=== PATIENT | male | born 1955 | race Caucasian/White ===

== ENCOUNTER 2016-10-08 08:19 | Outpatient (RCR) | payer BC ==
[2016-09-25 10:00] VITALS: BP 108/68
[2016-09-25] MEDS: ERTAPENEM 1 GM/NS 50 ML IVPB IV SCH ×2 (10:19)
[2016-09-25] MEDS: CATHETER FLUSH 10 ML SYR IV PRN (10:19)
[2016-09-25] MEDS: FLUCONAZOLE 100 MG/50 ML 50 ML IV SCH (10:55)
[2016-09-25] MEDS: LEVOFLOXACIN 750 MG/D5W 150 ML PRE-MIX IV SCH (10:57)
[2016-09-26 09:00] VITALS: BP 112/73
[2016-09-26] MEDS: CATHETER FLUSH 10 ML SYR IV PRN ×3 (09:16→11:10)
[2016-09-26] MEDS: LEVOFLOXACIN 750 MG/D5W 150 ML PRE-MIX IV SCH (09:17)
[2016-09-26] MEDS: FLUCONAZOLE 100 MG/50 ML 50 ML IV SCH (09:36)
[2016-09-26] MEDS: ERTAPENEM 1 GM/NS 50 ML IVPB IV SCH ×2 (10:38)
[2016-09-27 09:07] VITALS: BP 113/87
[2016-09-27] MEDS: CATHETER FLUSH 10 ML SYR IV PRN ×3 (09:29→11:25)
[2016-09-27] MEDS: FLUCONAZOLE 100 MG/50 ML 50 ML IV SCH (09:30)
[2016-09-27] MEDS: LEVOFLOXACIN 750 MG/D5W 150 ML PRE-MIX IV SCH (09:30)
[2016-09-27] MEDS: ERTAPENEM 1 GM/NS 50 ML IVPB IV SCH ×2 (10:53)
[2016-09-28] MEDS: CATHETER FLUSH 10 ML SYR IV PRN ×2 (08:55→10:55)
[2016-09-28] MEDS: LEVOFLOXACIN 750 MG/D5W 150 ML PRE-MIX IV SCH (08:56)
[2016-09-28] MEDS: FLUCONAZOLE 100 MG/50 ML 50 ML IV SCH (09:00)
[2016-09-28 09:16] VITALS: BP 111/81
--- NOTE | 2016-09-28 10:13 | Physician Query-Final Dx ---
ANDREINA MANZO 09/28/16 1012: Clinic Account Progress/Dx Physician Query: Please give a dignosis for the IV med treatment thank you Date of Service Sep 28, 2016 at 08:34 ROXIE HERNANDEZ MD 09/28/16 1534: Clinic Account Progress/Dx DIAGNOSIS: Diagnosis perforated sigmoid diverticulitis and multiple intraabdominal abscess formation. ANDREINA MANZO Sep 28, 2016 10:12 ROXIE HERNANDEZ MD Sep 28, 2016 15:34
[2016-09-28] MEDS: ERTAPENEM 1 GM/NS 50 ML IVPB IV SCH ×2 (10:24)
[2016-09-29] MEDS: CATHETER FLUSH 10 ML SYR IV PRN ×2 (08:40→10:15)
[2016-09-29] MEDS: LEVOFLOXACIN 750 MG/D5W 150 ML PRE-MIX IV SCH (08:50)
[2016-09-29 09:00] VITALS: BP 95/74
[2016-09-29] MEDS: FLUCONAZOLE 100 MG/50 ML 50 ML IV SCH (09:07)
[2016-09-29] MEDS: ERTAPENEM 1 GM/NS 50 ML IVPB IV SCH ×2 (09:45)
[2016-09-29 10:23] VITALS: BP 95/74
[2016-09-30] MEDS: ERTAPENEM 1 GM/NS 50 ML IVPB IV SCH ×2 (08:58)
[2016-09-30] MEDS: CATHETER FLUSH 10 ML SYR IV PRN ×2 (09:30→11:00)
[2016-09-30] MEDS: LEVOFLOXACIN 750 MG/D5W 150 ML PRE-MIX IV SCH (09:31)
[2016-09-30] MEDS: FLUCONAZOLE 100 MG/50 ML 50 ML IV SCH (09:32)
[2016-09-30 11:10] VITALS: BP 120/79
[2016-10-01] MEDS: FLUCONAZOLE 100 MG/50 ML 50 ML IV SCH (08:55)
[2016-10-01] MEDS: LEVOFLOXACIN 750 MG/D5W 150 ML PRE-MIX IV SCH (08:55)
[2016-10-01] MEDS: CATHETER FLUSH 10 ML SYR IV PRN (08:55)
[2016-10-01] MEDS: ERTAPENEM 1 GM/NS 50 ML IVPB IV SCH ×2 (10:20)
[2016-10-01 10:54] VITALS: BP 93/78
[2016-10-02] MEDS: CATHETER FLUSH 10 ML SYR IV PRN ×3 (08:57→10:55)
[2016-10-02] MEDS: LEVOFLOXACIN 750 MG/D5W 150 ML PRE-MIX IV SCH (08:57)
[2016-10-02] MEDS: FLUCONAZOLE 100 MG/50 ML 50 ML IV SCH (09:18)
[2016-10-02 09:44] VITALS: BP 108/78
[2016-10-02] MEDS: ERTAPENEM 1 GM/NS 50 ML IVPB IV SCH ×2 (10:25)
[2016-10-03] MEDS: CATHETER FLUSH 10 ML SYR IV PRN ×4 (08:55→10:55)
[2016-10-03] MEDS: LEVOFLOXACIN 750 MG/D5W 150 ML PRE-MIX IV SCH (08:55)
[2016-10-03] MEDS: FLUCONAZOLE 100 MG/50 ML 50 ML IV SCH (09:17)
[2016-10-03] MEDS: ERTAPENEM 1 GM/NS 50 ML IVPB IV SCH ×2 (10:24)
[2016-10-03 11:02] VITALS: BP 111/79
[2016-10-04] MEDS: LEVOFLOXACIN 750 MG/D5W 150 ML PRE-MIX IV SCH (08:39)
[2016-10-04] MEDS: CATHETER FLUSH 10 ML SYR IV PRN ×3 (08:40→10:04)
[2016-10-04] MEDS: FLUCONAZOLE 100 MG/50 ML 50 ML IV SCH (09:02)
[2016-10-04] MEDS: ERTAPENEM 1 GM/NS 50 ML IVPB IV SCH ×2 (10:04)
[2016-10-04 10:36] VITALS: BP 112/73
[2016-10-05] MEDS: LEVOFLOXACIN 750 MG/150 ML IV 150 ML IV SCH (08:29)
[2016-10-05] MEDS: FLUCONAZOLE 100 MG/50 ML 50 ML IV SCH (08:30)
[2016-10-05 08:42] VITALS: BP 118/75
[2016-10-05] MEDS: ERTAPENEM IV SCH (09:50)
[2016-10-05] MEDS: NORMAL SALINE IV SCH (09:50)
[2016-10-06] MEDS: LEVOFLOXACIN 750 MG/150 ML IV 150 ML IV SCH (08:27)
[2016-10-06] MEDS: CATHETER FLUSH 10 ML SYR IV PRN ×4 (08:27→10:30)
[2016-10-06] MEDS: FLUCONAZOLE 100 MG/50 ML 50 ML IV SCH (08:43)
[2016-10-06 08:45] VITALS: BP 118/75
[2016-10-06] MEDS: ERTAPENEM IV SCH (09:58)
[2016-10-06] MEDS: NORMAL SALINE IV SCH (09:58)
[2016-10-07] MEDS: CATHETER FLUSH 10 ML SYR IV PRN ×2 (08:32→10:30)
[2016-10-07] MEDS: LEVOFLOXACIN 750 MG/150 ML IV 150 ML IV SCH (08:40)
[2016-10-07] MEDS: FLUCONAZOLE 100 MG/50 ML 50 ML IV SCH (08:50)
[2016-10-07] MEDS: ERTAPENEM IV SCH (10:00)
[2016-10-07] MEDS: NORMAL SALINE IV SCH (10:00)
[2016-10-07 10:32] VITALS: BP 111/75
[~2016-10-08] VITALS: Ht 182.9 cm; Wt 96.7 kg
[~2016-10-08 08:19] MED LIST: ALBU8.5H2 IH; ALPR1TAB7 PO; ASP81CT PO; ASPI-266 PO; AZIT-21 PO; BREO INH; CEFU500T5 PO; CLOP75TA PO; CLOP75TA28 PO; CLPD75T PO; ERTA1VIA3 IV; ERTAPENEM 1000 MG (INVanz) VIAL ONE; FLUC100P12 IV; FLUT1AER IH; GEMF600T3 PO; HYDR473S34 PO; LEVO750P7 IV; LISI2.5T PO; LISI5TAB14 PO; LORA-407 PO; LOSA25TA21 PO; METO-351 PO; METO25TA PO; METR500T PO; MTP25TSR PO; NORMAL SALINE (BAXTER MINI) 50 ML IV ONE; OXYC-202 PO; PANT40TA2 PO; PRD20T PO; RT-ALBUINH IH; RT-COMBINH INH; SILD100T PO; SIMV20TA3 PO; SMV20T PO; TIOT18CA2 IH; TIOT4MIS2 IH; WALK1EAC23 MC; [UNRECOGNIZED DRUG - REMARK]
[2016-10-08] MEDS ORDERED: NORMAL SALINE (BAXTER MINI) 50 ML IV ONE (08:38)
[2016-10-08] MEDS ORDERED: ERTAPENEM 1000 MG (INVanz) VIAL ONE (08:38)
[2016-10-08] MEDS: ERTAPENEM IV SCH (08:50)
[2016-10-08] MEDS: NORMAL SALINE IV SCH (08:50)
[2016-10-08] MEDS: LEVOFLOXACIN 750 MG/150 ML IV 150 ML IV SCH (09:27)
[2016-10-08] MEDS: FLUCONAZOLE 100 MG/50 ML 50 ML IV SCH (09:29)
[2016-10-08] MEDS: CATHETER FLUSH 10 ML SYR IV PRN (11:00)
[2016-10-08 11:15] VITALS: BP 124/74
[2016-12-01] MEDS ORDERED: ALPR2TAB6 PO (13:18)
[2016-12-01] MEDS ORDERED: PANT40TA3 PO (13:21)
[2016-12-01] MEDS ORDERED: FLUT1AER IH (13:21)
[2016-12-01] MEDS ORDERED: OXYC-197 PO (13:25)
[2016-12-03] MEDS ORDERED: TIOT18CA2 INH (09:10)
[2016-12-03] MEDS ORDERED: METR500T21 PO (09:10)
[2016-12-03] MEDS ORDERED: LEVO750T39 PO (09:10)
[2016-12-03] MEDS ORDERED: OXYC-202 PO (09:16)
[2016-12-03] MEDS ORDERED: ALBU90AE INH (09:16)
[2016-12-09] MEDS ORDERED: OXYC-202 PO (14:31)
== END 2016-12-24 | disposition home or self-care (01) ==
LOC: SDC 08:19
PROVIDERS: ATTEND Surgery Pediatric Surgery
DX: K57.20 Diverticulitis of large intestine with perforation and abscess without bleeding (principal)
CPT/HCPCS: 96365; 96366; 96367; 96374; 99211

== ENCOUNTER → 2016-10-21 | Outpatient (CLI) | payer BC ==
[~2016-10-21] MED LIST changes: +ALBU90AE INH; +ALPR2TAB6 PO; -ERTAPENEM 1000 MG (INVanz) VIAL ONE; +LEVO750T39 PO; +LORA1TAB PO; +METR500T21 PO; -NORMAL SALINE (BAXTER MINI) 50 ML IV ONE; +OXYC-197 PO; +OXYC-465 PO; +PANT40TA3 PO; +SERT50TA9 PO; +TIOT18CA2 INH
--- NOTE | 2016-10-21 16:38 | Diagnostic Imaging Report ---
PROCEDURE: CT abdomen and pelvis without contrast. TECHNIQUE: Multiple contiguous axial images were obtained through the abdomen and pelvis without the use of intravenous contrast. INDICATION: Diverticulitis. FINDINGS: When compared to 09/19/2016, there has been resolution of previously seen large peritoneal fluid collections and abscesses. There is still a drain seen extending into the pelvis with no significant fluid collection remaining. The lung bases demonstrate minimal scarring. The liver, the gallbladder, the spleen, the pancreas, and the adrenal glands appear unremarkable. The kidneys demonstrate no hydronephrosis and no urinary tract stones identified. There are multiple phleboliths noted. The urinary bladder demonstrates mild wall thickening which may relate to cystitis. The abdominal aorta demonstrates ectasia in its distal aspect up to 3 cm in caliber/mild aneurysm. 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 There are diverticula noted around the sigmoid colon with minimal remaining fatty stranding which could represent remaining mild inflammation or nonspecific edema after resolving diverticulitis. The osseous structures appear grossly unremarkable. IMPRESSION: 1. Interval complete resolution of intra-abdominal abscesses. No significant free fluid or fluid collection in the abdomen or pelvis is present at this time. 2. Sigmoid diverticulosis with minimal fatty stranding could relate to mild remaining inflammation or post inflammatory nonspecific edema. 3. Mild urinary bladder wall thickening may relate to cystitis. 4. 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 Dictated by: Dictated on workstation # [id number]
== END ==
LOC: RAD 15:45
PROVIDERS: ATTEND Surgery Pediatric Surgery
DX: K57.30 Diverticulosis of large intestine without perforation or abscess without bleeding (principal)
CPT/HCPCS: 74176

== ENCOUNTER 2016-11-30 13:53 | Outpatient (CLI) | payer BC ==
[~2016-11-30] VITALS: Ht 182.9 cm; Wt 96.7 kg
[~2016-11-30 13:53] MED LIST changes: -ALBU90AE INH; -ALPR2TAB6 PO; -LEVO750T39 PO; -LORA1TAB PO; -METR500T21 PO; -OXYC-197 PO; -OXYC-465 PO; -PANT40TA3 PO; -SERT50TA9 PO; -TIOT18CA2 INH
[2016-11-30] MEDS ORDERED: IOHEXOL 350 MG/ML 100 ML (OMNIPAQUE 350) VIAL IV ONE (14:00)
[2016-11-30] MEDS ORDERED: CATHETER FLUSH 10 ML SYR IV PRN (14:00)
[2016-11-30] MEDS ORDERED: NS 100 ML (IVPB) BAG IV ONE (14:00)
[2016-11-30 14:10] LABS: RED BLOOD COUNT 5.25 10^6/uL (4.35-5.85); RED CELL DISTRIBUTION WIDTH 14.7 % (10.0-14.5); WHITE BLOOD COUNT 9.5 10^3/uL (4.3-11.0)
[2016-11-30 14:30] LABS: ALANINE AMINOTRANSFERASE 12 U/L (0-55); ALBUMIN 4.3 G/DL (3.2-4.5); ANION GAP 11 MMOL/L (5-14); ASPARTATE AMINO TRANSFERASE 16 U/L (5-34); BILIRUBIN,TOTAL 0.8 MG/DL (0.1-1.0); BLOOD UREA NITROGEN 17 MG/DL (7-18); BUN/CREATININE RATIO 21; CALCIUM 9.6 MG/DL (8.5-10.1); CARBON DIOXIDE 23 MMOL/L (21-32); CHLORIDE 102 MMOL/L (98-107); CREATININE SERUM 0.82 MG/DL (0.60-1.30); GFR ESTIMATED > 60; GLUCOSE 101 MG/DL (70-105); POTASSIUM 4.6 MMOL/L (3.6-5.0); SODIUM 136 MMOL/L (135-145); TOTAL PROTEIN 7.4 G/DL (6.4-8.2)
[2016-11-30] MEDS ORDERED: LIDOCAINE 1% INJ 20 ML (XYLOCAINE) VIAL ONE (14:53)
[2016-11-30] MEDS ORDERED: fentaNYL INJECTION 100 MCG/2 ML AMP ONE (14:57)
[2016-11-30 15:11] VITALS: BP 116/74
[2016-11-30] MEDS: fentaNYL INJECTION 100 MCG/2 ML AMP IVP PRN ×2 (15:13→15:27)
[2016-11-30 15:15] VITALS: BP 144/80
[2016-11-30] MEDS ORDERED: LIDOCAINE 1% INJ 20 ML (XYLOCAINE) VIAL INJ ONE (15:15)
[2016-11-30 15:21] VITALS: BP 127/79
[2016-11-30 15:25] VITALS: BP 128/69
[2016-11-30 15:37] VITALS: BP 144/54
[2016-11-30] MEDS ORDERED: CATHETER FLUSH 10 ML SYR IV ONE (16:00)
--- NOTE | 2016-11-30 16:02 | Discharge Instructions ---
Discharge Instructions Home Medicaitons Changes Hold any current blood thinner home medications for [24 hours]. No change otherwise in patient medications ALEXEI GARCIA MD Nov 30, 2016 16:01
--- NOTE | 2016-11-30 16:39 | Diagnostic Imaging Report ---
PROCEDURE: CT abdomen and pelvis with contrast. TECHNIQUE: Multiple contiguous axial images were obtained through the abdomen and pelvis after administration of intravenous contrast. INDICATION: Abdominal pain. CONTRAST: 100 mL of Omnipaque 350 is administered intravenously. FINDINGS: The lung bases demonstrate no significant abnormality. The liver, the spleen, the pancreas, the adrenal glands, and the gallbladder appear unremarkable. The kidneys have symmetric enhancement and contrast excretion. There is no hydronephrosis. Tiny fat-containing umbilical hernia is seen. There are two fluid collections seen in the abdomen with the one in the lower left side measuring 7 x 4 x 10.5 CM. This has two compartments and connected with a thin channel with the upper compartment towards the left side measuring 3.3 x 3.1 cm in the axial dimension. There is another fluid collection along the tract of a prior drain measuring 1.8 x 2 x 7.2 cm with air-fluid levels seen in both of them and enhancing wall compatible with abscesses. The sigmoid colon demonstrates some thickening with minimal surrounding fatty stranding probably related to prior inflammation. No definite active colitis at this time. No bowel obstruction. The abdominal aorta is slightly dilated measuring 2.7 cm in its infrarenal aspect with an aneurysm of the right common iliac artery measuring 1.9 cm in caliber. Mild ectasia of the left common iliac artery is seen. The osseous structures demonstrate mild degenerative changes of the SI joints. IMPRESSION: 1. There are two abscesses in the mid and lower left side of the abdomen. 2. 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 The findings were discussed with . Dictated by: Dictated on workstation # [id number]
[2016-11-30 17:30] VITALS: BP 144/54
--- NOTE | 2016-12-01 11:39 | Diagnostic Imaging Report ---
EXAMINATION: CT-guided drain placement. 2 drains placement in 2 separate abscesses. INDICATION: two abscesses in the mid and lower left side of the abdomen. The patient's vital signs, cardiac rhythm, and pulse oximetry with observed throughout the procedure by qualified nursing personnel. Sedation/medications: fentanyl IV. CONSENT: Informed consent was obtained from the patient. The risks, benefits, potential complications and alternatives were reviewed and all questions answered to the patient's satisfaction. FINDINGS: two abscesses in the mid and lower left side of the abdomen PROCEDURE-1: After maximal sterile barrier preparation and draping, 1% lidocaine was utilized for local anesthesia. With the patient in supine position, anterior approach was selected. A 19-gauge Yueh sheathed needle was introduced utilizing CT guidance into the lower left abdominal collection. CT images confirm appropriate positioning. After standard over a guidewire exchange technique and after serial dilatation, a 10 Guamanian drain is placed and distal loop formed in the collection. A 50 ml of purulent fluid is aspirated and sent to microbiology. PROCEDURE-2:Then attention was turned into the other collection in the mid left abdomen. After maximal sterile barrier preparation and draping, 1% lidocaine was utilized for local anesthesia. With the patient in supine position, anterior approach was selected. A 19-gauge Yueh sheathed needle was introduced utilizing CT guidance into the mid left the abdominal collection. CT images confirm appropriate positioning. After standard over a guidewire exchange technique and after serial dilatation, a 10 Guamanian drain is placed and distal loop formed in the collection. A 10 ml of purulent fluid is aspirated and sent to microbiology. The drainage catheter is connected to suction type draining bag. The patient tolerated the procedure well with no immediate complications. IMPRESSION: 1. Successful CT-guided, 10 Guamanian, drain placement in left lower abdomen abscess. 2. Successful CT-guided, 10 Guamanian, drain placement in left mid abdomen abscess. Dictated by: Dictated on workstation # [id number]
[2016-12-01] MEDS ORDERED: ALPR2TAB6 PO (13:18)
[2016-12-01] MEDS ORDERED: FLUT1AER IH (13:21)
[2016-12-01] MEDS ORDERED: PANT40TA3 PO (13:21)
[2016-12-01] MEDS ORDERED: OXYC-197 PO (13:25)
[2016-12-29] MEDS ORDERED: SERT50TA9 PO (12:13)
== END 2016-11-30 17:30 | disposition home or self-care (01) ==
LOC: RAD 13:53
PROVIDERS: ATTEND Nurse Practitioner Family
DX: K57.20 Diverticulitis of large intestine with perforation and abscess without bleeding (principal)
CPT/HCPCS: 36415; 74177; 80053; 85027; 87070; 87075; 87101; 87186; 87205

== ENCOUNTER 2016-12-01 11:21 | Outpatient (CLI) | payer BC ==
[~2016-12-01] VITALS: Ht 182.9 cm; Wt 96.3 kg
[2016-12-01 11:28] VITALS: BP 123/73
[2016-12-01] MEDS ORDERED: ALPR2TAB6 PO (13:18)
[2016-12-01] MEDS ORDERED: PANT40TA3 PO (13:21)
[2016-12-01] MEDS ORDERED: FLUT1AER IH (13:21)
[2016-12-01] MEDS ORDERED: OXYC-197 PO (13:25)
== END 2016-12-01 11:50 | disposition home or self-care (01) ==
LOC: PREOP 11:21
PROVIDERS: ATTEND Surgery Pediatric Surgery
DX: Z01.818 Encounter for other preprocedural examination (principal); Z11.2 Encounter for screening for other bacterial diseases; K57.20 Diverticulitis of large intestine with perforation and abscess without bleeding
CPT/HCPCS: 87081

== ENCOUNTER 2016-12-02 11:17 | Inpatient (IN) | payer BC ==
[2016-12-02] VITALS (7 sets, daily range): BP systolic 99–149; BP diastolic 67–89
[~2016-12-02] VITALS: Ht 182.9 cm; Wt 94.0 kg
--- NOTE | 2016-12-02 10:06 | HISTORY AND PHYSICAL ---
ATTENDING PHYSICIAN: Dr. Meehan Mr. Sam Trujillo is a 61-year-old male who was admitted on 09/06/2016 for worsening shortness of breath and exacerbation of COPD. He was having copious coughing, as well as a sputum production. He continued to require oxygen and stay in the hospital for continued IV antibiotics. He later developed lower abdominal discomfort. He stated initially he did not have any significant abdominal pain. CT scan was performed which did show a small amount of free air and a slightly elevated white count of 11.9. He was treated conservatively with IV antibiotics; however, continued a leukocytosis, as well as worsening abdominal pain. Repeat CT scan was performed which showed a significant-size abscess. The diverticular abscess and perforation were explained to the patient and need for diversion; however, the patient was adamantly against placement of a colostomy at that time. It was explained to the patient that we would proceed with a trial of drain placement, IV antibiotics, as well as n.p.o. status and TPN. He was in for understanding of the risks and benefits of this process and wished to proceed at that time. On 09/12/2016, the patient underwent diagnostic laparoscopy with irrigation drain placement as well as left subclavian central venous catheter placement. Findings at that time were a phlegmon that involved the sigmoid colon as well as a contained perforation that was walled off by the colon, mesentery as well as the omentum and was Hinchey Class III. He then had another drain placed by interventional radiology for continued abscess, where at that time he was found to have a large left flank fluid collection and there was a drain placed in this area. He was later discharged to home. Since being discharged home, this patient has followed up with us in the office for several weeks as well as finishing several rounds of p.o. antibiotics, as well as a round of outpatient IV antibiotics. The drains were left in place during this time period and he did continue to have purulent stool appearing drainage that also has a foul smell. He did have a repeat CT scan performed at approximately 4 weeks that did show an interval of complete resolution of the intra-abdominal abscess with no significant free air or fluid collection in the abdomen or pelvis present at that time. There was sigmoid diverticulosis with minimal fat stranding, which could be related to minimal remaining inflammation post inflammatory nonspecific edema. He also had the drain removed by interventional radiology at that time; however, the surgical drain was left in place. He then continued to follow-up us with us for several weeks and approximately 2 weeks ago and the surgical drain suture did become loose and the drain did fall out of place. It was unable to hold a suction at that time and it was decided at that time to proceed with removal of the drain and continue with another round of antibiotics and have him follow up in the office. He did follow-up approximately 1 week ago and at that time, reported that he was asymptomatic and was not having any issues with any fever or chills as well as no abdominal pain. Since that time, the patient was seen yesterday on 11/30/2016 where he reported a 3 day history of increasing left lower quadrant abdominal pain as well as fevers and bloated feeling. He denied any diarrhea or constipation, as well as no blood in his stool. He also denies any nausea or vomiting. He reports that he still continued to have a good appetite. PAST MEDICAL HISTORY: 1. COPD. 2. Coronary artery disease. 3. Diverticulitis. 4. Hypertension. 5. High cholesterol. 6. Hyperlipidemia. PAST SURGICAL HISTORY: 1. Left knee arthroscopy. 2. Cardiac catheterization and stent placement. 3. Some form of lung surgery many years ago. 4. Diagnostic laparoscopy with placement of drain, August 2016. ALLERGIES: No known drug allergies. MEDICATIONS: 1. Spiriva 2 puffs daily. 2. Viagra 100 mg daily. 3. Metoprolol 25 mg daily. 4. Losartan 25 mg daily. 5. Gemfibrozil 600 mg daily. 6. Breo Ellipta 100/25 mcg 1 puff daily. 7. Aspirin 81 mg daily. 8. Albuterol 2 puffs q.4 hours p.r.n. SOCIAL HISTORY: Previous smoker 70 pack-years quit 2011, rare for alcohol. FAMILY HISTORY: Noncontributory. VITAL SIGNS: Blood pressure is 120/70. Current weight is 212.6 pounds at 6' 0". REVIEW OF SYSTEMS: Well-nourished male in no acute distress. He is not experiencing any shortness of breath or difficulty breathing. No chest pain, palpitations, or diaphoresis. No nausea or vomiting. He does report left lower quadrant abdominal pain. No diarrhea or constipation. No red blood per rectum. No dark tarry stools. He does report a 3 day history of intermittent fevers. No recent inadvertent weight loss. PHYSICAL EXAM: CHEST: Few scattered rales and rhonchi bilaterally. HEART: Regular. EXTREMITIES: No lower extremity edema. Negative Homans sign. HEENT: No scleral icterus. No cervical adenopathy. ABDOMEN: Is soft. There is some mild distention of the abdomen as well as tenderness with moderate palpation in the left lower abdominal quadrant. ASSESSMENT AND PLAN: A 61-year-old male with continued perforated diverticulitis with recurrent abscess. At this time it was discussed with the patient about proceeding with a CT scan with percutaneous drain placement. He was also instructed that he would need to continue him on his p.o. antibiotics at this time. We will also obtain a CBC as well as CMP to check for any abnormalities in his lab work. It was discussed with the patient that due to his symptoms, we would need to proceed with a laparoscopic low anterior sigmoid colon resection with end colostomy and Diallo's pouch as well as central line placement. It was discussed with the patient that we would need to resect the portion of the sigmoid colon that continues to not resolve, but then will allow the rest of the sigmoid colon time to heal with end colostomy and would most likely proceed with reversal of end colostomy in 6 to 8 weeks. The risk and benefits of the procedure as well as the procedure and home care instructions were explained to the patient. The patient verbalized understanding of instructions and was in agreement with the plan at this time. At this time, we will proceed with a CT scan of the abdomen and pelvis, as well as a percutaneous drain placed by interventional radiology, as well as a CBC and CMP. We will then also proceed with scheduling the patient for a central line placement, as well as a laparoscopic low anterior sigmoid colon resection with end colostomy and Diallo's pouch. Job ID: [id number] Dictated Date: 12/01/2016 10:26:42 Professor Of Management Date: 12/02/2016 09:34:29/prachi
[~2016-12-02 11:17] MED LIST changes: +ALPR2TAB6 PO; +OXYC-197 PO; +PANT40TA3 PO
--- OUTSIDE RECORDS SUMMARY | 2016-12-02 11:21 | XMS REPORT | Continuity of Care Document ---
Author Author [facility] Organization [facility] Address Unknown Phone Unavailable Care Team Providers Care Scaffold Builder Name Role Phone BRADFORD RICO DO PCP Insurance Providers Payer Name Policy Number Subscriber Name Relationship [facility] [id number] Ariadna Aden 20 Self / Same As Patient Advance Directives Directive Response Recorded Date/Time Advance Directives No 12/01/16 11:32am Health Care Power of Telephone Lineman No 12/01/16 11:32am Organ Donor No 12/01/16 11:32am Resuscitation Status Full Code 12/01/16 11:32am Problems Active Problems Medical Problem Onset Date Status Acute bronchitis Unknown Acute Bronchitis Unknown Acute Bronchitis Unknown Acute CAD (coronary artery disease) 09/10/2014 Acute COPD exacerbation Unknown Acute COPD exacerbation Unknown Acute COPD with hypoxia Unknown Acute Gait abnormality Unknown Acute Hyperlipidemia 09/10/2014 Acute LIMITATION OF ACTIVITIES DUE TO DISABILITY Unknown Acute Pneumonia Unknown Acute Respiratory failure Unknown Acute Severe sepsis Unknown Acute Weak Unknown Acute Medications Current Home Medications Medication Dose Units Route Directions Days/Qty Instructions Start Date Aspirin 81 Mg 81 Mg Oral Bedtime 09/10/14 Clopidogrel Bisulfate 75 Mg 75 Mg Oral Daily 09/06/16 Metoprolol Succinate 25 Mg 25 Mg Oral Daily 09/06/16 Gemfibrozil 600 Mg 600 Mg Oral Daily 09/06/16 Losartan Potassium 25 Mg 25 Mg Oral Daily 09/06/16 Albuterol Sulfate 8.5 Gm 2 Puff Inhalation Every 4HRS as needed for Shortness Of Breath 09/06/16 Tiotropium [place] 4 Gm 1 Puff Inhalation Daily 09/06/16 Sildenafil Citrate 100 Mg 100 Mg Oral As Directed as needed for Sexual Activity 09/06/16 Alprazolam 2 Mg 2 Mg Oral Twice A Day as needed for Anxiety 12/01/16 Fluticasone/Vilanterol 1 Each 1 Each Inhalation Daily 12/01/16 Pantoprazole Sodium 40 Mg 40 Mg Oral Daily 12/01/16 Oxycodone Hcl/Acetaminophen 1 Each 1 Each Oral Every 6 Hours as needed for Pain 12/01/16 Past Home Medications Medication Directions Ordered Status [No Reported Home ] , 12/12/13 Discontinued Albuterol/Ipratropium 1 Puff Puff, 2 Puff Inhalation Respiratory Every Six Hours 12/14/13 Discontinued Aspirin 81 Mg Chew, 81 Mg Oral Daily@0900 12/14/13 Discontinued Clopidogrel Bisulfate 75 Mg Tab, 75 Mg Oral Daily 12/14/13 Discontinued [[id number]] (Lisinopril 5MG) , 2.5 Mg Oral Daily@0900 12/14/13 Discontinued Metoprolol Succinate (Metoprolol Er 25MG) 25 Mg Tab, 25 Mg Oral Daily Discontinued Simvastatin 20 Mg Tab, 20 Mg Oral Bedtime 12/14/13 Discontinued Clopidogrel Bisulfate 75 Mg Tablet, 75 Mg Oral Daily 09/10/14 Discontinued Lisinopril 2.5 Mg Tablet, 2.5 Mg Oral Daily 09/10/14 Discontinued Metoprolol Succinate (Toprol Xl) 25 Mg Tab.sr.24h, 25 Ng Oral Daily 09/10/14 Discontinued [Breo] , 1 Puff Inhalation Daily 09/10/14 Discontinued Tiotropium [place] 1 Inh Aerp, 1 Cap Inhalation Daily 09/10/14 Discontinued Simvastatin 20 Mg Tablet, 20 Mg Oral Daily 09/10/14 Discontinued Albuterol Sulfate 8.5 Gm Aer.w.adap, 8.5 Gm Inhalation Every 4HRS 01/20/15 Discontinued Metoprolol Succinate 25 Mg Tab, 25 Mg Oral Daily 01/20/15 Discontinued Azithromycin (Zpak) 250 Mg Tab, 1 Tab Oral Daily 01/20/15 Discontinued Cefuroxime Axetil (Ceftin) 500 Mg Tablet, 1 Each Oral Twice A Day 01/20/15 Discontinued Prednisone 20 Mg Tab, Oral As Directed 09/06/16 Discontinued Hydrocodone/Chlorphen P-Stirex 473 Ml Rowan.er.12h, 5 Ml Oral Every 12 Hours as needed for Cough 09/06/16 Discontinued Fluticasone/Vilanterol 1 Each Blst.w.dev, 1 Puff Inhalation Daily 09/06/16 Discontinued Alprazolam 1 Mg Tablet, 1 Mg Oral Daily as needed for Anxiety 09/06/16 Discontinued Oxycodone Hcl/Acetaminophen 1 Each Tablet, 1 Each Oral Every 6 Hours Discontinued Lorazepam 2 Mg Tablet, 2 Mg Oral Every 6 Hours 09/23/16 Discontinued Metronidazole 500 Mg Tablet, 500 Mg Oral Three Times A Day 09/23/16 Discontinued Pantoprazole Sodium 40 Mg Tablet.dr, 40 Mg Oral Daily 09/23/16 Discontinued Ertapenem Sodium 1 Gm Vial.port, 1 Gm Intraven Daily 09/24/16 Discontinued Levofloxacin/D5w 750 Mg/150 Ml Piggyback, 750 Mg Intraven Daily 09/24/16 Discontinued Fluconazole In Nacl,Iso-Osm 100 Mg/50 Ml Piggyback, 100 Mg Intraven Daily 07/02 Discontinued Social History Social History Problem Response Recorded Date/Time Alcohol Use Denies Use 01/20/2015 10:14am Recreational Drug Use No 01/20/2015 10:14am Recent Foreign Travel No 12/12/2013 6:15am Recent Infectious Disease Exposure No 12/12/2013 6:15am Hospitalization with Isolation Denies 12/14/2013 11:13am Sexually Transmitted Disease No 12/01/2016 11:30am HIV/AIDS No 12/01/2016 11:30am Smoking Status Former Smoker 12/01/2016 11:30am Type Used Cigarettes 12/01/2016 11:30am Recent Hopitalizations Yes 12/01/2016 11:30am Sexually Transmitted Disease No 12/01/2016 11:30am Hospitalization with Isolation Denies 12/14/2013 11:13am Query Response Start Date Stop Date Smoking Status Former Smoker Hospital Discharge Instructions No hospital discharge instructions. Plan of Care Discharge Date 12/01/16 11:50am Prescriptions See Medication Section Functional Status No functional status results. Allergies, Adverse Reactions, Alerts No known allergies. Immunizations No immunization records. Vital Signs Acute Vital Signs Vital Response Date/Time Pulse Rate (adult) 107 bpm (60 - 90) 12/01/2016 11:28am Respiratory Rate 18 bpm (12 - 24) 11/30/2016 5:30pm O2 Sat by Pulse Oximetry 95 % (88 - 100) 12/01/2016 11:28am Blood Pressure 123/73 mm Hg 12/01/2016 11:28am Blood Pressure Mean 90 mm Hg 12/01/2016 11:28am Pain Numeric Pain Scale 6 12/01/2016 11:28am Height (Feet) 6 feet 12/01/2016 11:26am Height (Inches) 0.00 inches 12/01/2016 11:26am Height (Calculated Centimeters) 182.016684 cm 12/01/2016 11:26am Weight (Pounds) 212 pounds 12/01/2016 11:26am Weight (Ounces) 6.0 oz 12/01/2016 11:26am Weight (Calculated Grams) 73386.68 gm 12/01/2016 11:26am Weight (Calculated Kilograms) 96.527925 kilograms 12/01/2016 11:26am Calculated BMI 28.8 12/01/2016 11:26am Results Laboratory Results Test Name Result Units Flags Reference Collection Date/Time Result Date/ Time Comments White Blood Count 9.5 10^3/uL 4.3-11.0 11/30/2016 2:06pm 11/30/2016 2: 10pm Red Blood Count 5.25 10^6/uL 4.35-5.85 11/30/2016 2:06pm 11/30/2016 2: 10pm Hemoglobin 15.0 G/DL 13.3-17.7 11/30/2016 2:06pm 11/30/2016 2:10pm Hematocrit 44 % 40-54 11/30/2016 2:06pm 11/30/2016 2:10pm Mean Corpuscular Volume 84 FL 80-99 11/30/2016 2:06pm 11/30/2016 2: 10pm Mean Corpuscular Hemoglobin 29 PG 25-34 11/30/2016 2:06pm 11/30/2016 2: 10pm Mean Corpuscular Hemoglobin Concent 34 G/DL 32-36 11/30/2016 2:06pm 2:10pm Red Cell Distribution Width 14.7 % H 10.0-14.5 11/30/2016 2:06pm 2016 2:10pm Platelet Count 307 10^3/uL 130-400 11/30/2016 2:06pm 11/30/2016 2:10pm Mean Platelet Volume 10.0 FL 7.4-10.4 11/30/2016 2:06pm 11/30/2016 2: 10pm Sodium Level 136 MMOL/L 135-145 11/30/2016 2:06pm 11/30/2016 2:35pm Potassium Level 4.6 MMOL/L 3.6-5.0 11/30/2016 2:06pm 11/30/2016 2:35pm Chloride Level 102 MMOL/L 98-107 11/30/2016 2:06pm 11/30/2016 2:35pm Carbon Dioxide Level 23 MMOL/L 21-32 11/30/2016 2:06pm 11/30/2016 2: 35pm Anion Gap 11 MMOL/L 5-14 11/30/2016 2:06pm 11/30/2016 2:35pm Blood Urea Nitrogen 17 MG/DL 7-18 11/30/2016 2:06pm 11/30/2016 2:35pm Creatinine 0.82 MG/DL 0.60-1.30 11/30/2016 2:06pm 11/30/2016 2:35pm BUN/Creatinine Ratio 21 11/30/2016 2:06pm 11/30/2016 2:35pm Estimat Glomerular Filtration Rate > 60 11/30/2016 2:06pm 2016 2:35pm GFR INTERPRETIVE DATA UNITS FOR ESTIMATED GFR (eGFR): mL/min/1.73 M2 REFERENCE RANGE FOR ESTIMATED GFR (eGFR) eGFR NORMAL eGFR >60 MODERATELY DECREASED eGFR 30-59 SEVERLY DECREASED eGFR 15-29 KIDNEY FAILURE <15 (OR DIALYSIS) Glucose Level 101 MG/DL 70-105 11/30/2016 2:06pm 11/30/2016 2:35pm Calcium Level 9.6 MG/DL 8.5-10.1 11/30/2016 2:06pm 11/30/2016 2:35pm Total Bilirubin 0.8 MG/DL 0.1-1.0 11/30/2016 2:06pm 11/30/2016 2:35pm Alkaline Phosphatase 68 U/L 40-136 11/30/2016 2:06pm 11/30/2016 2:35pm Aspartate Amino Transf (AST/SGOT) 16 U/L 5-34 11/30/2016 2:06pm 2016 2:35pm Alanine Aminotransferase (ALT/SGPT) 12 U/L 0-55 11/30/2016 2:06pm 11/30 2:35pm Total Protein 7.4 G/DL 6.4-8.2 11/30/2016 2:06pm 11/30/2016 2:35pm Albumin 4.3 G/DL 3.2-4.5 11/30/2016 2:06pm 11/30/2016 2:35pm Procedures No known history of procedures. Encounters Encounter Location Arrival/Admit Date Discharge/Depart Date Attending Provider Departed Clinic [facility] 12/01/16 11:21am 12/01/16 11: 50am ROXIE HERNANDEZ MD Departed Clinic [facility] 11/30/16 1:53pm 11/30/16 5: 30pm RAFIQ JOLLY APRN
[2016-12-02] MEDS ORDERED: LACTATED RINGERS 1,000 ML IV ONE ×3 (11:41→16:13)
[2016-12-02] MEDS ORDERED: LIDOCAINE PF 2% 10 ML (XYLOCAINE) AMP ONE (11:41)
[2016-12-02] MEDS ORDERED: ROCURONIUM 50 MG/5 ML (ZEMURON) VIAL IV ONE ×3 (11:41→15:18)
[2016-12-02] MEDS ORDERED: MIDAZOLAM 2 MG/2 ML (VERSED) VIAL ONE (11:41)
[2016-12-02] MEDS ORDERED: fentaNYL INJECTION 250 MCG/5 ML AMP ONE ×2 (11:41→14:51)
[2016-12-02] MEDS ORDERED: SEVOFLURANE (ULTANE) 15 ML INHAL SOLN ONE ×5 (11:41→16:22)
[2016-12-02] MEDS ORDERED: ONDANSETRON 4 MG/2 ML (SDV) Z0FRAN ONE ×2 (11:41→16:15)
[2016-12-02] MEDS ORDERED: proPOfol 200 MG/20 ML (DIPRIVAN) VIAL IV ONE (11:41)
--- NOTE | 2016-12-02 11:42 | Progress Note-Pre Operative ---
Pre-Operative Progress Note H&P Reviewed The H&P was reviewed, patient examined and no changes noted. Date H&P Reviewed: Dec 02, 2016 Time H&P Reviewed: 11:40 Pre-Operative Diagnosis: perforated sigmoid diverticulitis with persistent abscess. ROXIE HERNANDEZ MD Dec 02, 2016 11:42 am
[2016-12-02] MEDS ORDERED: ceFAZolin 1 GM/NS 50 ML IVPB IV ONE ×2 (11:45)
[2016-12-02] MEDS ORDERED: BUP/EPI 0.5% 1:200,000 (SENSORCAINE) 30 ML VIAL ONE (11:58)
[2016-12-02] MEDS ORDERED: NS (IVPB) 50 ML ONE (12:13)
[2016-12-02] MEDS ORDERED: ceFAZolin 1,000 MG (ANCEF) VIAL ONE ×2 (12:13→16:27)
[2016-12-02] MEDS ORDERED: HEParin (CENTRAL IV FLUSH) 500 UNIT/5 ML SYR ONE (12:40)
[2016-12-02] MEDS ORDERED: PHENYLEPHRINE 100 MCG/ML 10 ML (ANESTHESIA) SYR ONE (12:42)
[2016-12-02] MEDS ORDERED: DEXAMETHASONE PF 10 MG/ML (DECADRON) VIAL ONE (13:37)
[2016-12-02] MEDS ORDERED: ESMOLOL 100 MG/10 ML (BREVIBLOC) VIAL ONE (13:45)
[2016-12-02] MEDS ORDERED: LACTATED RINGERS 1,000 ML IV SCH (13:45)
[2016-12-02] MEDS ORDERED: meTOprolol 5 MG/5 ML (LOPRESSOR) VIAL ONE ×2 (14:17→14:41)
[2016-12-02] MEDS ORDERED: NEOSTIGMINE (BLOXIVERZ ) 1 MG/1ML 10 ML VIAL ONE (16:01)
[2016-12-02] MEDS ORDERED: GLYCOPYRROLATE 0.2 MG/ML (ROBINUL) 2 ML VIAL ONE (16:01)
[2016-12-02] MEDS ORDERED: LACTATED RINGERS 0 ML IV ONE (16:12)
[2016-12-02] MEDS ORDERED: NS IV 1000 ML 1,000 ML ONE (16:12)
[2016-12-02] MEDS ORDERED: MEPERIDINE (DEMEROL) INJ 50 MG/ML ONE (16:13)
--- NOTE | 2016-12-02 16:13 | Progress Note-Post Operative ---
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 Post-Operative Diagnosis same Post-Op Procedure Note Date of Procedure: Dec 02, 2016 Name of Procedure: laparoscopic low anterior sigmoid colon resection, end colostomy, crow's pouch, left subclavian central venous catheter placement Anesthesia Type GET Estimated blood loss (mL): 850ml Specimen(s) collected sigmoid colon ROXIE HERNANDEZ MD Dec 02, 2016 4:13 pm
[2016-12-02] MEDS ORDERED: HYDROmorphone (DILAUDID) 2 MG/ML VIAL ONE (16:14)
[2016-12-02] MEDS ORDERED: morphine INJ 10 MG/ML 1ML (SYR OR VIAL) ONE (16:14)
[2016-12-02] MEDS ORDERED: metroNIDAZOLE 500MG/100ML IVPB 100 ML ONE (16:27)
[2016-12-02] MEDS ORDERED: HYDROmorphone (DILAUDID) 2 MG/ML VIAL IVP PRN ×2 (16:30→17:15)
[2016-12-02] MEDS ORDERED: metroNIDAZOLE 500MG/100ML IVPB 100 ML IV SCH (16:30)
[2016-12-02] MEDS ORDERED: ceFAZolin 2 GM/50 ML NS 50 ML IV ONE (16:30)
[2016-12-02] MEDS ORDERED: metroNIDAZOLE 500MG/100ML IVPB 100 ML IV ONE (16:30)
[2016-12-02] MEDS ORDERED: diphenhydrAMINE 50 MG/ML INJ (BENADRYL) IVP PRN (16:30)
[2016-12-02] MEDS ORDERED: LORazepam INJ 2 MG/ML (ATIVAN) VIAL IVP PRN (16:30)
[2016-12-02] MEDS: morphine INJ 10 MG/ML 1ML (SYR OR VIAL) IVP PRN ×2 (17:08→17:14)
[2016-12-02] MEDS ORDERED: MEPERIDINE (DEMEROL) INJ 50 MG/ML IVP PRN (17:15)
[2016-12-02] MEDS ORDERED: ONDANSETRON 4 MG/2 ML (SDV) Z0FRAN IVP PRN (17:15)
--- NOTE | 2016-12-02 17:24 | Diagnostic Imaging Report ---
INDICATION: Postop central line placement. COMPARISON: 09/24/16. EXAMINATION: Single view of the chest was obtained. FINDINGS: COPD. Otherwise, lungs are clear. Left subclavian central venous catheter is seen in the SVC. There is no pneumothorax. NG tube is in the stomach. IMPRESSION: Well-positioned left central venous catheter without pneumothorax. Dictated by: Dictated on workstation # [id number]
[2016-12-02] MEDS: LACTATED RINGERS 1,000 ML IV SCH ×2 (18:14→23:02)
[2016-12-02] MEDS: HYDROmorphone (DILAUDID) 2 MG/ML VIAL IVP PRN ×2 (18:54→20:48)
[2016-12-02] MEDS: meTOprolol 5 MG/5 ML (LOPRESSOR) VIAL IVP SCH ×2 (20:00→22:40)
[2016-12-02] MEDS ORDERED: ceFAZolin 2 GM/50 ML NS 50 ML IV SCH (20:00)
[2016-12-02] MEDS ORDERED: ENOXAPARIN 30 MG/0.3 ML (LOVENOX) SYR SC SCH (21:00)
[2016-12-02] MEDS ORDERED: PANTOPRAZOLE 40 MG/10 ML (PROTONIX) VIAL IV SCH (21:00)
[2016-12-03] VITALS (11 sets, daily range): BP systolic 83–133; BP diastolic 38–83
[2016-12-03] MEDS ORDERED: meTOprolol 5 MG/5 ML (LOPRESSOR) VIAL IV ONE (00:15)
[2016-12-03] MEDS: metroNIDAZOLE 500MG/100ML IVPB 100 ML IV SCH ×3 (00:52→17:43)
[2016-12-03] MEDS: LACTATED RINGERS 1,000 ML IV SCH ×3 (00:59→17:50)
[2016-12-03] MEDS ORDERED: NALOXONE 0.4 MG/ML 1 ML (NARCAN) VIAL ONE (01:01)
[2016-12-03] MEDS: ceFAZolin 2 GM/50 ML NS 50 ML IV SCH ×3 (01:24→17:43)
[2016-12-03] MEDS ORDERED: NALOXONE 0.4 MG/ML 1 ML (NARCAN) VIAL IV ONE (01:30)
[2016-12-03] MEDS ORDERED: NS IV 1000 ML 1,000 ML ONE (01:59)
[2016-12-03 02:19] LABS: BASOPHILS % (AUTO) 0 % (0-10); EOSINOPHILS % (AUTO) 0 % (0-10); LYMPHOCYTES # (AUTO) 0.4 X 10^3 (1.0-4.0); LYMPHOCYTES % (AUTO) 2 % (12-44); MEAN CORPUSCULAR HEMOGLOBIN 29 PG (25-34); MEAN CORPUSCULAR HGB CONC 33 G/DL (32-36); MEAN CORPUSCULAR VOLUME 87 FL (80-99); MEAN PLATELET VOLUME 9.8 FL (7.4-10.4); MONOCYTES # (AUTO) 1.7 X 10^3 (0.0-1.0); MONOCYTES % (AUTO) 9 % (0-12); NEUTROPHILS # (AUTO) 18.4 X 10^3 (1.8-7.8); NEUTROPHILS % (AUTO) 90 % (42-75); PLATELET COUNT 349 10^3/uL (130-400); RED BLOOD COUNT 3.91 10^6/uL (4.35-5.85); WHITE BLOOD COUNT 20.6 10^3/uL (4.3-11.0)
[2016-12-03] MEDS ORDERED: NS IV 1000 ML 1,000 ML IV ONE ×2 (02:30→05:30)
[2016-12-03 02:35] LABS: ALBUMIN 3.3 G/DL (3.2-4.5); ANION GAP 12 MMOL/L (5-14); BLOOD UREA NITROGEN 18 MG/DL (7-18); BUN/CREATININE RATIO 18; CARBON DIOXIDE 23 MMOL/L (21-32); CHLORIDE 100 MMOL/L (98-107); GFR ESTIMATED > 60; GLUCOSE 206 MG/DL (70-105); MAGNESIUM 2.1 MG/DL (1.8-2.4); PHOSPHORUS 5.2 MG/DL (2.3-4.7); SODIUM 135 MMOL/L (135-145)
[2016-12-03 02:42] LABS: ANISOCYTOSIS SLIGHT; BAND NEUTROPHILS 9 %; BASOPHILS % (MANUAL) 0 %; EOSINOPHILS % (MANUAL) 0 %; LYMPHOCYTES % (MANUAL) 1 %; NEUTROPHILS % (MANUAL) 82 %
[2016-12-03 02:43] LABS: TROPONIN I < 0.30 NG/ML (<0.30)
[2016-12-03 02:46] LABS: POTASSIUM 6.8 MMOL/L (3.6-5.0)
[2016-12-03] MEDS: meTOprolol 5 MG/5 ML (LOPRESSOR) VIAL IVP SCH ×5 (04:00→20:37)
[2016-12-03] MEDS ORDERED: KETOROLAC 30 MG/ML VIAL ONE (05:13)
[2016-12-03] MEDS ORDERED: KETOROLAC 30 MG/ML VIAL IV ONE (05:30)
[2016-12-03] MEDS ORDERED: POTASSIUM CL 10MEQ/50ML IVPB 50 ML IV SCH (06:00)
[2016-12-03] MEDS ORDERED: MAGNESIUM 1 GM/100 ML IVPB 100 ML IV SCH (06:00)
[2016-12-03] MEDS ORDERED: KCL 20 MEQ TAB (K-DUR) PO SCH (06:00)
[2016-12-03] MEDS: RT-ALBUTEROL SULF 2.5 MG/3 ML PRE-MIX VIAL INH SCH ×6 (07:02→22:07)
[2016-12-03] MEDS: fentaNYL INJECTION 100 MCG/2 ML AMP IV PRN ×8 (08:41→20:28)
[2016-12-03] MEDS ORDERED: TIOT18CA2 INH (09:10)
[2016-12-03] MEDS ORDERED: LEVO750T39 PO (09:10)
[2016-12-03] MEDS ORDERED: METR500T21 PO (09:10)
[2016-12-03] MEDS ORDERED: OXYC-202 PO (09:16)
[2016-12-03] MEDS ORDERED: ALBU90AE INH (09:16)
[2016-12-03] MEDS: ENOXAPARIN 30 MG/0.3 ML (LOVENOX) SYR SC SCH ×2 (09:17→20:27)
[2016-12-03] MEDS: PANTOPRAZOLE 40 MG/10 ML (PROTONIX) VIAL IV SCH ×2 (09:17→20:27)
--- NOTE | 2016-12-03 09:48 | Anesthesia-General Post-Op ---
General Patient Condition Mental Status/LOC: Same as Preop Cardiovascular: Satisfactory Nausea/Vomiting: Absent Respiratory: Satisfactory Pain: Controlled Complications: Absent Post Op Complications Complications None Follow Up Care/Instructions Patient Instructions None needed. Anesthesia/Patient Condition Patient Condition Patient is doing well, no complaints, stable vital signs, no apparent adverse anesthesia problems. No complications reported per nursing. D/C home per [facility] Criteria: No [place] MAY CRNA Dec 03, 2016 09:48
--- NOTE | 2016-12-03 10:58 | Progress Note (SOAP) ---
Subjective Subjective/Events-last exam doing well. pain controlled. no nausea. liquid colostomy output. no SOB Objective Exam Vital Signs Date Time Temp Pulse Resp B/P Pulse Ox O2 Delivery O2 Flow Rate FiO2 12/03/16 10:22 3.00 12/03/16 07:05 3.00 96 12/03/16 06:00 96 14 92/61 100 Nasal Cannula 4.00 12/03/16 05:00 105 14 96/67 98 Nasal Cannula 4.00 12/03/16 04:00 104 14 93/62 99 Nasal Cannula 4.00 12/03/16 04:00 98.6 12/03/16 04:00 97 Simple Mask 6.00 12/03/16 03:00 109 13 98/65 99 Nasal Cannula 4.00 12/03/16 02:00 107 16 87/55 100 Nasal Cannula 4.00 12/03/16 01:00 128 12/03/16 01:00 129 19 83/59 97 Nasal Cannula 4.00 12/03/16 00:00 97 Simple Mask 6.00 12/03/16 00:00 97.1 12/03/16 00:00 141 12 133/83 96 Nasal Cannula 4.00 12/02/16 23:00 128 13 133/88 97 Nasal Cannula 4.00 12/02/16 22:00 130 19 149/89 97 Nasal Cannula 4.00 12/02/16 21:00 106 26 124/74 95 Nasal Cannula 4.00 12/02/16 20:00 107 14 110/74 94 Nasal Cannula 4.00 12/02/16 20:00 97 Nasal Cannula 4.00 12/02/16 20:00 97.4 12/02/16 19:00 104 12/02/16 19:00 105 14 104/67 90 Nasal Cannula 4.00 12/02/16 18:30 105 12 99/77 95 Nasal Cannula 4.00 12/02/16 17:30 98.5 102 11 108/75 100 Nasal Cannula 3.00 12/02/16 17:30 Nasal Cannula 3.00 I & O 12/03/16 07:00 Intake Total 4200 ml Output Total 1220 ml Balance 2980 ml Capillary Refill : General Appearance: No Apparent Distress HEENT: PERRL/EOMI Neck: Full Range of Motion Respiratory: Decreased Breath Sounds Rhonci Cardiovascular: Regular Rate, Rhythm Gastrointestinal: soft other (inc clean/dry, ostomy pink/viable) Extremity: Normal Capillary Refill Neurologic/Psychiatric: Alert Oriented x3 Skin: Normal Color Lymphatic: No Adenopathy Results Lab Laboratory Tests 12/03/16 00:54: Glucometer 197H 12/03/16 02:09: Albumin 3.3, Anion Gap 12, Anisocytosis SLIGHT, BUN/Creatinine Ratio 18, Band Neutrophils 9, Basophils # (Auto) 0.0, Basophils % (Manual) 0, Basophils (%) ( Auto) 0, Blood Urea Nitrogen 18, Calcium Level 8.0L, Carbon Dioxide Level 23, Chloride Level 100, Creatinine 1.00, Eosinophils # (Auto) 0.0, Eosinophils % ( Manual) 0, Eosinophils (%) (Auto) 0, Estimat Glomerular Filtration Rate > 60, Glucose Level 206H, Hematocrit 34L, Hemoglobin 11.2#L, Lactic Acid Level 1.8, Lymphocytes # (Auto) 0.4L, Lymphocytes % (Manual) 1, Lymphocytes (%) (Auto) 2L, Magnesium Level 2.1, Mean Corpuscular Hemoglobin 29, Mean Corpuscular Hemoglobin Concent 33, Mean Corpuscular Volume 87, Mean Platelet Volume 9.8, Monocytes # (Auto) 1.7H, Monocytes % (Manual) 8, Monocytes (%) (Auto) 9, Neutrophils # (Auto) 18.4H, Neutrophils % (Manual) 82, Neutrophils (%) (Auto) 90H, Phosphorus Level 5.2H, Platelet Count 349, Potassium Level 6.8*H, Red Blood Count 3.91L, Red Cell Distribution Width 14.0, Sodium Level 135, Troponin I < 0.30, White Blood Count 20.6H 12/03/16 03:21: Potassium Level 5.3H Assessment/Plan Assessment/Plan Assess & Plan/Chief Complaint s/p laparoscopic LAR with end colostomy and crow's pouch. ambulate. d/c middleton and NGT and await more ostomy fxn. transfer to floor. Diagnosis/Problems: Clinical Quality Measures DVT/VTE Risk/Contraindication: Risk Factor Score Per Nursin RFS Level Per Nursing on Admit: 2=Moderate ROXIE HERNANDEZ MD Dec 03, 2016 10:58
[2016-12-03] MEDS ORDERED: ALBUTEROL SULFATE INH PRN (13:45)
[2016-12-03] MEDS ORDERED: LORazepam INJ 2 MG/ML (ATIVAN) VIAL IVP PRN (13:45)
[2016-12-03] MEDS ORDERED: NON-FORMULARY MEDICATION 1 EA EA (Alprazolam 2 MG) PO PRN (13:45)
[2016-12-03] MEDS: ALPRAZolam 1 MG (XANAX) TAB PO SCH ×2 (13:50→20:27)
[2016-12-03] MEDS ORDERED: RT-ALBUTEROL SULF 2.5 MG/3 ML PRE-MIX VIAL INH PRN (14:00)
[2016-12-03] MEDS ORDERED: ALPRAZolam 1 MG (XANAX) TAB PO PRN (14:00)
--- NOTE | 2016-12-03 14:48 | Consultation-Cardiology ---
HPI-Cardiology Cardiology Consultation: Date of Consultation 12/03/16 Date of Admission Attending Physician Chelsea North MD Admitting Physician Anna Marie Gavin DO Consulting Physician NOE KIM MD, FACP, FACC, FSCAI, CCDS HPI: Chief Complaint: Reason for consultation: Cardiac comanagement 61 yo man with multiple comorbidities and chronic abd pain, awaiting abd abscess surgery. Denies cp or palp or syncope. Has chronic exertional shortness of breath. No recent ankle swelling. Notes gen malaise Review of Systems-Cardiology Review of Systems Constitutional: malaiseNo weight loss, No weight gain Eyes: No vision change Ears/Nose/Throat: No ear discharge, No nasal drainage, No recent hearing loss Respiratory: As described under HPI Cardiovascular: As described under HPI Gastrointestinal: As described under HPI Genitourinary: No dysuria, No hematuria Musculoskeletal: back pain (chornic) Skin: No rash, No ulcerations Psychiatric/Neurological: No focal weakness, No seizure, No syncope Hematologic: No bleeding abnormalities ASC-Jgajko-Hvomqj Hx Patient Social History Alcohol Use: Denies Use Recreational Drug Use: No Smoking Status: Former Smoker Type Used: Cigarettes Recent Foreign Travel: No Recent Infectious Disease Expo: No Physical Abuse Screen: No Sexual Abuse: No Immunizations Up To Date Tetanus Booster (TDap): Less than 5yrs Date of Pneumonia Vaccine: Jun 20, 2012 Date of Influenza Vaccine: Aug 17, 2016 Past Medical History PMH As described under Assessment. Family Medical History Family History: Cancer 09 SISTER, Onset:Unknown Family history: Alzheimer's disease 09 BROTHER, Onset:Unknown Prostate cancer 03 FATHER, Onset:60 years & older Stroke 03 FATHER, Onset:60 years & older No Family History of: Abdominal aortic aneurysm [place]'s disease Alcoholism Aphasia Cancer of colon Cataract Chest pain Congenital heart disease Congestive heart failure Cystic fibrosis Dementia Dysphagia Family history: Allergy Family history: Arthritis Family history: Asthma Family history: Breast disease Family history: Cardiovascular disease Family history: Coronary thrombosis Family history: Diabetes mellitus Family history: Gastrointestinal disease Family history: Glaucoma Family history: Hypertension Family history: Osteoporosis Family history: Thyroid disorder Headache Hearing loss Heart disease Hereditary disease History of - anemia History of - disorder History of - respiratory disease History of drug abuse Human immunodeficiency virus (HIV) seropositivity Hypercholesterolemia Infertile Kidney disease Malignant neoplasm of lung Myocardial infarction Parkinson's disease Psychotic disorder Seizure disorder Tuberculosis Visual impairment Allergies and Home Medications Allergies Coded Allergies: No Known Drug Allergies (Unverified , 12/12/13) Home Medications Albuterol Sulfate 90 Mcg Aer.pow.ba 2 PUFF INH Q4H PRN PRN SHORTNESS OF BREATH ( Reported) Alprazolam 2 Mg Tablet 2 MG PO BID PRN PRN ANXIETY (Reported) Aspirin 81 Mg Tablet.dr 81 MG PO HS (Reported) Clopidogrel Bisulfate 75 Mg Tablet 75 MG PO DAILY (Reported) Fluticasone/Vilanterol 1 Each Blst.w.dev 1 PUFF IH DAILY (Reported) Gemfibrozil 600 Mg Tablet 600 MG PO DAILY (Reported) Levofloxacin 750 Mg Tablet 750 MG PO DAILY (Reported) Losartan Potassium 25 Mg Tablet 25 MG PO DAILY (Reported) Metoprolol Succinate 25 Mg Tab.er.24h 25 MG PO DAILY (Reported) Metronidazole 500 Mg Tablet 500 MG PO BID (Reported) Oxycodone HCl/Acetaminophen 1 Each Tablet 1 TAB PO Q4H PRN PRN PAIN (Reported) Pantoprazole Sodium 40 Mg Tablet.dr 40 MG PO DAILY (Reported) Sildenafil Citrate 100 Mg Tablet 100 MG PO UD PRN PRN SEXUAL ACTIVITY (Reported ) Tiotropium Mason 1 Inh Aerp 1 CAP INH DAILY (Reported) Physical Exam-Cardiology Physical Exam Vital Signs/I&O Vital Sign - Last 12Hours 12/03/16 12/03/16 12/03/16 12/03/16 03:00 04:00 04:00 04:00 Temp 98.6 Pulse 109 104 Resp 13 14 B/P 98/65 93/62 Pulse Ox 99 97 99 O2 Delivery Nasal Cannula Simple Mask Nasal Cannula O2 Flow Rate 4.00 6.00 4.00 12/03/16 12/03/16 12/03/16 12/03/16 05:00 06:00 07:05 08:00 Temp 98.0 Pulse 105 96 Resp 14 14 B/P 96/67 92/61 Pulse Ox 98 100 O2 Delivery Nasal Cannula Nasal Cannula Nasal Cannula O2 Flow Rate 4.00 4.00 3.00 3.00 FiO2 96 12/03/16 12/03/16 10:22 13:00 Pulse 108 O2 Flow Rate 3.00 Intake and Output 12/03/16 00:00 Intake Total 1050 ml Output Total 580 ml Balance 470 ml Capillary Refill : Constitutional: AAO x 3 well-developed well-nourished HEENT: PERRL EOMI Neck: carotid pulses are 2 + bilaterally Respiratory: No accessory muscle use, other (fair to good air entry; prolonged exp phase) Cardiovascular: regular rate-rhythm S1 and S2 systolic murmur (faint MANUEL at card base) Gastrointestinal: tender (LLQ) distendedNo guarding, audible bowel sounds Extremities: No clubbing, No cyanosis, No significant edema Neurologic/Psychiatric: grossly intact power is 5/5 both on sides Skin: No rash on exposed areas, No ulcerations on exposed areas Data Review Labs Laboratory Tests 12/03/16 00:54: Glucometer 197H 12/03/16 02:09: Albumin 3.3, Anion Gap 12, Anisocytosis SLIGHT, BUN/Creatinine Ratio 18, Band Neutrophils 9, Basophils # (Auto) 0.0, Basophils % (Manual) 0, Basophils (%) ( Auto) 0, Blood Urea Nitrogen 18, Calcium Level 8.0L, Carbon Dioxide Level 23, Chloride Level 100, Creatinine 1.00, Eosinophils # (Auto) 0.0, Eosinophils % ( Manual) 0, Eosinophils (%) (Auto) 0, Estimat Glomerular Filtration Rate > 60, Glucose Level 206H, Hematocrit 34L, Hemoglobin 11.2#L, Lactic Acid Level 1.8, Lymphocytes # (Auto) 0.4L, Lymphocytes % (Manual) 1, Lymphocytes (%) (Auto) 2L, Magnesium Level 2.1, Mean Corpuscular Hemoglobin 29, Mean Corpuscular Hemoglobin Concent 33, Mean Corpuscular Volume 87, Mean Platelet Volume 9.8, Monocytes # (Auto) 1.7H, Monocytes % (Manual) 8, Monocytes (%) (Auto) 9, Neutrophils # (Auto) 18.4H, Neutrophils % (Manual) 82, Neutrophils (%) (Auto) 90H, Phosphorus Level 5.2H, Platelet Count 349, Potassium Level 6.8*H, Red Blood Count 3.91L, Red Cell Distribution Width 14.0, Sodium Level 135, Troponin I < 0.30, White Blood Count 20.6H 12/03/16 03:21: Potassium Level 5.3H 12/03/16 12:49: Lab Scanned Report Transfusion Reaction Form Laboratory Tests 12/03/16 02:09 12/03/16 03:21 A/P-Cardiology Assessment/Admission Diagnosis Diverticular perforation and abdominal abscess, managed by the Surgical Service COPD for which he follows with Dr. Slaughter Cardiac cath of August 2014 showed widely patent stent in the mid LAD, known to be Promus 2.5 x 18mm stent placed in . The left Cx has 60% mid vesel stenosis with FFR of 0.96, indicating this is hemodynamically insignificant. The RCA is dominant and has 40% proximal to med vessel stenosis. LVEF 45%. Apical hypokinesis to akinesis. No significant MR. Normal LVEDP Mild to mod ischemic cardiomyopathy: Echocardiogram from June 2015 showed distal septal hypokinesis to akinesis. Mild to mod impairment of global LV systolic funciton with an ejection fraction approx 45%. Trivial to mild MR and TR. No evidence of significant valvular stenosis on this study. PASP WNL H/O tobaccoism - smoked for 40 years has quit COPD- follows with Dr. Slaughter HLP - statin therapy Mild bilat carotid disease per u/s of November 2013 Intolerance to ARCHANA (-) d/t cough Discussion and Recomendations * Complex management due to multiple comorbidities * Cardiac risk for non-cardiac surgery is estimated to be intermediate. I spoke with him and explained his cardiac risk to him. He understands and wishes to proceed * Continue current cardiac regimen perioperatively, as far as possible * Monitor labs Clinical Quality Measures DVT/VTE Risk/Contraindication: Risk Factor Score Per Nursin RFS Level Per Nursing on Admit: 2=Moderate NOE KIM MD FACP FAC CCDS Dec 03, 2016 14:48
--- NOTE | 2016-12-03 16:07 | Consultation (CHS) ---
HPI History of Present Illness: 61 yo male admitted for sigmoidectomy for ruptured diverticula with persistent infection. I am consulted for medical management. He had surgery this morning and currently states he feels terrible, but does not have any specific complaints other than pain in his surgical area. Date seen by provider: Dec 03, 2016 Time seen by provider: 10:45 Attending Physician Chelsea North MD PCP Anna Marie Gavin DO Consult Date of Admission Dec 02, 2016 at 11:17 am Home Medications Home Medications Reviewed patient Home Medication Reconciliation Form Allergies Coded Allergies: No Known Drug Allergies (Unverified , 12/12/13) NLA-Ibppoc-Sdogze Hx Patient Social History Alcohol Use: Denies Use Recreational Drug Use: No Smoking Status: Former Smoker Type Used: Cigarettes Recent Foreign Travel: No Contact w/other who traveled: No Recent Hopitalizations: Yes Recent Infectious Disease Expo: No Physical Abuse Screen: No Sexual Abuse: No Immunizations Up To Date Tetanus Booster (TDap): Less than 5yrs Date of Pneumonia Vaccine: Jun 20, 2012 Date of Influenza Vaccine: Aug 17, 2016 Past Medical History PMHx: COPD CAD HTN HLD Anxiety GERD PSurgHx: Coronary stent x 1 Sigmoidectomy with ostomy Family Medical History Significant Family History: No Pertinent Family Hx, Stroke Family History: Cancer 09 SISTER, Onset:Unknown Family history: Alzheimer's disease 09 BROTHER, Onset:Unknown Prostate cancer 03 FATHER, Onset:60 years & older Stroke 03 FATHER, Onset:60 years & older No Family History of: Abdominal aortic aneurysm [place]'s disease Alcoholism Aphasia Cancer of colon Cataract Chest pain Congenital heart disease Congestive heart failure Cystic fibrosis Dementia Dysphagia Family history: Allergy Family history: Arthritis Family history: Asthma Family history: Breast disease Family history: Cardiovascular disease Family history: Coronary thrombosis Family history: Diabetes mellitus Family history: Gastrointestinal disease Family history: Glaucoma Family history: Hypertension Family history: Osteoporosis Family history: Thyroid disorder Headache Hearing loss Heart disease Hereditary disease History of - anemia History of - disorder History of - respiratory disease History of drug abuse Human immunodeficiency virus (HIV) seropositivity Hypercholesterolemia Infertile Kidney disease Malignant neoplasm of lung Myocardial infarction Parkinson's disease Psychotic disorder Seizure disorder Tuberculosis Visual impairment Review of Systems (CHC) Constitutional: no symptoms reported EENTM: see HPI Respiratory: no symptoms reported Cardiovascular: no symptoms reported Gastrointestinal: see HPI Genitourinary: no symptoms reported Musculoskeletal: no symptoms reported Skin: no symptoms reported Psychiatric/Neurological: No Symptoms Reported Reviewed Test Results Reviewed Test Results Lab Laboratory Tests Test 12/03/16 00:54 12/03/16 02:09 12/03/16 03:21 12/03/16 12:49 Range/Units Glucometer 197 H 70-110 MG/DL Albumin 3.3 3.2-4.5 G/DL Anion Gap 12 5-14 MMOL/L Anisocytosis SLIGHT BUN/Creatinine Ratio 18 Band Neutrophils 9 % Basophils # (Auto) 0.0 0.0-0.1 10^3/uL Basophils % (Manual) 0 % Basophils (%) (Auto) 0 0-10 % Blood Urea Nitrogen 18 7-18 MG/DL Calcium Level 8.0 L 8.5-10.1 MG/DL Carbon Dioxide Level 23 21-32 MMOL/L Chloride Level 100 98-107 MMOL/L Creatinine 1.00 0.60-1.30 MG/DL Eosinophils # (Auto) 0.0 0.0-0.3 10^3/uL Eosinophils % (Manual) 0 % Eosinophils (%) (Auto) 0 0-10 % Estimat Glomerular Filtration Rate > 60 Glucose Level 206 H 70-105 MG/DL Hematocrit 34 L 40-54 % Hemoglobin 11.2 #L 13.3-17.7 G/DL Lactic Acid Level 1.8 0.5-2.0 MMOL/L Lymphocytes # (Auto) 0.4 L 1.0-4.0 X 10^3 Lymphocytes % (Manual) 1 % Lymphocytes (%) (Auto) 2 L 12-44 % Magnesium Level 2.1 1.8-2.4 MG/DL Mean Corpuscular Hemoglobin 29 25-34 PG Mean Corpuscular Hemoglobin Concent 33 32-36 G/DL Mean Corpuscular Volume 87 80-99 FL Mean Platelet Volume 9.8 7.4-10.4 FL Monocytes # (Auto) 1.7 H 0.0-1.0 X 10^3 Monocytes % (Manual) 8 % Monocytes (%) (Auto) 9 0-12 % Neutrophils # (Auto) 18.4 H 1.8-7.8 X 10^3 Neutrophils % (Manual) 82 % Neutrophils (%) (Auto) 90 H 42-75 % Phosphorus Level 5.2 H 2.3-4.7 MG/DL Platelet Count 349 130-400 10^3/uL Potassium Level 6.8 *H 5.3 H 3.6-5.0 MMOL/L Red Blood Count 3.91 L 4.35-5.85 10^6/uL Red Cell Distribution Width 14.0 10.0-14.5 % Sodium Level 135 135-145 MMOL/L Troponin I < 0.30 <0.30 NG/ML White Blood Count 20.6 H 4.3-11.0 10^3/uL Lab Scanned Report Transfusion Reaction Form [id number] Physical Exam-(CHC) Physical Exam Vital Signs VS - Last 72 Hours, by Label 12/02/16 12/02/16 12/02/16 12/02/16 17:30 17:30 18:30 19:00 Temp 98.5 Pulse 102 105 105 Resp 11 12 14 B/P 108/75 99/77 104/67 Pulse Ox 100 95 90 O2 Delivery Nasal Cannula Nasal Cannula Nasal Cannula Nasal Cannula O2 Flow Rate 3.00 3.00 4.00 4.00 12/02/16 12/02/16 12/02/16 12/02/16 19:00 20:00 20:00 20:00 Temp 97.4 Pulse 104 107 Resp 14 B/P 110/74 Pulse Ox 97 94 O2 Delivery Nasal Cannula Nasal Cannula O2 Flow Rate 4.00 4.00 12/02/16 12/02/16 12/02/16 12/03/16 21:00 22:00 23:00 00:00 Pulse 106 130 128 141 Resp 26 19 13 12 B/P 124/74 149/89 133/88 133/83 Pulse Ox 95 97 97 96 O2 Delivery Nasal Cannula Nasal Cannula Nasal Cannula Nasal Cannula O2 Flow Rate 4.00 4.00 4.00 4.00 12/03/16 12/03/16 12/03/16 12/03/16 00:00 00:00 01:00 01:00 Temp 97.1 Pulse 129 128 Resp 19 B/P 83/59 Pulse Ox 97 97 O2 Delivery Simple Mask Nasal Cannula O2 Flow Rate 6.00 4.00 12/03/16 12/03/16 12/03/16 12/03/16 02:00 03:00 04:00 04:00 Temp 98.6 Pulse 107 109 Resp 16 13 B/P 87/55 98/65 Pulse Ox 100 99 97 O2 Delivery Nasal Cannula Nasal Cannula Simple Mask O2 Flow Rate 4.00 4.00 6.00 12/03/16 12/03/16 12/03/16 12/03/16 04:00 05:00 06:00 07:05 Pulse 104 105 96 Resp 14 14 14 B/P 93/62 96/67 92/61 Pulse Ox 99 98 100 O2 Delivery Nasal Cannula Nasal Cannula Nasal Cannula O2 Flow Rate 4.00 4.00 4.00 3.00 FiO2 96 12/03/16 12/03/16 12/03/16 12/03/16 08:00 08:00 10:22 12:00 Temp 98.0 98.9 Pulse Ox 97 O2 Delivery Nasal Cannula Nasal Cannula Nasal Cannula O2 Flow Rate 3.00 3.00 3.00 3.00 12/03/16 12/03/16 12/03/16 12/03/16 12:00 13:00 15:17 16:00 Pulse 108 Pulse Ox 97 97 O2 Delivery Nasal Cannula Nasal Cannula O2 Flow Rate 3.00 3.00 3.00 FiO2 98 Capillary Refill : General Appearance: WD/WN no apparent distress Respiratory: lungs clear normal breath sounds Cardiovascular: regular rate, rhythm no edema no murmur Gastrointestinal: other (ostomy in place with sanguinous drainage, bandage over surgical incision, NG in place) Neurologic/Psychiatric: alert normal mood/affect Skin: normal color warm/dry Assessment/Plan Assessment/Plan Admission Dx 1. Persistent sigmoid diverticular rupture with infection 2. COPD 3. CAD 4. HTN 5. HLD 6. Anxiety Plan 1. Persistent sigmoid diverticular rupture with infection- s/p sigmoidectomy and ostomy -Management per Dr. North 2. COPD- resume home inhalers, supplemental oxygen prn, RT MAT protocol 3. CAD- Cardiology consulted 4. HTN- resume home meds 5. HLD- resume home meds 6. Anxiety- resume home xanax DVT ppx- per Dr. North Diagnosis/Problems: Clinical Quality Measures DVT/VTE Risk/Contraindication: Risk Factor Score Per Nursin RFS Level Per Nursing on Admit: 2=Moderate Copy Copies To 1: ARIK Larry BETHANY N MD Dec 03, 2016 4:07 pm
[2016-12-03] MEDS ORDERED: ONDANSETRON 4 MG/2 ML (SDV) Z0FRAN IVP PRN (16:30)
[2016-12-03] MEDS ORDERED: METOCLOPRAMIDE INJ 10 MG/2 ML (REGLAN) IVP PRN (16:30)
[2016-12-03] MEDS: HYDROmorphone (DILAUDID) 2 MG/ML VIAL IVP PRN ×2 (17:15→22:21)
[2016-12-03] MEDS: ASPIRIN E.C. 81 MG (ECOTRIN) TAB PO SCH (20:27)
[2016-12-04] VITALS (7 sets, daily range): BP systolic 101–125; BP diastolic 55–71
--- NOTE | 2016-12-04 00:54 | OPERATIVE REPORT ---
PROCEDURE PHYSICIAN: ROXIE NORTH DATE OF PROCEDURE: 12/02/2016 ATTENDING PRIMARY CARE PHYSICIAN: Dr. Meehan. PREOPERATIVE DIAGNOSIS: Ruptured acute sigmoid diverticulitis with recurrent abscesses. POSTOPERATIVE DIAGNOSIS: Ruptured acute sigmoid diverticulitis with recurrent abscesses. PROCEDURE: 1. Laparoscopic Hand-assisted sigmoid-rectal resection. 2. End colostomy. 3. Timbo's pouch. 4. Placement left subclavian central venous catheter. SURGEON: Dr. North. DRY CLEANING COUNTER CLERK: Adalid Moreno APRN. ANESTHESIA: General endotracheal. ESTIMATED BLOOD LOSS: 850 mL FINDINGS: Dense inflammatory phlegmon of the sigmoid colon and omentum as well as mesentery. We underwent laparoscopic dissection of the sigmoid colon and hand-assisted stapling of the sigmoid rectal junction and end colostomy. DISPOSITION: The patient tolerated the procedure well. Mr. Sam Trujillo is a 61-year-old male who was admitted on 09/06/2016 for worsening shortness of breath and exacerbation of COPD. He was having copious cough, as well as sputum production requiring increase oxygen, as well as IV antibiotics. He later developed abdominal discomfort. A CT scan was performed, which did show a small amount of free air with elevated white count of 11.9. He was treated conservatively with IV antibiotics; however, continued to have a leukocytosis with worsening abdominal pain. A repeat CT scan did show a significant size abscess. The diverticular abscess and perforation was explained to the patient and need for diversion; however, the patient was adamantly against placement of colostomy at the time. The patient did agreed to a diagnostic laparoscopy, irrigation, as well as a laparoscopic drain placement and IV antibiotics, as well as conservative management even though he understood the risks and benefits of this procedure. On 09/12/2016, he underwent a diagnostic laparoscopy with irrigation. Since being discharged home, he has had multiple office visits in the past few months. He has undergone multiple rounds of IV antibiotics, as well as oral antibiotics. He had a total of 3 drains placed and did have continued foul-smelling drainage. This did improve over time and 2 drains were eventually removed. The last drain did clear up to a certain degree; however, was somewhat cloudy; however, had inadvertently pulled out. At that time, he was asymptomatic and tolerating a regular diet, having normal bowel movements with no abdominal pain. He continued to do well for approximately one week; however, then developed recurrent abdominal pain. He underwent another CT scan, which did show recurrent abscess. At this time, he understood the importance of diversion and he did agree to sigmoid rectal resection, as well as end colostomy and Timbo's pouch and later reversal at some time. PROCEDURE: The patient was brought to the operating room, laid supine on the table. After adequate IV pain and sedative medications and general endotracheal intubation, the neck and chest were prepped and draped in standard surgical fashion. The left subclavian vein was then cannulated withdrawing of venous blood and the guidewire was then inserted without any resistance. The needle removed and a small skin incision made using an 11 blade. A tract was then created using a venous dilator. A triple lumen central venous catheter was then placed over the guidewire using the Seldinger technique. The guidewire was then removed. The 3 ports ai venous blood and flushed push and pushed without any resistance. The catheter was then sutured to the skin using 3-0 silk interrupted sutures. The catheter was then cleaned and covered with gauze, followed by OpSite. The abdomen was then prepped and draped in standard surgical fashion. 0.5% Marcaine with epinephrine was used to anesthetize the overlying skin in the left upper abdominal quadrant. A small transverse skin incision was made using a 15 blade. A 0 silk suture was applied to the medial aspect of the incision for retraction. A Veress needle inserted with low opening pressures 0 mmHg. The Veress needle was removed and a 5 mm Xcel trocar placed followed by a 5 mm, 45 degrees angle laparoscope. A four-quadrant abdominal exploration was performed. There was an inflammatory phlegmon in the left lower abdominal quadrant including the colon, small bowel as well as greater omentum. Under direct visualization, we then proceeded to place a supraumbilical 10 mm port after the skin and peritoneum were anesthetized using 0.5% Marcaine. In a similar fashion a suprapubic 5 mm port was placed. We then proceeded with careful dissection of the entire inflammatory phlegmon which incorporated the omentum and sigmoid colon. We used blunt dissection as well as Sonicision. Whe then we took down the white lines of Toldt laterally, freeing enough of the sigmoid and descending colon, as well as enough length for the end colostomy. We then proceeded with distal dissection until the peritoneal reflection was reached. There was a significant amount of inflammatory tissue as well as phlegmon identified. It was decided to proceed with a hand-assisted in this situation for a stapler. A small incision midline infraumbilically was made using a 15 blade. We then proceeded with blunt dissection of the inflammatory phlegmon until the rectosigmoid junction was identified. We then proceeded with placement of a TA stapler with a thick load and transected this with a 10 blade. We then proceeded with proximal resection of the sigmoid colon where there were no obvious inflammatory changes or diverticulosis using a BARBARA 55 mm stapler with a 2.5 mm thickness load. The colostomy site was in the left lateral and upper abdomen. The skin was opened using cautery on the cut setting. The subcutaneous tissue was then opened using electrocautery. The fascia was then opened transversely and vertically using electrocautery and the peritoneum was then opened under direct visualization. The end of the descending colon was placed through this opening. A 19-Gu[place]ian Robert-Perkins drain was placed into the pelvis and brought through one of the 5 mm port sites and sutured to the skin using a 3-0 nylon suture. The infraumbilical incision was then closed using 0 PDS loop suture, starting proximally, distally and tied in the middle. The skin was closed using skin antonio. This was then covered with sterile dressing. We then proceeded with maturation of the colostomy. The staple line was opened using Lamar scissors. All layers of the colon were then sutured to the subcuticular skin using 3-0 Vicryl interrupted sutures in a concentric fashion. Good hemostasis was observed. This was covered with a colostomy bag. The patient tolerated the procedure well. We will admit him to the ICU. We will continue with IV fluids and await bowel function and once he has bowel function, we will remove the NG tube and start a clear liquid diet and advance as tolerated. We will also start with DVT prophylaxis with calf SCDs, early ambulation, as well as Lovenox injections. Job ID: [id number] Dictated Date: 12/02/2016 17:01:08 Director Of Partner Marketing Date: 12/04/2016 00:18:17 / prachi HURTADO
[2016-12-04] MEDS: LACTATED RINGERS 1,000 ML IV SCH ×4 (01:18→21:31)
[2016-12-04] MEDS: fentaNYL INJECTION 100 MCG/2 ML AMP IV PRN ×5 (01:19→21:31)
[2016-12-04] MEDS: RT-ALBUTEROL SULF 2.5 MG/3 ML PRE-MIX VIAL INH SCH ×6 (02:00→22:00)
[2016-12-04] MEDS: HYDROmorphone (DILAUDID) 2 MG/ML VIAL IVP PRN ×6 (02:34→23:28)
[2016-12-04] MEDS: meTOprolol 5 MG/5 ML (LOPRESSOR) VIAL IVP SCH ×6 (04:46→19:55)
[2016-12-04] MEDS: UMECLIDINIUM BROMIDE (INCRUSE ELLIPTA) 7'S IH SCH (06:20)
[2016-12-04] MEDS ORDERED: PANTOPRAZOLE 40 MG (PROTONIX) TAB PO SCH (07:00)
[2016-12-04] MEDS: GEMFIBROZIL 600 MG (LOPID) TAB PO SCH (08:23)
[2016-12-04] MEDS: ALPRAZolam 1 MG (XANAX) TAB PO SCH ×2 (08:23→20:00)
[2016-12-04] MEDS: PANTOPRAZOLE 40 MG/10 ML (PROTONIX) VIAL IV SCH ×2 (08:23→20:00)
[2016-12-04] MEDS: ENOXAPARIN 30 MG/0.3 ML (LOVENOX) SYR SC SCH ×2 (08:23→20:01)
[2016-12-04] MEDS: LOSARTAN 25 MG (COZAAR) TAB PO SCH (08:23)
[2016-12-04 08:56] LABS: CALCIUM IONIZED 1.03 mmol/L (1.16-1.32); CORRECTED IONIZED CALCIUM 0.93 mmol/L (1.16-1.32)
[2016-12-04] MEDS ORDERED: TIOTROPIUM BROMIDE (SPIRIVA) 5'S INHALER IH SCH (09:00)
--- NOTE | 2016-12-04 10:47 | Progress Note-Cardiology ---
Cardiology SOAP Progress Note Subjective: He reports gen malaise and weakness and tiredness. Does not feel well Denies cp or palp or shortness of breath or syncope Objective: I&O/Vital Signs Vital Sign - Last 12Hours 12/04/16 12/04/16 12/04/16 12/04/16 00:00 01:00 02:15 04:00 Temp 98.3 99.8 Pulse 113 116 129 Resp 18 11 B/P 101/55 114/69 Pulse Ox 89 96 96 O2 Delivery Nasal Cannula Nasal Cannula O2 Flow Rate 3.00 10.00 3.00 12/04/16 12/04/16 12/04/16 12/04/16 06:20 08:00 08:13 09:46 Temp 97.1 Pulse 113 Resp 18 B/P 112/67 Pulse Ox 100 95 100 100 O2 Delivery Nasal Cannula Nasal Cannula O2 Flow Rate 3.00 3.00 3.00 3.00 Intake and Output 12/04/16 00:00 Intake Total 150 ml Output Total 305 ml Balance -155 ml Weight (Pounds): 228 Weight (Ounces): 3.0 Weight (Calculated Kilograms): 103.256689 Constitutional: AAO x 3 well-developed well-nourished Respiratory: No accessory muscle use, other (fair to good air entry; prolonged exp phase) Cardiovascular: regular rate-rhythm S1 and S2 systolic murmur (faint MANUEL at card base) Gastrointestional: tender (LLQ) distendedNo guarding, audible bowel sounds Extremities: No clubbing, No cyanosis, No significant edema Neurologic/Psychiatric: grossly intact power is 5/5 both on sides Skin: No rash on exposed areas, No ulcerations on exposed areas Results/Procedures: Labs Laboratory Tests 12/03/16 12:49: Lab Scanned Report Transfusion Reaction Form 12/04/16 04:50: Magnesium Level 1.9 Laboratory Tests 12/03/16 02:09 12/03/16 03:21 A/P: Assessment: Diverticular perforation and abdominal abscess, managed by the Surgical Service COPD for which he follows with Dr. Slaughter Cardiac cath of August 2014 showed widely patent stent in the mid LAD, known to be Promus 2.5 x 18mm stent placed in . The left Cx has 60% mid vesel stenosis with FFR of 0.96, indicating this is hemodynamically insignificant. The RCA is dominant and has 40% proximal to med vessel stenosis. LVEF 45%. Apical hypokinesis to akinesis. No significant MR. Normal LVEDP Mild to mod ischemic cardiomyopathy: Echocardiogram from June 2015 showed distal septal hypokinesis to akinesis. Mild to mod impairment of global LV systolic funciton with an ejection fraction approx 45%. Trivial to mild MR and TR. No evidence of significant valvular stenosis on this study. PASP WNL H/O tobaccoism - smoked for 40 years has quit COPD- follows with Dr. Slaughter HLP - statin therapy Mild bilat carotid disease per u/s of November 2013 Intolerance to ARCHANA (-) d/t cough Plan: * Complex management due to multiple comorbidities * Cardiac risk for non-cardiac surgery is estimated to be intermediate. I spoke with him and explained his cardiac risk to him. He understands and wishes to proceed, if needed * Continue current cardiac regimen perioperatively, as far as possible * Monitor labs NOE KIM MD FACP FAC CCDS Dec 04, 2016 10:47
--- NOTE | 2016-12-04 13:18 | Progress Note ---
Subjective Subjective/Events-last exam Pt seen and examined. No complaints of pain, but did already get Dilaudid and Fentanyl. No N/V, no ostomy function. Review of Systems General: No Chills, No Night Sweats Pulmonary: No Cough Cardiovascular: No: Chest Pain Gastrointestinal: : Abdominal Pain Objective Exam Vital Signs Date Time Temp Pulse Resp B/P Pulse Ox O2 Delivery O2 Flow Rate FiO2 12/04/16 11:26 98.1 114 16 110/69 97 Nasal Cannula 3.00 12/04/16 09:46 100 3.00 12/04/16 08:13 97.1 113 18 112/67 100 Nasal Cannula 3.00 12/04/16 08:00 95 Nasal Cannula 3.00 12/04/16 08:00 128 12/04/16 06:20 100 3.00 12/04/16 04:00 99.8 129 11 114/69 96 Nasal Cannula 3.00 12/04/16 02:15 96 10.00 12/04/16 01:00 116 12/04/16 00:00 98.3 113 18 101/55 89 Nasal Cannula 3.00 12/03/16 22:07 96 3.00 12/03/16 20:00 97 Nasal Cannula 3.00 12/03/16 20:00 98.9 121 20 123/60 94 Nasal Cannula 3.00 12/03/16 19:00 120 12/03/16 18:38 96 3.00 12/03/16 16:00 97.9 Nasal Cannula 3.00 12/03/16 16:00 97 Nasal Cannula 3.00 12/03/16 16:00 120 14 93/38 96 Nasal Cannula 3.00 12/03/16 15:17 3.00 98 I & O 12/04/16 07:00 Intake Total 1150 ml Output Total 1290 ml Balance -140 ml Capillary Refill : General Appearance: No Apparent Distress HEENT: PERRL/EOMI Respiratory: No Accessory Muscle Use No Respiratory Distress Decreased Breath Sounds Cardiovascular: No Murmur Tachycardia Gastrointestinal: soft other (ostomy in place with sanguinous drainage appears viable, incision c/d/i, drain with serosanguinous output) Extremity: Normal Capillary Refill No Calf Tenderness Neurologic/Psychiatric: Alert Oriented x3 Results Lab Laboratory Tests 12/04/16 04:50: Magnesium Level 1.9 Assessment/Plan Assessment/Plan Assessment/Plan s/p laparoscopic LAR with end colostomy and crow's pouch. Pt encouraged to ambulate. Will ck labs today. Await more ostomy fxn. Ok to transfer to floor when bed available. Clinical Quality Measures DVT/VTE Risk/Contraindication: Risk Factor Score Per Nursin RFS Level Per Nursing on Admit: 2=Moderate TIM SORENSON DO Dec 04, 2016 13:18
[2016-12-04 13:37] LABS: CALCIUM PH 7.22
[2016-12-04 15:14] LABS: BASOPHILS % (AUTO) 0 % (0-10); EOSINOPHILS % (AUTO) 0 % (0-10); LYMPHOCYTES # (AUTO) 0.7 X 10^3 (1.0-4.0); LYMPHOCYTES % (AUTO) 7 % (12-44); MEAN CORPUSCULAR HEMOGLOBIN 28 PG (25-34); MEAN CORPUSCULAR HGB CONC 31 G/DL (32-36); MEAN CORPUSCULAR VOLUME 90 FL (80-99); MEAN PLATELET VOLUME 9.4 FL (7.4-10.4); MONOCYTES % (AUTO) 10 % (0-12); NEUTROPHILS # (AUTO) 8.8 X 10^3 (1.8-7.8); NEUTROPHILS % (AUTO) 83 % (42-75); PLATELET COUNT 334 10^3/uL (130-400); RED BLOOD COUNT 3.07 10^6/uL (4.35-5.85); RED CELL DISTRIBUTION WIDTH 14.4 % (10.0-14.5); WHITE BLOOD COUNT 10.6 10^3/uL (4.3-11.0)
[2016-12-04 15:36] LABS: ALANINE AMINOTRANSFERASE 8 U/L (0-55); ALBUMIN 3.2 G/DL (3.2-4.5); ANION GAP 10 MMOL/L (5-14); ASPARTATE AMINO TRANSFERASE 24 U/L (5-34); BILIRUBIN,TOTAL 0.3 MG/DL (0.1-1.0); BLOOD UREA NITROGEN 11 MG/DL (7-18); BUN/CREATININE RATIO 16; CALCIUM 8.2 MG/DL (8.5-10.1); CARBON DIOXIDE 27 MMOL/L (21-32); CHLORIDE 104 MMOL/L (98-107); CREATININE SERUM 0.69 MG/DL (0.60-1.30); GFR ESTIMATED > 60; GLUCOSE 96 MG/DL (70-105); POTASSIUM 4.5 MMOL/L (3.6-5.0); SODIUM 141 MMOL/L (135-145)
[2016-12-04] MEDS: ASPIRIN E.C. 81 MG (ECOTRIN) TAB PO SCH (20:00)
[2016-12-05 00:35] VITALS: BP 100/63
[2016-12-05] MEDS: meTOprolol 5 MG/5 ML (LOPRESSOR) VIAL IVP SCH ×6 (00:35→20:40)
[2016-12-05] MEDS: RT-ALBUTEROL SULF 2.5 MG/3 ML PRE-MIX VIAL INH SCH ×6 (02:00→22:00)
[2016-12-05] MEDS: fentaNYL INJECTION 100 MCG/2 ML AMP IV PRN (02:20)
[2016-12-05] MEDS: LACTATED RINGERS 1,000 ML IV SCH ×3 (03:33→17:33)
[2016-12-05] MEDS: HYDROmorphone (DILAUDID) 2 MG/ML VIAL IVP PRN ×4 (03:34→20:40)
[2016-12-05 04:00] VITALS: BP 136/61
[2016-12-05 05:28] LABS: BASOPHILS % (AUTO) 0 % (0-10); EOSINOPHILS % (AUTO) 1 % (0-10); LYMPHOCYTES # (AUTO) 0.5 X 10^3 (1.0-4.0); LYMPHOCYTES % (AUTO) 7 % (12-44); MEAN CORPUSCULAR HEMOGLOBIN 29 PG (25-34); MEAN CORPUSCULAR HGB CONC 32 G/DL (32-36); MEAN CORPUSCULAR VOLUME 90 FL (80-99); MEAN PLATELET VOLUME 9.2 FL (7.4-10.4); MONOCYTES # (AUTO) 0.6 X 10^3 (0.0-1.0); MONOCYTES % (AUTO) 8 % (0-12); NEUTROPHILS # (AUTO) 6.3 X 10^3 (1.8-7.8); NEUTROPHILS % (AUTO) 85 % (42-75); PLATELET COUNT 258 10^3/uL (130-400); WHITE BLOOD COUNT 7.4 10^3/uL (4.3-11.0)
[2016-12-05 05:43] LABS: ANION GAP 8 MMOL/L (5-14); BLOOD UREA NITROGEN 8 MG/DL (7-18); BUN/CREATININE RATIO 14; CARBON DIOXIDE 29 MMOL/L (21-32); CHLORIDE 102 MMOL/L (98-107); CREATININE SERUM 0.59 MG/DL (0.60-1.30); GFR ESTIMATED > 60; GLUCOSE 103 MG/DL (70-105); MAGNESIUM 1.8 MG/DL (1.8-2.4); POTASSIUM 3.9 MMOL/L (3.6-5.0); SODIUM 139 MMOL/L (135-145)
[2016-12-05] MEDS: UMECLIDINIUM BROMIDE (INCRUSE ELLIPTA) 7'S IH SCH (07:17)
[2016-12-05 08:00] VITALS: BP 119/61
[2016-12-05] MEDS: GEMFIBROZIL 600 MG (LOPID) TAB PO SCH (08:01)
[2016-12-05] MEDS: LOSARTAN 25 MG (COZAAR) TAB PO SCH (08:01)
[2016-12-05] MEDS: ALPRAZolam 1 MG (XANAX) TAB PO SCH ×2 (08:02→20:41)
[2016-12-05] MEDS: ENOXAPARIN 30 MG/0.3 ML (LOVENOX) SYR SC SCH ×2 (08:02→20:41)
[2016-12-05] MEDS: PANTOPRAZOLE 40 MG/10 ML (PROTONIX) VIAL IV SCH ×2 (08:12→20:40)
[2016-12-05] MEDS: oxyCODONE 20 MG/1 ML ORAL CONC (RoxiCODONE) CHARGE PER 1 ML PO PRN ×2 (10:01→13:42)
[2016-12-05 12:00] VITALS: BP 106/65
--- NOTE | 2016-12-05 13:41 | Progress Note-Cardiology ---
Cardiology SOAP Progress Note Subjective: Notes gen malaise and weakness and tiredness Denies cp or palp or syncope Objective: I&O/Vital Signs Vital Sign - Last 12Hours 12/05/16 12/05/16 12/05/16 12/05/16 04:00 04:11 07:17 07:20 Temp 101.0 99.6 Pulse 121 Resp 16 B/P 136/61 Pulse Ox 95 94 94 O2 Delivery Nasal Cannula O2 Flow Rate 3.00 3.00 3.00 12/05/16 12/05/16 12/05/16 12/05/16 07:20 08:00 08:00 10:20 Temp 99.0 Pulse 99 105 Resp 18 B/P 119/61 Pulse Ox 96 96 96 O2 Delivery Nasal Cannula Nasal Cannula O2 Flow Rate 3.00 3.00 3.00 12/05/16 12:00 Temp 97.3 Pulse 89 Resp 20 B/P 106/65 Pulse Ox 98 O2 Delivery Nasal Cannula O2 Flow Rate 3.00 Intake and Output 12/05/16 00:00 Intake Total 2200 ml Output Total 830 ml Balance 1370 ml Weight (Pounds): 226 Weight (Ounces): 4.0 Weight (Calculated Kilograms): 102.753270 Constitutional: AAO x 3 well-developed well-nourished Respiratory: No accessory muscle use, other (fair to good air entry; prolonged exp phase) Cardiovascular: regular rate-rhythm S1 and S2 systolic murmur (faint MANUEL at card base) Gastrointestional: tender (LLQ) distendedNo guarding, audible bowel sounds Extremities: No clubbing, No cyanosis, No significant edema Neurologic/Psychiatric: grossly intact power is 5/5 both on sides Skin: No rash on exposed areas, No ulcerations on exposed areas Results/Procedures: Labs Laboratory Tests 12/04/16 15:05: Alanine Aminotransferase (ALT/SGPT) 8, Albumin 3.2, Alkaline Phosphatase 42, Anion Gap 10, Aspartate Amino Transf (AST/SGOT) 24, BUN/Creatinine Ratio 16, Basophils # (Auto) 0.0, Basophils (%) (Auto) 0, Blood Urea Nitrogen 11, Calcium Level 8.2L, Carbon Dioxide Level 27, Chloride Level 104, Creatinine 0.69, Eosinophils # (Auto) 0.0, Eosinophils (%) (Auto) 0, Estimat Glomerular Filtration Rate > 60, Glucose Level 96, Hematocrit 28L, Hemoglobin 8.7#L, Lymphocytes # (Auto) 0.7L, Lymphocytes (%) (Auto) 7L, Mean Corpuscular Hemoglobin 28, Mean Corpuscular Hemoglobin Concent 31L, Mean Corpuscular Volume 90, Mean Platelet Volume 9.4, Monocytes # (Auto) 1.0, Monocytes (%) (Auto) 10, Neutrophils # (Auto) 8.8H, Neutrophils (%) (Auto) 83H, Platelet Count 334, Potassium Level 4.5, Red Blood Count 3.07L, Red Cell Distribution Width 14.4, Sodium Level 141, Total Bilirubin 0.3, Total Protein 5.0L, White Blood Count 10.6 12/05/16 05:13: Anion Gap 8, BUN/Creatinine Ratio 14, Basophils # (Auto) 0.0, Basophils (%) ( Auto) 0, Blood Urea Nitrogen 8, Calcium Level 8.0L, Carbon Dioxide Level 29, Chloride Level 102, Creatinine 0.59L, Eosinophils # (Auto) 0.0, Eosinophils (%) (Auto) 1, Estimat Glomerular Filtration Rate > 60, Glucose Level 103, Hematocrit 24L, Hemoglobin 7.8L, Lymphocytes # (Auto) 0.5L, Lymphocytes (%) ( Auto) 7L, Mean Corpuscular Hemoglobin 29, Mean Corpuscular Hemoglobin Concent 32 , Mean Corpuscular Volume 90, Mean Platelet Volume 9.2, Monocytes # (Auto) 0.6, Monocytes (%) (Auto) 8, Neutrophils # (Auto) 6.3, Neutrophils (%) (Auto) 85H, Platelet Count 258, Potassium Level 3.9, Red Blood Count 2.70L, Red Cell Distribution Width 14.0, Sodium Level 139, White Blood Count 7.4, Magnesium Level 1.8 Laboratory Tests 12/04/16 15:05 12/05/16 05:13 A/P: Assessment: Diverticular perforation and abdominal abscess, managed by the Surgical Service Worsening anemia, managed by the Surgical Service COPD for which he follows with Dr. Slaughter Cardiac cath of August 2014 showed widely patent stent in the mid LAD, known to be Promus 2.5 x 18mm stent placed in . The left Cx has 60% mid vesel stenosis with FFR of 0.96, indicating this is hemodynamically insignificant. The RCA is dominant and has 40% proximal to med vessel stenosis. LVEF 45%. Apical hypokinesis to akinesis. No significant MR. Normal LVEDP Mild to mod ischemic cardiomyopathy: Echocardiogram from June 2015 showed distal septal hypokinesis to akinesis. Mild to mod impairment of global LV systolic funciton with an ejection fraction approx 45%. Trivial to mild MR and TR. No evidence of significant valvular stenosis on this study. PASP WNL H/O tobaccoism - smoked for 40 years has quit COPD- follows with Dr. Slaughter HLP - statin therapy Mild bilat carotid disease per u/s of November 2013 Intolerance to ARCHANA (-) d/t cough Plan: * Complex management due to multiple comorbidities * I spoke with him and his family and answered questions * Monitor labs * Consider blood transfusion if there is further fall in H/H NOE KIM MD FACP FAC CCDS Dec 05, 2016 13:41
[2016-12-05 16:00] VITALS: BP 114/65
--- NOTE | 2016-12-05 17:02 | Progress Note ---
Subjective Subjective/Events-last exam Pt seen and examined, pain mostly controlled. Pt denies any air in ostomy bag, just "fluid". Review of Systems General: Appetite (pt states he wants to eat) Cardiovascular: No: Chest Pain, Palpitations Gastrointestinal: No: Nausea, Vomiting Objective Exam Vital Signs Date Time Temp Pulse Resp B/P Pulse Ox O2 Delivery O2 Flow Rate FiO2 12/05/16 16:00 97.4 102 20 114/65 96 Nasal Cannula 3.00 12/05/16 14:30 92 4.00 12/05/16 13:04 91 12/05/16 12:00 97.3 89 20 106/65 98 Nasal Cannula 3.00 12/05/16 10:20 96 3.00 12/05/16 08:00 96 Nasal Cannula 3.00 12/05/16 08:00 99.0 105 18 119/61 96 Nasal Cannula 3.00 12/05/16 07:20 99 12/05/16 07:20 94 3.00 12/05/16 07:17 94 3.00 12/05/16 04:11 99.6 12/05/16 04:00 101.0 121 16 136/61 95 Nasal Cannula 3.00 12/05/16 01:00 114 12/05/16 00:35 98.7 101 16 100/63 94 Nasal Cannula 3.00 12/04/16 22:20 90 10.00 12/04/16 20:00 97.8 106 20 107/59 95 Nasal Cannula 3.00 12/04/16 20:00 Nasal Cannula 3.00 12/04/16 19:00 105 12/04/16 18:40 93 3.00 12/04/16 17:34 98.3 119 20 125/71 93 Nasal Cannula 3.00 I & O 12/05/16 07:00 Intake Total 3400 ml Output Total 1210 ml Balance 2190 ml Capillary Refill : General Appearance: No Apparent Distress HEENT: PERRL/EOMI Respiratory: No Accessory Muscle Use No Respiratory Distress Decreased Breath Sounds Cardiovascular: No Murmur Tachycardia Gastrointestinal: soft other (ostomy in place with sanguinous drainage appears viable, incision c/d/i, drain with serosanguinous output) Extremity: Normal Capillary Refill No Calf Tenderness Neurologic/Psychiatric: Alert Oriented x3 Results Lab Laboratory Tests 12/05/16 05:13: Anion Gap 8, BUN/Creatinine Ratio 14, Basophils # (Auto) 0.0, Basophils (%) ( Auto) 0, Blood Urea Nitrogen 8, Calcium Level 8.0L, Carbon Dioxide Level 29, Chloride Level 102, Creatinine 0.59L, Eosinophils # (Auto) 0.0, Eosinophils (%) (Auto) 1, Estimat Glomerular Filtration Rate > 60, Glucose Level 103, Hematocrit 24L, Hemoglobin 7.8L, Lymphocytes # (Auto) 0.5L, Lymphocytes (%) ( Auto) 7L, Magnesium Level 1.8, Mean Corpuscular Hemoglobin 29, Mean Corpuscular Hemoglobin Concent 32, Mean Corpuscular Volume 90, Mean Platelet Volume 9.2, Monocytes # (Auto) 0.6, Monocytes (%) (Auto) 8, Neutrophils # (Auto) 6.3, Neutrophils (%) (Auto) 85H, Platelet Count 258, Potassium Level 3.9, Red Blood Count 2.70L, Red Cell Distribution Width 14.0, Sodium Level 139, White Blood Count 7.4 Assessment/Plan Assessment/Plan Assessment/Plan s/p laparoscopic LAR with end colostomy and crow's pouch. Pt encouraged to ambulate. Increase IS use. Await more ostomy fxn. Clinical Quality Measures DVT/VTE Risk/Contraindication: Risk Factor Score Per Nursin RFS Level Per Nursing on Admit: 2=Moderate TIM SORENSON DO Dec 05, 2016 17:02
[2016-12-05 20:00] VITALS: BP 126/62
[2016-12-05] MEDS: ASPIRIN E.C. 81 MG (ECOTRIN) TAB PO SCH (20:41)
[2016-12-06] VITALS (7 sets, daily range): BP systolic 121–145; BP diastolic 67–80
[2016-12-06] MEDS: LACTATED RINGERS 1,000 ML IV SCH ×4 (00:20→19:38)
[2016-12-06] MEDS: meTOprolol 5 MG/5 ML (LOPRESSOR) VIAL IVP SCH ×6 (00:30→20:32)
[2016-12-06] MEDS: RT-ALBUTEROL SULF 2.5 MG/3 ML PRE-MIX VIAL INH SCH ×6 (02:00→23:18)
[2016-12-06 06:11] LABS: BASOPHILS % (AUTO) 0 % (0-10); EOSINOPHILS # (AUTO) 0.1 10^3/uL (0.0-0.3); EOSINOPHILS % (AUTO) 3 % (0-10); LYMPHOCYTES # (AUTO) 0.6 X 10^3 (1.0-4.0); LYMPHOCYTES % (AUTO) 12 % (12-44); MEAN CORPUSCULAR HEMOGLOBIN 29 PG (25-34); MEAN CORPUSCULAR HGB CONC 32 G/DL (32-36); MEAN CORPUSCULAR VOLUME 89 FL (80-99); MEAN PLATELET VOLUME 9.1 FL (7.4-10.4); MONOCYTES # (AUTO) 0.4 X 10^3 (0.0-1.0); MONOCYTES % (AUTO) 9 % (0-12); NEUTROPHILS # (AUTO) 3.7 X 10^3 (1.8-7.8); NEUTROPHILS % (AUTO) 76 % (42-75); PLATELET COUNT 268 10^3/uL (130-400); RED BLOOD COUNT 2.61 10^6/uL (4.35-5.85); RED CELL DISTRIBUTION WIDTH 13.5 % (10.0-14.5); WHITE BLOOD COUNT 4.9 10^3/uL (4.3-11.0)
[2016-12-06] MEDS: HYDROmorphone (DILAUDID) 2 MG/ML VIAL IVP PRN ×2 (06:22→12:58)
[2016-12-06] MEDS ORDERED: LIDOCAINE UROJET 2% GEL 10 ML PKG ONE (06:37)
[2016-12-06 06:50] LABS: ANION GAP 11 MMOL/L (5-14); BLOOD UREA NITROGEN 7 MG/DL (7-18); BUN/CREATININE RATIO 13; CALCIUM 7.8 MG/DL (8.5-10.1); CARBON DIOXIDE 27 MMOL/L (21-32); CHLORIDE 101 MMOL/L (98-107); CREATININE SERUM 0.53 MG/DL (0.60-1.30); GFR ESTIMATED > 60; GLUCOSE 89 MG/DL (70-105); MAGNESIUM 1.7 MG/DL (1.8-2.4); POTASSIUM 3.7 MMOL/L (3.6-5.0); SODIUM 139 MMOL/L (135-145)
[2016-12-06] MEDS: UMECLIDINIUM BROMIDE (INCRUSE ELLIPTA) 7'S IH SCH (06:56)
--- NOTE | 2016-12-06 09:35 | Progress Note-Cardiology ---
Cardiology SOAP Progress Note Subjective: No cp or palp or syncope Has gen malaise Objective: I&O/Vital Signs Vital Sign - Last 12Hours 12/06/16 12/06/16 12/06/16 12/06/16 00:00 01:00 04:00 06:53 Temp 98.4 98.1 Pulse 99 93 92 Resp 20 20 B/P 134/76 130/80 Pulse Ox 99 99 98 O2 Delivery Nasal Cannula Nasal Cannula O2 Flow Rate 3.00 3.00 4.00 12/06/16 12/06/16 12/06/16 12/06/16 06:56 06:59 07:00 08:00 Temp 96.5 Pulse 100 92 88 Resp 16 B/P 145/79 132/67 Pulse Ox 98 99 99 O2 Delivery Nasal Cannula Nasal Cannula O2 Flow Rate 4.00 3.00 4.00 Intake and Output 12/06/16 00:00 Intake Total 710 ml Output Total 520 ml Balance 190 ml Weight (Pounds): 226 Weight (Ounces): 4.0 Weight (Calculated Kilograms): 102.369963 Constitutional: AAO x 3 well-developed well-nourished Respiratory: No accessory muscle use, other (fair to good air entry; prolonged exp phase) Cardiovascular: regular rate-rhythm S1 and S2 systolic murmur (faint MANUEL at card base) Gastrointestional: tender (LLQ) distendedNo guarding, audible bowel sounds Extremities: No clubbing, No cyanosis, No significant edema Neurologic/Psychiatric: grossly intact power is 5/5 both on sides Skin: No rash on exposed areas, No ulcerations on exposed areas Results/Procedures: Labs Laboratory Tests 12/06/16 05:45: Anion Gap 11, BUN/Creatinine Ratio 13, Basophils # (Auto) 0.0, Basophils (%) ( Auto) 0, Blood Urea Nitrogen 7, Calcium Level 7.8L, Carbon Dioxide Level 27, Chloride Level 101, Creatinine 0.53L, Eosinophils # (Auto) 0.1, Eosinophils (%) (Auto) 3, Estimat Glomerular Filtration Rate > 60, Glucose Level 89, Hematocrit 23L, Hemoglobin 7.5L, Lymphocytes # (Auto) 0.6L, Lymphocytes (%) (Auto) 12, Magnesium Level 1.7L, Mean Corpuscular Hemoglobin 29, Mean Corpuscular Hemoglobin Concent 32, Mean Corpuscular Volume 89, Mean Platelet Volume 9.1, Monocytes # (Auto) 0.4, Monocytes (%) (Auto) 9, Neutrophils # (Auto) 3.7, Neutrophils (%) (Auto) 76H, Platelet Count 268, Potassium Level 3.7, Red Blood Count 2.61L, Red Cell Distribution Width 13.5, Sodium Level 139, White Blood Count 4.9 Laboratory Tests 12/04/16 15:05 12/05/16 05:13 12/06/16 05:45 A/P: Assessment: Diverticular perforation and abdominal abscess, managed by the Surgical Service Worsening anemia, managed by the Surgical Service COPD for which he follows with Dr. Slaughter Cardiac cath of August 2014 showed widely patent stent in the mid LAD, known to be Promus 2.5 x 18mm stent placed in . The left Cx has 60% mid vesel stenosis with FFR of 0.96, indicating this is hemodynamically insignificant. The RCA is dominant and has 40% proximal to med vessel stenosis. LVEF 45%. Apical hypokinesis to akinesis. No significant MR. Normal LVEDP Mild to mod ischemic cardiomyopathy: Echocardiogram from June 2015 showed distal septal hypokinesis to akinesis. Mild to mod impairment of global LV systolic funciton with an ejection fraction approx 45%. Trivial to mild MR and TR. No evidence of significant valvular stenosis on this study. PASP WNL H/O tobaccoism - smoked for 40 years has quit COPD- follows with Dr. Slaughter HLP - statin therapy Mild bilat carotid disease per u/s of November 2013 Intolerance to ARCHANA (-) d/t cough Plan: * Complex management due to multiple comorbidities * Consider blood transfusion * Monitor labs NOE KIM MD FACP FAC CCDS Dec 06, 2016 09:35
[2016-12-06] MEDS: ENOXAPARIN 30 MG/0.3 ML (LOVENOX) SYR SC SCH ×2 (09:42→20:32)
[2016-12-06] MEDS: PANTOPRAZOLE 40 MG/10 ML (PROTONIX) VIAL IV SCH ×2 (09:42→20:32)
[2016-12-06] MEDS: GEMFIBROZIL 600 MG (LOPID) TAB PO SCH (09:43)
[2016-12-06] MEDS: LOSARTAN 25 MG (COZAAR) TAB PO SCH (09:43)
[2016-12-06] MEDS: ALPRAZolam 1 MG (XANAX) TAB PO SCH ×2 (09:43→20:32)
[2016-12-06] MEDS ORDERED: HYDROmorphone (DILAUDID) 2 MG/ML VIAL IVP PRN (14:00)
[2016-12-06] MEDS: LORazepam INJ 2 MG/ML (ATIVAN) VIAL IVP PRN (16:57)
[2016-12-06] MEDS: ASPIRIN E.C. 81 MG (ECOTRIN) TAB PO SCH (20:32)
[2016-12-07] VITALS (11 sets, daily range): BP systolic 118–150; BP diastolic 66–83
[2016-12-07] MEDS: fentaNYL INJECTION 100 MCG/2 ML AMP IV PRN (00:18)
[2016-12-07] MEDS: meTOprolol 5 MG/5 ML (LOPRESSOR) VIAL IVP SCH ×2 (00:20→04:42)
[2016-12-07] MEDS: RT-ALBUTEROL SULF 2.5 MG/3 ML PRE-MIX VIAL INH SCH ×5 (02:00→22:00)
[2016-12-07] MEDS: LACTATED RINGERS 1,000 ML IV SCH ×3 (02:26→18:23)
[2016-12-07] MEDS: LORazepam INJ 2 MG/ML (ATIVAN) VIAL IVP PRN (02:57)
[2016-12-07 06:32] LABS: BASOPHILS % (AUTO) 0 % (0-10); EOSINOPHILS # (AUTO) 0.1 10^3/uL (0.0-0.3); EOSINOPHILS % (AUTO) 2 % (0-10); LYMPHOCYTES # (AUTO) 0.4 X 10^3 (1.0-4.0); LYMPHOCYTES % (AUTO) 6 % (12-44); MEAN CORPUSCULAR HEMOGLOBIN 29 PG (25-34); MEAN CORPUSCULAR HGB CONC 32 G/DL (32-36); MEAN CORPUSCULAR VOLUME 88 FL (80-99); MEAN PLATELET VOLUME 9.6 FL (7.4-10.4); MONOCYTES # (AUTO) 0.5 X 10^3 (0.0-1.0); MONOCYTES % (AUTO) 8 % (0-12); NEUTROPHILS # (AUTO) 5.3 X 10^3 (1.8-7.8); NEUTROPHILS % (AUTO) 85 % (42-75); PLATELET COUNT 295 10^3/uL (130-400); RED BLOOD COUNT 2.67 10^6/uL (4.35-5.85); RED CELL DISTRIBUTION WIDTH 13.5 % (10.0-14.5); WHITE BLOOD COUNT 6.3 10^3/uL (4.3-11.0)
[2016-12-07 06:55] LABS: ANION GAP 10 MMOL/L (5-14); BLOOD UREA NITROGEN 6 MG/DL (7-18); BUN/CREATININE RATIO 10; CALCIUM 7.8 MG/DL (8.5-10.1); CARBON DIOXIDE 27 MMOL/L (21-32); CHLORIDE 102 MMOL/L (98-107); CREATININE SERUM 0.58 MG/DL (0.60-1.30); GFR ESTIMATED > 60; GLUCOSE 100 MG/DL (70-105); MAGNESIUM 1.5 MG/DL (1.8-2.4); POTASSIUM 3.5 MMOL/L (3.6-5.0); SODIUM 139 MMOL/L (135-145)
[2016-12-07] MEDS: UMECLIDINIUM BROMIDE (INCRUSE ELLIPTA) 7'S IH SCH (07:01)
[2016-12-07] MEDS: ALPRAZolam 1 MG (XANAX) TAB PO SCH (09:00)
[2016-12-07] MEDS: ENOXAPARIN 30 MG/0.3 ML (LOVENOX) SYR SC SCH ×2 (09:47→20:04)
[2016-12-07] MEDS: PANTOPRAZOLE 40 MG/10 ML (PROTONIX) VIAL IV SCH (09:47)
[2016-12-07] MEDS: GEMFIBROZIL 600 MG (LOPID) TAB PO SCH (09:48)
[2016-12-07] MEDS: LOSARTAN 25 MG (COZAAR) TAB PO SCH (09:48)
--- NOTE | 2016-12-07 10:12 | Progress Note-Cardiology ---
Cardiology SOAP Progress Note Subjective: Sitting up in a chair at the bedside. C/O fatigue. No c/o CP, palpitations. C /O dyspnea from time to time with exertion. Objective: I&O/Vital Signs Vital Sign - Last 12Hours 12/07/16 12/07/16 12/07/16 12/07/16 04:00 06:17 07:00 08:00 Temp 100.5 98.5 Pulse 105 100 88 Resp 18 22 B/P 133/83 126/70 Pulse Ox 96 92 O2 Delivery Nasal Cannula Nasal Cannula O2 Flow Rate 2.00 2.00 2.00 12/07/16 12/07/16 12/07/16 12/07/16 08:00 11:58 12:00 12:11 Temp 97.6 96.8 97.8 Pulse 84 92 86 Resp 20 24 18 B/P 131/74 136/83 121/69 Pulse Ox 96 97 98 98 O2 Delivery Nasal Cannula Nasal Cannula O2 Flow Rate 2.00 2.00 2.00 2.00 Intake and Output 12/07/16 00:00 Intake Total 2650 ml Output Total 2420 ml Balance 230 ml Weight (Pounds): 227 Weight (Ounces): 2.0 Weight (Calculated Kilograms): 103.186016 Constitutional: AAO x 3 well-developed well-nourished Respiratory: No accessory muscle use, other (fair to good air entry; prolonged exp phase) Cardiovascular: regular rate-rhythm S1 and S2 systolic murmur (faint MANUEL at card base) Gastrointestional: tender (LLQ) distendedNo guarding, audible bowel sounds other (colostomy LLQ) Genital/Rectal: other (urinary catheter to DD) Extremities: No clubbing, No cyanosis, significant edema (mild pedal edema) Neurologic/Psychiatric: grossly intact power is 5/5 both on sides Skin: No rash on exposed areas, No ulcerations on exposed areas Results/Procedures: Labs Laboratory Tests 12/07/16 04:50: Anion Gap 10, BUN/Creatinine Ratio 10, Basophils # (Auto) 0.0, Basophils (%) ( Auto) 0, Blood Urea Nitrogen 6L, Calcium Level 7.8L, Carbon Dioxide Level 27, Chloride Level 102, Creatinine 0.58L, Eosinophils # (Auto) 0.1, Eosinophils (%) (Auto) 2, Estimat Glomerular Filtration Rate > 60, Glucose Level 100, Hematocrit 24L, Hemoglobin 7.6L, Lymphocytes # (Auto) 0.4L, Lymphocytes (%) ( Auto) 6L, Magnesium Level 1.5L, Mean Corpuscular Hemoglobin 29, Mean Corpuscular Hemoglobin Concent 32, Mean Corpuscular Volume 88, Mean Platelet Volume 9.6, Monocytes # (Auto) 0.5, Monocytes (%) (Auto) 8, Neutrophils # (Auto ) 5.3, Neutrophils (%) (Auto) 85H, Platelet Count 295, Potassium Level 3.5L, Red Blood Count 2.67L, Red Cell Distribution Width 13.5, Sodium Level 139, White Blood Count 6.3 A/P: Assessment: Diverticular perforation and abdominal abscess, managed by the Surgical Service Worsening anemia, managed by the Surgical Service COPD for which he follows with Dr. Slaughter Cardiac cath of August 2014 showed widely patent stent in the mid LAD, known to be Promus 2.5 x 18mm stent placed in . The left Cx has 60% mid vesel stenosis with FFR of 0.96, indicating this is hemodynamically insignificant. The RCA is dominant and has 40% proximal to med vessel stenosis. LVEF 45%. Apical hypokinesis to akinesis. No significant MR. Normal LVEDP Mild to mod ischemic cardiomyopathy: Echocardiogram from June 2015 showed distal septal hypokinesis to akinesis. Mild to mod impairment of global LV systolic funciton with an ejection fraction approx 45%. Trivial to mild MR and TR. No evidence of significant valvular stenosis on this study. PASP WNL H/O tobaccoism - smoked for 40 years has quit COPD- follows with Dr. Slaughter P - statin therapy Mild bilat carotid disease per u/s of November 2013 Intolerance to ARCHANA (-) d/t cough Plan: * Complex management due to multiple comorbidities * Advise blood transfusion if OK with surgical services * Monitor labs * Replace electrolytes Physician Assessment Physician Assessment Lungs: good air entry' Cor: reg A&R * As documented in our note above * I spoke with him and his fam and answered questions NURIA GRAFF NEONATAL SOCIAL WORKER Dec 07, 2016 10:12 NOE KIM MD FACP FAC CCDS Dec 07, 2016 14:02
[2016-12-07] MEDS ORDERED: FUROSEMIDE 40 MG/4 ML INJ (LASIX) IVP NR (10:30)
[2016-12-07] MEDS ORDERED: KCL 20 MEQ TAB (K-DUR) PO NR (10:30)
[2016-12-07] MEDS ORDERED: NS IV 500 ML 500 ML ONE (10:38)
[2016-12-07] MEDS: MAGNESIUM 1 GM/100 ML IVPB 100 ML IV SCH ×2 (10:41→12:03)
--- NOTE | 2016-12-07 11:26 | Progress Note (SOAP) ---
Subjective Subjective/Events-last exam this note is dated 12/07/16. patient doing well. air with small amount brown stool in colostomy. confused last night most likely due to pain meds. tolerating clears. Objective Exam Vital Signs Date Time Temp Pulse Resp B/P Pulse Ox O2 Delivery O2 Flow Rate FiO2 12/07/16 08:00 96 Nasal Cannula 2.00 12/07/16 08:00 98.5 88 22 126/70 92 Nasal Cannula 2.00 12/07/16 07:00 100 12/07/16 06:17 2.00 12/07/16 04:00 100.5 105 18 133/83 96 Nasal Cannula 2.00 12/07/16 01:00 95 12/07/16 00:15 99.5 90 20 150/76 96 2.00 12/06/16 20:00 92 Nasal Cannula 4.00 12/06/16 19:59 97.5 95 20 123/69 92 Nasal Cannula 4.00 12/06/16 19:16 92 2.00 12/06/16 19:00 110 12/06/16 16:00 96.0 91 18 121/67 97 Nasal Cannula 4.00 12/06/16 14:11 96 2.00 12/06/16 13:00 78 12/06/16 12:00 97.9 83 24 126/71 95 Nasal Cannula 4.00 I & O 12/07/16 07:00 Intake Total 2700 ml Output Total 3850 ml Balance -1150 ml Capillary Refill : General Appearance: No Apparent Distress HEENT: PERRL/EOMI Neck: Full Range of Motion Respiratory: Decreased Breath Sounds Rhonci Cardiovascular: Regular Rate, Rhythm Gastrointestinal: normal bowel sounds other (wounds clean/dry) Extremity: Normal Capillary Refill Neurologic/Psychiatric: Alert Oriented x3 Skin: Normal Color Lymphatic: No Adenopathy Results Lab Laboratory Tests 12/07/16 04:50: Anion Gap 10, BUN/Creatinine Ratio 10, Basophils # (Auto) 0.0, Basophils (%) ( Auto) 0, Blood Urea Nitrogen 6L, Calcium Level 7.8L, Carbon Dioxide Level 27, Chloride Level 102, Creatinine 0.58L, Eosinophils # (Auto) 0.1, Eosinophils (%) (Auto) 2, Estimat Glomerular Filtration Rate > 60, Glucose Level 100, Hematocrit 24L, Hemoglobin 7.6L, Lymphocytes # (Auto) 0.4L, Lymphocytes (%) ( Auto) 6L, Magnesium Level 1.5L, Mean Corpuscular Hemoglobin 29, Mean Corpuscular Hemoglobin Concent 32, Mean Corpuscular Volume 88, Mean Platelet Volume 9.6, Monocytes # (Auto) 0.5, Monocytes (%) (Auto) 8, Neutrophils # (Auto ) 5.3, Neutrophils (%) (Auto) 85H, Platelet Count 295, Potassium Level 3.5L, Red Blood Count 2.67L, Red Cell Distribution Width 13.5, Sodium Level 139, White Blood Count 6.3 Assessment/Plan Assessment/Plan Assess & Plan/Chief Complaint s/p laparoscopic LAR with end colostomy and crow's pouch. increase ambulation advance to dys3 diet decrease narcotics. Diagnosis/Problems: Clinical Quality Measures DVT/VTE Risk/Contraindication: Risk Factor Score Per Nursin RFS Level Per Nursing on Admit: 2=Moderate ROXIE HERNANDEZ MD Dec 07, 2016 11:26
--- NOTE | 2016-12-07 11:34 | Progress Note (SOAP) ---
Subjective Subjective/Events-last exam doing better, still had some confusion overnight. ostomy functional with stool. tolerating diet. Objective Exam Vital Signs Date Time Temp Pulse Resp B/P Pulse Ox O2 Delivery O2 Flow Rate FiO2 12/07/16 08:00 96 Nasal Cannula 2.00 12/07/16 08:00 98.5 88 22 126/70 92 Nasal Cannula 2.00 12/07/16 07:00 100 12/07/16 06:17 2.00 12/07/16 04:00 100.5 105 18 133/83 96 Nasal Cannula 2.00 12/07/16 01:00 95 12/07/16 00:15 99.5 90 20 150/76 96 2.00 12/06/16 20:00 92 Nasal Cannula 4.00 12/06/16 19:59 97.5 95 20 123/69 92 Nasal Cannula 4.00 12/06/16 19:16 92 2.00 12/06/16 19:00 110 12/06/16 16:00 96.0 91 18 121/67 97 Nasal Cannula 4.00 12/06/16 14:11 96 2.00 12/06/16 13:00 78 12/06/16 12:00 97.9 83 24 126/71 95 Nasal Cannula 4.00 I & O 12/07/16 07:00 Intake Total 2700 ml Output Total 3850 ml Balance -1150 ml Capillary Refill : General Appearance: No Apparent Distress HEENT: PERRL/EOMI Neck: Full Range of Motion Respiratory: Decreased Breath Sounds Rhonci Cardiovascular: Regular Rate, Rhythm Gastrointestinal: normal bowel sounds soft other (wounds clean/dry) Extremity: Normal Capillary Refill Neurologic/Psychiatric: Alert Oriented x3 Skin: Normal Color Lymphatic: No Adenopathy Results Lab Laboratory Tests 12/07/16 04:50: Anion Gap 10, BUN/Creatinine Ratio 10, Basophils # (Auto) 0.0, Basophils (%) ( Auto) 0, Blood Urea Nitrogen 6L, Calcium Level 7.8L, Carbon Dioxide Level 27, Chloride Level 102, Creatinine 0.58L, Eosinophils # (Auto) 0.1, Eosinophils (%) (Auto) 2, Estimat Glomerular Filtration Rate > 60, Glucose Level 100, Hematocrit 24L, Hemoglobin 7.6L, Lymphocytes # (Auto) 0.4L, Lymphocytes (%) ( Auto) 6L, Magnesium Level 1.5L, Mean Corpuscular Hemoglobin 29, Mean Corpuscular Hemoglobin Concent 32, Mean Corpuscular Volume 88, Mean Platelet Volume 9.6, Monocytes # (Auto) 0.5, Monocytes (%) (Auto) 8, Neutrophils # (Auto ) 5.3, Neutrophils (%) (Auto) 85H, Platelet Count 295, Potassium Level 3.5L, Red Blood Count 2.67L, Red Cell Distribution Width 13.5, Sodium Level 139, White Blood Count 6.3 Assessment/Plan Assessment/Plan Assess & Plan/Chief Complaint s/p laparoscopic LAR with end colostomy and crow's pouch. increase ambulation decrease narcotics. will encourage PO. anemic, will give 2 units PRBC. Diagnosis/Problems: Clinical Quality Measures DVT/VTE Risk/Contraindication: Risk Factor Score Per Nursin RFS Level Per Nursing on Admit: 2=Moderate ROXIE HERNANDEZ MD Dec 07, 2016 11:34
[2016-12-07 14:26] LABS: BILIRUBIN,URINE NEGATIVE (NEGATIVE); KETONES,URINE 3+ (NEGATIVE); LEUKOCYTE ESTERASE ,URINE NEGATIVE (NEGATIVE); NITRITE,URINE NEGATIVE (NEGATIVE); PH,URINE 8 (5-9); PROTEIN,URINE NEGATIVE (NEGATIVE); UROBILINOGEN,URINE NORMAL (NORMAL)
[2016-12-07 14:34] LABS: SQUAMOUS EPITHELIAL CELL,UR RARE /HPF
[2016-12-07] MEDS: oxyCODONE/APAP 10/325MG (PERCOCET 10) TABLET PO PRN (18:25)
[2016-12-07] MEDS: PANTOPRAZOLE 40 MG (PROTONIX) TAB PO SCH (20:05)
[2016-12-07] MEDS: ASPIRIN E.C. 81 MG (ECOTRIN) TAB PO SCH (20:05)
[2016-12-08] VITALS: BP 129/75
[2016-12-08] MEDS: LACTATED RINGERS 1,000 ML IV SCH ×2 (01:34→05:42)
[2016-12-08] MEDS: RT-ALBUTEROL SULF 2.5 MG/3 ML PRE-MIX VIAL INH SCH ×6 (02:00→22:00)
[2016-12-08] MEDS: oxyCODONE/APAP 10/325MG (PERCOCET 10) TABLET PO PRN ×4 (05:25→22:34)
[2016-12-08 05:30] LABS: RED BLOOD COUNT 3.17 10^6/uL (4.35-5.85); RED CELL DISTRIBUTION WIDTH 13.7 % (10.0-14.5); WHITE BLOOD COUNT 4.3 10^3/uL (4.3-11.0)
[2016-12-08 05:46] LABS: ANION GAP 9 MMOL/L (5-14); BLOOD UREA NITROGEN 6 MG/DL (7-18); BUN/CREATININE RATIO 11; CALCIUM 8.1 MG/DL (8.5-10.1); CARBON DIOXIDE 29 MMOL/L (21-32); CHLORIDE 102 MMOL/L (98-107); CREATININE SERUM 0.53 MG/DL (0.60-1.30); GFR ESTIMATED > 60; GLUCOSE 97 MG/DL (70-105); MAGNESIUM 1.8 MG/DL (1.8-2.4); POTASSIUM 3.8 MMOL/L (3.6-5.0); SODIUM 140 MMOL/L (135-145)
[2016-12-08] MEDS: UMECLIDINIUM BROMIDE (INCRUSE ELLIPTA) 7'S IH SCH (07:03)
[2016-12-08 08:00] VITALS: BP 126/71
[2016-12-08] MEDS: PANTOPRAZOLE 40 MG (PROTONIX) TAB PO SCH ×2 (08:56→20:54)
[2016-12-08] MEDS: ENOXAPARIN 30 MG/0.3 ML (LOVENOX) SYR SC SCH ×2 (08:56→20:55)
[2016-12-08] MEDS: GEMFIBROZIL 600 MG (LOPID) TAB PO SCH (08:56)
[2016-12-08] MEDS: LOSARTAN 25 MG (COZAAR) TAB PO SCH (08:56)
--- NOTE | 2016-12-08 10:11 | Progress Note-Cardiology ---
Cardiology SOAP Progress Note Subjective: In bed with visitor at the bedside. States he feels better today. More alert today. No c/o dyspnea, CP, palpitations, syncope or near syncope. No c/o abdominal pain. Objective: I&O/Vital Signs Vital Sign - Last 12Hours 12/08/16 12/08/16 12/08/16 12/08/16 07:03 08:00 08:00 11:18 Temp 98.0 Pulse 78 Resp 18 B/P 126/71 Pulse Ox 92 93 94 94 O2 Delivery Nasal Cannula Nasal Cannula O2 Flow Rate 2.00 2.00 2.00 2.00 12/08/16 16:00 Temp 97.3 Pulse 32 Resp 20 B/P 124/73 Pulse Ox 94 O2 Delivery Nasal Cannula O2 Flow Rate 2.00 Intake and Output 12/08/16 00:00 Intake Total 1430 ml Output Total 4595 ml Balance -3165 ml Weight (Pounds): 219 Weight (Ounces): 3.0 Weight (Calculated Kilograms): 99.263460 Constitutional: AAO x 3 well-developed well-nourished Respiratory: No accessory muscle use, other (good air entry; prolonged exp phase) Cardiovascular: regular rate-rhythm S1 and S2 systolic murmur (faint MANUEL at card base) Gastrointestional: soft roundNo guarding, audible bowel sounds other ( colostomy LLQ) Genital/Rectal: other (urinary catheter to DD) Extremities: No clubbing, No cyanosis, significant edema (mild pedal edema) Neurologic/Psychiatric: grossly intact power is 5/5 both on sides Skin: No rash on exposed areas, No ulcerations on exposed areas Results/Procedures: Labs Laboratory Tests 12/08/16 05:20: Anion Gap 9, BUN/Creatinine Ratio 11, Blood Urea Nitrogen 6L, Calcium Level 8.1L , Carbon Dioxide Level 29, Chloride Level 102, Creatinine 0.53L, Estimat Glomerular Filtration Rate > 60, Glucose Level 97, Hematocrit 27L, Hemoglobin 9.0L, Magnesium Level 1.8, Mean Corpuscular Hemoglobin 28, Mean Corpuscular Hemoglobin Concent 33, Mean Corpuscular Volume 86, Mean Platelet Volume 9.0, Platelet Count 290, Potassium Level 3.8, Red Blood Count 3.17L, Red Cell Distribution Width 13.7, Sodium Level 140, White Blood Count 4.3 12/08/16 12:48: Lab Scanned Report Transfusion Reaction Form A/P: Assessment: Diverticular perforation and abdominal abscess, managed by the Surgical Service Anemia, managed by the Surgical Service - H/H improved following transfusion COPD for which he follows with Dr. Slaughter Cardiac cath of August 2014 showed widely patent stent in the mid LAD, known to be Promus 2.5 x 18mm stent placed in . The left Cx has 60% mid vesel stenosis with FFR of 0.96, indicating this is hemodynamically insignificant. The RCA is dominant and has 40% proximal to med vessel stenosis. LVEF 45%. Apical hypokinesis to akinesis. No significant MR. Normal LVEDP Mild to mod ischemic cardiomyopathy: Echocardiogram from June 2015 showed distal septal hypokinesis to akinesis. Mild to mod impairment of global LV systolic funciton with an ejection fraction approx 45%. Trivial to mild MR and TR. No evidence of significant valvular stenosis on this study. PASP WNL H/O tobaccoism - smoked for 40 years has quit COPD- follows with Dr. Slaughter P - statin therapy Mild bilat carotid disease per u/s of November 2013 Intolerance to ARCHANA (-) d/t cough Plan: * Complex management due to multiple comorbidities * H/H improved following transfusion of 2 units PRBC * Monitor labs * Continue current regimen Physician Assessment Physician Assessment Lungs: good air entry Cor: reg Mild bilat leg swelling A&R * As documented in our note above * I spoke with him and answered questions NURIA GRAFF BUSINESS INTELLIGENCE ARCHITECT Dec 08, 2016 10:11 NOE KIM MD FACP FAC CCDS Dec 08, 2016 17:29
--- NOTE | 2016-12-08 15:43 | Progress Note (SOAP) ---
Subjective Subjective/Events-last exam doing well. tolerating regular diet. ambulating well. urinating on own well. no confusion last night. Objective Exam Vital Signs Date Time Temp Pulse Resp B/P Pulse Ox O2 Delivery O2 Flow Rate FiO2 12/08/16 11:18 94 2.00 12/08/16 08:00 94 Nasal Cannula 2.00 12/08/16 08:00 98.0 78 18 126/71 93 Nasal Cannula 2.00 12/08/16 07:03 92 2.00 12/08/16 02:06 2.00 12/08/16 00:00 97.4 71 18 129/75 98 Nasal Cannula 2.00 12/07/16 22:29 2.00 12/07/16 20:05 96 Nasal Cannula 2.00 12/07/16 19:07 93 2.00 12/07/16 16:50 96.5 87 18 138/75 97 2.00 12/07/16 16:00 96.8 95 20 134/75 97 Nasal Cannula 2.00 I & O 12/08/16 07:00 Intake Total 2630 ml Output Total 5675 ml Balance -3045 ml Capillary Refill : General Appearance: No Apparent Distress HEENT: PERRL/EOMI Neck: Full Range of Motion Respiratory: Chest Non Tender Decreased Breath Sounds Rhonci Cardiovascular: Regular Rate, Rhythm Gastrointestinal: normal bowel sounds soft other (incisions clean/dry) Extremity: Normal Capillary Refill Neurologic/Psychiatric: Alert Oriented x3 Skin: Normal Color Lymphatic: No Adenopathy Results Lab Laboratory Tests 12/08/16 05:20: Anion Gap 9, BUN/Creatinine Ratio 11, Blood Urea Nitrogen 6L, Calcium Level 8.1L , Carbon Dioxide Level 29, Chloride Level 102, Creatinine 0.53L, Estimat Glomerular Filtration Rate > 60, Glucose Level 97, Hematocrit 27L, Hemoglobin 9.0L, Magnesium Level 1.8, Mean Corpuscular Hemoglobin 28, Mean Corpuscular Hemoglobin Concent 33, Mean Corpuscular Volume 86, Mean Platelet Volume 9.0, Platelet Count 290, Potassium Level 3.8, Red Blood Count 3.17L, Red Cell Distribution Width 13.7, Sodium Level 140, White Blood Count 4.3 12/08/16 12:48: Lab Scanned Report Transfusion Reaction Form Assessment/Plan Assessment/Plan Assess & Plan/Chief Complaint s/p laparoscopic LAR with end colostomy and crow's pouch. increase ambulation decrease narcotics. will encourage PO. hb stable. ostomy training. home tomorrow. Diagnosis/Problems: Clinical Quality Measures DVT/VTE Risk/Contraindication: Risk Factor Score Per Nursin RFS Level Per Nursing on Admit: 2=Moderate ROXIE HERNANDEZ MD Dec 08, 2016 15:43
[2016-12-08 16:00] VITALS: BP 124/73
[2016-12-08] MEDS: ASPIRIN E.C. 81 MG (ECOTRIN) TAB PO SCH (20:54)
[2016-12-09] VITALS: BP 133/75
[2016-12-09] MEDS: RT-ALBUTEROL SULF 2.5 MG/3 ML PRE-MIX VIAL INH SCH ×4 (02:00→14:00)
[2016-12-09] MEDS: LORazepam INJ 2 MG/ML (ATIVAN) VIAL IVP PRN (03:02)
[2016-12-09] MEDS: UMECLIDINIUM BROMIDE (INCRUSE ELLIPTA) 7'S IH SCH (07:28)
[2016-12-09] MEDS: oxyCODONE/APAP 10/325MG (PERCOCET 10) TABLET PO PRN (07:42)
[2016-12-09] MEDS ORDERED: oxyCODONE/APAP 10/325MG (PERCOCET 10) TABLET PO PRN (07:42)
[2016-12-09 08:00] VITALS: BP 138/79
[2016-12-09] MEDS: ENOXAPARIN 30 MG/0.3 ML (LOVENOX) SYR SC SCH (09:00)
[2016-12-09] MEDS: PANTOPRAZOLE 40 MG (PROTONIX) TAB PO SCH (09:53)
[2016-12-09] MEDS: LOSARTAN 25 MG (COZAAR) TAB PO SCH (09:53)
[2016-12-09] MEDS: GEMFIBROZIL 600 MG (LOPID) TAB PO SCH (09:53)
--- NOTE | 2016-12-09 11:04 | Progress Note-Cardiology ---
Cardiology SOAP Progress Note Subjective: In bed. No c/o CP, palpitations, syncope or near syncope. No c/o dyspnea. Objective: I&O/Vital Signs Vital Sign - Last 12Hours 12/09/16 12/09/16 12/09/16 12/09/16 00:00 06:22 08:00 08:05 Temp 97.0 98.9 Pulse 81 79 Resp 20 20 B/P 133/75 138/79 Pulse Ox 95 92 93 94 O2 Delivery Nasal Cannula Nasal Cannula Nasal Cannula O2 Flow Rate 2.00 2.00 3.00 2.00 Intake and Output 12/09/16 00:00 Intake Total 1090 ml Output Total 712 ml Balance 378 ml Weight (Pounds): 207 Weight (Ounces): 3.2 Weight (Calculated Kilograms): 93.151563 Constitutional: AAO x 3 well-developed well-nourished Respiratory: No accessory muscle use, other (good air entry; prolonged exp phase) Cardiovascular: regular rate-rhythm S1 and S2 systolic murmur (faint MANUEL at card base) Gastrointestional: soft roundNo guarding, audible bowel sounds other ( colostomy LLQ. SAKSHI drain mid-line) Extremities: No clubbing, No cyanosis Neurologic/Psychiatric: grossly intact power is 5/5 both on sides Skin: No rash on exposed areas, No ulcerations on exposed areas Results/Procedures: Labs Laboratory Tests 12/08/16 12:48: Lab Scanned Report Transfusion Reaction Form 12/09/16 05:29: Magnesium Level 1.8 A/P: Assessment: Diverticular perforation and abdominal abscess, managed by the Surgical Service Anemia, managed by the Surgical Service - H/H improved following transfusion COPD for which he follows with Dr. Slaughter Cardiac cath of August 2014 showed widely patent stent in the mid LAD, known to be Promus 2.5 x 18mm stent placed in . The left Cx has 60% mid vesel stenosis with FFR of 0.96, indicating this is hemodynamically insignificant. The RCA is dominant and has 40% proximal to med vessel stenosis. LVEF 45%. Apical hypokinesis to akinesis. No significant MR. Normal LVEDP Mild to mod ischemic cardiomyopathy: Echocardiogram from June 2015 showed distal septal hypokinesis to akinesis. Mild to mod impairment of global LV systolic funciton with an ejection fraction approx 45%. Trivial to mild MR and TR. No evidence of significant valvular stenosis on this study. PASP WNL H/O tobaccoism - smoked for 40 years has quit COPD- follows with Dr. Slaughter HLP - statin therapy Mild bilat carotid disease per u/s of November 2013 Intolerance to ARCHANA (-) d/t cough Plan: * Complex management due to multiple comorbidities * Cardiac status clinically stable * Continue current regimen * OK to discharge home from cardiac stand point * Out pt f/u Physician Assessment Physician Assessment Lungs: good bilat air entry Cor: reg A&R * As documented in our note above NURIA GRAFF ATHLETE MARKETING AGENT Dec 09, 2016 11:04 NOE KIM MD FACP FACC CCDS Dec 09, 2016 11:48
--- NOTE | 2016-12-09 14:24 | Progress Note (SOAP) ---
Subjective Subjective/Events-last exam Patient reports that he is doing well. Still having minimal abdominal discomfort. No N/V. Colostomy functioning. Ambulating and tolerating diet. Review of Systems General: No Chills, No Night Sweats Gastrointestinal: No: Nausea, Vomiting Objective Exam Vital Signs Date Time Temp Pulse Resp B/P Pulse Ox O2 Delivery O2 Flow Rate FiO2 12/09/16 08:05 94 Nasal Cannula 2.00 12/09/16 08:00 98.9 79 20 138/79 93 Nasal Cannula 3.00 12/09/16 06:22 92 2.00 12/09/16 00:00 97.0 81 20 133/75 95 Nasal Cannula 2.00 12/08/16 20:30 Nasal Cannula 2.00 12/08/16 16:00 97.3 32 20 124/73 94 Nasal Cannula 2.00 I & O 12/09/16 07:00 Intake Total 1590 ml Output Total 717 ml Balance 873 ml Capillary Refill : General Appearance: No Apparent Distress WD/WN HEENT: PERRL/EOMI Neck: Full Range of Motion Normal Inspection Supple Respiratory: Lungs Clear Normal Breath Sounds No Accessory Muscle Use No Respiratory Distress Cardiovascular: Regular Rate, Rhythm No Edema No JVD Gastrointestinal: normal bowel sounds soft tenderness other (Right lower quadrant SAKSHI drain in place, compressed with serosanguineous drainage noted.) Extremity: Normal Capillary Refill Normal Inspection Normal Range of Motion Neurologic/Psychiatric: Alert Oriented x3 Skin: Normal Color Warm/Dry Other (3 abdominal incisions C/D/I with skin staple in place. No drainge from incisions.) Results Lab Laboratory Tests 12/09/16 05:29: Magnesium Level 1.8 Assessment/Plan Assessment/Plan Assess & Plan/Chief Complaint s/p laparoscopic LAR with end colostomy and crow's pouch continue ambulation at home. Regular diet. hb stable. Home Health. Follow up in office in 1 week. May Discharge home today. Diagnosis/Problems: Clinical Quality Measures DVT/VTE Risk/Contraindication: Risk Factor Score Per Nursin RFS Level Per Nursing on Admit: 2=Moderate RAFIQ JOLLY APRN Dec 09, 2016 14:24 RAFIQ JOLLY APRN Dec 09, 2016 2:24 pm
[2016-12-09] MEDS ORDERED: OXYC-202 PO (14:31)
--- NOTE | 2016-12-09 14:39 | Discharge Inst-Surgical ---
D/C Lap Instructions-KIDO New, Converted, or Re-Newed RX: RX on Chart Follow Up Appt in 1 weeks No heavy lifting/exertion for 6 weeks from date of surgery. No driving while on pain medications Incentive Spirometry use every 2 hours while awake Regular Diet Symptoms to Report: Fever over 101 degree F, Nausea/Vomiting Infection Signs and Symptoms to report: Increased redness, Foul odor of wound, Increased drainage Bathing instructions: May shower Operative Area Clean/Dry; Keep incision clean/dry If any problems/questions: Contact your physician or go to Emergency Room RAFIQ JOLLY APRN Dec 09, 2016 2:39 pm
[2016-12-09 15:28] VITALS: BP 138/79
--- NOTE | 2016-12-13 08:52 | Physician Query ---
PQ-Further Specificity Admission/Discharge Admission Date: Dec 02, 2016 at 11:17 Discharge Date: Dec 09, 2016 at 14:55 The medical record reflects the following clinical scenario: History/Risk Factors: [surgery with a blood loss of 850ml] Clinical Findings: [12/06 hgb 7.5] Treatment: [12/08 - 2 units of blood given] Question: Can you further specify [diagnosis/condition] per the clinical indicators above? Please document below. 1. [anemia due to acute blood loss] 2. [anemia unspecified] 3. Other, with explanation of the clinical findings. 4. Clinically undetermined, no explanation for the clinical findings. Can you specify per above: Other, explanation/clinical finding Explanation of clincal finding anemia of chronic disease. renal failure. COPD. CAD. IV hydration and dilutional. Please remember a lack of response to the above will prompt a phone page by [facility]/ coding staff. In responding to this query, please exercise your independent professional judgment. The purpose of this communication is to more accurately reflect the complexity of your patients condition. The fact that a question is asked does not imply that any particular answer is desired or expected. Thank you for your timely response to this clarification. Requestors name: [ ] Phone # [ ] THIS PHYSICIAN QUERY FORM IS A PERMANENT PART OF THE MEDICAL RECORD ANDREINA MANZO Dec 13, 2016 08:52 ROXIE HERNANDEZ MD Dec 13, 2016 15:22
--- NOTE | 2016-12-22 11:46 | DISCHARGE SUMMARY ---
DATE OF ADMISSION: 12/02/2016 DATE OF DISCHARGE: 12/09/2016 ATTENDING PRIMARY CARE PHYSICIAN: Dr. Helen Meehan. ADMISSION DIAGNOSIS: Ruptured acute sigmoid diverticulitis with recurrent abscesses. DISCHARGE DIAGNOSIS: Ruptured acute sigmoid diverticulitis with recurrent abscesses. ADDITIONAL DIAGNOSES: 1. COPD. 2. Coronary artery disease. 3. Hypertension. 4. Hypercholesterolemia. PRINCIPAL PROCEDURE: Laparoscopic low anterior sigmoid rectal resection with the Timbo pouch and end colostomy. No additional procedures. COMPLICATIONS: None. DISPOSITION: Home in stable condition. Mr. Sam Trujillo is a 61-year-old male who was initially admitted on 09/06/2016 for worsening shortness of breath and exacerbation of COPD. He had a copious cough, as well as sputum production. He continued to require oxygen and continued IV antibiotics. He later developed abdominal pain, and a CT scan performed, which did show a small amount of free air and an elevated white count 11.9. He was treated conservatively with IV antibiotics however, continued to have a leukocytosis as well as worsening abdominal pain. A repeat CT scan showed a significant size abscess. The diverticular abscess and perforation were explained to the patient and the need for diversion, however, the patient adamantly was against placement of a colostomy at that time. The option of placement of drains laparoscopically as well as IV antibiotics and bowel rest and TPN was given. He was in full understanding of the risks and benefits at the time and wished to proceed with this conservative management. On 09/12/2016 he underwent diagnostic laparoscopy, irrigation, as well as drain placement. The diverticulitis appeared to be perforated however, contained and consistent with a Handshy, class III. He had recurrence of symptoms and another CT scan was performed when he was found to have development of other abscesses. These were drained percutaneously. He was eventually discharged home and placed on outpatient IV antibiotics, as well as oral antibiotics. He continued to have symptoms of purulent drainage, as well as abdominal pain. He then was understanding of the disease process and did opt for a sigmoid rectal resection as well as end colostomy and Diallo. PAST MEDICAL HISTORY: 1. COPD. 2. Coronary artery disease. 3. Complicated diverticulitis. 4. Hypertension. 5. Hypercholesterolemia. PAST SURGERIES: 1. Left knee arthroscopy. 2. Cardiac catheterization and stent placement. 3. Some form of lung surgery many years ago. 4. Diagnostic laparoscopy and drain placement. ALLERGIES: No known drug allergies. MEDICATIONS: 1. Spiriva 2 puffs daily. 2. Viagra 100 mg daily. 3. Metoprolol 25 mg daily. 4. Losartan 25 mg daily. 5. Gemfibrozil 600 mg daily. 6. Breo Ellipta 1 puff daily, 7. Aspirin 81 mg daily. 8. Albuterol 2 puffs q.4 hours p.r.n. SOCIAL HISTORY: Previous smoke, 70 pack-years, quit 2011. Rare alcohol. FAMILY HISTORY: Noncontributory. On he underwent the laparoscopic hand-assisted sigmoid colon resection and colostomy, as well as Timbo pouch creation. He did well after the procedure was sent to the Intensive Care Unit. In the ICU he did well and had stable vital signs and his respiratory status was stable. Cardiology as well as medical were consulted as well. He did well and was transferred to the general surgical floor. There he did well however was not to ambulating well most likely due to pain medication as well as antianxiety medication. He also developed confusion usually at night. The pain as well as antianxiety medications were decreased and he did have improvement of symptoms. He also did have colostomy output and was started on clear liquids and advanced to a regular diet without any difficulty. Vital signs remained stable as his labs. He was discharged home on 12/09/2016. HOME-GOING INSTRUCTIONS: DIET: As tolerated. ACTIVITY: As tolerated. However, no heavy lifting or exertion for the next 6 weeks. MEDICATIONS: Resume all previous home medications Percocet p.r.n. He is instructed to follow-up in the office in 2 weeks. Job ID: [id number] Dictated Date: 12/21/2016 11:04:58 Sql Data Architect Date: 12/22/2016 11:23:08/felicia
== END 2016-12-09 14:55 | disposition home health service (06) | DRG 330 ==
LOC: 4TH 11:17 → SURG 11:18 → ICU 16:34 → 4TH 12-04 17:44
PROVIDERS: ADMIT Surgery Pediatric Surgery; ATTEND Family Medicine
PROC: 0DTN4ZZ Resection of Sigmoid Colon, Percutaneous Endoscopic Approach (ICD-10-PCS; principal; 2016-12-02 12:22)
PROC: 0D1M4Z4 Bypass Descending Colon to Cutaneous, Percutaneous Endoscopic Approach (ICD-10-PCS; 2016-12-02 12:22)
DX: K57.20 Diverticulitis of large intestine with perforation and abscess without bleeding (principal); D63.8 Anemia in other chronic diseases classified elsewhere; J44.9 Chronic obstructive pulmonary disease, unspecified; I10 Essential (primary) hypertension; E78.5 Hyperlipidemia, unspecified; I25.10 Atherosclerotic heart disease of native coronary artery without angina pectoris; I25.5 Ischemic cardiomyopathy; K21.9 Gastro-esophageal reflux disease without esophagitis; F41.9 Anxiety disorder, unspecified; R53.81 Other malaise; N19 Unspecified kidney failure; Z87.891 Personal history of nicotine dependence; Z95.5 Presence of coronary angioplasty implant and graft
CPT/HCPCS: 36415; 71010; 80048; 80053; 81000; 82040; 82330; 82962; 83605; 83735; 84100; 84132; 84484; 85007; 85025; 85027; 86850; 86900; 86901; 86920; 88307; 93005; 94640; 94664; 94760

== ENCOUNTER 2016-12-25 10:46 | Inpatient (IN) | payer BC ==
[~2016-12-25] VITALS: Ht 182.9 cm; Wt 88.0 kg
[~2016-12-25 10:46] MED LIST changes: +ALBU90AE INH; +LEVO750T39 PO; +METR500T21 PO; +TIOT18CA2 INH
--- OUTSIDE RECORDS SUMMARY | 2016-12-25 10:52 | XMS REPORT | Continuity of Care Document ---
Author Author [facility] Organization [facility] Address Unknown Phone Unavailable Care Team Providers Care Surgical Technician Name Role Phone BRADFORD RICO DO PCP Insurance Providers Payer Name Policy Number Subscriber Name Relationship [facility] [id number] Ariadna Aden 20 Self / Same As Patient Advance Directives Directive Response Recorded Date/Time Advance Directives No 12/01/16 11:32am Health Care Power of Hematologist No 12/01/16 11:32am Organ Donor No 12/01/16 [...] needed for Shortness Of Breath 09/06/16 Tiotropium [place] 4 Gm 1 Puff Inhalation Daily 09/06/16 [...] Tab, 75 Mg Oral Daily 12/14/13 Discontinued [[id number]] (Lisinopril 5MG) , 2.5 Mg Oral Daily@0900 [...] 1 Puff Inhalation Daily 09/10/14 Discontinued Tiotropium [place] 1 Inh Aerp, 1 Cap Inhalation Daily [...] 0.00 inches 12/01/2016 11:26am Height (Calculated Centimeters) 182.400539 cm 12/01/2016 11:26am Weight (Pounds) 212 pounds 12/01/2016 11:26am Weight (Ounces) 6.0 oz 12/01/2016 11:26am Weight (Calculated Grams) 07630.68 gm 12/01/2016 11:26am Weight (Calculated Kilograms) 96.566536 kilograms 12/01/2016 11:26am Calculated BMI 28.8 12/01/2016 [...] Discharge/Depart Date Attending Provider Departed Clinic [facility] 12/01/16 11:21am 12/01/16 11: 50am ROXIE HERNANDEZ MD Departed Clinic [facility] 11/30/16 1:53pm 11/30/16 5: 30pm RAFIQ JOLLY APRN
[2016-12-25] MEDS ORDERED: NS IV 1000 ML 1,000 ML IV ONE (11:00)
[2016-12-25] MEDS ORDERED: ONDANSETRON 4 MG/2 ML (SDV) Z0FRAN IVP ONE (11:00)
[2016-12-25] MEDS ORDERED: fentaNYL INJECTION 100 MCG/2 ML AMP IVP STA (11:00)
--- NOTE | 2016-12-25 11:03 | ED GI ---
General Chief Complaint: Abdominal/GI Problems Stated Complaint: VOMITING Source of Information: Patient Exam Limitations: No Limitations (PRICE URIBE APRN) History of Present Illness Time Seen By Provider: 11:01 Initial Comments Brought to ER by his with 2 days of persistent nausea and vomiting. He reports some minor periumbilical abdominal pain. Patient did have a perforated diverticuli with abscess in the middle of November this year. He ultimately had CT-guided drainage and subsequent hemicolectomy and current colostomy bag. He reports no appetite and significant weight loss since surgery but the lack of appetite has been worse over the past 2 days. He continues to have normal output through his colostomy bag. No fevers. Primary care is [place] [facility]/Duration: 2-3 Days Severity/Quality: Moderate Location: Periumbilical Radiation: No Radiation Activities at Onset: None Associated Symptoms: Nausea/Vomiting (PRICE URIBE APRN) Allergies and Home Medications Allergies Coded Allergies: No Known Drug Allergies (Unverified , 12/12/13) Home Medications Albuterol Sulfate 90 Mcg Aer.pow.ba 2 PUFF INH Q4H PRN PRN SHORTNESS OF BREATH ( Reported) Alprazolam 2 Mg Tablet 2 MG PO BID PRN PRN ANXIETY (Reported) Aspirin 81 Mg Tablet.dr 81 MG PO HS (Reported) Clopidogrel Bisulfate 75 Mg Tablet 75 MG PO DAILY (Reported) Fluticasone/Vilanterol 1 Each Blst.w.dev 1 PUFF IH DAILY (Reported) Gemfibrozil 600 Mg Tablet 600 MG PO DAILY (Reported) Losartan Potassium 25 Mg Tablet 25 MG PO DAILY (Reported) Metoprolol Succinate 25 Mg Tab.er.24h 25 MG PO DAILY (Reported) Oxycodone HCl/Acetaminophen 1 Each Tablet 1 TAB PO Q4H PRN PRN PAIN (Reported) Oxycodone HCl/Acetaminophen 1 Each Tablet #60 1 EACH PO Q4H PRN PRN PAIN Prescribed by: RAFIQ JOLLY on 12/09/16 1431 Pantoprazole Sodium 40 Mg Tablet.dr 40 MG PO DAILY (Reported) Sildenafil Citrate 100 Mg Tablet 100 MG PO UD PRN PRN SEXUAL ACTIVITY (Reported ) Tiotropium [place] 1 Inh Aerp 1 CAP INH DAILY (Reported) Review of Systems Constitutional: see HPINo chills, No fever EENTM: No Symptoms Reported Respiratory: No Symptoms Reported Cardiovascular: No Symptoms Reported Gastrointestinal: See HPI Abdominal PainDenies Constipated, Denies Diarrhea, Nausea Vomiting Genitourinary: No Symptoms Reported Musculoskeletal: no symptoms reported Skin: no symptoms reported Psychiatric/Neurological: No Symptoms Reported Endocrine: No Symptoms Reported Hematologic/Lymphatic: No Symptoms Reported (PRICE URIBE APRN) Past Xnthrvz-Rvrnkd-Lboftx Hx Patient Social History Alcohol Use: Denies Use Recreational Drug Use: No Smoking Status: Former Smoker Type Used: Cigarettes Recent Foreign Travel: No Contact w/Someone Who Travel: No Recent Hopitalizations: Yes (PRICE URIBE APRN) Immunizations Up To Date Tetanus Booster (TDap): Less than 5yrs PED Vaccines UTD: No Date of Pneumonia Vaccine: Jun 20, 2012 Date of Influenza Vaccine: Aug 17, 2016 (PRICE URIBE APRN) Seasonal Allergies Seasonal Allergies: No (PRICE URIBE APRN) Surgeries HX Surgeries: Yes (Arthroscopy Left knee, Colonoscopy, "some kind of lung surgery 20 yrs ago ") (PRICE URIBE APRN) Respiratory Hx Respiratory Disorders: Yes (COPD HOME O2 prn) Respiratory Disorders: Pneumonia, Sleep Apnea, COPD (PRICE URIBE APRN) Cardiovascular Hx Cardiac Disorders: Yes (STENTS) Cardiac Disorders: Coronary Artery Disease, Heart Attack, Hypertension (PRICE URIBE APRN) Neurological Hx Neurological Disorders: No (PRICE URIBE APRN) Reproductive System Hx Reproductive Disorders: No Sexually Transmitted Disease: No HIV/AIDS: No (PRICE URIBE APRN) Genitourinary Hx Genitourinary Disorders: No (PRICE URIBE APRN) Gastrointestinal Hx Gastrointestinal Disorders: Yes Gastrointestinal Disorders: Diverticulosis (PRICE URIBE APRN) Musculoskeletal Hx Musculoskeletal Disorders: No (PRICE URIBE APRN) Endocrine Hx Endocrine Disorders: No (PRICE URIBE APRN) HEENT HX ENT Disorders: No Loss of Vision: Denies Hearing Impairment: Denies (PRICE URIBE APRN) Cancer Hx Cancer: No (PRICE URIBE APRN) Psychosocial Hx Psychiatric Problems: No (PRICE URIBE APRN) Integumentary HX Skin/Integumentary Disorder: No (PRICE URIBE APRN) Blood Transfusions Hx Blood Disorders: No Adverse Reaction to a Blood Tr: No (PRICE URIBE APRN) Family Medical History Significant Family History: No Pertinent Family Hx, Stroke Family Medial History: Cancer 09 SISTER, Onset:Unknown Family history: Alzheimer's disease 09 BROTHER, Onset:Unknown Prostate cancer 03 FATHER, Onset:60 years & older Stroke 03 FATHER, Onset:60 years & older No Family History of: Abdominal aortic aneurysm Waverly's disease Alcoholism Aphasia Cancer of colon Cataract Chest pain Congenital heart disease Congestive heart failure Cystic fibrosis Dementia Dysphagia Family history: Allergy Family history: Arthritis Family history: Asthma Family history: Breast disease Family history: Cardiovascular disease Family history: Coronary thrombosis Family history: Diabetes mellitus Family history: Gastrointestinal disease Family history: Glaucoma Family history: Hypertension Family history: Osteoporosis Family history: Thyroid disorder Headache Hearing loss Heart disease Hereditary disease History of - anemia History of - disorder History of - respiratory disease History of drug abuse Human immunodeficiency virus (HIV) seropositivity Hypercholesterolemia Infertile Kidney disease Malignant neoplasm of lung Myocardial infarction Parkinson's disease Psychotic disorder Seizure disorder Tuberculosis Visual impairment (PRICE URIBE APRN) Family Medial History: Cancer 09 SISTER, Onset:Unknown Family history: Alzheimer's disease 09 BROTHER, Onset:Unknown Prostate cancer 03 FATHER, Onset:60 years & older Stroke 03 FATHER, Onset:60 years & older No Family History of: Abdominal aortic aneurysm Leonides's disease Alcoholism Aphasia Cancer of colon Cataract Chest pain Congenital heart disease Congestive heart failure Cystic fibrosis Dementia Dysphagia Family history: Allergy Family history: Arthritis Family history: Asthma Family history: Breast disease Family history: Cardiovascular disease Family history: Coronary thrombosis Family history: Diabetes mellitus Family history: Gastrointestinal disease Family history: Glaucoma Family history: Hypertension Family history: Osteoporosis Family history: Thyroid disorder Headache Hearing loss Heart disease Hereditary disease History of - anemia History of - disorder History of - respiratory disease History of drug abuse Human immunodeficiency virus (HIV) seropositivity Hypercholesterolemia Infertile Kidney disease Malignant neoplasm of lung Myocardial infarction Parkinson's disease Psychotic disorder Seizure disorder Tuberculosis Visual impairment (SCARLETT FITZPATRICK MD) Physical Exam Vital Signs VS - Last 72 Hours, by Label 12/25/16 11:11 Temp 98.2 Pulse 108 Resp 18 B/P 133/95 O2 Delivery Room Air (SCARLETT FITZPATRICK MD) Vital Signs Capillary Refill : (PRICE URIBE APRN) General Appearance: WD/WN no apparent distress other HEENT: PERRL/EOMI Neck: non-tender full range of motion Respiratory: lungs clear normal breath sounds no respiratory distress no accessory muscle use Cardiovascular: no murmur tachycardia Gastrointestinal: normal bowel sounds non tender soft Extremities: normal range of motion non-tender normal capillary refillNo pedal edema Neurologic/Psychiatric: alert normal mood/affect oriented x 3 Skin: normal color warm/dry (PRICE URIBE APRN) HEENT: pharynx normal Gastrointestinal: tenderness (mild tenderness to the lower abdomen.) other ( stoma with colostomy bag with brown stool.) Back: normal inspection no CVA tenderness (SCARLETT FITZPATRICK MD) Progress/Results/Core Measures Results/Orders Lab Results Laboratory Tests Test 12/25/16 10:55 12/25/16 13:00 Range/Units Alanine Aminotransferase (ALT/SGPT) 14 0-55 U/L Albumin 4.1 3.2-4.5 G/DL Alkaline Phosphatase 143 H 40-136 U/L Anion Gap 17 H 5-14 MMOL/L Aspartate Amino Transf (AST/SGOT) 19 5-34 U/L BUN/Creatinine Ratio 28 Band Neutrophils 0 % Basophils # (Auto) 0.0 0.0-0.1 10^3/uL Basophils % (Manual) 0 % Basophils (%) (Auto) 0 0-10 % Blood Morphology Comment NORMAL Blood Urea Nitrogen 24 H 7-18 MG/DL Calcium Level 9.9 8.5-10.1 MG/DL Carbon Dioxide Level 23 21-32 MMOL/L Chloride Level 99 98-107 MMOL/L Creatinine 0.86 0.60-1.30 MG/DL Eosinophils # (Auto) 0.0 0.0-0.3 10^3/uL Eosinophils % (Manual) 0 % Eosinophils (%) (Auto) 0 0-10 % Estimat Glomerular Filtration Rate > 60 Glucose Level 136 H 70-105 MG/DL Hematocrit 38 L 40-54 % Hemoglobin 12.8 L 13.3-17.7 G/DL Lipase < 4 L 8-78 U/L Lymphocytes # (Auto) 0.7 L 1.0-4.0 X 10^3 Lymphocytes % (Manual) 7 % Lymphocytes (%) (Auto) 6 L 12-44 % Magnesium Level 1.8 1.8-2.4 MG/DL Mean Corpuscular Hemoglobin 28 25-34 PG Mean Corpuscular Hemoglobin Concent 33 32-36 G/DL Mean Corpuscular Volume 82 80-99 FL Mean Platelet Volume 9.7 7.4-10.4 FL Monocytes # (Auto) 0.7 0.0-1.0 X 10^3 Monocytes % (Manual) 5 % Monocytes (%) (Auto) 6 0-12 % Neutrophils # (Auto) 10.4 H 1.8-7.8 X 10^3 Neutrophils % (Manual) 88 % Neutrophils (%) (Auto) 88 H 42-75 % Platelet Count 463 H 130-400 10^3/uL Potassium Level 4.6 3.6-5.0 MMOL/L Red Blood Count 4.66 4.35-5.85 10^6/uL Red Cell Distribution Width 13.5 10.0-14.5 % Sodium Level 139 135-145 MMOL/L Total Bilirubin 0.7 0.1-1.0 MG/DL Total Protein 7.3 6.4-8.2 G/DL White Blood Count 11.8 H 4.3-11.0 10^3/uL Urine Bacteria NEGATIVE /HPF Urine Bilirubin NEGATIVE NEGATIVE Urine Casts NONE /LPF Urine Clarity CLEAR Urine Color YELLOW Urine Crystals NONE /LPF Urine Culture Indicated NO Urine Glucose (UA) NEGATIVE NEGATIVE Urine Ketones 3+ H NEGATIVE Urine Leukocyte Esterase NEGATIVE NEGATIVE Urine Mucus NEGATIVE /LPF Urine Nitrite NEGATIVE NEGATIVE Urine Protein 2+ H NEGATIVE Urine RBC 0-2 /HPF Urine RBC (Auto) 2+ H NEGATIVE Urine Specific [place] 1.015 L 1.016-1.022 Urine Squamous Epithelial Cells 0-2 /HPF Urine Urobilinogen 1 NORMAL MG/DL Urine WBC NONE /HPF Urine pH 5 5-9 (SCARLETT FITZPATRICK MD) My Orders Orders-SCARLETT FITZPATRICK MD Cbc With Automated Diff (12/25/16 11:00) Comprehensive Metabolic Panel (12/25/16 11:00) Lipase (12/25/16 11:00) Magnesium (12/25/16 11:00) Ua Culture If Indicated (12/25/16 11:00) Saline Lock/Iv-Start (12/25/16 11:00) Ns Iv 1000 Ml (Sodium Chloride 0.9%) (12/25/16 11:00) Ondansetron Injection (Zofran Injectio (12/25/16 11:00) Fentanyl Injection (Sublimaze Injection (12/25/16 11:00) Manual Differential (12/25/16 10:55) Ct Abdomen/Pelvis W (12/25/16 11:51) Iohexol Injection (Omnipaque 350 Mg/Ml 1 (12/25/16 12:00) Ns (Ivpb) (Sodium Chloride 0.9% Ivpb Bag (12/25/16 12:00) Dilaudid Iv 1mg Once (12/25/16 13:47) (SCARLETT FITZPATRICK MD) Medications Given in ED Current Medications Medications Dose Ordered Sig/Mike Route Start Time Stop Time Status Last Admin Dose Admin Iohexol 100 ml ONCE ONCE IV 12/25/16 12:00 12/25/16 12:01 DC 12/25/16 12:07 100 ML Ondansetron HCl 4 mg ONCE ONCE IVP 12/25/16 11:00 12/25/16 11:02 DC 12/25/16 11:07 4 MG Sodium Chloride 100 ml ONCE ONCE IV 12/25/16 12:00 12/25/16 12:01 DC 12/25/16 12:07 80 ML Sodium Chloride 1,000 ml @ 0 mls/hr Q0M ONCE IV 12/25/16 11:00 12/25/16 11:02 DC 12/25/16 11:08 1,000 MLS/HR (SCARLETT FITZPATRICK MD) Vital Signs/I&O Vital Sign - Last 12Hours 12/25/16 11:11 Temp 98.2 Pulse 108 Resp 18 B/P 133/95 O2 Delivery Room Air (SCARLETT FITZPATRICK MD) Progress Note : Progress Note I have seen and evaluated the patient with Price Uribe APRN. I agree with above except as indicated. I have directed the plan of care. Patient is reporting multiple episodes of vomiting with persistent nausea and continued weight loss after abdominal surgery for ruptured diverticula with abscess. Complains of lower abdominal pain. Denies blood in output of stoma and denies blood in vomit. States she is not amenable to drink due to nausea and vomiting. IV, labs, normal saline 1 L bolus and UA ordered. Fentanyl 75 g IV and Zofran 4 mg IV ordered. Monitor patient. CT abdomen and pelvis ordered. UA eventually obtained after IV fluids administered. This does show 3+ ketones but no signs of infection. CT results noted. I did discuss all of the findings with Dr. North. He accepts patient for admission. We will continue IV fluids and pain medicine. All the findings and concerns were discussed with the patient and family who agreed with plan. Admit, inpatient status. Dr. Perez consulted. (SCARLETT FITZPATRICK MD) Diagnostic Imaging Diagonstic Imaging: CT Plain Films/CT/US/NM/MRI: abdomen, pelvis Comments [facility]. [place], [place] NAME: ARIADNA ADEN [facility] REC#: [id number] PT STATUS: REG ER : 1955 PHYSICIAN: SCARLETT FITZPATRICK MD ADMIT DATE: 12/25/16/ER Draft Date of Exam:12/25/16 CT ABDOMEN/PELVIS W PROCEDURE: CT abdomen and pelvis with contrast. TECHNIQUE: Multiple contiguous axial images were obtained through the abdomen and pelvis after administration of intravenous contrast. INDICATION: Weakness and vomiting. COMPARISON: 11/30/2016 FINDINGS: There is minimal scarring in the right lung base is stable. There is mild diffuse hepatic steatosis. No new focal hepatic mass is seen. The portal vein appears patent. Gallbladder, pancreas, spleen, adrenal glands and kidneys appear unremarkable. There are new postoperative changes of interval left diversion colostomy. Residual sigmoid colon in the pelvis appears moderately inflamed with some wall thickening and moderate pericolonic inflammatory change. In the region of the sutures, there is a 2.4 cm low-density lesion along the superior aspect of the colon which may represent a small abscess. This is endplate associated with the left aspect of the bladder, and there is some thickening of the bladder wall. There is some intraluminal air within the bladder. A fistulous communication with the bladder here is not entirely excluded. Correlate clinically as well with any history of recent catheterization. There are numerous loops of proximal small bowel seen within the left upper and mid abdomen which are distended and fluid-filled measuring up to 4.4 cm in diameter. Distal small bowel appears decompressed as does the proximal small bowel. This may be related to a severe ileus although obstruction is also of concern. Distal transition point appears to be within the left lower quadrant but not well delineated. There is atherosclerosis and ectasia of the abdominal aorta measuring up to 2.8 cm in diameter. There are degenerative changes in the spine. IMPRESSION: 1. Since the prior study there has been a left diverting colostomy. In the region of previous diverticulitis there is a persistent wall thickening, inflammatory change of the residual sigmoid colon with possible small 2 cm abscess along the superior aspect in the region of the suture. Also suspect some inflammatory change in involvement of the left aspect of the bladder. Air within the bladder may be due to a fistulous communication here or could be due to recent catheterization. Correlate clinically. 2. There is significant fluid-filled distended small bowel in the mid and left upper abdomen which may be related to ileus although small bowel obstruction could have this appearance as well. There is a transition point within the left lower quadrant which is somewhat ill-defined. 3. No additional significant abnormality is seen. Report was called to [facility] ER by tino at 12:50 p.m. Dictated on workstation # [id number] Dict: 12/25/16 1232 Trans: 12/25/16 1248 TINO [id number] Interpreted by: VARGHESE AGARWAL DO Electronically signed by: Reviewed: Reviewed by Me (SCARLETT FITZPATRICK MD) Departure Communication Time/Spoke to Admitting Phy: 13:39 Time/Spoke to Consulting Physi: 14:46 (SCARLETT FITZPATRICK MD) Impression Impression: Primary Impression: Small bowel obstruction Disposition: ADMITTED INPATIENT Condition: Stable Decision to Admit Reason: Admit from ER (General) Decision to Admit/Date: Dec 25, 2016 Time/Decision to Admit Time: 13:39 (SCARLETT FITZPATRICK MD) Departure-Patient Inst. Referrals: [facility] (PCP/Family) Primary Care Physician PRICE URIBE APRN Dec 25, 2016 11:03 SCARLETT FITZPATRICK MD Dec 25, 2016 11:24
[2016-12-25 11:12] LABS: BASOPHILS % (AUTO) 0 % (0-10); EOSINOPHILS % (AUTO) 0 % (0-10); LYMPHOCYTES # (AUTO) 0.7 X 10^3 (1.0-4.0); LYMPHOCYTES % (AUTO) 6 % (12-44); MEAN CORPUSCULAR HEMOGLOBIN 28 PG (25-34); MEAN CORPUSCULAR HGB CONC 33 G/DL (32-36); MEAN CORPUSCULAR VOLUME 82 FL (80-99); MEAN PLATELET VOLUME 9.7 FL (7.4-10.4); MONOCYTES # (AUTO) 0.7 X 10^3 (0.0-1.0); MONOCYTES % (AUTO) 6 % (0-12); NEUTROPHILS # (AUTO) 10.4 X 10^3 (1.8-7.8); NEUTROPHILS % (AUTO) 88 % (42-75); PLATELET COUNT 463 10^3/uL (130-400); RED BLOOD COUNT 4.66 10^6/uL (4.35-5.85); RED CELL DISTRIBUTION WIDTH 13.5 % (10.0-14.5); WHITE BLOOD COUNT 11.8 10^3/uL (4.3-11.0)
[2016-12-25 11:28] LABS: BAND NEUTROPHILS 0 %; BASOPHILS % (MANUAL) 0 %; EOSINOPHILS % (MANUAL) 0 %; LYMPHOCYTES % (MANUAL) 7 %; NEUTROPHILS % (MANUAL) 88 %
[2016-12-25 11:41] LABS: ALANINE AMINOTRANSFERASE 14 U/L (0-55); ALBUMIN 4.1 G/DL (3.2-4.5); ANION GAP 17 MMOL/L (5-14); ASPARTATE AMINO TRANSFERASE 19 U/L (5-34); BILIRUBIN,TOTAL 0.7 MG/DL (0.1-1.0); BLOOD UREA NITROGEN 24 MG/DL (7-18); BUN/CREATININE RATIO 28; CALCIUM 9.9 MG/DL (8.5-10.1); CARBON DIOXIDE 23 MMOL/L (21-32); CHLORIDE 99 MMOL/L (98-107); CREATININE SERUM 0.86 MG/DL (0.60-1.30); GFR ESTIMATED > 60; GLUCOSE 136 MG/DL (70-105); LIPASE < 4 U/L (8-78); MAGNESIUM 1.8 MG/DL (1.8-2.4); POTASSIUM 4.6 MMOL/L (3.6-5.0); SODIUM 139 MMOL/L (135-145); TOTAL PROTEIN 7.3 G/DL (6.4-8.2)
[2016-12-25] MEDS ORDERED: NS 100 ML (IVPB) BAG IV ONE (12:00)
[2016-12-25] MEDS ORDERED: IOHEXOL 350 MG/ML 100 ML (OMNIPAQUE 350) VIAL IV ONE (12:00)
--- NOTE | 2016-12-25 12:49 | Diagnostic Imaging Report ---
PROCEDURE: CT abdomen and pelvis with contrast. TECHNIQUE: Multiple contiguous axial images were obtained through the abdomen and pelvis after administration of intravenous contrast. INDICATION: Weakness and vomiting. COMPARISON: 11/30/2016 FINDINGS: There is minimal scarring in the right lung base is stable. There is mild diffuse hepatic steatosis. No new focal hepatic mass is seen. The portal vein appears patent. Gallbladder, pancreas, spleen, adrenal glands and kidneys appear unremarkable. There are new postoperative changes of interval left diversion colostomy. Residual sigmoid colon in the pelvis appears moderately inflamed with some wall thickening and moderate pericolonic inflammatory change. In the region of the sutures, there is a 2.4 cm low-density lesion along the superior aspect of the colon which may represent a small abscess. This is endplate associated with the left aspect of the bladder, and there is some thickening of the bladder wall. There is some intraluminal air within the bladder. A fistulous communication with the bladder here is not entirely excluded. Correlate clinically as well with any history of recent catheterization. There are numerous loops of proximal small bowel seen within the left upper and mid abdomen which are distended and fluid-filled measuring up to 4.4 cm in diameter. Distal small bowel appears decompressed as does the proximal small bowel. This may be related to a severe ileus although obstruction is also of concern. Distal transition point appears to be within the left lower quadrant but not well delineated. There is atherosclerosis and ectasia of the abdominal aorta measuring up to 2.8 cm in diameter. There are degenerative changes in the spine. IMPRESSION: 1. Since the prior study there has been a left diverting colostomy. In the region of previous diverticulitis there is a persistent wall thickening, inflammatory change of the residual sigmoid colon with possible small 2 cm abscess along the superior aspect in the region of the suture. Also suspect some inflammatory change in involvement of the left aspect of the bladder. Air within the bladder may be due to a fistulous communication here or could be due to recent catheterization. Correlate clinically. 2. There is significant fluid-filled distended small bowel in the mid and left upper abdomen which may be related to ileus although small bowel obstruction could have this appearance as well. There is a transition point within the left lower quadrant which is somewhat ill-defined. 3. No additional significant abnormality is seen. Report was called to [facility] by ofe at 12:50 p.m. Dictated by: Dictated on workstation # [id number]
[2016-12-25 13:09] LABS: BILIRUBIN,URINE NEGATIVE (NEGATIVE); KETONES,URINE 3+ (NEGATIVE); LEUKOCYTE ESTERASE ,URINE NEGATIVE (NEGATIVE); NITRITE,URINE NEGATIVE (NEGATIVE); PH,URINE 5 (5-9); PROTEIN,URINE 2+ (NEGATIVE); UROBILINOGEN,URINE 1 MG/DL (NORMAL)
[2016-12-25 13:20] LABS: SQUAMOUS EPITHELIAL CELL,UR 0-2 /HPF
[2016-12-25] MEDS ORDERED: HYDROmorphone (DILAUDID) 2 MG/ML VIAL IVP STA (13:47)
[2016-12-25 14:33] VITALS: BP 112/79
[2016-12-25] MEDS ORDERED: CATHETER FLUSH 10 ML SYR IV PRN (14:45)
[2016-12-25] MEDS: NS IV 1000 ML 1,000 ML IV SCH ×2 (15:12→22:27)
[2016-12-25] MEDS: LORazepam INJ 2 MG/ML (ATIVAN) VIAL IV PRN ×2 (15:39→22:37)
[2016-12-25 16:00] VITALS: BP 137/88
[2016-12-25] MEDS ORDERED: PROMETHAZINE INJ 25 MG/ML (PHENERGAN) AMP IVP PRN (16:15)
[2016-12-25] MEDS ORDERED: ONDANSETRON 4 MG/2 ML (SDV) Z0FRAN IVP PRN (16:15)
[2016-12-25] MEDS: HYDROmorphone (DILAUDID) 2 MG/ML VIAL IV PRN ×2 (17:24→20:35)
--- NOTE | 2016-12-25 19:38 | Consultation (CHS) ---
HPI History of Present Illness: 61-year-old male admitted to [facility] through the emergency department after 2 days of persistent nausea and vomiting. Patient did have perforated diverticuli with abscess in November 2016. He did have a hemicolectomy and currently has a colostomy bag. Patient reports to me he's had 50 pound weight loss since then. Today in the emergency department he was found to have an ileus versus small bowel obstruction. He also takes medications for hypertension and hyperlipidemia. Source: patient Exam Limitations: no limitations Date seen by provider: Dec 25, 2016 Time seen by provider: 19:00 Attending Physician Chelsea North MD PCP Stef[facility] Date of Admission Dec 25, 2016 at 13:45 Home Medications Home Medications Reviewed patient Home Medication Reconciliation Form Allergies Coded Allergies: No Known Drug Allergies (Unverified , 12/12/13) [id number] Hx Patient Social History Marrital Status: Alcohol Use: Denies Use Recreational Drug Use: No Smoking Status: Former Smoker Type Used: Cigarettes Recent Foreign Travel: No Contact w/other who traveled: No Recent Hopitalizations: Yes Recent Infectious Disease Expo: No Physical Abuse Screen: No Sexual Abuse: No Immunizations Up To Date Tetanus Booster (TDap): Less than 5yrs Date of Pneumonia Vaccine: Jun 20, 2012 Date of Influenza Vaccine: Aug 17, 2016 Past Medical History PMHx: COPD CAD HTN HLD Anxiety GERD PSurgHx: Coronary stent x 1 Sigmoidectomy with ostomy Family Medical History Significant Family History: No Pertinent Family Hx, Stroke Family History: Cancer 09 SISTER, Onset:Unknown Family history: Alzheimer's disease 09 BROTHER, Onset:Unknown Prostate cancer 03 FATHER, Onset:60 years & older Stroke 03 FATHER, Onset:60 years & older No Family History of: Abdominal aortic aneurysm Raymore's disease Alcoholism Aphasia Cancer of colon Cataract Chest pain Congenital heart disease Congestive heart failure Cystic fibrosis Dementia Dysphagia Family history: Allergy Family history: Arthritis Family history: Asthma Family history: Breast disease Family history: Cardiovascular disease Family history: Coronary thrombosis Family history: Diabetes mellitus Family history: Gastrointestinal disease Family history: Glaucoma Family history: Hypertension Family history: Osteoporosis Family history: Thyroid disorder Headache Hearing loss Heart disease Hereditary disease History of - anemia History of - disorder History of - respiratory disease History of drug abuse Human immunodeficiency virus (HIV) seropositivity Hypercholesterolemia Infertile Kidney disease Malignant neoplasm of lung Myocardial infarction Parkinson's disease Psychotic disorder Seizure disorder Tuberculosis Visual impairment Review of Systems (CHC) Constitutional: see HPI Reviewed Test Results Reviewed Test Results Lab Laboratory Tests Test 12/25/16 10:55 12/25/16 13:00 Range/Units Alanine Aminotransferase (ALT/SGPT) 14 0-55 U/L Albumin 4.1 3.2-4.5 G/DL Alkaline Phosphatase 143 H 40-136 U/L Anion Gap 17 H 5-14 MMOL/L Aspartate Amino Transf (AST/SGOT) 19 5-34 U/L BUN/Creatinine Ratio 28 Band Neutrophils 0 % Basophils # (Auto) 0.0 0.0-0.1 10^3/uL Basophils % (Manual) 0 % Basophils (%) (Auto) 0 0-10 % Blood Morphology Comment NORMAL Blood Urea Nitrogen 24 H 7-18 MG/DL Calcium Level 9.9 8.5-10.1 MG/DL Carbon Dioxide Level 23 21-32 MMOL/L Chloride Level 99 98-107 MMOL/L Creatinine 0.86 0.60-1.30 MG/DL Eosinophils # (Auto) 0.0 0.0-0.3 10^3/uL Eosinophils % (Manual) 0 % Eosinophils (%) (Auto) 0 0-10 % Estimat Glomerular Filtration Rate > 60 Glucose Level 136 H 70-105 MG/DL Hematocrit 38 L 40-54 % Hemoglobin 12.8 L 13.3-17.7 G/DL Lipase < 4 L 8-78 U/L Lymphocytes # (Auto) 0.7 L 1.0-4.0 X 10^3 Lymphocytes % (Manual) 7 % Lymphocytes (%) (Auto) 6 L 12-44 % Magnesium Level 1.8 1.8-2.4 MG/DL Mean Corpuscular Hemoglobin 28 25-34 PG Mean Corpuscular Hemoglobin Concent 33 32-36 G/DL Mean Corpuscular Volume 82 80-99 FL Mean Platelet Volume 9.7 7.4-10.4 FL Monocytes # (Auto) 0.7 0.0-1.0 X 10^3 Monocytes % (Manual) 5 % Monocytes (%) (Auto) 6 0-12 % Neutrophils # (Auto) 10.4 H 1.8-7.8 X 10^3 Neutrophils % (Manual) 88 % Neutrophils (%) (Auto) 88 H 42-75 % Platelet Count 463 H 130-400 10^3/uL Potassium Level 4.6 3.6-5.0 MMOL/L Red Blood Count 4.66 4.35-5.85 10^6/uL Red Cell Distribution Width 13.5 10.0-14.5 % Sodium Level 139 135-145 MMOL/L Total Bilirubin 0.7 0.1-1.0 MG/DL Total Protein 7.3 6.4-8.2 G/DL White Blood Count 11.8 H 4.3-11.0 10^3/uL Urine Bacteria NEGATIVE /HPF Urine Bilirubin NEGATIVE NEGATIVE Urine Casts NONE /LPF Urine Clarity CLEAR Urine Color YELLOW Urine Crystals NONE /LPF Urine Culture Indicated NO Urine Glucose (UA) NEGATIVE NEGATIVE Urine Ketones 3+ H NEGATIVE Urine Leukocyte Esterase NEGATIVE NEGATIVE Urine Mucus NEGATIVE /LPF Urine Nitrite NEGATIVE NEGATIVE Urine Protein 2+ H NEGATIVE Urine RBC 0-2 /HPF Urine RBC (Auto) 2+ H NEGATIVE Urine Specific [place] 1.015 L 1.016-1.022 Urine Squamous Epithelial Cells 0-2 /HPF Urine Urobilinogen 1 NORMAL MG/DL Urine WBC NONE /HPF Urine pH 5 5-9 Physical Exam-([facility]) Physical Exam Vital Signs VS - Last 72 Hours, by Label 12/25/16 12/25/16 12/25/16 12/25/16 11:11 14:03 14:33 14:33 Temp 98.2 96.9 Pulse 108 86 83 Resp 18 18 20 B/P 133/95 112/79 Pulse Ox 98 96 O2 Delivery Room Air Room Air Room Air 12/25/16 16:00 Temp 96.1 Pulse 81 Resp 18 B/P 137/88 Pulse Ox 97 O2 Delivery Room Air Capillary Refill : Less Than 3 Seconds General Appearance: no apparent distress HEENT: pharynx normal Neck: non-tender full range of motion Respiratory: lungs clear Cardiovascular: regular rate, rhythm Gastrointestinal: soft other (No rebound tenderness or guarding.) Rectal: deferred Assessment/Plan Assessment/Plan Admission Dx 1. Persistent nausea and vomiting with ileus versus small bowel obstruction 2. Hyperlipidemia 3. Hypertension Plan 1. Persistent nausea and vomiting with ileus versus small bowel obstruction -Patient admitted under surgery Dr. North -Patient currently with clear liquid diet. -We will follow along with you. 2. Hyperlipidemia -Most likely will restart his medications in the a.m. but will reevaluate. 3. Hypertension -Monitor blood pressure and add on hypertensive medications as needed. Diagnosis/Problems: Clinical Quality Measures DVT/VTE Risk/Contraindication: Risk Factor Score Per Nursin RFS Level Per Nursing on Admit: 4+=Very High MARC HUNTLEY MD Dec 25, 2016 19:38
[2016-12-25 20:00] VITALS: BP 147/66
[2016-12-25] MEDS ORDERED: PIPERACILLIN SODIUM/TAZOBACTAM 4.5 GM in NS (IVPB) 100 ML IV SCH (21:30)
[2016-12-25] MEDS ORDERED: PIPERACILLIN/TAZOBACTAM 4.5 GM/NS100 ML IVPB IV ONE ×2 (22:30)
[2016-12-26] VITALS: BP 111/55
[2016-12-26 04:00] VITALS: BP 107/66
[2016-12-26] MEDS: PIPERACILLIN/TAZOBACTAM 4.5 GM/NS100 ML IVPB IV SCH ×6 (04:27→20:48)
[2016-12-26 05:36] LABS: BASOPHILS % (AUTO) 0 % (0-10); EOSINOPHILS % (AUTO) 0 % (0-10); LYMPHOCYTES # (AUTO) 0.8 X 10^3 (1.0-4.0); LYMPHOCYTES % (AUTO) 7 % (12-44); MEAN CORPUSCULAR HEMOGLOBIN 27 PG (25-34); MEAN CORPUSCULAR HGB CONC 32 G/DL (32-36); MEAN CORPUSCULAR VOLUME 84 FL (80-99); MEAN PLATELET VOLUME 9.9 FL (7.4-10.4); MONOCYTES # (AUTO) 0.8 X 10^3 (0.0-1.0); MONOCYTES % (AUTO) 8 % (0-12); NEUTROPHILS # (AUTO) 9.2 X 10^3 (1.8-7.8); NEUTROPHILS % (AUTO) 85 % (42-75); PLATELET COUNT 367 10^3/uL (130-400); RED BLOOD COUNT 3.91 10^6/uL (4.35-5.85); RED CELL DISTRIBUTION WIDTH 13.4 % (10.0-14.5); WHITE BLOOD COUNT 10.8 10^3/uL (4.3-11.0)
[2016-12-26 05:59] LABS: ALANINE AMINOTRANSFERASE 11 U/L (0-55); ALBUMIN 3.2 G/DL (3.2-4.5); ANION GAP 12 MMOL/L (5-14); ASPARTATE AMINO TRANSFERASE 16 U/L (5-34); BILIRUBIN,TOTAL 0.4 MG/DL (0.1-1.0); BLOOD UREA NITROGEN 22 MG/DL (7-18); BUN/CREATININE RATIO 30; CARBON DIOXIDE 23 MMOL/L (21-32); CHLORIDE 104 MMOL/L (98-107); CREATININE SERUM 0.74 MG/DL (0.60-1.30); GFR ESTIMATED > 60; GLUCOSE 103 MG/DL (70-105); SODIUM 139 MMOL/L (135-145)
[2016-12-26] MEDS: NS IV 1000 ML 1,000 ML IV SCH ×3 (06:50→15:51)
[2016-12-26 08:00] VITALS: BP 134/75
[2016-12-26] MEDS: PANTOPRAZOLE 40 MG/10 ML (PROTONIX) VIAL IV SCH (09:31)
[2016-12-26] MEDS: HYDROmorphone (DILAUDID) 2 MG/ML VIAL IV PRN ×5 (09:31→23:08)
--- NOTE | 2016-12-26 10:00 | Progress Note (SOAP) ---
Subjective Subjective/Events-last exam patient resting comfortably in bed. He currently reports no appetite. Still has some discomfort to the abdomen. Date seen by provider: Dec 26, 2016 Objective Exam Last Set of Vital Signs Vital Signs Date Time Temp Pulse Resp B/P Pulse Ox O2 Delivery O2 Flow Rate FiO2 12/26/16 08:00 96.8 71 18 134/75 94 Room Air Capillary Refill : Less Than 3 Seconds I&O Bad tableGeneral: No Acute Distress Lungs: Clear to Auscultation Heart: Regular Rate Abdomen: Other (slight tenderness) Results/Procedures Lab Laboratory Tests 12/25/16 10:55: Alanine Aminotransferase (ALT/SGPT) 14, Albumin 4.1, Alkaline Phosphatase 143H, Anion Gap 17H, Aspartate Amino Transf (AST/SGOT) 19, BUN/Creatinine Ratio 28, Band Neutrophils 0, Basophils # (Auto) 0.0, Basophils % (Manual) 0, Basophils (% ) (Auto) 0, Blood Morphology Comment NORMAL, Blood Urea Nitrogen 24H, Calcium Level 9.9, Carbon Dioxide Level 23, Chloride Level 99, Creatinine 0.86, Eosinophils # (Auto) 0.0, Eosinophils % (Manual) 0, Eosinophils (%) (Auto) 0, Estimat Glomerular Filtration Rate > 60, Glucose Level 136H, Hematocrit 38L, Hemoglobin 12.8L, Lipase < 4L, Lymphocytes # (Auto) 0.7L, Lymphocytes % (Manual ) 7, Lymphocytes (%) (Auto) 6L, Magnesium Level 1.8, Mean Corpuscular Hemoglobin 28, Mean Corpuscular Hemoglobin Concent 33, Mean Corpuscular Volume 82, Mean Platelet Volume 9.7, Monocytes # (Auto) 0.7, Monocytes % (Manual) 5, Monocytes (%) (Auto) 6, Neutrophils # (Auto) 10.4H, Neutrophils % (Manual) 88, Neutrophils (%) (Auto) 88H, Platelet Count 463H, Potassium Level 4.6, Red Blood Count 4.66, Red Cell Distribution Width 13.5, Sodium Level 139, Total Bilirubin 0.7, Total Protein 7.3, White Blood Count 11.8H 12/25/16 13:00: Urine Bacteria NEGATIVE, Urine Bilirubin NEGATIVE, Urine Casts NONE, Urine Clarity CLEAR, Urine Color YELLOW, Urine Crystals NONE, Urine Culture Indicated NO, Urine Glucose (UA) NEGATIVE, Urine Ketones 3+H, Urine Leukocyte Esterase NEGATIVE, Urine Mucus NEGATIVE, Urine Nitrite NEGATIVE, Urine Protein 2+H, Urine RBC 0-2, Urine RBC (Auto) 2+H, Urine Specific [place] 1.015L, Urine Squamous Epithelial Cells 0-2, Urine Urobilinogen 1, Urine WBC NONE, Urine pH 5 12/26/16 04:46: Alanine Aminotransferase (ALT/SGPT) 11, Albumin 3.2, Alkaline Phosphatase 97, Anion Gap 12, Aspartate Amino Transf (AST/SGOT) 16, BUN/Creatinine Ratio 30, Basophils # (Auto) 0.0, Basophils (%) (Auto) 0, Blood Urea Nitrogen 22H, Calcium Level 9.0, Carbon Dioxide Level 23, Chloride Level 104, Creatinine 0.74 , Eosinophils # (Auto) 0.0, Eosinophils (%) (Auto) 0, Estimat Glomerular Filtration Rate > 60, Glucose Level 103, Hematocrit 33L, Hemoglobin 10.6L, Lymphocytes # (Auto) 0.8L, Lymphocytes (%) (Auto) 7L, Mean Corpuscular Hemoglobin 27, Mean Corpuscular Hemoglobin Concent 32, Mean Corpuscular Volume 84, Mean Platelet Volume 9.9, Monocytes # (Auto) 0.8, Monocytes (%) (Auto) 8, Neutrophils # (Auto) 9.2H, Neutrophils (%) (Auto) 85H, Platelet Count 367, Potassium Level 4.0, Red Blood Count 3.91L, Red Cell Distribution Width 13.4, Sodium Level 139, Total Bilirubin 0.4, Total Protein 6.0L, White Blood Count 10.8 Assessment/Plan Assessment/Plan Admission Dx 1. Persistent nausea and vomiting with ileus versus small bowel obstruction 2. Hyperlipidemia 3. Hypertension Plan 1. Persistent nausea and vomiting with ileus versus small bowel obstruction -Patient admitted under surgery Dr. North -Patient currently with clear liquid diet. -We will follow along with you. 2. Hyperlipidemia -Most likely will restart his medications in the a.m. but will reevaluate. 12/26 holding medication for hyperlipidemia at this point. 3. Hypertension -Monitor blood pressure and add on hypertensive medications as needed. 12/26 his blood pressure is normotensive at this time so we will hold on blood pressure medications. Diagnosis/Problems: Clinical Quality Measures DVT/VTE Risk/Contraindication: Risk Factor Score Per Nursin RFS Level Per Nursing on Admit: 4+=Very High MARC HUNTLEY MD Dec 26, 2016 10:00
[2016-12-26] MEDS: LORazepam INJ 2 MG/ML (ATIVAN) VIAL IV PRN ×2 (10:45→20:58)
--- NOTE | 2016-12-26 10:48 | Progress Note (SOAP) ---
Subjective Subjective/Events-last exam Patient seen with Dr. North. Patient reports doing better today. N/V resolved and colostomy functioning again with soft brown stool in bag. minimal abdominal pain. Tolerating clear liquid diet. No fevers/chills. Review of Systems General: No Chills, No Night Sweats Gastrointestinal: No: Abdominal Pain, Nausea, Vomiting Objective Exam Vital Signs Date Time Temp Pulse Resp B/P Pulse Ox O2 Delivery O2 Flow Rate FiO2 12/26/16 08:00 96.8 71 18 134/75 94 Room Air 12/26/16 04:00 98.8 84 16 107/66 94 Room Air 12/26/16 00:00 98.7 74 19 111/55 94 Room Air 12/25/16 20:00 98.6 79 20 147/66 96 Room Air 12/25/16 16:00 96.1 81 18 137/88 97 Room Air 12/25/16 14:33 Room Air 12/25/16 14:33 96.9 83 20 112/79 96 Room Air 12/25/16 14:03 86 18 98 12/25/16 11:11 98.2 108 18 133/95 Room Air I & O 12/26/16 07:00 Intake Total 2700 ml Output Total 500 ml Balance 2200 ml Capillary Refill : Less Than 3 Seconds General Appearance: No Apparent Distress WD/WN HEENT: PERRL/EOMI Neck: Full Range of Motion Normal Inspection Non Tender Supple Respiratory: Chest Non Tender Lungs Clear Normal Breath Sounds No Accessory Muscle Use No Respiratory Distress Cardiovascular: Regular Rate, Rhythm No Edema No JVD Gastrointestinal: normal bowel sounds soft tenderness (LLQ) Extremity: Normal Capillary Refill Normal Inspection Normal Range of Motion Non Tender No Calf Tenderness No Pedal Edema Neurologic/Psychiatric: Alert Oriented x3 Depressed Affect Skin: Normal Color Warm/Dry Results Lab Laboratory Tests 12/25/16 10:55: Alanine Aminotransferase (ALT/SGPT) 14, Albumin 4.1, Alkaline Phosphatase 143H, Anion Gap 17H, Aspartate Amino Transf (AST/SGOT) 19, BUN/Creatinine Ratio 28, Band Neutrophils 0, Basophils # (Auto) 0.0, Basophils % (Manual) 0, Basophils (% ) (Auto) 0, Blood Morphology Comment NORMAL, Blood Urea Nitrogen 24H, Calcium Level 9.9, Carbon Dioxide Level 23, Chloride Level 99, Creatinine 0.86, Eosinophils # (Auto) 0.0, Eosinophils % (Manual) 0, Eosinophils (%) (Auto) 0, Estimat Glomerular Filtration Rate > 60, Glucose Level 136H, Hematocrit 38L, Hemoglobin 12.8L, Lipase < 4L, Lymphocytes # (Auto) 0.7L, Lymphocytes % (Manual ) 7, Lymphocytes (%) (Auto) 6L, Magnesium Level 1.8, Mean Corpuscular Hemoglobin 28, Mean Corpuscular Hemoglobin Concent 33, Mean Corpuscular Volume 82, Mean Platelet Volume 9.7, Monocytes # (Auto) 0.7, Monocytes % (Manual) 5, Monocytes (%) (Auto) 6, Neutrophils # (Auto) 10.4H, Neutrophils % (Manual) 88, Neutrophils (%) (Auto) 88H, Platelet Count 463H, Potassium Level 4.6, Red Blood Count 4.66, Red Cell Distribution Width 13.5, Sodium Level 139, Total Bilirubin 0.7, Total Protein 7.3, White Blood Count 11.8H 12/25/16 13:00: Urine Bacteria NEGATIVE, Urine Bilirubin NEGATIVE, Urine Casts NONE, Urine Clarity CLEAR, Urine Color YELLOW, Urine Crystals NONE, Urine Culture Indicated NO, Urine Glucose (UA) NEGATIVE, Urine Ketones 3+H, Urine Leukocyte Esterase NEGATIVE, Urine Mucus NEGATIVE, Urine Nitrite NEGATIVE, Urine Protein 2+H, Urine RBC 0-2, Urine RBC (Auto) 2+H, Urine Specific [place] 1.015L, Urine Squamous Epithelial Cells 0-2, Urine Urobilinogen 1, Urine WBC NONE, Urine pH 5 12/26/16 04:46: Alanine Aminotransferase (ALT/SGPT) 11, Albumin 3.2, Alkaline Phosphatase 97, Anion Gap 12, Aspartate Amino Transf (AST/SGOT) 16, BUN/Creatinine Ratio 30, Basophils # (Auto) 0.0, Basophils (%) (Auto) 0, Blood Urea Nitrogen 22H, Calcium Level 9.0, Carbon Dioxide Level 23, Chloride Level 104, Creatinine 0.74 , Eosinophils # (Auto) 0.0, Eosinophils (%) (Auto) 0, Estimat Glomerular Filtration Rate > 60, Glucose Level 103, Hematocrit 33L, Hemoglobin 10.6L, Lymphocytes # (Auto) 0.8L, Lymphocytes (%) (Auto) 7L, Mean Corpuscular Hemoglobin 27, Mean Corpuscular Hemoglobin Concent 32, Mean Corpuscular Volume 84, Mean Platelet Volume 9.9, Monocytes # (Auto) 0.8, Monocytes (%) (Auto) 8, Neutrophils # (Auto) 9.2H, Neutrophils (%) (Auto) 85H, Platelet Count 367, Potassium Level 4.0, Red Blood Count 3.91L, Red Cell Distribution Width 13.4, Sodium Level 139, Total Bilirubin 0.4, Total Protein 6.0L, White Blood Count 10.8 Assessment/Plan Assessment/Plan Assess & Plan/Chief Complaint 61 year old male who is S/P laparoscopic low anterior sigmoid colon resection with reynoso's pouch approx 3 weeks ago, who developed small bowel obstruction. VSS. WBC improved from 11.8 to 10.8, otherwise labs stable. Colostomy functioning will advance diet to DYS3. Continue nausea and pain medication (will change Dilaudid from Q3H to Q2H PRN). Will start Zoloft 50mg daily. Clinical Quality Measures DVT/VTE Risk/Contraindication: Risk Factor Score Per Nursin RFS Level Per Nursing on Admit: 4+=Very High RAFIQ JOLLY [employer]ER Dec 26, 2016 10:48
[2016-12-26] MEDS ORDERED: SERTRALINE 50 MG (ZOLOFT) TABLET PO NR (11:15)
[2016-12-26 12:00] VITALS: BP 115/71
--- NOTE | 2016-12-26 12:22 | HISTORY AND PHYSICAL ---
DATE OF ADMISSION: 12/25/2016 ATTENDING PRIMARY CARE PHYSICIAN: Dr. Helen Meehan. Mr. Sam Trujillo is a 61-year-old male well known to us. He was initially admitted on 09/06/2016 for worsening shortness of breath and exacerbation of COPD. He had a copious cough as well as sputum production. He continues to require oxygen, as well as CPAP and continued IV antibiotics here. He later developed abdominal pain, and a CT scan was performed, which did show a small amount of free air, as well as an elevated white count of 11.9. He was treated conservatively with IV antibiotics however, continued to have worsening leukocytosis and abdominal pain. A CT scan showed significant size abscess. The diverticular abscess and perforation were explained to the patient and the need for diversion. However, the patient was adamantly against placement of a colostomy at the time. The option was given for placement of drain laparoscopically as well as antibiotics and bowel rest and TPN. He is in full understanding of the risks and benefits at the time and to proceed with this conservative management. 09/12/2016 he underwent a diagnostic laparoscopy, irrigation as well as drain placement. The diverticulitis appeared to be perforated however, contained consistent with Hinchey class III. He had recurrence of symptoms. Another CT scan was perform and was found to have the development of 2 other abscesses, which were drained percutaneously. He was eventually discharged home and placed on outpatient IV antibiotics, as well as oral antibiotics; however, continue to have symptoms of purulent drainage and abdominal pain. After some time he was understanding of the disease process and did opt for a sigmoid colon resection as well as end colostomy and Timbo pouch. On 12/02/2016 he underwent laparoscopic hand assisted sigmoid colon resection and end colostomy as well as Timbo pouch creation. He did well after surgery and did develop bowel function and was able to tolerate a diet. He did have issues with confusion, usually at night, however, this did improve after discontinuation of pain medication. He was then discharged home. He presented to [facility] emergency department today with generalized malaise and feeling tired and fatigued, as well as anorexia and nausea; however, no vomiting. Colostomy appears to be functional with air and stool. A CT scan was performed, which did show some mild inflammatory changes along the area surrounding the descending colon at the colostomy site. There was a very small amount of fluid within the pelvis, which is most likely postsurgical changes. There are noted discernible abscesses identified. There was also some decompressed small bowel distally. This is consistent with an ileus versus a partial small bowel obstruction. PAST MEDICAL HISTORY: 1. COPD. 2. Coronary artery disease. 3. Hypertension. 4. Hypercholesterolemia. 5. Complicated diverticulitis. PAST SURGERIES: 1. Left knee arthroscopy. 2. Cardiac catheterization and stent placement. 3. Some form of lung surgery many years ago. 4. Diagnostic laparoscopy and drain placement. 5. Laparoscopic low anterior colorectal resection with Diallo pouch and end colostomy. ALLERGIES: No known drug allergies. MEDICATIONS: 1. Spiriva 2 puffs daily. 2. Viagra 100 mg daily. 3. Metoprolol 25 mg daily. 4. Losartan 25 mg daily. 5. Gemfibrozil 600 mg daily. 6. Breo-ellipta 1 puff daily. 7. Percocet p.r.n. 8. Aspirin 81 mg daily. 9. Albuterol 2 puffs q.4 hours p.r.n. SOCIAL HISTORY: Previous smoke 70 pack-years. Previous alcohol abuse; however, he states that he the only drinks alcohol rarely. FAMILY HISTORY: Noncontributory. VITAL SIGNS: Temperature 98.6, blood pressure 147/66, pulse 79, respirations 20, pulse oximetry 96% on room air. REVIEW OF SYSTEMS: This is a well-nourished male, currently in no acute distress. He is not experiencing any shortness of breath or difficulty breathing. No chest pain, palpitations, diaphoresis. Intermittent episodes of nausea. No vomiting. Minimal abdominal distention. Mild diffuse abdominal pain with no peritoneal signs. No fever, chills, no recent inadvertent weight loss. PHYSICAL EXAMINATION: CHEST: Distant breath sounds bilaterally. HEART: Regular. EXTREMITIES: No lower extremity edema. Negative Homans sign. HEENT: No scleral icterus. No cervical lymphadenopathy. ABDOMEN: Soft, mildly distended mild diffuse tenderness with no peritoneal signs. LABS: WBC 11.8, hemoglobin 12.8, hematocrit 38, platelets 463, BUN 24, creatinine 0.86. ASSESSMENT AND PLAN: This is a 61-year-old male with a history of complicated diverticulitis status post laparoscopic sigmoid rectal resection, Timbo pouch and end colostomy. He presents with generalized malaise anorexia, as well as nausea. The CT scan showed some mild inflammatory changes along the descending colon adjacent to the end colostomy site. There is also some dilated loops of small bowel. This most likely indicates an ileus. We will proceed with IV antibiotics, as well as IV hydration and bowel rest. Hopefully over time his nausea well correct on its own and will be able to eat normally and have good colostomy output. If he shows signs of persistent ileus or partial small bowel obstruction then we will proceed with gastric small bowel follow-through. Job ID: [id number] Dictated Date: 12/25/2016 21:32:20 [employer] Functional [employer]st Date: 12/26/2016 12:01:14/felicia HURTADO
[2016-12-26 16:00] VITALS: BP 115/73
[2016-12-26 20:00] VITALS: BP 118/72
[2016-12-27] VITALS: BP 121/70
[2016-12-27] MEDS: HYDROmorphone (DILAUDID) 2 MG/ML VIAL IV PRN ×4 (00:56→20:58)
[2016-12-27] MEDS: NS IV 1000 ML 1,000 ML IV SCH ×5 (00:58→21:03)
[2016-12-27 04:00] VITALS: BP 118/76
[2016-12-27] MEDS: PIPERACILLIN/TAZOBACTAM 4.5 GM/NS100 ML IVPB IV SCH ×4 (05:17→11:51)
[2016-12-27 08:00] VITALS: BP 131/67
[2016-12-27] MEDS ORDERED: LORA1TAB PO (08:54)
[2016-12-27] MEDS ORDERED: OXYC-465 PO (08:54)
[2016-12-27] MEDS ORDERED: CLOPIDOGREL 75 MG (PLAVIX) TABLET PO SCH (09:00)
[2016-12-27] MEDS: PANTOPRAZOLE 40 MG/10 ML (PROTONIX) VIAL IV SCH (09:11)
[2016-12-27] MEDS: LORazepam INJ 2 MG/ML (ATIVAN) VIAL IV PRN (09:11)
[2016-12-27] MEDS ORDERED: RT-ALBUTEROL SULF 2.5 MG/3 ML PRE-MIX VIAL INH PRN (09:15)
[2016-12-27] MEDS: GEMFIBROZIL 600 MG (LOPID) TAB PO SCH (09:50)
[2016-12-27] MEDS: oxyCODONE/APAP 10/325MG (PERCOCET 10) TABLET PO PRN ×2 (11:50→18:50)
--- NOTE | 2016-12-27 15:08 | Progress Note (SOAP) ---
Subjective Subjective/Events-last exam Patient seen with Dr. North. Patient reports that he is doing better since he arrived. Still complains of abdominal pain and weakness. Reports that he is anxious. Tolerating diet but does not have much of an appetite. No N/V at this time. Colostomy functioning with brown liquid stool. Patient reports that he did have a BM per rectum today. No fever/chills. Review of Systems General: No Chills, No Night Sweats Gastrointestinal: : Abdominal PainNo: Nausea, Vomiting Objective Exam Vital Signs Date Time Temp Pulse Resp B/P Pulse Ox O2 Delivery O2 Flow Rate FiO2 12/27/16 08:00 97.7 76 20 131/67 96 Room Air 12/27/16 08:00 96 Room Air 12/27/16 04:00 98.0 78 16 118/76 96 Room Air 12/27/16 00:00 98.5 81 12 121/70 96 Room Air 12/26/16 20:00 97.7 74 18 118/72 94 Room Air 12/26/16 16:00 98.5 82 18 115/73 95 Room Air I & O 12/27/16 07:00 Intake Total 2540 ml Output Total 2000 ml Balance 540 ml Capillary Refill : Less Than 3 Seconds General Appearance: WD/WN Anxious HEENT: PERRL/EOMI Neck: Full Range of Motion Normal Inspection Non Tender Supple Respiratory: Chest Non Tender Lungs Clear Normal Breath Sounds No Accessory Muscle Use No Respiratory Distress Cardiovascular: Regular Rate, Rhythm No Edema No JVD Gastrointestinal: normal bowel sounds soft tenderness (Mid to left abdomen to palpation.) Extremity: Normal Capillary Refill Normal Inspection Normal Range of Motion Non Tender No Calf Tenderness No Pedal Edema Neurologic/Psychiatric: Alert Skin: Normal Color Warm/Dry Lymphatic: No Adenopathy Assessment/Plan Assessment/Plan Assess & Plan/Chief Complaint 61 year old male who is S/P laparoscopic low anterior sigmoid colon resection with reynoso's pouch approx 3 weeks ago, who developed small bowel obstruction. VSS. Colostomy functioning and tolerating diet but has decreased appetite and not eating much food. Continue nausea, pain, anxiety medication. Encourage ambulation. Clinical Quality Measures DVT/VTE Risk/Contraindication: Risk Factor Score Per Nursin RFS Level Per Nursing on Admit: 4+=Very High RAFIQ JOLLY RACE CAR DRIVER Dec 27, 2016 15:08
[2016-12-27 16:00] VITALS: BP 128/73
[2016-12-27 20:00] VITALS: BP 125/72
[2016-12-27] MEDS: RT-ADVAIR HFA 115/21 MCG PER PUFF IH SCH (20:06)
[2016-12-27] MEDS: SERTRALINE 50 MG (ZOLOFT) TABLET PO SCH (20:54)
[2016-12-27] MEDS: ASPIRIN E.C. 81 MG (ECOTRIN) TAB PO SCH (20:54)
[2016-12-27] MEDS: LORazepam 1 MG (ATIVAN) TAB PO PRN (22:23)
[2016-12-28] VITALS: BP 132/66
[2016-12-28] MEDS: HYDROmorphone (DILAUDID) 2 MG/ML VIAL IV PRN ×2 (02:17→21:55)
[2016-12-28] MEDS: NS IV 1000 ML 1,000 ML IV SCH ×3 (03:11→22:45)
[2016-12-28 08:00] VITALS: BP 123/70
[2016-12-28] MEDS: RT-ADVAIR HFA 115/21 MCG PER PUFF IH SCH ×2 (08:21→22:26)
[2016-12-28] MEDS: UMECLIDINIUM BROMIDE (INCRUSE ELLIPTA) 7'S IH SCH (08:21)
[2016-12-28] MEDS: PANTOPRAZOLE 40 MG/10 ML (PROTONIX) VIAL IV SCH (08:44)
[2016-12-28] MEDS: oxyCODONE/APAP 10/325MG (PERCOCET 10) TABLET PO PRN ×3 (08:45→20:01)
[2016-12-28] MEDS: LORazepam 1 MG (ATIVAN) TAB PO PRN ×3 (08:45→21:54)
[2016-12-28] MEDS: GEMFIBROZIL 600 MG (LOPID) TAB PO SCH (08:45)
--- NOTE | 2016-12-28 12:09 | Progress Note (SOAP) ---
Subjective Subjective/Events-last exam doing ok however clinically depressed. tolerating diet and functional colostomy. low grade temp last night. not ambulating much. Objective Exam Vital Signs Date Time Temp Pulse Resp B/P Pulse Ox O2 Delivery O2 Flow Rate FiO2 12/28/16 08:23 95 12/28/16 08:00 98.8 78 20 123/70 94 Room Air 12/28/16 02:17 99.7 12/28/16 00:00 100.7 78 14 132/66 93 Room Air 12/27/16 20:06 92 12/27/16 20:00 98.2 86 18 125/72 92 Room Air 12/27/16 16:00 98.9 78 18 128/73 93 Room Air I & O 12/28/16 06:59 Intake Total 2920 ml Output Total 2900 ml Balance 20 ml Capillary Refill : Less Than 3 Seconds General Appearance: No Apparent Distress HEENT: PERRL/EOMI Neck: Full Range of Motion Respiratory: Chest Non Tender Decreased Breath Sounds Cardiovascular: Regular Rate, Rhythm Gastrointestinal: normal bowel sounds soft Extremity: Normal Capillary Refill Neurologic/Psychiatric: Alert Oriented x3 Skin: Normal Color Lymphatic: No Adenopathy Assessment/Plan Assessment/Plan Assess & Plan/Chief Complaint dehydration, depression. increase ambulation. increase PO alimentation. started on zoloft 75mg daily. Clinical Quality Measures DVT/VTE Risk/Contraindication: Risk Factor Score Per Nursin RFS Level Per Nursing on Admit: 4+=Very High ROXIE HERNANDEZ MD Dec 28, 2016 12:09
--- NOTE | 2016-12-28 12:35 | Diagnostic Imaging Report ---
EXAMINATION: Upright portable radiograph of the chest. INDICATION: Fever. FINDINGS: There are upper lobe emphysematous changes seen. There is a minimal left basilar opacity, probably atelectasis. The heart size is normal. No effusion or pneumothorax. The mediastinum and caryl appear unremarkable. IMPRESSION: Emphysema. The mild left basilar opacity may relate to atelectasis or infiltrates. Dictated by: Dictated on workstation # [id number]
[2016-12-28 16:20] VITALS: BP 152/88
[2016-12-28 19:55] VITALS: BP 154/88
[2016-12-28] MEDS: SERTRALINE 50 MG (ZOLOFT) TABLET PO SCH (20:01)
[2016-12-28] MEDS: ASPIRIN E.C. 81 MG (ECOTRIN) TAB PO SCH (20:01)
[2016-12-29] VITALS: BP 143/79
[2016-12-29] MEDS: oxyCODONE/APAP 10/325MG (PERCOCET 10) TABLET PO PRN (05:38)
[2016-12-29] MEDS: NS IV 1000 ML 1,000 ML IV SCH ×2 (05:39→13:30)
[2016-12-29] MEDS ORDERED: PANTOPRAZOLE 40 MG (PROTONIX) TAB PO SCH (07:00)
[2016-12-29 08:00] VITALS: BP_SYST 147; BP_SYST 159; BP_DIAS 74; BP_DIAS 84
[2016-12-29] MEDS: GEMFIBROZIL 600 MG (LOPID) TAB PO SCH (08:11)
[2016-12-29] MEDS: LORazepam 1 MG (ATIVAN) TAB PO PRN (08:11)
[2016-12-29] MEDS ORDERED: LOSARTAN 25 MG (COZAAR) TAB PO SCH (09:15)
[2016-12-29] MEDS: RT-ADVAIR HFA 115/21 MCG PER PUFF IH SCH (09:22)
[2016-12-29] MEDS: UMECLIDINIUM BROMIDE (INCRUSE ELLIPTA) 7'S IH SCH (09:25)
[2016-12-29] MEDS ORDERED: SERT50TA9 PO (12:13)
--- NOTE | 2016-12-29 12:15 | Discharge Inst-Surgical ---
D/C Lap Instructions-KIDO New, Converted, or Re-Newed RX: RX on Chart Follow Up Appt in 2 weeks Activity as tolerated No driving for 24 hours No driving while on pain medications Incentive Spirometry use every 2 hours while awake low residue diet Avoid Alcohol, Caffeine, Spicy [place] and Acid foods. Drink 64 fluid oz or more of fluids per day. Symptoms to Report: Fever over 101 degree F, Nausea/Vomiting If any problems/questions: Contact your physician or go to Emergency Room ROXIE HERNANDEZ MD Dec 29, 2016 12:15
[2016-12-29 16:10] VITALS: BP 147/74
[2016-12-30] MEDS ORDERED: LOSARTAN 25 MG (COZAAR) TAB PO SCH (09:00)
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
== END 2016-12-29 16:25 | disposition home or self-care (01) | DRG 390 ==
LOC: EDUNIT# 10:46 → ER 10:48 → 4TH 13:45
PROVIDERS: ADMIT Surgery Pediatric Surgery; ATTEND Surgery Pediatric Surgery
DX: K56.60 Unspecified intestinal obstruction (principal); J44.9 Chronic obstructive pulmonary disease, unspecified; I25.10 Atherosclerotic heart disease of native coronary artery without angina pectoris; I10 Essential (primary) hypertension; E78.00 Pure hypercholesterolemia, unspecified; Z87.891 Personal history of nicotine dependence; Z93.3 Colostomy status; E78.5 Hyperlipidemia, unspecified; I25.2 Old myocardial infarction; E86.0 Dehydration; F32.9 Major depressive disorder, single episode, unspecified
CPT/HCPCS: 36415; 71010; 74177; 80053; 81000; 83690; 83735; 85007; 85025; 85027; 94640; 94760; 96361; 96374; 96375

== ENCOUNTER → 2017-01-28 | Outpatient (CLI) | payer BC ==
[~2017-01-28] MED LIST changes: +CATHETER FLUSH 10 ML SYR IV PRN; +IOHEXOL 350 MG/ML 100 ML (OMNIPAQUE 350) VIAL IV ONE; +LORA1TAB PO; +NS 100 ML (IVPB) BAG IV ONE; +OXYC-465 PO; +SERT50TA9 PO
--- NOTE | 2017-01-28 13:43 | Diagnostic Imaging Report ---
PROCEDURE: CT abdomen and pelvis with contrast. TECHNIQUE: Multiple contiguous axial images were obtained through the abdomen and pelvis after administration of intravenous contrast. INDICATION: History of diverticulitis. COMPARISON: 12/25/2016 FINDINGS: Included views of the lung bases show some bronchiectasis, but are otherwise clear. CT ABDOMEN: Postsurgical changes of previous partial colectomy are identified. Colostomy site is noted within the left lower abdominal quadrant. There is no parastomal hernia. There is persistent thickening of the wall of the colon adjacent to the surgical suture material in the lower pelvis. There is some nonspecific stranding of the intra-abdominal fat anteriorly within the lower abdomen and upper pelvis. There is no loculated fluid collection, free fluid or free air. Small bowel loops are nondistended. Normal appendix cannot be adequately identified, but there is no pericecal inflammation. The kidneys, adrenal glands, spleen, pancreas, and liver have a normal appearance. No abnormal mesenteric or retroperitoneal adenopathy is seen. There is diffuse calcified aortic and arterial atherosclerosis. There are also areas of ectasia of the infrarenal abdominal aorta. At its widest, the aorta measures approximately 2.7 cm in diameter. Bony structures show no acute abnormalities. CT PELVIS: Urinary bladder is minimally distended. Urinary bladder wall appears somewhat thickened. There is no loculated fluid collection, free fluid or free air within the pelvis. No abnormal lymph nodes are seen. Bony structures show no acute abnormalities. There is aneurysmal dilatation of the right common iliac artery, as it measures 2.2 cm in diameter. IMPRESSION: 1. Post surgical changes of previous left hemicolectomy with colostomy site in the left lower abdominal quadrant. 2. Abnormal thickened appearance to the colonic wall adjacent to the suture material in the lower pelvis. This could be related to sequela of previous diverticulitis. Underlying colonic malignancy however cannot be excluded. 3. Nonspecific stranding of the intra-abdominal fat within the anterior lower abdomen and pelvis. This may be related to previous surgery. Underlying omental infarct cannot be excluded. 4. Diffuse calcified aortic and arterial atherosclerosis with areas of ectasia of the infrarenal abdominal aorta and aneurysmal dilatation of the right common iliac artery. 5. Thickened appearance of the urinary bladder wall. This may be artifactual and related to incomplete distention of the urinary bladder. Underlying cystitis or urinary bladder neoplasm however cannot be excluded. Dictated by: Dictated on workstation # [id number]
== END ==
LOC: RAD 11:24
PROVIDERS: ATTEND Surgery Pediatric Surgery
DX: K57.32 Diverticulitis of large intestine without perforation or abscess without bleeding (principal)
CPT/HCPCS: 74177

== ENCOUNTER → 2017-02-08 | Outpatient (CLI) | payer BC ==
[~2017-02-08] MED LIST changes: -CATHETER FLUSH 10 ML SYR IV PRN; -IOHEXOL 350 MG/ML 100 ML (OMNIPAQUE 350) VIAL IV ONE; -NS 100 ML (IVPB) BAG IV ONE
[2017-02-08 11:58] LABS: ALANINE AMINOTRANSFERASE 21 U/L (0-55); ALBUMIN 4.6 G/DL (3.2-4.5); ANION GAP 9 MMOL/L (5-14); ASPARTATE AMINO TRANSFERASE 25 U/L (5-34); BILIRUBIN,TOTAL 0.5 MG/DL (0.1-1.0); BLOOD UREA NITROGEN 23 MG/DL (7-18); BUN/CREATININE RATIO 28; CALCIUM 9.9 MG/DL (8.5-10.1); CARBON DIOXIDE 24 MMOL/L (21-32); CHLORIDE 108 MMOL/L (98-107); CHOLESTEROL 164 MG/DL (< 200); CREATININE SERUM 0.81 MG/DL (0.60-1.30); DIRECT LDL 99 MG/DL (1-129); GFR ESTIMATED > 60; GLUCOSE 106 MG/DL (70-105); MAGNESIUM 2.2 MG/DL (1.8-2.4); POTASSIUM 4.5 MMOL/L (3.6-5.0); SODIUM 141 MMOL/L (135-145); TOTAL PROTEIN 7.5 G/DL (6.4-8.2); TRIGLYCERIDES 100 MG/DL (<150); VLDL CHOLESTEROL 20 MG/DL (5-40)
[2017-02-08 12:18] LABS: THYROID STIMULATING HORMONE 0.94 UIU/ML (0.35-4.94)
== END ==
LOC: LAB 11:18
PROVIDERS: ATTEND Nurse Practitioner Family
DX: I25.10 Atherosclerotic heart disease of native coronary artery without angina pectoris (principal); I65.23 Occlusion and stenosis of bilateral carotid arteries; E78.4 Other hyperlipidemia; I95.2 Hypotension due to drugs; I25.5 Ischemic cardiomyopathy
CPT/HCPCS: 36415; 80053; 80061; 83735; 84443

== ENCOUNTER → 2017-02-10 | Outpatient (CLI) | payer BC | LOC: CARD 08:37 | PROVIDERS: ATTEND Nurse Practitioner Family | DX: I25.10 Atherosclerotic heart disease of native coronary artery without angina pectoris (principal); I65.23 Occlusion and stenosis of bilateral carotid arteries; E78.4 Other hyperlipidemia; I95.2 Hypotension due to drugs; I25.5 Ischemic cardiomyopathy ==

== ENCOUNTER → 2017-02-15 | Outpatient (CLI) | payer BC ==
[~2017-02-15] VITALS: Ht 182.9 cm; Wt 88.0 kg
[~2017-02-15] MED LIST changes: +CATHETER FLUSH 10 ML SYR IV PRN; +REGADENOSON 0.4 MG/5 ML SYR (LEXISCAN) IV ONE
[2017-02-15 08:48] VITALS: BP 131/81
--- NOTE | 2017-02-16 07:43 | STRESS TEST ---
DATE OF SERVICE: 02/15/2017 RESTING AND POST REGADENOSON TECHNETIUM 99M TETROFOSMIN SPECT CT IMAGING CLINICAL DIAGNOSIS: Coronary artery disease. Baseline images were carried out after injection of 10.030 mCi of technetium-99m tetrofosmin. This was followed by 0.4 mg regadenoson and 28.5 mCi of technetium-99m tetrofosmin for stress imaging. The electrocardiogram showed sinus rhythm at baseline and did not change significantly with the regadenoson infusion. The patient tolerated the procedure well. Review of images at rest and following stress indicates diaphragmatic attenuation both at rest and following regadenoson infusion. Gated images show normal global left ventricular systolic function with normal regional wall motion, including the diaphragmatic/inferior wall of the left ventricle. Left ventricular ejection fraction is calculated to be 55%. Left ventricular end-diastolic volume is 85 mL. TID is absent (1). CONCLUSIONS: 1. No evidence of significant myocardial ischemia or infarction on this study. 2. Normal regional wall motion. 3. Normal global left ventricular systolic function with a calculated ejection fraction of 55%. Job ID: [id number] DocumentID: [id number] Dictated Date: 02/15/2017 17:32:05 Rolling Machine Operator Automatic Date: 02/15/2017 20:07:11 Dictated By: NOE KIM MD, MA, FACP, FACC,
--- NOTE | 2017-02-17 08:26 | ECHOCARDIOGRAPHY REPORT ---
DATE OF SERVICE: 02/15/2017 DATE OF SERVICE: 02/15/2017 CLINICAL DIAGNOSIS: Ischemic cardiomyopathy. ORDERING PHYSICIAN: Ana Paula Bobby APRN PRIMARY PHYSICIAN: Dr. Gavin. OTHER PHYSICIAN: Dr. Kim. MEASUREMENTS: Aortic root 4.1. Left atrium 3. LV diameter diastolic 5.3. IVS thickness, diastolic 1.1. LVPW thickness, diastolic 0.9. DESCRIPTION: Two-dimensional echocardiography shows well-preserved global left ventricular systolic function. The study is technically difficult and not ideal for wall motion analysis. Aortic, mitral and tricuspid valve leaflets, to the extent visualized, have good leaflet excursion. On the views available, there appears to be distal septal and anteroapical hypokinesis. Left ventricular ejection fraction is approximately 50%. Doppler imaging shows trivial tricuspid regurgitation. There is no Doppler evidence of any significant valvular stenosis. No evidence of significant intracardiac shunt on this transthoracic echocardiographic study. Inferior vena cava is of normal size and exhibits normal inspiratory collapse. Pulmonary artery systolic pressure is estimated at approximately 25 mmHg. CONCLUSIONS: 1. Well preserved left ventricular systolic function with ejection fraction approximately 50%. 2. Distal septal and anteroapical hypokinesis. 3. Mild tricuspid regurgitation. 4. Pulmonary artery systolic pressure is estimated at approximately 25 mmHg. 5. No evidence of any significant valvular stenosis. Job ID: [id number] DocumentID: [id number] Dictated Date: 02/16/2017 16:11:49 Reinforcer Date: 02/17/2017 08:02:20 Dictated By: NOE KIM MD, MA, FACP, FACC,
== END ==
LOC: CARD 06:51
PROVIDERS: ATTEND Nurse Practitioner Family
DX: I25.10 Atherosclerotic heart disease of native coronary artery without angina pectoris (principal); I65.23 Occlusion and stenosis of bilateral carotid arteries; E78.4 Other hyperlipidemia; I95.2 Hypotension due to drugs; I25.5 Ischemic cardiomyopathy
CPT/HCPCS: 78452; 93017; 93306

== ENCOUNTER → 2017-03-02 | Outpatient (CLI) | payer BC ==
[~2017-03-02] MED LIST changes: +IOHEXOL 350 MG/ML 100 ML (OMNIPAQUE 350) VIAL IV ONE; +NS 100 ML (IVPB) BAG IV ONE; -REGADENOSON 0.4 MG/5 ML SYR (LEXISCAN) IV ONE
--- NOTE | 2017-03-02 13:16 | Diagnostic Imaging Report ---
PROCEDURE: CT abdomen and pelvis with contrast. TECHNIQUE: Multiple contiguous axial images were obtained through the abdomen and pelvis after administration of intravenous contrast. INDICATION: Diverticulitis followup. Lung bases are clear. Liver appears normal. Gallbladder is present. Pancreas appears normal. Spleen is not enlarged. Adrenals are normal. Kidneys appear normal. There is calcific atherosclerosis of aorta with mild ectasia. IVC is patent. There is no lymphadenopathy. There is a colostomy in the left lower quadrant of the abdomen. Patient has had partial sigmoid resection. Small bowel is not dilated. Colon is unremarkable. IMPRESSION: Postop changes from sigmoid resection with diverting colostomy. No acute abnormality seen and no change since 01/28/2017. Dictated by: Dictated on workstation # [id number]
== END ==
LOC: RAD 10:07
PROVIDERS: ATTEND Surgery Pediatric Surgery
DX: Z09 Encounter for follow-up examination after completed treatment for conditions other than malignant neoplasm (principal); K57.92 Diverticulitis of intestine, part unspecified, without perforation or abscess without bleeding; Z93.3 Colostomy status
CPT/HCPCS: 74177

== ENCOUNTER 2017-03-03 11:45 | Outpatient (CLI) | payer BC ==
[~2017-03-03] VITALS: Ht 182.9 cm; Wt 90.3 kg
[~2017-03-03 11:45] MED LIST changes: -CATHETER FLUSH 10 ML SYR IV PRN; -IOHEXOL 350 MG/ML 100 ML (OMNIPAQUE 350) VIAL IV ONE; -NS 100 ML (IVPB) BAG IV ONE
[2017-03-03 11:57] VITALS: BP 118/78
[2017-03-03 12:41] LABS: BASOPHILS % (AUTO) 1 % (0-10); EOSINOPHILS # (AUTO) 0.2 10^3/uL (0.0-0.3); EOSINOPHILS % (AUTO) 4 % (0-10); LYMPHOCYTES # (AUTO) 1.4 X 10^3 (1.0-4.0); LYMPHOCYTES % (AUTO) 29 % (12-44); MEAN CORPUSCULAR HEMOGLOBIN 27 PG (25-34); MEAN CORPUSCULAR HGB CONC 34 G/DL (32-36); MEAN CORPUSCULAR VOLUME 82 FL (80-99); MEAN PLATELET VOLUME 10.2 FL (7.4-10.4); MONOCYTES # (AUTO) 0.4 X 10^3 (0.0-1.0); MONOCYTES % (AUTO) 9 % (0-12); NEUTROPHILS # (AUTO) 2.8 X 10^3 (1.8-7.8); NEUTROPHILS % (AUTO) 58 % (42-75); PLATELET COUNT 252 10^3/uL (130-400); RED BLOOD COUNT 4.53 10^6/uL (4.35-5.85); RED CELL DISTRIBUTION WIDTH 15.4 % (10.0-14.5); WHITE BLOOD COUNT 4.9 10^3/uL (4.3-11.0)
[2017-03-03 13:05] LABS: ALANINE AMINOTRANSFERASE 22 U/L (0-55); ALBUMIN 4.3 G/DL (3.2-4.5); ANION GAP 7 MMOL/L (5-14); ASPARTATE AMINO TRANSFERASE 20 U/L (5-34); BILIRUBIN,TOTAL 0.4 MG/DL (0.1-1.0); BLOOD UREA NITROGEN 25 MG/DL (7-18); BUN/CREATININE RATIO 30; CALCIUM 9.3 MG/DL (8.5-10.1); CARBON DIOXIDE 27 MMOL/L (21-32); CHLORIDE 105 MMOL/L (98-107); CREATININE SERUM 0.82 MG/DL (0.60-1.30); GFR ESTIMATED > 60; GLUCOSE 97 MG/DL (70-105); POTASSIUM 4.2 MMOL/L (3.6-5.0); SODIUM 139 MMOL/L (135-145); TOTAL PROTEIN 6.5 G/DL (6.4-8.2)
== END 2017-03-03 13:25 | disposition home or self-care (01) ==
LOC: PREOP 11:45
PROVIDERS: ATTEND Surgery Pediatric Surgery
DX: Z01.818 Encounter for other preprocedural examination (principal); Z11.2 Encounter for screening for other bacterial diseases; K57.92 Diverticulitis of intestine, part unspecified, without perforation or abscess without bleeding
CPT/HCPCS: 36415; 80053; 85025; 86850; 86900; 86901; 87081

== ENCOUNTER 2017-03-08 05:49 | Inpatient (IN) | payer BC ==
--- NOTE | 2017-03-04 18:08 | HISTORY AND PHYSICAL ---
DATE OF SERVICE: 03/08/2017 ATTENDING PHYSICIAN: Dr. Meehan The patient is a 61-year-old male who was admitted on 09/06/2016 for worsening shortness of breath and exacerbation of COPD. He was having copious amounts of coughing, as well as sputum production requiring increased oxygen, as well as IV antibiotics. He later developed lower abdominal discomfort. A CT scan was performed which did show a small amount of free air, as well as an elevated white count of 11.9. He was treated conservatively with IV antibiotics, however, continue to have leukocytosis, as well as worsening abdominal pain. A repeat CT scan was then performed which did show a significant sized abscess. The diverticular abscess and perforation were explained to the patient and the need for diversion; however, the patient was adamantly against the placement of a colostomy at that time. He did agree to a diagnostic laparoscopy, irrigation, as well as a laparoscopic drain placement, IV antibiotics and conservative management. He understood the risks and benefits of the procedure. On 09/12/2016, the patient underwent a diagnostic laparoscopy with irrigation and drain placement. Since he was discharged home, he had multiple office visits over the following few months. He had undergone multiple rounds of IV antibiotics, as well as oral antibiotics and he did have a total of 3 drains placed and continued to have foul smelling drainage. This did improve over time and 2 drains were removed. The last drain did clear up to a certain degree; however, did remain somewhat cloudy and then inadvertently had been pulled out. At that time, he was asymptomatic, tolerating a regular diet and having normal bowel movements with no abdominal pain. He continued to do well for approximately 1 week and then developed a recurrent abdominal pain. He underwent another CT scan which showed a recurrent abscess. At this time, he understood the importance of diversion and did agree to a sigmoid-rectal resection as well as end colostomy Diallo's pouch and then reversal at a later date. On 12/02/2016, the patient underwent a laparoscopic hand-assisted sigmoid rectal resection with end colostomy and Idallo's pouch, as well as placement of subclavian central venous catheter. Findings were dense, inflammatory phlegmon of the sigmoid colon and omentum, as well as mesentery. He underwent a laparoscopic dissection of the sigmoid colon and hand assisted stapling of the sigmoid-rectal junction end colostomy. The patient tolerated the procedure well and was discharged home at a later date. He then followed up with us and was able to have is surgical drain removed and continued to do well. He was then shortly after seen by his primary care physician for increasing abdominal pain. He was found to have abdominal abscess at the previous midline incision. He was seen by us the following day for incision and drainage, as well as a packing of the wound was performed. This was cultured by his primary care physician and did come back as a MRSA. He was started on the appropriate antibiotics for treatment. He has since followed up with us again and the wound has continued to heal and he has had good granulation tissue. He did have another CT scan performed on 01/28/2017 due to patient wanting reversal of colostomy and at that time, there was still an abnormal thickened appearance of the colonic wall adjacent to the suture material in the lower pelvis. There was also non-specific stranding of the intraabdominal fat within the anterior lower abdomen and pelvis. There was also a thickened appearance of the urinary bladder wall. At that time, it was discussed with patient and decided to continue to wait another 4 weeks and repeat a CT scan before proceeding with the surgery. On 03/02/2017, the patient underwent a repeat CT scan in which the postoperative changes from the sigmoid resection and colostomy showed no acute abnormality and the colon appeared unremarkable. It was decided at that time, I discussed with the patient to go ahead and proceed with reversal of colostomy, as well as the central line placement. He reported at that time that he continued to do well, was not having any fever or chills, as well as no nausea or vomiting. He reports that he was tolerating regular diet and activities. There did continue to be a shallow wound from the previous midline incision abscess with no thick pus drainage noted. There was some clear serous drainage noted with good granulation tissue. This could be related to a suture granuloma. PAST MEDICAL HISTORY: COPD, coronary artery disease, hypertension, hypercholesterolemia, complicated diverticulitis. PAST SURGICAL HISTORY: Left knee arthroscopy, cardiac catheterization, stent placement, some form of lung surgery many years ago, diagnostic laparoscopy and drain placement 08/2016, laparoscopic low anterior sigmoid colon resection with Diallo's pouch and end colostomy 11/2016. ALLERGIES: No known drug allergies. MEDICATIONS: 1. Spiriva 2 puffs daily. 2. Viagra 100 mg daily. 3. Metoprolol 25 mg daily. 4. Losartan 25 mg daily. 5. Gemfibrozil 600 mg daily. 6. Breo Ellipta 1 puff daily. 7. Percocet p.r.n. 8. Aspirin 81 mg daily. 9. Plavix 75 mg daily. 10. Albuterol 2 puffs q. 4 hours p.r.n. 11. Percocet 10 mg q. 6 hours p.r.n. 12. Ambien 10 mg p.r.n. 13. Xanax p.r.n. SOCIAL HISTORY: Previous for smoke for 7 pack years. Previous alcohol abuse, however, he only drinks alcohol rarely at this point. FAMILY HISTORY: Noncontributory. VITAL SIGNS: Stable. REVIEW OF SYSTEMS: Well nourished male in no acute distress. He has not experienced any shortness of breath or difficulty breathing. No chest pain, palpitations or diaphoresis. No nausea, vomiting or abdominal pain. No diarrhea or constipation. He does report approximately a 50 pound weight loss since his surgery. He has had no fever or chills. No hematuria. No dysuria. PHYSICAL EXAMINATION: CHEST: Clear. HEART: Regular. EXTREMITIES: No lower extremity edema. Negative Marina sign. HEENT: Oropharynx clear. No cervical lymphadenopathy. ABDOMEN: Soft, nontender and nondistended. There is a left colostomy that is pink and moist and functioning with brown stool in the bag. ASSESSMENT AND PLAN: A 61-year-old male with a history of complicated diverticulitis who is status post laparoscopic hand assisted sigmoid-rectal resection with end colostomy and Diallo's pouch. At this time, he would like to proceed with reversal of the colostomy. Due to the asymptomatic nature of the patient, as well as the results of the CT scan, we will proceed with scheduling the patient for a laparoscopic reversal of colostomy, as well as a subclavian central line placement. The risks and benefits of the procedure, as well as the procedure and home care instructions were explained to the patient. The patient verbalized understanding of instructions and agrees to proceed as planned. At this time, we will have the patient proceed with holding his aspirin and Plavix 5 days prior to his procedure, as well as a bowel prep the day before his procedure. We will then schedule him for the laparoscopic reversal of colostomy and central line placement. The patient verbalized understanding of instructions and agrees to proceed as planned. Job ID: [id number] DocumentID: [id number] Dictated Date: 03/04/2017 14:56:38 Financial Foundations Associate Date: 03/04/2017 15:34:06 Dictated By: RAFIQ JOLLY APRN
[2017-03-08] VITALS (17 sets, daily range): BP systolic 66–143; BP diastolic 45–99
[~2017-03-08] VITALS: Ht 182.9 cm; Wt 89.6 kg
[2017-03-08] MEDS ORDERED: metroNIDAZOLE 500MG/100ML IVPB 100 ML ONE (06:14)
[2017-03-08] MEDS ORDERED: ceFAZolin 1,000 MG (ANCEF) VIAL ONE (06:14)
[2017-03-08] MEDS ORDERED: NS (IVPB) 50 ML ONE ×2 (06:14→17:12)
[2017-03-08] MEDS: LACTATED RINGERS 1,000 ML IV SCH ×3 (06:20→11:33)
[2017-03-08] MEDS ORDERED: ceFAZolin 1 GM/NS 50 ML IVPB IV ONE ×2 (07:00)
[2017-03-08] MEDS ORDERED: metroNIDAZOLE 500 MG/100 ML IVPB (PRE-MIX) IV ONE (07:00)
[2017-03-08] MEDS ORDERED: DEXAMETHASONE PF 10 MG/ML (DECADRON) VIAL ONE (07:29)
[2017-03-08] MEDS ORDERED: proPOfol 200 MG/20 ML (DIPRIVAN) VIAL IV ONE (07:29)
[2017-03-08] MEDS ORDERED: ROCURONIUM 50 MG/5 ML (ZEMURON) VIAL IV ONE ×3 (07:29→10:11)
[2017-03-08] MEDS ORDERED: LIDOCAINE PF 2% 10 ML (XYLOCAINE) AMP ONE (07:29)
[2017-03-08] MEDS ORDERED: LACTATED RINGERS 1,000 ML IV ONE ×2 (07:29→10:11)
[2017-03-08] MEDS ORDERED: ONDANSETRON 4 MG/2 ML (SDV) Z0FRAN ONE (07:29)
[2017-03-08] MEDS ORDERED: SEVOFLURANE (ULTANE) 15 ML INHAL SOLN ONE ×3 (07:29→12:19)
[2017-03-08] MEDS ORDERED: BUP/EPI 0.5% 1:200,000 (SENSORCAINE) 30 ML VIAL ONE (07:31)
[2017-03-08] MEDS ORDERED: fentaNYL INJECTION 250 MCG/5 ML AMP ONE (07:32)
[2017-03-08] MEDS ORDERED: MIDAZOLAM 2 MG/2 ML (VERSED) VIAL ONE (07:32)
--- NOTE | 2017-03-08 07:48 | Progress Note-Pre Operative ---
Pre-Operative Progress Note H&P Reviewed The H&P was reviewed, patient examined and no changes noted. Date H&P Reviewed: March 08, 2017 Time H&P Reviewed: 07:45 Pre-Operative Diagnosis: Severe Diverticulitis RAFIQ JOLLY APRN March 08, 2017 7:47 am
[2017-03-08] MEDS ORDERED: HEParin (CENTRAL IV FLUSH) 500 UNIT/5 ML SYR ONE (07:57)
[2017-03-08] MEDS ORDERED: LIDOCAINE/EPI 1%-1:100,000 (XYLOCAINE) 20ML ONE (07:57)
[2017-03-08] MEDS ORDERED: PHENYLEPHRINE 100 MCG/ML 10 ML (ANESTHESIA) SYR ONE (08:38)
[2017-03-08] MEDS ORDERED: fentaNYL INJECTION 100 MCG/2 ML AMP ONE (11:23)
[2017-03-08] MEDS ORDERED: ESMOLOL 100 MG/10 ML (BREVIBLOC) VIAL ONE (11:59)
[2017-03-08] MEDS ORDERED: LABETALOL HCL 20 MG/4 ML VIAL ONE (11:59)
[2017-03-08] MEDS ORDERED: GLYCOPYRROLATE 0.2 MG/ML (ROBINUL) 2 ML VIAL ONE (12:12)
[2017-03-08] MEDS ORDERED: NEOSTIGMINE (BLOXIVERZ ) 1 MG/1ML 10 ML VIAL ONE (12:12)
[2017-03-08] MEDS ORDERED: morphine INJ 10 MG/ML 1ML (SYR OR VIAL) ONE (12:28)
--- NOTE | 2017-03-08 12:39 | Progress Note-Post Operative ---
Post-Operative Progess Note Surgeon (s)/Export Coordinator (s) Surgeon ROXIE HERNANDEZ MD Export Coordinator: tracy garcia BOTTLE HOUSE QUALITY CONTROL TECHNICIAN Pre-Operative Diagnosis Severe Diverticulitis Post-Operative Diagnosis same, dense adhesions. Procedure & Operative Findings Date of Procedure 03/08/17 Procedure Performed/Findings laparoscopic reversal end colostomy and Diallo's, takedown splenic flexure, small bowel resection and anastomosis, left subclavian central venous catheter placement. Anesthesia Type GET Estimated Blood Loss Estimated blood loss (mL): 100ml Specimens/Packing Specimens Removed small bowel segment, colonic anastomotic rings. ROXIE HERNANDEZ MD March 08, 2017 12:39 pm
[2017-03-08] MEDS ORDERED: RT-ALBUTEROL SULF 2.5 MG/3 ML PRE-MIX VIAL INH SCH (12:45)
[2017-03-08] MEDS ORDERED: LORazepam INJ 2 MG/ML (ATIVAN) VIAL IVP PRN (12:45)
[2017-03-08] MEDS ORDERED: HYDROmorphone (DILAUDID) 2 MG/ML VIAL IVP PRN (12:45)
[2017-03-08] MEDS ORDERED: diphenhydrAMINE 50 MG/ML INJ (BENADRYL) IVP PRN (12:45)
[2017-03-08] MEDS: morphine INJ 10 MG/ML 1ML (SYR OR VIAL) IVP PRN ×2 (12:55→13:07)
[2017-03-08] MEDS ORDERED: ONDANSETRON 4 MG/2 ML (SDV) Z0FRAN IVP PRN (13:15)
[2017-03-08] MEDS: fentaNYL INJECTION 100 MCG/2 ML AMP IVP PRN ×8 (13:15→20:30)
--- NOTE | 2017-03-08 13:25 | Diagnostic Imaging Report ---
INDICATION: Catheter placement. FINDINGS: The left subclavian catheter is placed with the distal tip oriented inferiorly projecting at the level of the SVC. There is no pneumothorax. There is some scarring in the right upper lobe. Air trapping and features of COPD are chronic findings. IMPRESSION: A central line has been placed in good position. The NG or OG is in the stomach. There is severe COPD and areas of apical scarring, chronic. No pneumothorax. Dictated by: Dictated on workstation # [id number]
[2017-03-08] MEDS: 1/2 NS W/KCL 20 MEQ/L 1,000 ML IV SCH ×2 (14:19→22:37)
[2017-03-08] MEDS ORDERED: RT-ALBUTEROL SULF 2.5 MG/3 ML PRE-MIX VIAL ONE (14:53)
[2017-03-08] MEDS ORDERED: NS IV 1000 ML 1,000 ML ONE (15:02)
[2017-03-08] MEDS ORDERED: NS IV 1000 ML 1,000 ML IV SCH ×3 (15:15→16:45)
[2017-03-08 15:24] LABS: MEAN PLATELET VOLUME 9.9 FL (7.4-10.4); RED BLOOD COUNT 4.05 10^6/uL (4.35-5.85); RED CELL DISTRIBUTION WIDTH 15.5 % (10.0-14.5); WHITE BLOOD COUNT 22.1 10^3/uL (4.3-11.0)
[2017-03-08 15:45] LABS: ALANINE AMINOTRANSFERASE 27 U/L (0-55); ALBUMIN 3.3 G/DL (3.2-4.5); ANION GAP 9 MMOL/L (5-14); ASPARTATE AMINO TRANSFERASE 29 U/L (5-34); BILIRUBIN,TOTAL 0.5 MG/DL (0.1-1.0); BLOOD UREA NITROGEN 24 MG/DL (7-18); BUN/CREATININE RATIO 25; CALCIUM 8.4 MG/DL (8.5-10.1); CARBON DIOXIDE 23 MMOL/L (21-32); CHLORIDE 106 MMOL/L (98-107); CREATININE SERUM 0.97 MG/DL (0.60-1.30); GFR ESTIMATED > 60; GLUCOSE 188 MG/DL (70-105); MAGNESIUM 1.7 MG/DL (1.8-2.4); POTASSIUM 4.9 MMOL/L (3.6-5.0); SODIUM 138 MMOL/L (135-145); TOTAL PROTEIN 5.6 G/DL (6.4-8.2)
[2017-03-08] MEDS ORDERED: metroNIDAZOLE 500MG/100ML IVPB 100 ML IV SCH (16:00)
[2017-03-08] MEDS ORDERED: ceFAZolin 2 GM/50 ML NS 50 ML IV SCH (16:00)
[2017-03-08] MEDS ORDERED: NOREPINEPHRINE 4 MG/4 ML (LEVOPHED) AMP IV ONE (16:09)
[2017-03-08] MEDS ORDERED: D5W 250 ML (IVPB) 250 ML IV ONE ×2 (16:09→17:10)
[2017-03-08] MEDS ORDERED: ALPR1TAB7 PO (16:29)
[2017-03-08] MEDS ORDERED: SERT50TA9 PO (16:29)
[2017-03-08] MEDS ORDERED: TIOT4MIS2 IH (16:29)
[2017-03-08] MEDS ORDERED: NS IV 500 ML 1,000 ML ONE (16:36)
[2017-03-08] MEDS ORDERED: PHENYLEPHRINE INJ 10 MG/ML (NEO-SYNEPHRINE 1%) ONE (17:10)
[2017-03-08] MEDS ORDERED: VASOPRESSIN INJECTION 20 UNIT/ML VIAL ONE (17:12)
[2017-03-08] MEDS ORDERED: NS IV 1000 ML 1,000 ML IV ONE ×2 (17:15→20:00)
[2017-03-08] MEDS ORDERED: NS IV 500 ML 500 ML ONE (17:24)
[2017-03-08] MEDS ORDERED: VANCOMYCIN 1500 MG/NS 500 ML IVPB IV NR ×2 (17:30)
[2017-03-08] MEDS ORDERED: PIPERACILLIN/TAZOBACTAM 4.5 GM/NS 100 ML IV NR ×2 (17:30)
[2017-03-08] MEDS ORDERED: NS IV 500 ML 500 ML IV SCH (18:00)
[2017-03-08] MEDS: VASOPRESSIN INJECTION 20 UNIT in NS (IVPB) 50 ML IV SCH ×36 (18:10→23:33)
[2017-03-08] MEDS: RT-ALBUTEROL SULF 2.5 MG/3 ML PRE-MIX VIAL INH SCH ×2 (18:32→22:16)
[2017-03-08 19:06] LABS: BASOPHILS % (AUTO) 0 % (0-10); EOSINOPHILS # (AUTO) 0.1 10^3/uL (0.0-0.3); EOSINOPHILS % (AUTO) 0 % (0-10); LYMPHOCYTES # (AUTO) 0.8 X 10^3 (1.0-4.0); LYMPHOCYTES % (AUTO) 4 % (12-44); MEAN CORPUSCULAR HEMOGLOBIN 29 PG (25-34); MEAN CORPUSCULAR HGB CONC 33 G/DL (32-36); MEAN CORPUSCULAR VOLUME 88 FL (80-99); MEAN PLATELET VOLUME 10.1 FL (7.4-10.4); MONOCYTES # (AUTO) 1.2 X 10^3 (0.0-1.0); MONOCYTES % (AUTO) 6 % (0-12); NEUTROPHILS % (AUTO) 89 % (42-75); PLATELET COUNT 275 10^3/uL (130-400); RED BLOOD COUNT 3.26 10^6/uL (4.35-5.85); RED CELL DISTRIBUTION WIDTH 15.1 % (10.0-14.5)
[2017-03-08 19:23] LABS: INR 1.5 (0.8-1.4); PROTHROMBIN TIME PATIENT 17.5 SEC (12.2-14.7)
[2017-03-08 19:35] LABS: ANION GAP 8 MMOL/L (5-14); BLOOD UREA NITROGEN 24 MG/DL (7-18); BUN/CREATININE RATIO 26; CALCIUM 6.5 MG/DL (8.5-10.1); CARBON DIOXIDE 15 MMOL/L (21-32); CHLORIDE 115 MMOL/L (98-107); CREATININE SERUM 0.93 MG/DL (0.60-1.30); GFR ESTIMATED > 60; GLUCOSE 314 MG/DL (70-105); SODIUM 138 MMOL/L (135-145)
[2017-03-08 19:43] LABS: TROPONIN I < 0.30 NG/ML (<0.30)
[2017-03-08] MEDS ORDERED: NS IV NR (20:00)
[2017-03-08] MEDS ORDERED: inSUlin (REGULAR) HUMAN 1 UNIT/0.01 ML (CHARGE PER UNIT) IV NR (20:00)
[2017-03-08] MEDS ORDERED: SODIUM BICARB 8.4% 50 MEQ/50 ML (ABBOTT) SYR IV NR (20:00)
[2017-03-08] MEDS: meTOprolol 5 MG/5 ML (LOPRESSOR) VIAL IVP SCH ×2 (20:00→21:16)
[2017-03-08] MEDS ORDERED: CALCIUM GLUCONATE IV NR (20:00)
[2017-03-08] MEDS ORDERED: HYDROmorphone (DILAUDID) 2 MG/ML VIAL ONE (20:46)
[2017-03-08] MEDS: HYDROmorphone (DILAUDID) 2 MG/ML VIAL IVP PRN ×4 (20:47→23:13)
[2017-03-08] MEDS: ENOXAPARIN 30 MG/0.3 ML (LOVENOX) SYR SC SCH (21:00)
[2017-03-08] MEDS: PHENYLEPHRINE INJECTION 10 MG in D5W 250 ML (IVPB) 249 ML IV SCH ×2 (21:20→21:21)
[2017-03-08] MEDS: NOREPINEPHRINE 4 MG in D5W 250 ML (IVPB) 250 ML IV SCH (21:20)
[2017-03-08] MEDS: ONDANSETRON 4 MG/2 ML (SDV) Z0FRAN IVP SCH (21:22)
--- NOTE | 2017-03-08 21:57 | OPERATIVE REPORT ---
DATE OF SERVICE: 03/08/2017 ATTENDING PRIMARY CARE PHYSICIAN: Helen Meehan MD PREOPERATIVE DIAGNOSIS: Severe diverticulitis with perforation. POSTOPERATIVE DIAGNOSES: 1. Severe diverticulitis with perforation. 2. Extensive small bowel adhesions. PROCEDURE: Laparoscopic reversal end colostomy and Timbo's pouch, laparoscopic takedown of splenic flexure, laparoscopic small bowel resection and anastomosis, placement left subclavian central venous catheter. SURGEON: Roxie North MD MANAGER MARKET DEVELOPMENT: Adalid Moreno APRN. ANESTHESIA: General endotracheal. ESTIMATED BLOOD LOSS: 100 mL. FINDINGS: Extensive small bowel adhesions in the pelvis as well as to the abdominal wall causing multiple serosal tears as well as small enterotomy. This segment was resected and reanastomosed. There was not enough length initially and the splenic flexure was taken down to provide adequate length and anastomosis without tension. DISPOSITION: The patient tolerated the procedure well. INDICATIONS FOR PROCEDURE: The patient is a 61-year-old male who was admitted on 09/06/2016 for worsening shortness of breath and exacerbation of COPD. He had a considerable sputum production as well as requirement of oxygen and IV antibiotics. A CT scan was performed which did show a small amount of free air as well as an elevated white count. He was treated conservatively with IV antibiotics; however, he did have worsening abdominal pain and leukocytosis. A repeat CT scan was performed which showed a significant size abscess as well as diverticulitis. The need for diversion was explained to the patient; however, the patient was adamantly against the colostomy at this time. He did agree to have a diagnostic laparoscopy irrigation and drain placement as well as IV antibiotics. He understood the risks and benefits of this process. On 09/12/2016, he underwent a diagnostic laparoscopy with irrigation and drain placement. He was then discharged home; however, had had multiple office visits where he had worsening pain as well as continued purulent drainage out of three drains. Eventually, the drainage had decreased and drains were removed; however, he did have a recurrent abscess formation. Eventually, he did understand the importance of diversion and did agree to the sigmoid rectal resection and end colostomy and Timbo's pouch, which was performed on 12/02/2016. Since that time, he has done well over with functional colostomy. He is also afebrile, tolerating a regular diet and has minimal abdominal pain. A repeat CT scan was also performed, which did not show any abscesses or active infection. PROCEDURE IN DETAIL: The patient was brought to the operating room, laid supine on the table. After adequate IV pain and sedative medications and general endotracheal intubation, the chest and neck were prepped and draped in a standard surgical fashion. The left subclavian vein was then cannulated withdrawing a venous blood. The guidewire was then inserted without any resistance. The cannulating needle removed and a small skin incision made using a #11 blade. A tract was then created using a venous dilator. Through this opening, a triple lumen central venous catheter was placed over the guidewire using a Seldinger technique. The guidewire was removed and all three ports ai venous blood and saline pushing without any resistance. The catheter was then sutured to the skin using 3-0 silk interrupted sutures. The catheter was then cleaned and covered with sterile gauze followed by Op-Site. The abdomen was then cleaned with soap and sponge and the colostomy at this level. The skin was then closed using a 0 silk running suture. The abdomen and perineum were then prepped and draped in standard fashion and the patient was placed in modified lithotomy position. Along the previous trocar site in the left upper abdomen, this area was anesthetized using 0.5% Marcaine with epinephrine and a transverse skin incision made using a 15 blade. The Veress needle was then inserted with a low opening pressure of 0 mmHg. The abdomen was then insufflated to 15 mmHg pressure. The Veress needle removed and a 5 mm Xcel trocar was placed followed by a 5 mm 45-degree angle laparoscope. A four quadrant abdominal exploration was performed. There were extensive small bowel adhesions to the pelvis as well as the abdominal wall. Under direct visualization, we then proceeded to place a supraumbilical 10 mm port after the skin and peritoneum were anesthetized using 0.5% Marcaine with epinephrine and a transverse skin incision made using a 15 blade. In a similar manner, a suprapubic 5 mm port was placed. The patient was then placed in Trendelenburg position as well as planned left side up, right side down. We first proceeded with adhesiolysis, which took approximately 90 minutes taking down adhesions of small bowel and omental adhesions to the pelvis as well as to the abdominal wall. An area that was extremely stuck down to the abdominal wall was taken down using endoshears. After examination of this area, there were multiple serosal tears in the segment encompassing approximately 8 cm as well as a very small enterotomy. We then proceeded with a takedown of the colostomy. We then proceeded with dissection of the mesenteric lining as well as the fascia to the end colostomy using the Sonicision with visualization of good hemostasis. The skin was then opened using a 10 blade and the descending colon was eviscerated out of the abdomen. A pursestring suture applied and the end of the colostomy was resected using a 10 blade. Stanley clamps were applied and the luminal diameter measured, which was approximately 25 mL. We decided to use a 25 mm EEA stapler and the anvil placed into the end of the colon and tied using pursestring. The colon was then reduced back into the abdomen and towel clamps applied to the previous colostomy site. There was some tension identified and then we proceeded to take down the splenic flexure using the Sonicision with visualization of good hemostasis and until enough length was identified to create our anastomosis without any tension. Before the re-pneumo insufflation, the small bowel segment that was identified earlier was brought through the previous colostomy opening site. Again, approximately an 8 cm segment of multiple serosal tears as well as a small enterotomy was identified. It was decided to proceed with a small bowel resection of the segment. A window was created through the proximal and distal ends of the mesentery using electrocautery. The ends were then stapled and transected using a BARBARA 55 mm stapler with a 2.5 mm thickness load. We then proceeded with ntso-zh-psia anastomosis. The antimesenteric side was sutured using 3-0 silk interrupted sutures. The end of the staple line was then opened using a Lamar scissor and we then proceeded with anastomosis using the same BARBARA 55 mm stapler. The open end was then approximated using 3-0 silk interrupted sutures. This open end was then stapled and transected using the same 55 mm stapler with visualization of good hemostasis. The mesenteric defect was then closed using the 0 silk running suture. This was also reduced back into the peritoneal cavity. I then went to the perineum and proceeded with dilatation using a 25 mm dilator visualizing the rectal stump with nothing obstructing this area. The stem was then opened under direct visualization and the Anvil was placed on the stem and closed to approximate medium staple thickness fired and removed under direct visualization. The anastomotic rings were identified and both intact. The area was then copiously irrigated and suctioned out and Tisseel fibrin glue placed on the anastomosis and on mesentery placed over the anastomosis and fibrin glue. A 19-Gabonese SAKSHI drain was then placed in the pelvis as well as near the anastomosis and brought out through the left upper abdominal quadrant 5 mm port site. The 10 mm port site fascia and peritoneum were then closed under direct visualization using a Paul-Harper device and a 0 Vicryl suture. The abdomen was desufflated and the patient was flattened. The fascia and peritoneal lining to the previous colostomy site was then closed using #1 looped PDS suture. The skin was then very loosely approximated using three interrupted 3-0 nylon sutures. The remaining sterile port site skin incisions were closed using 4-0 Monocryl subcuticular sutures. The drain was sutured to the skin using 3-0 nylon suture. The patient tolerated the procedure well. We will admit him to the ICU for close monitoring. Due to his history of coronary artery disease as well as COPD. Once stable, we will transfer him to the general surgical floor. We will also proceed with 24 hours antibiotics as well as DVT prophylaxis with calf SCDs, early ambulation as well as Lovenox injections. We will also await bowel function and once this was established, I will start to remove the NG tube and start a clear liquid diet and advance as tolerated. Job ID: [id number] DocumentID: [id number] Dictated Date: 03/08/2017 13:13:44 Plant Attendant Or Assistant Operator Date: 03/08/2017 19:07:33 Dictated By: ROXIE NORTH MD [facility] SYSTEM[facility]
[2017-03-08] MEDS: fentaNYL PCA 300 MCG/30 ML VIAL IV PRN (23:16)
[2017-03-09] VITALS (36 sets, daily range): BP systolic 77–125; BP diastolic 51–87
[2017-03-09] MEDS: meTOprolol 5 MG/5 ML (LOPRESSOR) VIAL IVP SCH ×6 (00:04→20:00)
[2017-03-09] MEDS: VASOPRESSIN INJECTION 20 UNIT in NS (IVPB) 50 ML IV SCH ×9 (00:18→19:59)
[2017-03-09] MEDS: HYDROmorphone (DILAUDID) 2 MG/ML VIAL IVP PRN ×4 (00:27→02:54)
[2017-03-09] MEDS: PHENYLEPHRINE INJECTION 10 MG in D5W 250 ML (IVPB) 249 ML IV SCH ×5 (00:27→17:11)
[2017-03-09] MEDS: ONDANSETRON 4 MG/2 ML (SDV) Z0FRAN IVP SCH ×2 (00:28→06:21)
[2017-03-09] MEDS: PIPERACILLIN/TAZOBACTAM 4.5 GM/NS 100 ML IVPB IV SCH ×6 (01:15→16:40)
[2017-03-09] MEDS: RT-ALBUTEROL SULF 2.5 MG/3 ML PRE-MIX VIAL INH SCH ×6 (02:17→21:40)
[2017-03-09 04:50] LABS: MEAN PLATELET VOLUME 10.1 FL (7.4-10.4); RED BLOOD COUNT 3.87 10^6/uL (4.35-5.85); RED CELL DISTRIBUTION WIDTH 14.8 % (10.0-14.5)
[2017-03-09] MEDS: KCL 20 MEQ TAB (K-DUR) PO SCH (05:12)
[2017-03-09 05:13] LABS: ANION GAP 6 MMOL/L (5-14); BLOOD UREA NITROGEN 22 MG/DL (7-18); BUN/CREATININE RATIO 20; CARBON DIOXIDE 22 MMOL/L (21-32); CHLORIDE 113 MMOL/L (98-107); CREATININE SERUM 1.08 MG/DL (0.60-1.30); POTASSIUM 6.1 MMOL/L (3.6-5.0); SODIUM 141 MMOL/L (135-145)
[2017-03-09 05:14] LABS: CALCIUM 7.5 MG/DL (8.5-10.1); GFR ESTIMATED > 60; GLUCOSE 170 MG/DL (70-105); MAGNESIUM 1.6 MG/DL (1.8-2.4); PHOSPHORUS 4.8 MG/DL (2.3-4.7)
[2017-03-09 05:14] LABS: ABG BASE EXCESS -4.8 MMOL/L (-2.5-2.5); ABG HCO3 27 MMOL/L (23-27); ABG OXYGEN SATURATION 93 % (94-100); ABG PO2 82 MMHG (79-93); ABG TCO2 30.7 MMOL/L (21.0-31.0)
[2017-03-09 05:19] LABS: ABG PCO2 129 MMHG (35-45); ABG PH 6.95 (7.37-7.43); ALLENS TEST YES-POS; PATIENT TEMP 98.4
[2017-03-09] MEDS ORDERED: NALOXONE 0.4 MG/ML 1 ML (NARCAN) VIAL ONE (05:33)
[2017-03-09] MEDS ORDERED: DEXTROSE 50% 50 ML (IMS) SYR ONE (05:57)
[2017-03-09] MEDS ORDERED: inSUlin (REGULAR) HUMAN 1 UNIT/0.01 ML (CHARGE PER UNIT) ONE (05:58)
[2017-03-09] MEDS: CALCIUM GLUCONATE 10% INJ 4.65 MEQ in NS (IVPB) 50 ML IV SCH ×3 (06:13→07:02)
[2017-03-09] MEDS ORDERED: inSUlin (REGULAR) HUMAN 1 UNIT/0.01 ML (CHARGE PER UNIT) SC ONE (06:15)
[2017-03-09] MEDS ORDERED: fentaNYL INJECTION 100 MCG/2 ML AMP IV PRN (06:15)
[2017-03-09] MEDS ORDERED: NALOXONE 0.4 MG/ML 1 ML (NARCAN) VIAL IV ONE (06:15)
[2017-03-09] MEDS ORDERED: DEXTROSE 50% 50 ML (IMS) SYR IV ONE (06:15)
--- NOTE | 2017-03-09 06:20 | Pulmonary Consultation ---
History of Present Illness History of Present Illness Date of Consultation 03/09/17 06:14 Date of Admission History of Present Illness 61yo with hx of severe COPD and diverticulitis and hx of sigmoid-rectal resection and end colostomy presented for elective reversal of colostomy. No complications noted during surgery. Post surgery pt was hypotensive and tx with pressors in ICU. Through the night pt received aggressive IVF and is now off Levophed. Pt was receiving dilauded for pain control however early this morning RN check on patient and he was unresponsive. ABG showed acute respiratory acidosis with C02 of 129. PT was given Narcan and placed on BiPAP. He is now awake and yelling out in pain.currently unable to obtain ROS secondary to BiPAP and pt is yelling out in pain. I am consulted for pulmonary/ICU management. Allergies and Home Medications Allergies Coded Allergies: No Known Drug Allergies (Unverified , 12/12/13) Home Medications Albuterol Sulfate 90 Mcg Aer.pow.ba, 2 PUFF INH Q4H PRN for SHORTNESS OF BREATH, (Reported) Alprazolam 1 Mg Tablet, 1 MG PO DAILY PRN for ANXIETY, (Reported) Aspirin 81 Mg Tablet.dr, 81 MG PO HS, (Reported) Clopidogrel Bisulfate 75 Mg Tablet, 75 MG PO DAILY, (Reported) LAST FILLED 01/10/17 #30 Fluticasone/Vilanterol 1 Each Blst.w.dev, 1 PUFF IH DAILY, (Reported) Gemfibrozil 600 Mg Tablet, 600 MG PO DAILY, (Reported) Oxycodone HCl/Acetaminophen 1 Each Tablet, 1-2 TAB PO EVERY 4-6 HOURS PRN for PAIN-MODERATE, (Reported) Pantoprazole Sodium 40 Mg Tablet.dr, 40 MG PO DAILY, (Reported) Sertraline HCl 50 Mg Tablet, 75 MG PO DAILY, (Reported) TAKES 1 & 1/2 OF A (50 MG) TABLET Sildenafil Citrate 100 Mg Tablet, 100 MG PO UD PRN for SEXUAL ACTIVITY, ( Reported) Tiotropium [place] 4 Gm Mist.inhal, 2 PUFF IH DAILY, (Reported) Past Oixxxpm-Hhwmyu-Rykimh Hx Patient Social History Alcohol Use: Denies Use Recreational Drug Use: No Smoking Status: Former Smoker Type Used: Cigarettes Recent Foreign Travel: No Contact w/Someone Who Travel: No Recent Infectious Disease Expo: No Recent Hopitalizations: Yes (COLON RESECTION/PNEUMONIA) Physical Abuse Screen: No Sexual Abuse: No Immunizations Up To Date Tetanus Booster (TDap): Less than 5yrs PED Vaccines UTD: No Date of Pneumonia Vaccine: Jun 20, 2012 Date of Influenza Vaccine: Aug 17, 2016 Seasonal Allergies Seasonal Allergies: No Surgeries HX Surgeries: Yes (Arthroscopy Left knee, Colonoscopy, "some kind of lung surgery 20 yrs ago ") Respiratory Hx Respiratory Disorders: Yes (COPD HOME O2 prn) Respiratory Disorders: Pneumonia, Sleep Apnea, COPD Cardiovascular Hx Cardiac Disorders: Yes (STENTS) Cardiac Disorders: Coronary Artery Disease, Heart Attack, Hypertension Neurological Hx Neurological Disorders: No Reproductive System Hx Reproductive Disorders: No Sexually Transmitted Disease: No HIV/AIDS: No Genitourinary Hx Genitourinary Disorders: No Gastrointestinal Hx Gastrointestinal Disorders: Yes Gastrointestinal Disorders: Diverticulosis Musculoskeletal Hx Musculoskeletal Disorders: No Endocrine Hx Endocrine Disorders: No HEENT HX ENT Disorders: No Loss of Vision: Denies Hearing Impairment: Denies Cancer Hx Cancer: No Psychosocial Hx Psychiatric Problems: No Integumentary HX Skin/Integumentary Disorder: No Blood Transfusions Hx Blood Disorders: No Adverse Reaction to a Blood Tr: No Family Medical History Significant Family History: No Pertinent Family Hx, Stroke Family Medial History: Cancer 09 SISTER, Onset:Unknown Family history: Alzheimer's disease 09 BROTHER, Onset:Unknown Prostate cancer 03 FATHER, Onset:60 years & older Stroke 03 FATHER, Onset:60 years & older No Family History of: Abdominal aortic aneurysm Scurry's disease Alcoholism Aphasia Cancer of colon Cataract Chest pain Congenital heart disease Congestive heart failure Cystic fibrosis Dementia Dysphagia Family history: Allergy Family history: Arthritis Family history: Asthma Family history: Breast disease Family history: Cardiovascular disease Family history: Coronary thrombosis Family history: Diabetes mellitus Family history: Gastrointestinal disease Family history: Glaucoma Family history: Hypertension Family history: Osteoporosis Family history: Thyroid disorder Headache Hearing loss Heart disease Hereditary disease History of - anemia History of - disorder History of - respiratory disease History of drug abuse Human immunodeficiency virus (HIV) seropositivity Hypercholesterolemia Infertile Kidney disease Malignant neoplasm of lung Myocardial infarction Parkinson's disease Psychotic disorder Seizure disorder Tuberculosis Visual impairment Exam Exam Vital Signs Date Time Temp Pulse Resp B/P (MAP) Pulse Ox O2 Delivery O2 Flow Rate FiO2 03/09/17 05:45 113 18 98 40.00 03/09/17 04:51 98.4 03/09/17 04:30 5.00 03/09/17 03:00 128 10 105/62 91 Nasal Cannula 5.00 03/09/17 02:33 131 13 110/60 91 Nasal Cannula 5.00 03/09/17 02:26 99.1 03/09/17 02:17 85 2.00 03/09/17 02:00 129 11 99/61 91 Nasal Cannula 2.00 81/55 03/09/17 01:00 132 03/09/17 01:00 132 10 107/63 90 Nasal Cannula 2.00 77/54 03/09/17 00:00 2.00 03/09/17 00:00 134 11 100/61 91 Nasal Cannula 2.00 03/08/17 23:18 100.8 03/08/17 23:00 133 12 107/66 92 Nasal Cannula 2.00 03/08/17 22:16 94 2.00 03/08/17 22:00 122 12 125/74 96 Nasal Cannula 2.00 03/08/17 21:30 100.3 03/08/17 21:00 124 24 139/86 97 Nasal Cannula 2.00 143/72 03/08/17 20:00 147 18 99/65 98 Nasal Cannula 2.00 73/45 03/08/17 20:00 4.00 03/08/17 19:45 99.7 03/08/17 19:05 98.6 03/08/17 19:00 134 03/08/17 19:00 134 21 97/82 100 Nasal Cannula 2.00 98/52 03/08/17 18:45 98.5 03/08/17 18:34 98.6 126 19 102/66 100 03/08/17 18:33 94 4.00 03/08/17 18:20 98.4 03/08/17 18:12 97.4 121 18 102/66 100 03/08/17 18:00 135 17 105/70 98 03/08/17 18:00 97.6 03/08/17 17:59 97.6 135 17 87/48 98 4.00 03/08/17 17:55 135 16 92/60 100 03/08/17 17:00 97.1 135 16 66/48 100 4.00 03/08/17 16:55 115 8 66/46 100 03/08/17 16:42 97.1 121 12 84/55 98 3.00 03/08/17 16:00 4.00 03/08/17 15:58 128 23 66/48 95 03/08/17 15:01 97 3.00 03/08/17 14:45 100 17 80/62 95 03/08/17 13:53 99/72 03/08/17 13:45 100 4.00 03/08/17 06:37 97.3 87 16 138/99 95 I & O 03/09/17 07:00 Intake Total 8146 ml Output Total 3480 ml Balance 4666 ml General Appearance: Moderate Distress Neck: Full Range of Motion, Normal Inspection, Non Tender Respiratory: Accessory Muscle Use, Decreased Breath Sounds Cardiovascular: No Edema, No Murmur, Normal Peripheral Pulses, Tachycardia Peripheral Pulses: 2+ Carotid (R), 2+ Carotid (L), 2+ Radial Pulses (R), 2+ Radial Pulses (L) Gastrointestinal: soft, tenderness Extremity: Normal Capillary Refill, Normal Inspection, Normal Range of Motion Neurologic/Psychiatric: Alert Skin: Normal Color, Warm/Dry Lymphatic: No Adenopathy Results Lab Laboratory Tests 03/08/17 15:10 03/08/17 17:11 03/08/17 18:52 03/08/17 20:50 03/09/17 01:10 03/09/17 04:30 Assessment/Plan Assessment/Plan S/P colostomy reversal -pain control -change fentanyl to morphine -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 -BiPAP -repeat ABG in 1hr Hyperkalemia -repeat labs 2hrs after insulin gtt -change IVF to NS 150 currently getting 1/2 NS with KCL - S/P insulin and HC03 Hypomagnesium -replace Hypotension - resolved Hx of COPD- currently stable -SVNS 255 60min was spent with patient Clinical Quality Measures DVT/VTE Risk/Contraindication: Risk Factor Score Per Nursin RFS Level Per Nursing on Admit: 3=High DEVIN MAK DO March 09, 2017 06:20
[2017-03-09] MEDS: MAGNESIUM 1 GM/100 ML IVPB 100 ML IV SCH (06:21)
[2017-03-09] MEDS: POTASSIUM CL 10MEQ/50ML IVPB 50 ML IV SCH (06:21)
[2017-03-09] MEDS: 1/2 NS W/KCL 20 MEQ/L 1,000 ML IV SCH (06:22)
[2017-03-09] MEDS ORDERED: NS IV 500 ML 500 ML IV ONE (06:45)
[2017-03-09] MEDS: NS IV 1000 ML 1,000 ML IV SCH ×3 (06:49→22:23)
[2017-03-09] MEDS: MAGNESIUM 1 GM/100 ML IVPB IV SCH ×4 (06:49→10:00)
[2017-03-09] MEDS: VANCOMYCIN 1250 MG/NS 250 ML IVPB IV SCH ×4 (07:05→18:20)
[2017-03-09 07:13] LABS: ABG BASE EXCESS -5.9 MMOL/L (-2.5-2.5); ABG HCO3 20 MMOL/L (23-27); ABG OXYGEN SATURATION 91 % (94-100); ABG PCO2 49 MMHG (35-45); ABG PO2 57 MMHG (79-93); ABG TCO2 21.7 MMOL/L (21.0-31.0)
[2017-03-09] MEDS ORDERED: NS IV 500 ML 500 ML IV SCH (07:15)
[2017-03-09 07:16] LABS: ABG PH 7.24 (7.37-7.43); ALLENS TEST YES-POS
[2017-03-09 07:17] LABS: PATIENT TEMP 99.2
--- NOTE | 2017-03-09 07:23 | Diagnostic Imaging Report ---
EXAM: CHEST 1 VIEW, AP/PA ONLY INDICATION: Respiratory failure. COMPARISON: Chest radiograph 03/08/2017. FINDINGS: Normal heart size and pulmonary vascularity. NG tube side-port is at the GE junction. Left subclavian CVC tip upper SVC. This could be advanced. No dense consolidation, pleural effusion or pneumothorax. IMPRESSION: 1. No acute cardiopulmonary findings. 2. Stable support lines. The NG tube side port remains at the GE junction and could be advanced. Dictated by: Dictated on workstation # [id number]
[2017-03-09] MEDS ORDERED: SODIUM BICARB 8.4% 50 MEQ/50 ML (ABBOTT) SYR IV ONE (07:45)
[2017-03-09] MEDS: morphine INJ 4 MG/ML 1 ML (VIAL/SYRINGE) IVP PRN ×2 (07:45→09:44)
[2017-03-09] MEDS ORDERED: SODIUM BICARB 8.4% 50 MEQ/50 ML (ABBOTT) SYR IV NR (07:47)
[2017-03-09] MEDS: ENOXAPARIN 30 MG/0.3 ML (LOVENOX) SYR SC SCH (09:25)
[2017-03-09 09:27] LABS: ABG BASE EXCESS -0.5 MMOL/L (-2.5-2.5); ABG HCO3 25 MMOL/L (23-27); ABG OXYGEN SATURATION 97 % (94-100); ABG PCO2 50 MMHG (35-45); ABG PO2 76 MMHG (79-93); ABG TCO2 26.2 MMOL/L (21.0-31.0)
[2017-03-09 09:29] LABS: ABG PH 7.32 (7.37-7.43)
[2017-03-09 09:30] LABS: ALLENS TEST ART LINE; PATIENT TEMP 99.7
[2017-03-09] MEDS: PANTOPRAZOLE 40 MG/10 ML (PROTONIX) VIAL IV SCH (09:36)
[2017-03-09 09:50] LABS: ALANINE AMINOTRANSFERASE 35 U/L (0-55); ANION GAP 5 MMOL/L (5-14); ASPARTATE AMINO TRANSFERASE 50 U/L (5-34); BILIRUBIN,TOTAL 0.5 MG/DL (0.1-1.0); BLOOD UREA NITROGEN 21 MG/DL (7-18); BUN/CREATININE RATIO 22; CALCIUM 7.9 MG/DL (8.5-10.1); CARBON DIOXIDE 26 MMOL/L (21-32); CHLORIDE 113 MMOL/L (98-107); CREATININE SERUM 0.97 MG/DL (0.60-1.30); GFR ESTIMATED > 60; GLUCOSE 158 MG/DL (70-105); POTASSIUM 4.6 MMOL/L (3.6-5.0); SODIUM 144 MMOL/L (135-145); TOTAL PROTEIN 4.6 G/DL (6.4-8.2)
[2017-03-09] MEDS ORDERED: diphenhydrAMINE 50 MG/ML INJ (BENADRYL) IV PRN (10:45)
[2017-03-09] MEDS ORDERED: METOCLOPRAMIDE INJ 10 MG/2 ML (REGLAN) IV PRN (10:45)
[2017-03-09] MEDS ORDERED: NALOXONE 0.4 MG/ML 1 ML (NARCAN) VIAL IV PRN (10:45)
[2017-03-09] MEDS ORDERED: ONDANSETRON 4 MG/2 ML (SDV) Z0FRAN IV PRN (10:45)
[2017-03-09] MEDS: fentaNYL PCA 300 MCG/30 ML VIAL IV PRN ×3 (10:58→18:51)
[2017-03-09] MEDS ORDERED: ONDANSETRON 4 MG/2 ML (SDV) Z0FRAN IVP PRN (12:45)
[2017-03-09] MEDS ORDERED: METOCLOPRAMIDE INJ 10 MG/2 ML (REGLAN) IVP PRN (12:45)
--- NOTE | 2017-03-09 12:56 | Progress Note (SOAP) ---
Subjective Subjective/Events-last exam doing better today. still states pain but causes significant hypotension and hypoxemia. Hb stabe at 9.8. SAKSHI output now serous. Objective Exam Vital Signs Date Time Temp Pulse Resp B/P (MAP) Pulse Ox O2 Delivery O2 Flow Rate FiO2 03/09/17 11:47 97 4.00 03/09/17 09:57 107 12 98 30.00 03/09/17 09:10 99.7 03/09/17 09:00 NIV Bilevel 30.00 03/09/17 08:44 112 11 95 21.00 03/09/17 08:00 21 03/09/17 07:57 100.5 120 23 114/71 97 NIV Bilevel 21.00 03/09/17 07:00 130 03/09/17 06:30 121 30 100 30.00 03/09/17 06:00 109 18 103/81 100 NIV Bilevel 118/79 03/09/17 05:45 113 18 98 40.00 03/09/17 05:00 112 8 115/87 94 Nasal Cannula 5.00 97/56 03/09/17 04:51 98.4 03/09/17 04:30 5.00 03/09/17 04:00 137 8 125/68 90 Nasal Cannula 5.00 03/09/17 03:00 128 10 105/62 91 Nasal Cannula 5.00 03/09/17 02:33 131 13 110/60 91 Nasal Cannula 5.00 03/09/17 02:26 99.1 03/09/17 02:17 85 2.00 03/09/17 02:00 129 11 99/61 91 Nasal Cannula 2.00 81/55 03/09/17 01:00 132 03/09/17 01:00 132 10 107/63 90 Nasal Cannula 2.00 77/54 03/09/17 00:00 2.00 03/09/17 00:00 134 11 100/61 91 Nasal Cannula 2.00 03/08/17 23:18 100.8 03/08/17 23:00 133 12 107/66 92 Nasal Cannula 2.00 03/08/17 22:16 94 2.00 03/08/17 22:00 122 12 125/74 96 Nasal Cannula 2.00 03/08/17 21:30 100.3 03/08/17 21:00 124 24 139/86 97 Nasal Cannula 2.00 143/72 03/08/17 20:00 147 18 99/65 98 Nasal Cannula 2.00 73/45 03/08/17 20:00 4.00 03/08/17 19:45 99.7 03/08/17 19:05 98.6 03/08/17 19:00 134 03/08/17 19:00 134 21 97/82 100 Nasal Cannula 2.00 98/52 03/08/17 18:45 98.5 03/08/17 18:34 98.6 126 19 102/66 100 03/08/17 18:33 94 4.00 03/08/17 18:20 98.4 03/08/17 18:12 97.4 121 18 102/66 100 03/08/17 18:00 135 17 105/70 98 03/08/17 18:00 97.6 03/08/17 17:59 97.6 135 17 87/48 98 4.00 03/08/17 17:55 135 16 92/60 100 03/08/17 17:00 97.1 135 16 66/48 100 4.00 03/08/17 16:55 115 8 66/46 100 03/08/17 16:42 97.1 121 12 84/55 98 3.00 03/08/17 16:00 4.00 03/08/17 15:58 128 23 66/48 95 03/08/17 15:01 97 3.00 03/08/17 14:45 100 17 80/62 95 03/08/17 13:53 99/72 03/08/17 13:45 100 4.00 I & O 03/09/17 07:00 Intake Total 9406 ml Output Total 4515 ml Balance 4891 ml Capillary Refill : General Appearance: No Apparent Distress HEENT: PERRL/EOMI Neck: Full Range of Motion Respiratory: Decreased Breath Sounds Cardiovascular: Regular Rate, Rhythm Gastrointestinal: soft, tenderness, other (SAKSHI output serous) Extremity: Normal Capillary Refill Neurologic/Psychiatric: Alert, Oriented x3 Skin: Normal Color Lymphatic: No Adenopathy Results Lab Laboratory Tests 03/08/17 15:10: White Blood Count 22.1H, Red Blood Count 4.05L, Hemoglobin 11.2L, Hematocrit 34L , Mean Corpuscular Volume 83, Mean Corpuscular Hemoglobin 28, Mean Corpuscular Hemoglobin Concent 33, Red Cell Distribution Width 15.5H, Platelet Count 380, Mean Platelet Volume 9.9, Sodium Level 138, Potassium Level 4.9, Chloride Level 106, Carbon Dioxide Level 23, Anion Gap 9, Blood Urea Nitrogen 24H, Creatinine 0.97, Estimat Glomerular Filtration Rate > 60, BUN/Creatinine Ratio 25, Glucose Level 188H, Calcium Level 8.4L, Magnesium Level 1.7L, Total Bilirubin 0.5, Aspartate Amino Transf (AST/SGOT) 29, Alanine Aminotransferase (ALT/SGPT) 27, Alkaline Phosphatase 66, Total Protein 5.6L, Albumin 3.3 03/08/17 17:11: Hemoglobin 7.0L, Hematocrit 22L 03/08/17 18:52: White Blood Count 19.0H, Red Blood Count 3.26L, Hemoglobin 9.5#L, Hematocrit 29L , Mean Corpuscular Volume 88, Mean Corpuscular Hemoglobin 29, Mean Corpuscular Hemoglobin Concent 33, Red Cell Distribution Width 15.1H, Platelet Count 275, Mean Platelet Volume 10.1, Sodium Level 138, Potassium Level 6.0H, Chloride Level 115H, Carbon Dioxide Level 15L, Anion Gap 8, Blood Urea Nitrogen 24H, Creatinine 0.93, Estimat Glomerular Filtration Rate > 60, BUN/Creatinine Ratio 26, Glucose Level 314H, Calcium Level 6.5L, Neutrophils (%) (Auto) 89H, Lymphocytes (%) (Auto) 4L, Monocytes (%) (Auto) 6, Eosinophils (%) (Auto) 0, Basophils (%) (Auto) 0, Neutrophils # (Auto) 17.0H, Lymphocytes # (Auto) 0.8L, Monocytes # (Auto) 1.2H, Eosinophils # (Auto) 0.1, Basophils # (Auto) 0.0, Prothrombin Time 17.5H, INR Comment 1.5H, Activated Partial Thromboplast Time 33 , Lactic Acid Level 3.35*H, Troponin I < 0.30 03/08/17 20:50: Hemoglobin 10.1L, Hematocrit 30L, Lactic Acid Level 3.55*H 03/09/17 01:10: Hemoglobin 10.8L, Hematocrit 32L 03/09/17 04:30: Hemoglobin 11.3L, Hematocrit 34L, White Blood Count 18.0H, Red Blood Count 3.87L , Mean Corpuscular Volume 87, Mean Corpuscular Hemoglobin 29, Mean Corpuscular Hemoglobin Concent 34, Red Cell Distribution Width 14.8H, Platelet Count 260, Mean Platelet Volume 10.1, Sodium Level 141, Potassium Level 6.1H, Chloride Level 113H, Carbon Dioxide Level 22, Anion Gap 6, Blood Urea Nitrogen 22H, Creatinine 1.08, Estimat Glomerular Filtration Rate > 60, BUN/Creatinine Ratio 20, Glucose Level 170H, Calcium Level 7.5L, Phosphorus Level 4.8H, Magnesium Level 1.6L 03/09/17 04:57: Glucometer 166H 03/09/17 05:05: Blood Gas Puncture Site RIGHT RADIAL, Blood Gas Patient Temperature 98.4, Arterial Blood pH 6.95*L, Arterial Blood Partial Pressure CO2 129*H, Arterial Blood Partial Pressure O2 82, Arterial Blood HCO3 27, Arterial Blood Total CO2 30.7, Arterial Blood Oxygen Saturation 93L, Arterial Blood Base Excess -4.8L, Dean Test YES-POS, Blood Gas Ventilator Setting NO, Blood Gas Inspired Oxygen 5L 03/09/17 06:56: Blood Gas Puncture Site RT RAD, Blood Gas Patient Temperature 99.2, Arterial Blood pH 7.24*L, Arterial Blood Partial Pressure CO2 49H, Arterial Blood Partial Pressure O2 57L, Arterial Blood HCO3 20L, Arterial Blood Total CO2 21.7 , Arterial Blood Oxygen Saturation 91L, Arterial Blood Base Excess -5.9L, Dean Test YES-POS, Blood Gas Ventilator Setting NO, Blood Gas Inspired Oxygen 21% 03/09/17 09:05: Blood Gas Puncture Site RT RADIAL, Blood Gas Patient Temperature 99.7, Arterial Blood pH 7.32*L, Arterial Blood Partial Pressure CO2 50H, Arterial Blood Partial Pressure O2 76L, Arterial Blood HCO3 25, Arterial Blood Total CO2 26.2, Arterial Blood Oxygen Saturation 97, Arterial Blood Base Excess -0.5, Dean Test ART LINE, Blood Gas Ventilator Setting NO, Blood Gas Inspired Oxygen 30%, Hemoglobin 9.8L, Hematocrit 29L, Sodium Level 144, Potassium Level 4.6, Chloride Level 113H, Carbon Dioxide Level 26, Anion Gap 5, Blood Urea Nitrogen 21H, Creatinine 0.97, Estimat Glomerular Filtration Rate > 60, BUN/Creatinine Ratio 22, Glucose Level 158H, Calcium Level 7.9L, Total Bilirubin 0.5, Aspartate Amino Transf (AST/SGOT) 50H, Alanine Aminotransferase (ALT/SGPT) 35, Alkaline Phosphatase 41, Total Protein 4.6L, Albumin 3.0L 03/09/17 12:14: Lab Scanned Report Transfusion Reaction Form Assessment/Plan Assessment/Plan Assess & Plan/Chief Complaint s/p lap colostomy reversal and small bowel resection. 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 Clinical Quality Measures DVT/VTE Risk/Contraindication: Risk Factor Score Per Nursin RFS Level Per Nursing on Admit: 3=High ROXIE HERNANDEZ MD March 09, 2017 12:56 pm
--- NOTE | 2017-03-09 14:08 | Anesthesia-General Post-Op ---
General Patient Condition Mental Status/LOC: Same as Preop Cardiovascular: Satisfactory Nausea/Vomiting: Absent Respiratory: Satisfactory Pain: Controlled Complications: Absent Post Op Complications Complications None Follow Up Care/Instructions Patient Instructions None needed. Anesthesia/Patient Condition Patient Condition Patient is doing well, no complaints, stable vital signs, no apparent adverse anesthesia problems. No complications reported per nursing. BLANCA BRAN CRNA March 09, 2017 14:08
[2017-03-09] MEDS: NOREPINEPHRINE 4 MG in D5W 250 ML (IVPB) 250 ML IV SCH (17:11)
[2017-03-09 18:48] LABS: ABG HCO3 26 MMOL/L (23-27); ABG OXYGEN SATURATION 97 % (94-100); ABG PCO2 47 MMHG (35-45); ABG PH 7.36 (7.37-7.43); ABG PO2 81 MMHG (79-93); ABG TCO2 27.1 MMOL/L (21.0-31.0)
[2017-03-09 18:50] LABS: PATIENT TEMP 99.5
[2017-03-09 18:51] LABS: ALLENS TEST POSITIVE
[2017-03-10] VITALS (29 sets, daily range): BP systolic 110–145; BP diastolic 55–103
[2017-03-10] MEDS: PIPERACILLIN/TAZOBACTAM 4.5 GM/NS 100 ML IVPB IV SCH ×6 (00:13→17:33)
[2017-03-10] MEDS: VASOPRESSIN INJECTION 20 UNIT in NS (IVPB) 50 ML IV SCH ×14 (00:45→02:24)
[2017-03-10] MEDS: RT-ALBUTEROL SULF 2.5 MG/3 ML PRE-MIX VIAL INH SCH ×5 (02:39→18:30)
[2017-03-10] MEDS: fentaNYL PCA 300 MCG/30 ML VIAL IV PRN ×2 (03:16→08:17)
[2017-03-10] MEDS: meTOprolol 5 MG/5 ML (LOPRESSOR) VIAL IVP SCH ×3 (04:00→08:22)
[2017-03-10 04:06] LABS: ABG HCO3 27 MMOL/L (23-27); ABG OXYGEN SATURATION 97 % (94-100); ABG PCO2 48 MMHG (35-45); ABG PH 7.37 (7.37-7.43); ABG PO2 74 MMHG (79-93); ABG TCO2 28.4 MMOL/L (21.0-31.0)
[2017-03-10 04:09] LABS: ALLENS TEST YES-POS
[2017-03-10 04:10] LABS: PATIENT TEMP 97.6
[2017-03-10 04:29] LABS: ANION GAP 6 MMOL/L (5-14); BLOOD UREA NITROGEN 14 MG/DL (7-18); BUN/CREATININE RATIO 19; CALCIUM 7.6 MG/DL (8.5-10.1); CARBON DIOXIDE 25 MMOL/L (21-32); CHLORIDE 112 MMOL/L (98-107); CREATININE SERUM 0.73 MG/DL (0.60-1.30); GFR ESTIMATED > 60; GLUCOSE 111 MG/DL (70-105); MAGNESIUM 1.8 MG/DL (1.8-2.4); PHOSPHORUS 1.8 MG/DL (2.3-4.7); POTASSIUM 4.1 MMOL/L (3.6-5.0); SODIUM 143 MMOL/L (135-145)
[2017-03-10] MEDS: NS IV 1000 ML 1,000 ML IV SCH (05:10)
[2017-03-10] MEDS: VANCOMYCIN 1250 MG/NS 250 ML IVPB IV SCH ×4 (05:58→18:46)
[2017-03-10] MEDS: POTASSIUM CL 10MEQ/50ML IVPB 50 ML IV SCH (06:00)
[2017-03-10] MEDS: MAGNESIUM 1 GM/100 ML IVPB 100 ML IV SCH (06:00)
[2017-03-10] MEDS: KCL 20 MEQ TAB (K-DUR) PO SCH (06:00)
--- NOTE | 2017-03-10 06:29 | Pulmonary Progress Note ---
Subjective Subjective/Events-last exam Pt is doing much better today. Pain is better controlled. Respiratory zapien pt is doing much better. Exam Exam Vital Signs Date Time Temp Pulse Resp B/P (MAP) Pulse Ox O2 Delivery O2 Flow Rate FiO2 03/10/17 06:00 89 11 111/73 100 4.00 03/10/17 05:00 91 9 117/67 99 4.00 03/10/17 04:00 97.6 100 18 119/71 99 4.00 03/10/17 04:00 99 4.00 03/10/17 03:16 15 03/10/17 03:00 98 15 122/73 100 4.00 03/10/17 02:39 96 4.00 03/10/17 02:00 99 24 124/72 100 4.00 03/10/17 01:00 92 13 115/70 98 4.00 03/10/17 01:00 93 03/10/17 00:00 95 4.00 03/10/17 00:00 98.0 93 11 117/62 98 4.00 03/09/17 23:00 98 12 117/61 98 4.00 03/09/17 22:00 101 13 100/57 97 4.00 03/09/17 21:45 100 10 106/61 100 4.00 03/09/17 21:40 98 4.00 03/09/17 21:30 98 13 100/63 97 4.00 03/09/17 21:15 102 11 100/71 97 4.00 03/09/17 21:00 105 17 116/65 95 4.00 03/09/17 21:00 15 03/09/17 20:45 101 12 105/66 96 4.00 03/09/17 20:30 99 12 99/61 95 4.00 03/09/17 20:15 102 13 100/61 97 4.00 03/09/17 20:00 97 4.00 03/09/17 20:00 97.6 105 11 101/54 98 4.00 03/09/17 19:45 107 9 115/63 94 4.00 03/09/17 19:30 107 16 92/66 99 4.00 03/09/17 19:15 110 22 117/63 97 4.00 03/09/17 19:00 103 03/09/17 19:00 106 11 104/51 97 4.00 03/09/17 18:51 17 03/09/17 18:24 97 4.00 03/09/17 18:00 105 12 104/61 98 30.00 03/09/17 17:00 107 11 105/59 98 30.00 03/09/17 16:00 99.4 Nasal Cannula 4.00 03/09/17 16:00 108 14 103/64 98 30.00 03/09/17 16:00 4.00 03/09/17 15:00 104 14 111/62 100 30.00 03/09/17 14:56 99 4.00 03/09/17 14:00 102 13 95/61 98 30.00 03/09/17 13:00 102 13 112/68 97 30.00 03/09/17 13:00 101 03/09/17 12:30 99.9 03/09/17 12:00 4.00 03/09/17 11:50 Nasal Cannula 4.00 03/09/17 11:47 97 4.00 03/09/17 11:00 103 14 102/61 97 30.00 03/09/17 10:00 105 10 98/66 99 30.00 03/09/17 09:57 107 12 98 30.00 03/09/17 09:10 99.7 03/09/17 09:00 115 11 93/65 97 30.00 03/09/17 09:00 NIV Bilevel 30.00 03/09/17 08:44 112 11 95 21.00 03/09/17 08:00 114 17 97 21.00 03/09/17 08:00 21 03/09/17 07:57 100.5 120 23 114/71 97 NIV Bilevel 21.00 03/09/17 07:00 130 03/09/17 06:30 121 30 100 30.00 I & O 03/10/17 07:00 Intake Total 4281.5 ml Output Total 3535 ml Balance 746.5 ml General Appearance: No Apparent Distress HEENT: PERRL/EOMI Neck: Full Range of Motion Respiratory: Decreased Breath Sounds Cardiovascular: Regular Rate, Rhythm Peripheral Pulses: 2+ Carotid (R), 2+ Carotid (L), 2+ Radial Pulses (R), 2+ Radial Pulses (L) Gastrointestinal: soft, tenderness, other (SAKSHI output serous) Extremity: Normal Capillary Refill Neurologic/Psychiatric: Alert, Oriented x3 Skin: Normal Color Lymphatic: No Adenopathy Results Lab Laboratory Tests 03/08/17 15:10 03/08/17 17:11 03/08/17 18:52 03/08/17 20:50 03/09/17 01:10 03/09/17 04:30 03/09/17 09:05 03/10/17 04:00 Assessment/Plan Assessment/Plan S/P colostomy reversal -pain control - better controlled today -Fentanyl 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 20 min was spent with patient 233 Clinical Quality Measures DVT/VTE Risk/Contraindication: Risk Factor Score Per Nursin RFS Level Per Nursing on Admit: 3=High DEVIN MAK DO March 10, 2017 06:28
[2017-03-10] MEDS ORDERED: SODIUM PHOSPHATE INJ 30 MM in NS (IVPB) 250 ML IV NR (06:48)
[2017-03-10] MEDS: LACTATED RINGERS 1,000 ML IV SCH ×2 (06:50→17:01)
[2017-03-10 06:54] LABS: BASOPHILS % (AUTO) 0 % (0-10); EOSINOPHILS % (AUTO) 0 % (0-10); LYMPHOCYTES # (AUTO) 0.7 X 10^3 (1.0-4.0); LYMPHOCYTES % (AUTO) 9 % (12-44); MEAN CORPUSCULAR HEMOGLOBIN 30 PG (25-34); MEAN CORPUSCULAR HGB CONC 34 G/DL (32-36); MEAN CORPUSCULAR VOLUME 89 FL (80-99); MEAN PLATELET VOLUME 9.7 FL (7.4-10.4); MONOCYTES # (AUTO) 0.6 X 10^3 (0.0-1.0); MONOCYTES % (AUTO) 7 % (0-12); NEUTROPHILS # (AUTO) 6.7 X 10^3 (1.8-7.8); NEUTROPHILS % (AUTO) 83 % (42-75); PLATELET COUNT 119 10^3/uL (130-400); RED BLOOD COUNT 2.65 10^6/uL (4.35-5.85); RED CELL DISTRIBUTION WIDTH 15.1 % (10.0-14.5); WHITE BLOOD COUNT 8.1 10^3/uL (4.3-11.0)
[2017-03-10] MEDS: LORazepam INJ 2 MG/ML (ATIVAN) VIAL IVP PRN ×3 (07:04→22:48)
[2017-03-10 07:16] LABS: ANION GAP 4 MMOL/L (5-14); BLOOD UREA NITROGEN 13 MG/DL (7-18); BUN/CREATININE RATIO 19; CALCIUM 7.6 MG/DL (8.5-10.1); CARBON DIOXIDE 26 MMOL/L (21-32); CHLORIDE 113 MMOL/L (98-107); CREATININE SERUM 0.68 MG/DL (0.60-1.30); GFR ESTIMATED > 60; GLUCOSE 101 MG/DL (70-105); MAGNESIUM 1.8 MG/DL (1.8-2.4); PHOSPHORUS 2.1 MG/DL (2.3-4.7); POTASSIUM 4.2 MMOL/L (3.6-5.0); SODIUM 143 MMOL/L (135-145)
[2017-03-10] MEDS ORDERED: FENTANYL IV SCH ×2 (09:00)
[2017-03-10] MEDS ORDERED: SENNA W/DOCUSATE (SENOKOT S) TABLET PO SCH (09:00)
[2017-03-10] MEDS ORDERED: [UNRECOGNIZED DRUG - OTHER] IV SCH ×2 (09:00)
--- NOTE | 2017-03-10 09:39 | Diagnostic Imaging Report ---
INDICATION: Respiratory failure. COMPARISON: 03/09/2017. FINDINGS: Severe COPD is a chronic finding. Parenchymal opacity in the lung bases, greater right than left, has progressed from the prior exam and the change is suspicious for radiographic features of developing pneumonia. There is no vascular congestion. The heart size is stable and normal. IMPRESSION: While severe COPD is a chronic finding, increased lower lobe pulmonary opacities are suspicious for developing basilar pneumonias. Dictated by: Dictated on workstation # [id number]
[2017-03-10] MEDS ORDERED: NS IV 500 ML 500 ML ONE (09:55)
[2017-03-10] MEDS: PANTOPRAZOLE 40 MG/10 ML (PROTONIX) VIAL IV SCH (10:11)
[2017-03-10] MEDS ORDERED: NS IV 500 ML 500 ML IV ONE (10:30)
--- NOTE | 2017-03-10 15:14 | Progress Note-Standard ---
Standard Progress Note Progress Notes/Assess & Plan Progress/Assessment & Plan post date record for arterial line placed on 03/08/17 [id number]: Called to ICU 10 for arterial line for hypotension. 20g arterial line placed in patients right radial. Good waveform. Arterial line SBP reading 50-60. Notified SHADE Dominguez and Dr. North with orders to transfuse platelets and PRBC. Will be available if needed. RACHEL BARRIGA CRNA March 10, 2017 15:14
--- NOTE | 2017-03-10 16:07 | Progress Note (SOAP) ---
Subjective Subjective/Events-last exam doing well. pain better controlled. no bowel fxn yet. no SOB or cough. Objective Exam Vital Signs Date Time Temp Pulse Resp B/P (MAP) Pulse Ox O2 Delivery O2 Flow Rate FiO2 03/10/17 14:17 96 1.50 03/10/17 13:08 99.0 96 12 140/88 97 03/10/17 13:00 96 03/10/17 12:53 101 16 135/76 96 3.00 03/10/17 12:37 99.1 100 16 135/76 97 3.00 03/10/17 12:00 99.1 03/10/17 12:00 4.00 03/10/17 10:43 98 3.00 03/10/17 10:36 98.5 99 14 126/77 97 3.00 03/10/17 10:21 98.9 93 14 131/76 100 3.00 03/10/17 08:17 22 03/10/17 08:00 4.00 03/10/17 08:00 98.8 103 18 110/69 99 4.00 03/10/17 07:00 91 03/10/17 06:54 96 4.00 03/10/17 06:00 89 11 111/73 100 4.00 03/10/17 05:00 91 9 117/67 99 4.00 03/10/17 04:00 97.6 100 18 119/71 99 4.00 03/10/17 04:00 99 4.00 03/10/17 03:16 15 03/10/17 03:00 98 15 122/73 100 4.00 03/10/17 02:39 96 4.00 03/10/17 02:00 99 24 124/72 100 4.00 03/10/17 01:00 92 13 115/70 98 4.00 03/10/17 01:00 93 03/10/17 00:00 95 4.00 03/10/17 00:00 98.0 93 11 117/62 98 4.00 03/09/17 23:00 98 12 117/61 98 4.00 03/09/17 22:00 101 13 100/57 97 4.00 03/09/17 21:45 100 10 106/61 100 4.00 03/09/17 21:40 98 4.00 03/09/17 21:30 98 13 100/63 97 4.00 03/09/17 21:15 102 11 100/71 97 4.00 03/09/17 21:00 105 17 116/65 95 4.00 03/09/17 21:00 15 03/09/17 20:45 101 12 105/66 96 4.00 03/09/17 20:30 99 12 99/61 95 4.00 03/09/17 20:15 102 13 100/61 97 4.00 03/09/17 20:00 97 4.00 03/09/17 20:00 97.6 105 11 101/54 98 4.00 03/09/17 19:45 107 9 115/63 94 4.00 03/09/17 19:30 107 16 92/66 99 4.00 03/09/17 19:15 110 22 117/63 97 4.00 03/09/17 19:00 103 03/09/17 19:00 106 11 104/51 97 4.00 03/09/17 18:51 17 03/09/17 18:24 97 4.00 03/09/17 18:00 105 12 104/61 98 30.00 03/09/17 17:00 107 11 105/59 98 30.00 I & O 03/10/17 07:00 Intake Total 4631.5 ml Output Total 3535 ml Balance 1096.5 ml Capillary Refill : General Appearance: No Apparent Distress HEENT: PERRL/EOMI Neck: Full Range of Motion Respiratory: Chest Non Tender Cardiovascular: Regular Rate, Rhythm Gastrointestinal: soft, tenderness, other (wound clean/dry, minimal SAKSHI) Extremity: Normal Capillary Refill Neurologic/Psychiatric: Alert, Oriented x3 Skin: Normal Color Lymphatic: No Adenopathy Results Lab Laboratory Tests 03/09/17 16:40: Blood Gas Puncture Site LEFT RADIAL, Blood Gas Patient Temperature 99.5, Arterial Blood pH 7.36L, Arterial Blood Partial Pressure CO2 47H, Arterial Blood Partial Pressure O2 81, Arterial Blood HCO3 26, Arterial Blood Total CO2 27.1, Arterial Blood Oxygen Saturation 97, Arterial Blood Base Excess 1.0, Dean Test POSITIVE, Blood Gas Ventilator Setting NO, Blood Gas Inspired Oxygen 4L NC 03/10/17 03:55: Blood Gas Puncture Site LT RADIAL, Blood Gas Patient Temperature 97.6, Arterial Blood pH 7.37, Arterial Blood Partial Pressure CO2 48H, Arterial Blood Partial Pressure O2 74L, Arterial Blood HCO3 27, Arterial Blood Total CO2 28.4, Arterial Blood Oxygen Saturation 97, Arterial Blood Base Excess 2.0, Dean Test YES-POS, Blood Gas Ventilator Setting NO, Blood Gas Inspired Oxygen 4L NC 03/10/17 04:00: Hemoglobin 7.9L, Hematocrit 24L, Sodium Level 143, Potassium Level 4.1, Chloride Level 112H, Carbon Dioxide Level 25, Anion Gap 6, Blood Urea Nitrogen 14, Creatinine 0.73, Estimat Glomerular Filtration Rate > 60, BUN/Creatinine Ratio 19, Glucose Level 111H, Calcium Level 7.6L, Phosphorus Level 1.8L, Magnesium Level 1.8 03/10/17 06:41: Hemoglobin 7.9L, Hematocrit 24L, Sodium Level 143, Potassium Level 4.2, Chloride Level 113H, Carbon Dioxide Level 26, Anion Gap 4L, Blood Urea Nitrogen 13, Creatinine 0.68, Estimat Glomerular Filtration Rate > 60, BUN/Creatinine Ratio 19, Glucose Level 101, Calcium Level 7.6L, Phosphorus Level 2.1L, Magnesium Level 1.8, White Blood Count 8.1, Red Blood Count 2.65L, Mean Corpuscular Volume 89, Mean Corpuscular Hemoglobin 30, Mean Corpuscular Hemoglobin Concent 34, Red Cell Distribution Width 15.1H, Platelet Count 119L, Mean Platelet Volume 9.7, Neutrophils (%) (Auto) 83H, Lymphocytes (%) (Auto) 9L , Monocytes (%) (Auto) 7, Eosinophils (%) (Auto) 0, Basophils (%) (Auto) 0, Neutrophils # (Auto) 6.7, Lymphocytes # (Auto) 0.7L, Monocytes # (Auto) 0.6, Eosinophils # (Auto) 0.0, Basophils # (Auto) 0.0 Microbiology 03/08/17 Blood Culture - Preliminary, Resulted No growth 03/08/17 MRSA Screen - Final, Complete MRSA not isolated Assessment/Plan Assessment/Plan Assess & Plan/Chief Complaint s/p lap colostomy reversal and small bowel resection. 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 Clinical Quality Measures DVT/VTE Risk/Contraindication: Risk Factor Score Per Nursin RFS Level Per Nursing on Admit: 3=High ROXIE HERNANDEZ MD March 10, 2017 16:07
[2017-03-10] MEDS ORDERED: TROUGH ORDER-PHARMACY XX NR (17:00)
[2017-03-11] VITALS (21 sets, daily range): BP systolic 90–146; BP diastolic 47–80
[2017-03-11] MEDS: PIPERACILLIN/TAZOBACTAM 4.5 GM/NS 100 ML IVPB IV SCH ×6 (00:35→16:30)
[2017-03-11] MEDS: LACTATED RINGERS 1,000 ML IV SCH ×2 (03:33→15:54)
[2017-03-11 04:25] LABS: BASOPHILS % (AUTO) 0 % (0-10); EOSINOPHILS # (AUTO) 0.1 10^3/uL (0.0-0.3); EOSINOPHILS % (AUTO) 2 % (0-10); LYMPHOCYTES # (AUTO) 0.7 X 10^3 (1.0-4.0); LYMPHOCYTES % (AUTO) 11 % (12-44); MEAN CORPUSCULAR HEMOGLOBIN 29 PG (25-34); MEAN CORPUSCULAR HGB CONC 34 G/DL (32-36); MEAN CORPUSCULAR VOLUME 88 FL (80-99); MEAN PLATELET VOLUME 9.8 FL (7.4-10.4); MONOCYTES # (AUTO) 0.4 X 10^3 (0.0-1.0); MONOCYTES % (AUTO) 6 % (0-12); NEUTROPHILS # (AUTO) 5.1 X 10^3 (1.8-7.8); NEUTROPHILS % (AUTO) 81 % (42-75); PLATELET COUNT 115 10^3/uL (130-400); RED BLOOD COUNT 2.89 10^6/uL (4.35-5.85); WHITE BLOOD COUNT 6.3 10^3/uL (4.3-11.0)
[2017-03-11] MEDS: LORazepam INJ 2 MG/ML (ATIVAN) VIAL IVP PRN ×4 (04:28→20:15)
[2017-03-11 04:42] LABS: ANION GAP 8 MMOL/L (5-14); BLOOD UREA NITROGEN 11 MG/DL (7-18); BUN/CREATININE RATIO 17; CALCIUM 7.9 MG/DL (8.5-10.1); CARBON DIOXIDE 26 MMOL/L (21-32); CHLORIDE 108 MMOL/L (98-107); CREATININE SERUM 0.65 MG/DL (0.60-1.30); GFR ESTIMATED > 60; GLUCOSE 89 MG/DL (70-105); MAGNESIUM 1.7 MG/DL (1.8-2.4); PHOSPHORUS 2.3 MG/DL (2.3-4.7); POTASSIUM 3.6 MMOL/L (3.6-5.0); SODIUM 142 MMOL/L (135-145)
[2017-03-11] MEDS: MAGNESIUM 1 GM/100 ML IVPB 100 ML IV SCH ×3 (05:21→06:16)
[2017-03-11] MEDS: POTASSIUM CL 10MEQ/50ML IVPB 50 ML IV SCH ×3 (05:22→06:03)
[2017-03-11] MEDS: KCL 20 MEQ TAB (K-DUR) PO SCH (06:00)
[2017-03-11] MEDS: VANCOMYCIN 1250 MG/NS 250 ML IVPB IV SCH ×4 (06:15→19:03)
[2017-03-11] MEDS: RT-ALBUTEROL SULF 2.5 MG/3 ML PRE-MIX VIAL IH SCH ×5 (06:26→21:47)
--- NOTE | 2017-03-11 06:41 | Pulmonary Progress Note ---
Subjective Subjective/Events-last exam PT is doing much better. CXR shows atelectasis and infiltration RLL. No fever, no productive cough or leukocytosis. Exam Exam Vital Signs Date Time Temp Pulse Resp B/P (MAP) Pulse Ox O2 Delivery O2 Flow Rate FiO2 03/11/17 06:28 96 1.00 03/11/17 06:00 73 16 118/67 92 2.00 03/11/17 05:00 83 22 114/73 91 2.00 03/11/17 04:00 98.4 85 18 126/66 93 03/11/17 04:00 1.00 03/11/17 03:00 87 11 135/77 92 03/11/17 02:06 94 1.00 03/11/17 02:00 87 9 90/58 91 03/11/17 01:00 91 03/11/17 01:00 93 10 128/77 91 03/11/17 01:00 3.00 03/11/17 00:00 79 10 128/70 85 03/11/17 00:00 3.00 03/10/17 23:00 73 9 137/55 89 03/10/17 22:17 95 1.00 03/10/17 22:00 82 7 112/64 89 03/10/17 21:00 92 12 130/68 92 03/10/17 20:05 3.00 03/10/17 20:00 98.4 03/10/17 20:00 93 9 127/76 93 03/10/17 19:00 85 03/10/17 19:00 83 11 122/69 93 03/10/17 18:30 94 1.00 03/10/17 18:00 93 9 142/77 92 03/10/17 17:00 97 12 132/103 03/10/17 16:45 98.7 100 13 143/77 97 3.00 03/10/17 16:30 98.7 03/10/17 16:00 4.00 03/10/17 16:00 106 17 143/77 93 4.00 03/10/17 15:00 99 27 142/78 94 4.00 03/10/17 14:17 96 1.50 03/10/17 14:00 106 13 145/77 94 4.00 03/10/17 13:08 99.0 96 12 140/88 97 03/10/17 13:00 98 14 140/88 96 4.00 03/10/17 13:00 96 03/10/17 12:53 101 16 135/76 96 3.00 03/10/17 12:37 99.1 100 16 135/76 97 3.00 03/10/17 12:00 99.1 03/10/17 12:00 4.00 03/10/17 11:00 95 9 126/72 97 4.00 03/10/17 10:43 98 3.00 03/10/17 10:36 98.5 99 14 126/77 97 3.00 03/10/17 10:21 98.9 93 14 131/76 100 3.00 03/10/17 10:00 107 12 126/77 98 4.00 03/10/17 09:00 90 128/72 97 4.00 03/10/17 08:17 22 03/10/17 08:00 4.00 03/10/17 08:00 98.8 103 18 110/69 99 4.00 03/10/17 07:00 91 03/10/17 07:00 87 9 110/69 100 4.00 03/10/17 06:54 96 4.00 I & O 03/11/17 07:00 Intake Total 3267.5 ml Output Total 2570 ml Balance 697.5 ml General Appearance: No Apparent Distress HEENT: PERRL/EOMI Neck: Full Range of Motion Respiratory: Chest Non Tender Cardiovascular: Regular Rate, Rhythm Peripheral Pulses: 2+ Carotid (R), 2+ Carotid (L), 2+ Radial Pulses (R), 2+ Radial Pulses (L) Gastrointestinal: soft, tenderness, other (wound clean/dry, minimal SAKSHI) Extremity: Normal Capillary Refill Neurologic/Psychiatric: Alert, Oriented x3 Skin: Normal Color Lymphatic: No Adenopathy Results Lab Laboratory Tests 03/09/17 09:05 03/10/17 04:00 03/10/17 06:41 03/10/17 19:33 03/11/17 04:00 Assessment/Plan Assessment/Plan S/P colostomy reversal -pain control - better controlled today -Fentanyl 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 20 min was spent with patient [address] North transfer to 4th floor. Clinical Quality Measures DVT/VTE Risk/Contraindication: Risk Factor Score Per Nursin RFS Level Per Nursing on Admit: 3=High DEVIN MAK DO March 11, 2017 06:41
[2017-03-11] MEDS: PANTOPRAZOLE 40 MG/10 ML (PROTONIX) VIAL IV SCH ×2 (08:50→20:59)
--- NOTE | 2017-03-11 09:16 | Diagnostic Imaging Report ---
EXAMINATION: Portable upright radiograph of the chest. INDICATION: Respiratory failure. FINDINGS: There is mild infiltrate or atelectasis in the lung bases, increased in the medial aspect of the right lower lobe. There is background emphysema. The heart size is normal. There is a small right pleural effusion. The mediastinum and caryl appear unremarkable. There is an NG tube in place. IMPRESSION: Increasing bibasilar infiltrate or atelectasis. Dictated by: Dictated on workstation # [id number]
--- NOTE | 2017-03-11 11:27 | Progress Note (SOAP) ---
Subjective Subjective/Events-last exam doing ok. possible right pneumonia on CXR. ambulating a little better. Objective Exam Vital Signs Date Time Temp Pulse Resp B/P (MAP) Pulse Ox O2 Delivery O2 Flow Rate FiO2 03/11/17 11:08 90 03/11/17 08:00 100 20 140/75 93 2.00 03/11/17 08:00 2.00 03/11/17 07:00 81 03/11/17 07:00 20 03/11/17 07:00 85 12 118/70 93 2.00 03/11/17 06:28 96 1.00 03/11/17 06:00 73 16 118/67 92 2.00 03/11/17 05:00 83 22 114/73 91 2.00 03/11/17 04:00 98.4 85 18 126/66 93 03/11/17 04:00 1.00 03/11/17 03:00 87 11 135/77 92 03/11/17 02:06 94 1.00 03/11/17 02:00 87 9 90/58 91 03/11/17 01:00 91 03/11/17 01:00 93 10 128/77 91 03/11/17 01:00 3.00 03/11/17 00:00 79 10 128/70 85 03/11/17 00:00 3.00 03/10/17 23:00 73 9 137/55 89 03/10/17 22:17 95 1.00 03/10/17 22:00 82 7 112/64 89 03/10/17 21:00 92 12 130/68 92 03/10/17 20:05 3.00 03/10/17 20:00 98.4 03/10/17 20:00 93 9 127/76 93 03/10/17 19:00 85 03/10/17 19:00 83 11 122/69 93 03/10/17 18:30 94 1.00 03/10/17 18:00 93 9 142/77 92 03/10/17 17:00 97 12 132/103 03/10/17 16:45 98.7 100 13 143/77 97 3.00 03/10/17 16:30 98.7 03/10/17 16:00 4.00 03/10/17 16:00 106 17 143/77 93 4.00 03/10/17 15:00 99 27 142/78 94 4.00 03/10/17 14:17 96 1.50 03/10/17 14:00 106 13 145/77 94 4.00 03/10/17 13:08 99.0 96 12 140/88 97 03/10/17 13:00 98 14 140/88 96 4.00 03/10/17 13:00 96 03/10/17 12:53 101 16 135/76 96 3.00 03/10/17 12:37 99.1 100 16 135/76 97 3.00 03/10/17 12:00 99.1 03/10/17 12:00 4.00 I & O 03/11/17 07:00 Intake Total 3267.5 ml Output Total 3140 ml Balance 127.5 ml Capillary Refill : General Appearance: No Apparent Distress HEENT: PERRL/EOMI, TMs Normal Neck: Full Range of Motion Respiratory: Decreased Breath Sounds Cardiovascular: Regular Rate, Rhythm Gastrointestinal: soft, tenderness, other (wounds clean/dry) Extremity: Normal Capillary Refill Neurologic/Psychiatric: Alert, Oriented x3 Skin: Normal Color Lymphatic: No Adenopathy Results Lab Laboratory Tests 03/10/17 17:30: Vancomycin Level Trough 11.1 03/10/17 19:33: Hemoglobin 8.9L, Hematocrit 27L 03/11/17 04:00: Hemoglobin 8.5L, Hematocrit 25L, White Blood Count 6.3, Red Blood Count 2.89L, Mean Corpuscular Volume 88, Mean Corpuscular Hemoglobin 29, Mean Corpuscular Hemoglobin Concent 34, Red Cell Distribution Width 15.0H, Platelet Count 115L, Mean Platelet Volume 9.8, Neutrophils (%) (Auto) 81H, Lymphocytes (%) (Auto) 11L , Monocytes (%) (Auto) 6, Eosinophils (%) (Auto) 2, Basophils (%) (Auto) 0, Neutrophils # (Auto) 5.1, Lymphocytes # (Auto) 0.7L, Monocytes # (Auto) 0.4, Eosinophils # (Auto) 0.1, Basophils # (Auto) 0.0, Sodium Level 142, Potassium Level 3.6, Chloride Level 108H, Carbon Dioxide Level 26, Anion Gap 8, Blood Urea Nitrogen 11, Creatinine 0.65, Estimat Glomerular Filtration Rate > 60, BUN/ Creatinine Ratio 17, Glucose Level 89, Calcium Level 7.9L, Phosphorus Level 2.3 , Magnesium Level 1.7L, B-Type Natriuretic Peptide 317.2H Microbiology 03/08/17 Blood Culture - Preliminary, Resulted No growth 03/08/17 MRSA Screen - Final, Complete MRSA not isolated Assessment/Plan Assessment/Plan Assess & Plan/Chief Complaint s/p lap colostomy reversal and small bowel resection. transfer to floor with telemetry. IV abx for pnuemonia. d/c [employer]. ambulate and await bowel fxn. Clinical Quality Measures DVT/VTE Risk/Contraindication: Risk Factor Score Per Nursin RFS Level Per Nursing on Admit: 3=High ROXIE HERNANDEZ MD March 11, 2017 11:27 am
[2017-03-11] MEDS: oxyCODONE 20 MG/1 ML ORAL CONC (RoxiCODONE) CHARGE PER 1 ML PO PRN (15:26)
[2017-03-12] VITALS (29 sets, daily range): BP systolic 87–173; BP diastolic 52–90
[2017-03-12] MEDS: LORazepam INJ 2 MG/ML (ATIVAN) VIAL IVP PRN ×2 (00:30→04:26)
[2017-03-12] MEDS: PIPERACILLIN/TAZOBACTAM 4.5 GM/NS 100 ML IVPB IV SCH ×2 (00:35)
[2017-03-12] MEDS: RT-ALBUTEROL SULF 2.5 MG/3 ML PRE-MIX VIAL IH SCH ×6 (02:39→22:29)
[2017-03-12] MEDS: LACTATED RINGERS 1,000 ML IV SCH ×3 (04:25→21:23)
[2017-03-12] MEDS: VANCOMYCIN 1250 MG/NS 250 ML IVPB IV SCH ×2 (06:16)
[2017-03-12] MEDS ORDERED: ENOXAPARIN 40 MG/0.4 ML (LOVENOX) SYR SC SCH (08:00)
--- NOTE | 2017-03-12 08:00 | Progress Note-Standard ---
Standard Progress Note Progress Notes/Assess & Plan Progress/Assessment & Plan 03/12/17:has not passed flatus. Very minimal output from the NG tube.no abdominal distention. NG tube could be removed and clear liquids initiated. Lovenox for thromboprophylaxis Final Diagnosis sigmoid diverticular disease. Reversal of colostomy JOSE COWAN MD March 12, 2017 8:00 am
[2017-03-12] MEDS: PANTOPRAZOLE 40 MG/10 ML (PROTONIX) VIAL IV SCH ×2 (08:05→21:24)
[2017-03-12] MEDS ORDERED: RT-ALBUTEROL SULF 2.5 MG/3 ML PRE-MIX VIAL IH PRN (08:15)
[2017-03-12] MEDS ORDERED: CLOPIDOGREL 75 MG (PLAVIX) TABLET PO SCH (09:00)
[2017-03-12] MEDS: SERTRALINE 50 MG (ZOLOFT) TABLET PO SCH (09:13)
[2017-03-12] MEDS: ALPRAZolam 1 MG (XANAX) TAB PO PRN (09:58)
[2017-03-12] MEDS: METOCLOPRAMIDE INJ 10 MG/2 ML (REGLAN) IV SCH ×2 (11:33→17:24)
[2017-03-12] MEDS ORDERED: DILTIAZEM 100 MG/VIAL (CARDIZEM) ADD-VANTAGE IV ONE (17:29)
[2017-03-12] MEDS ORDERED: SODIUM CHLORIDE (ADD-VANTAGE) 100 ML IV ONE (17:30)
[2017-03-12] MEDS ORDERED: DILTIAZEM 25 MG/5 ML INJ (CARDIZEM) VIAL ONE (17:31)
[2017-03-12] MEDS ORDERED: DILTIAZEM 25 MG/5 ML INJ (CARDIZEM) VIAL IVP ONE ×2 (17:45→18:15)
[2017-03-12] MEDS ORDERED: DILTIAZEM DRIP 100 MG in SODIUM CHLORIDE (ADD-VANTAGE) 100 ML IV SCH (17:45)
[2017-03-12] MEDS ORDERED: DIGOXIN 0.25 MG/ML (LANOXIN) 2 ML AMP IV ONE (19:00)
[2017-03-12] MEDS ORDERED: ASPIRIN E.C. 81 MG (ECOTRIN) TAB PO SCH (21:00)
[2017-03-12] MEDS: DILTIAZEM DRIP 100 MG in SODIUM CHLORIDE (ADD-VANTAGE) 100 ML IV SCH (21:23)
[2017-03-13] VITALS (46 sets, daily range): BP systolic 111–147; BP diastolic 51–89
[2017-03-13] MEDS: METOCLOPRAMIDE INJ 10 MG/2 ML (REGLAN) IV SCH ×4 (00:33→18:20)
[2017-03-13] MEDS: ALPRAZolam 1 MG (XANAX) TAB PO PRN ×2 (00:34→21:35)
[2017-03-13] MEDS ORDERED: DIGOXIN 0.25 MG/ML (LANOXIN) 2 ML AMP IV ONE ×2 (01:00→07:00)
[2017-03-13] MEDS: RT-ALBUTEROL SULF 2.5 MG/3 ML PRE-MIX VIAL IH SCH ×6 (03:00→22:00)
[2017-03-13 03:42] LABS: BILIRUBIN,URINE NEGATIVE (NEGATIVE); KETONES,URINE NEGATIVE (NEGATIVE); LEUKOCYTE ESTERASE ,URINE 1+ (NEGATIVE); NITRITE,URINE NEGATIVE (NEGATIVE); PH,URINE 5 (5-9); PROTEIN,URINE NEGATIVE (NEGATIVE); UROBILINOGEN,URINE NORMAL (NORMAL)
[2017-03-13 03:49] LABS: SQUAMOUS EPITHELIAL CELL,UR 0-2 /HPF
[2017-03-13 04:27] LABS: BASOPHILS % (AUTO) 0 % (0-10); EOSINOPHILS # (AUTO) 0.1 10^3/uL (0.0-0.3); EOSINOPHILS % (AUTO) 2 % (0-10); LYMPHOCYTES # (AUTO) 0.5 X 10^3 (1.0-4.0); LYMPHOCYTES % (AUTO) 9 % (12-44); MEAN CORPUSCULAR HEMOGLOBIN 30 PG (25-34); MEAN CORPUSCULAR HGB CONC 34 G/DL (32-36); MEAN CORPUSCULAR VOLUME 88 FL (80-99); MEAN PLATELET VOLUME 9.4 FL (7.4-10.4); MONOCYTES # (AUTO) 0.7 X 10^3 (0.0-1.0); MONOCYTES % (AUTO) 10 % (0-12); NEUTROPHILS % (AUTO) 79 % (42-75); PLATELET COUNT 163 10^3/uL (130-400); RED BLOOD COUNT 3.05 10^6/uL (4.35-5.85); RED CELL DISTRIBUTION WIDTH 14.1 % (10.0-14.5); WHITE BLOOD COUNT 6.3 10^3/uL (4.3-11.0)
[2017-03-13 05:04] LABS: ANION GAP 8 MMOL/L (5-14); BLOOD UREA NITROGEN 7 MG/DL (7-18); BUN/CREATININE RATIO 12; CALCIUM 8.1 MG/DL (8.5-10.1); CARBON DIOXIDE 27 MMOL/L (21-32); CHLORIDE 104 MMOL/L (98-107); CREATININE SERUM 0.57 MG/DL (0.60-1.30); GFR ESTIMATED > 60; GLUCOSE 105 MG/DL (70-105); MAGNESIUM 1.7 MG/DL (1.8-2.4); PHOSPHORUS 2.9 MG/DL (2.3-4.7); POTASSIUM 3.8 MMOL/L (3.6-5.0); SODIUM 139 MMOL/L (135-145)
[2017-03-13] MEDS: POTASSIUM CL 10MEQ/50ML IVPB 50 ML IV SCH (05:48)
[2017-03-13] MEDS: KCL 20 MEQ TAB (K-DUR) PO SCH (05:48)
[2017-03-13] MEDS: MAGNESIUM 1 GM/100 ML IVPB 100 ML IV SCH ×3 (06:08→07:28)
[2017-03-13] MEDS: SERTRALINE 50 MG (ZOLOFT) TABLET PO SCH (07:46)
[2017-03-13] MEDS: PANTOPRAZOLE 40 MG/10 ML (PROTONIX) VIAL IV SCH ×2 (07:46→20:00)
--- NOTE | 2017-03-13 09:04 | Consultation (CHS) ---
HPI History of Present Illness: Please 61yo gentleman presented to hospital elective colostomy takedown. Successfully underwent surgery and has been doing well postoperatively. Yesterday afternoon, he developed atrial fibrillation with rapid ventricular response. He was short of breath during the episode. Medicine is consulted for medical management of the atrial fibrillation. The patient was transferred to the ICU due to the atrial fibrillation. However, once in the ICU, he developed a short run of ventricular tachycardia, so I requested cardiology consult as well. He was placed on a diltiazem drip and Dr Lopez added digoxin. The patient then converted back to sinus rhythm and has been there since. he is currently asymptomatic. Source: patient, RN/MD Exam Limitations: no limitations Date seen by provider: March 13, 2017 Attending Physician Chelsea North MD PCP Anna Marie Gavin DO Consult Date of Admission March 08, 2017 at 05:49 Home Medications Home Medications Reviewed patient Home Medication Reconciliation Form Allergies Coded Allergies: No Known Drug Allergies (Unverified , 12/12/13) [id number] Hx Patient Social History Alcohol Use: Denies Use Recreational Drug Use: No Smoking Status: Former Smoker Type Used: Cigarettes Recent Foreign Travel: No Contact w/other who traveled: No Recent Hopitalizations: Yes (COLON RESECTION/PNEUMONIA) Recent Infectious Disease Expo: No Physical Abuse Screen: No Sexual Abuse: No Immunizations Up To Date Tetanus Booster (TDap): Less than 5yrs Date of Pneumonia Vaccine: Jun 20, 2012 Date of Influenza Vaccine: Aug 17, 2016 Past Medical History PMHx: COPD CAD HTN HLD Anxiety GERD PSurgHx: Coronary stent x 1 Sigmoidectomy with ostomy Family Medical History Significant Family History: No Pertinent Family Hx, Stroke Family History: Cancer 09 SISTER, Onset:Unknown Family history: Alzheimer's disease 09 BROTHER, Onset:Unknown Prostate cancer 03 FATHER, Onset:60 years & older Stroke 03 FATHER, Onset:60 years & older No Family History of: Abdominal aortic aneurysm [place]'s disease Alcoholism Aphasia Cancer of colon Cataract Chest pain Congenital heart disease Congestive heart failure Cystic fibrosis Dementia Dysphagia Family history: Allergy Family history: Arthritis Family history: Asthma Family history: Breast disease Family history: Cardiovascular disease Family history: Coronary thrombosis Family history: Diabetes mellitus Family history: Gastrointestinal disease Family history: Glaucoma Family history: Hypertension Family history: Osteoporosis Family history: Thyroid disorder Headache Hearing loss Heart disease Hereditary disease History of - anemia History of - disorder History of - respiratory disease History of drug abuse Human immunodeficiency virus (HIV) seropositivity Hypercholesterolemia Infertile Kidney disease Malignant neoplasm of lung Myocardial infarction Parkinson's disease Psychotic disorder Seizure disorder Tuberculosis Visual impairment Review of Systems (CHC) Constitutional: no symptoms reported Reviewed Test Results Reviewed Test Results Lab Laboratory Tests Test 03/12/17 06:00 03/12/17 18:06 03/13/17 02:34 03/13/17 04:00 Range/Units Hemoglobin 8.8 L 9.4 L 9.0 L 13.3-17.7 G/DL Hematocrit 26 L 28 L 27 L 40-54 % Troponin I 0.53 *H <0.30 NG/ML Urine Color YELLOW Urine Clarity CLEAR Urine pH 5 5-9 Urine Specific [place] 1.015 L 1.016-1.022 Urine Protein NEGATIVE NEGATIVE Urine Glucose (UA) NEGATIVE NEGATIVE Urine Ketones NEGATIVE NEGATIVE Urine Nitrite NEGATIVE NEGATIVE Urine Bilirubin NEGATIVE NEGATIVE Urine Urobilinogen NORMAL NORMAL MG/DL Urine Leukocyte Esterase 1+ H NEGATIVE Urine RBC (Auto) NEGATIVE NEGATIVE Urine RBC NONE /HPF Urine WBC 2-5 /HPF Urine Squamous Epithelial Cells 0-2 /HPF Urine Crystals NONE /LPF Urine Bacteria TRACE /HPF Urine Casts PRESENT /LPF Urine Hyaline Casts 10-25 H /LPF Urine Mucus MODERATE H /LPF Urine Culture Indicated NO White Blood Count 6.3 4.3-11.0 10^3/uL Red Blood Count 3.05 L 4.35-5.85 10^6/uL Mean Corpuscular Volume 88 80-99 FL Mean Corpuscular Hemoglobin 30 25-34 PG Mean Corpuscular Hemoglobin Concent 34 32-36 G/DL Red Cell Distribution Width 14.1 10.0-14.5 % Platelet Count 163 130-400 10^3/uL Mean Platelet Volume 9.4 7.4-10.4 FL Neutrophils (%) (Auto) 79 H 42-75 % Lymphocytes (%) (Auto) 9 L 12-44 % Monocytes (%) (Auto) 10 0-12 % Eosinophils (%) (Auto) 2 0-10 % Basophils (%) (Auto) 0 0-10 % Neutrophils # (Auto) 5.0 1.8-7.8 X 10^3 Lymphocytes # (Auto) 0.5 L 1.0-4.0 X 10^3 Monocytes # (Auto) 0.7 0.0-1.0 X 10^3 Eosinophils # (Auto) 0.1 0.0-0.3 10^3/uL Basophils # (Auto) 0.0 0.0-0.1 10^3/uL Sodium Level 139 135-145 MMOL/L Potassium Level 3.8 3.6-5.0 MMOL/L Chloride Level 104 98-107 MMOL/L Carbon Dioxide Level 27 21-32 MMOL/L Anion Gap 8 5-14 MMOL/L Blood Urea Nitrogen 7 7-18 MG/DL Creatinine 0.57 L 0.60-1.30 MG/DL Estimat Glomerular Filtration Rate > 60 BUN/Creatinine Ratio 12 Glucose Level 105 70-105 MG/DL Calcium Level 8.1 L 8.5-10.1 MG/DL Phosphorus Level 2.9 2.3-4.7 MG/DL Magnesium Level 1.7 L 1.8-2.4 MG/DL Test 03/13/17 09:56 03/14/17 05:10 Range/Units Troponin I 0.32 *H <0.30 NG/ML White Blood Count 6.8 4.3-11.0 10^3/uL Red Blood Count 3.54 L 4.35-5.85 10^6/uL Hemoglobin 10.3 L 13.3-17.7 G/DL Hematocrit 32 L 40-54 % Mean Corpuscular Volume 90 80-99 FL Mean Corpuscular Hemoglobin 29 25-34 PG Mean Corpuscular Hemoglobin Concent 32 32-36 G/DL Red Cell Distribution Width 14.6 H 10.0-14.5 % Platelet Count 226 130-400 10^3/uL Mean Platelet Volume 9.5 7.4-10.4 FL Neutrophils (%) (Auto) 79 H 42-75 % Lymphocytes (%) (Auto) 9 L 12-44 % Monocytes (%) (Auto) 11 0-12 % Eosinophils (%) (Auto) 2 0-10 % Basophils (%) (Auto) 0 0-10 % Neutrophils # (Auto) 5.3 1.8-7.8 X 10^3 Lymphocytes # (Auto) 0.5 L 1.0-4.0 X 10^3 Monocytes # (Auto) 0.8 0.0-1.0 X 10^3 Eosinophils # (Auto) 0.2 0.0-0.3 10^3/uL Basophils # (Auto) 0.0 0.0-0.1 10^3/uL Sodium Level 140 135-145 MMOL/L Potassium Level 4.4 3.6-5.0 MMOL/L Chloride Level 102 98-107 MMOL/L Carbon Dioxide Level 31 21-32 MMOL/L Anion Gap 7 5-14 MMOL/L Blood Urea Nitrogen 8 7-18 MG/DL Creatinine 0.58 L 0.60-1.30 MG/DL Estimat Glomerular Filtration Rate > 60 BUN/Creatinine Ratio 14 Glucose Level 126 H 70-105 MG/DL Calcium Level 8.5 8.5-10.1 MG/DL Phosphorus Level 2.6 2.3-4.7 MG/DL Magnesium Level 1.8 1.8-2.4 MG/DL Physical Exam-(CHC) Physical Exam Vital Signs VS - Last 72 Hours, by Label 03/11/17 03/11/17 03/12/17 03/12/17 21:00 21:47 00:00 00:20 Temp 99.0 Pulse 87 Resp 16 18 B/P (MAP) 141/73 Pulse Ox 93 94 O2 Flow Rate 2.00 2.00 2.00 03/12/17 03/12/17 03/12/17 03/12/17 01:00 02:39 04:00 04:00 Temp 98.9 Pulse 109 72 Resp 21 B/P (MAP) 134/79 Pulse Ox 95 94 O2 Flow Rate 2.00 2.00 2.00 03/12/17 03/12/17 03/12/17 03/12/17 05:50 07:00 07:00 07:07 Pulse 91 89 Resp 28 16 B/P (MAP) 140/80 Pulse Ox 94 95 O2 Flow Rate 2.00 2.00 03/12/17 03/12/17 03/12/17 03/12/17 08:00 09:12 10:54 12:00 Temp 98.7 99.9 Pulse 84 83 Resp 21 21 B/P (MAP) 173/79 156/74 Pulse Ox 93 94 97 O2 Flow Rate 2.00 2.00 2.00 2.00 03/12/17 03/12/17 03/12/17 03/12/17 13:00 14:39 16:49 17:30 Temp 99.2 Pulse 86 95 152 Resp 24 21 B/P (MAP) 161/83 126/90 Pulse Ox 94 96 91 O2 Flow Rate 2.00 1.50 3.00 03/12/17 03/12/17 03/12/17 03/12/17 17:30 17:47 18:00 18:39 Temp 99.3 Pulse 147 158 Resp 20 22 B/P (MAP) 126/90 132/83 Pulse Ox 96 91 92 O2 Flow Rate 2.00 3.00 3.00 03/12/17 03/12/17 03/12/17 03/12/17 19:00 19:00 19:15 19:34 Temp 100.2 Pulse 131 144 144 138 Resp 20 14 16 B/P (MAP) 87/68 125/81 117/72 Pulse Ox 92 91 92 O2 Flow Rate 3.00 3.00 3.00 03/12/17 03/12/17 03/12/17 03/12/17 19:45 20:00 20:15 20:30 Pulse 116 109 123 105 Resp 16 10 10 14 B/P (MAP) 124/83 129/79 133/78 134/68 Pulse Ox 91 93 92 92 O2 Flow Rate 3.00 3.00 3.00 3.00 03/12/17 03/12/17 03/12/17 03/12/17 20:45 21:00 21:00 21:15 Pulse 96 146 75 Resp 14 17 19 B/P (MAP) 111/69 116/74 129/68 Pulse Ox 92 92 96 92 O2 Flow Rate 3.00 3.00 3.00 3.00 03/12/17 03/12/17 03/12/17 03/12/17 21:23 21:30 21:45 22:00 Temp 100.2 Pulse 96 75 73 79 Resp 14 20 18 14 B/P (MAP) 111/69 117/66 122/65 127/69 Pulse Ox 92 91 91 92 O2 Flow Rate 3.00 3.00 3.00 3.00 03/12/17 03/12/17 03/12/17 03/12/17 22:15 22:15 22:29 22:30 Temp 100.1 Pulse 75 77 Resp 17 20 B/P (MAP) 118/68 113/64 Pulse Ox 93 92 93 O2 Flow Rate 3.00 3.00 3.00 03/12/17 03/12/17 03/12/17 03/12/17 22:45 23:00 23:15 23:30 Pulse 72 69 72 73 Resp 11 12 14 13 B/P (MAP) 134/79 116/63 106/52 123/67 Pulse Ox 93 93 91 92 O2 Flow Rate 3.00 3.00 3.00 3.00 03/12/17 03/13/17 03/13/17 03/13/17 23:45 00:00 00:00 00:00 Temp 99.5 Pulse 67 68 Resp 19 21 B/P (MAP) 114/59 129/70 Pulse Ox 91 92 93 O2 Flow Rate 3.00 3.00 3.00 03/13/17 03/13/17 03/13/17 03/13/17 00:15 00:21 00:30 00:45 Temp 99.5 Pulse 67 70 68 Resp 17 19 17 B/P (MAP) 124/67 123/65 121/68 Pulse Ox 92 92 94 O2 Flow Rate 3.00 3.00 3.00 03/13/17 03/13/17 03/13/17 03/13/17 01:00 01:00 01:15 01:30 Pulse 69 70 69 71 Resp 9 12 14 B/P (MAP) 125/69 118/63 129/66 Pulse Ox 93 93 90 O2 Flow Rate 3.00 3.00 3.00 03/13/17 03/13/17 03/13/17 03/13/17 01:45 02:00 02:15 02:30 Pulse 67 67 69 68 Resp 16 10 12 12 B/P (MAP) 124/89 124/89 122/68 129/68 Pulse Ox 87 87 88 89 O2 Flow Rate 3.00 3.00 3.00 3.00 03/13/17 03/13/17 03/13/17 03/13/17 02:37 02:45 03:00 03:01 Pulse 66 66 66 Resp 18 13 17 B/P (MAP) 113/67 134/65 114/73 Pulse Ox 93 93 95 95 O2 Flow Rate 4.00 4.00 4.00 4.00 03/13/17 03/13/17 03/13/17 03/13/17 03:15 03:30 03:45 04:00 Pulse 64 67 68 65 Resp 17 16 17 18 B/P (MAP) 118/64 122/64 119/68 115/67 Pulse Ox 95 96 96 95 O2 Flow Rate 4.00 4.00 4.00 4.00 03/13/17 03/13/17 03/13/17 03/13/17 04:00 04:06 04:15 04:30 Temp 98.3 Pulse 82 79 Resp 15 14 B/P (MAP) 131/73 119/75 Pulse Ox 96 98 94 O2 Flow Rate 4.00 4.00 4.00 03/13/17 03/13/17 03/13/17 03/13/17 04:45 05:00 05:15 05:30 Pulse 64 65 69 65 Resp 17 17 17 18 B/P (MAP) 119/70 120/71 125/66 122/71 Pulse Ox 96 95 96 95 O2 Flow Rate 4.00 4.00 4.00 4.00 03/13/17 03/13/17 03/13/17 03/13/17 05:45 06:00 06:15 06:30 Pulse 65 64 76 77 Resp 17 17 17 15 B/P (MAP) 121/66 123/62 132/72 127/68 Pulse Ox 95 95 96 94 O2 Flow Rate 4.00 4.00 4.00 4.00 03/13/17 03/13/17 03/13/17 03/13/17 06:45 07:00 07:00 07:00 Pulse 59 58 61 Resp 11 18 14 B/P (MAP) 119/72 125/68 Pulse Ox 95 96 O2 Flow Rate 4.00 4.00 03/13/17 03/13/17 03/13/17 03/13/17 07:12 07:47 08:00 08:22 Temp 98.7 Pulse 79 Resp 19 B/P (MAP) 117/69 Pulse Ox 96 95 96 94 O2 Flow Rate 4.00 4.00 4.00 4.00 03/13/17 03/13/17 03/13/17 03/13/17 09:00 10:00 10:26 11:00 Pulse 73 69 63 Resp 17 15 17 B/P (MAP) 122/71 120/77 135/68 Pulse Ox 95 96 95 96 O2 Flow Rate 4.00 4.00 4.00 4.00 5/2803/13/17 03/13/17 03/13/17 12:00 12:55 13:00 13:00 Pulse 69 71 65 Resp 16 15 B/P (MAP) 138/76 128/65 Pulse Ox 96 94 95 O2 Flow Rate 4.00 4.00 4.00 03/13/17 03/13/17 03/13/17 03/13/17 14:00 15:00 16:00 16:00 Pulse 67 86 76 Resp 13 20 15 B/P (MAP) 134/71 122/65 111/51 Pulse Ox 95 93 93 93 O2 Flow Rate 4.00 4.00 4.00 4.00 03/13/17 03/13/17 03/13/17 03/13/17 17:00 18:00 18:23 19:00 Pulse 86 74 78 Resp 13 12 B/P (MAP) 113/80 122/65 Pulse Ox 93 91 92 O2 Flow Rate 4.00 4.00 4.00 03/13/17 03/13/17 03/13/17 03/13/17 19:00 20:00 20:00 21:00 Temp 99.1 Pulse 75 72 Resp 12 14 17 B/P (MAP) 129/69 123/73 Pulse Ox 91 91 92 O2 Flow Rate 4.00 4.00 4.00 03/13/17 03/13/17 03/13/17 03/13/17 21:00 22:00 22:36 23:00 Pulse 73 86 105 Resp 12 12 15 B/P (MAP) 134/73 147/74 137/81 Pulse Ox 87 94 94 90 O2 Flow Rate 4.00 4.00 4.00 4.00 03/14/17 03/14/17 03/14/17 03/14/17 00:00 00:00 01:00 01:00 Pulse 102 95 95 Resp 14 14 B/P (MAP) 132/78 119/65 Pulse Ox 88 91 91 O2 Flow Rate 4.00 4.00 4.00 03/14/17 03/14/17 03/14/17 03/14/17 02:00 03:00 04:00 04:00 Pulse 86 91 73 Resp 14 15 9 B/P (MAP) 114/68 123/69 131/67 Pulse Ox 92 91 94 92 O2 Flow Rate 4.00 4.00 4.00 4.00 03/14/17 03/14/17 03/14/17 03/14/17 05:00 06:00 06:56 07:00 Pulse 68 81 84 Resp 12 14 B/P (MAP) 125/65 141/75 Pulse Ox 97 91 94 O2 Flow Rate 4.00 4.00 4.00 03/14/17 03/14/17 03/14/17 03/14/17 07:00 08:00 08:00 08:00 Temp 98.0 Pulse 84 95 Resp 16 16 B/P (MAP) 147/71 144/65 Pulse Ox 96 92 90 O2 Flow Rate 4.00 4.00 4.00 4.00 03/14/17 03/14/17 03/14/17 03/14/17 09:00 10:00 10:31 11:00 Pulse 70 89 69 Resp 12 13 8 B/P (MAP) 103/48 119/54 104/67 Pulse Ox 93 93 92 91 O2 Flow Rate 4.00 4.00 3.00 4.00 03/14/17 03/14/17 03/14/17 03/14/17 11:47 11:53 12:00 13:00 Temp 98.5 Pulse 79 87 Resp 8 8 B/P (MAP) 117/78 108/68 Pulse Ox 93 92 88 O2 Flow Rate 3.00 3.00 3.00 3.00 03/14/17 03/14/17 03/14/17 03/14/17 13:00 14:00 14:53 15:00 Pulse 87 62 79 Resp 10 11 B/P (MAP) 111/68 113/70 Pulse Ox 90 92 96 O2 Flow Rate 3.00 3.00 3.00 03/14/17 03/14/17 03/14/17 03/14/17 16:00 16:00 16:00 17:00 Temp 98.7 Pulse 90 80 Resp 15 9 B/P (MAP) 105/58 104/67 Pulse Ox 93 93 93 94 O2 Flow Rate 4.00 4.00 4.00 4.00 03/14/17 03/14/17 18:00 19:20 Pulse 74 Resp 13 B/P (MAP) 106/60 Pulse Ox 93 76 O2 Flow Rate 4.00 3.00 Capillary Refill : Less Than 3 Seconds General Appearance: WD/WN, no apparent distress HEENT: PERRL/EOMI, pharynx normal Neck: non-tender, full range of motion, supple, normal inspection Respiratory: lungs clear, normal breath sounds, no respiratory distress, no accessory muscle use Cardiovascular: regular rate, rhythm, no edema, no gallop, no JVD, no murmur Gastrointestinal: other (soft, incisions c/d/i) Extremities: non-tender, normal inspection, no pedal edema, no calf tenderness , normal capillary refill Neurologic/Psychiatric: training and development head II-XII nml as tested, no motor/sensory deficits, alert, normal mood/affect, oriented x 3 Skin: normal color, warm/dry Assessment/Plan Assessment/Plan Plan DIVERTICULITIS COLOSTOMY TAKEDOWN 03/13 - Being managed by surgery. awaiting return of full bowel function. ATRIAL FIBRILLATION 03/13 - Likely brought on by postoperative irritation, low hemoglobin. Patient also has a coronary history including PCI with stent placement by Dr Contreras. He is already on antiplatelet therapy. As his atrial fibrillation is now resolved, I do not believe he will need further antiplatelet therapy but will defer to Dr Lopez. Currently on low dose diltiazem after digoxin load. VENTRICULAR TACHYCARDIA, SHORT RUN 03/13 - no further occurrences Diagnosis/Problems: Clinical Quality Measures DVT/VTE Risk/Contraindication: Risk Factor Score Per Nursin RFS Level Per Nursing on Admit: 3=High Copy Copies To 1: TERELL MANCINI MD, JULIE A MD March 13, 2017 09:04
[2017-03-13] MEDS ORDERED: MAGNESIUM 1 GM/100 ML IVPB 100 ML IV SCH (09:15)
--- NOTE | 2017-03-13 09:15 | Progress Note-Standard ---
Standard Progress Note Progress Notes/Assess & Plan Progress/Assessment & Plan 03/12/17:has not passed flatus. Very minimal output from the NG tube.no abdominal distention. NG tube could be removed and clear liquids initiated. Lovenox for thromboprophylaxis 03/13/17:passing flatus and has had had bowel movements. Tolerating soft diet. Output from the [facility] less sanguinous, but 135 mL in 24 hours. Hemoglobin more than 9 g. Incisions dry. Acute atrial fibrillation resolved and he is currently on sinus rhythm. Continue ICU care. Final Diagnosis postoperatively atrial fibrillation. Diverticular disease. JOSE COWAN MD March 13, 2017 09:15
--- NOTE | 2017-03-13 10:05 | Diagnostic Imaging Report ---
INDICATION: Postop, respiratory distress. COMPARISON: Compared 03/11/2017. FINDINGS: Air trapping and COPD chronic. Scarring in the lung bases and bullous disease in the right upper lobe chronic findings. The more localized density in the infrahilar right lung base medially shows slight improvement. There has been no adverse development. Blunting of the right costophrenic angle stable. IMPRESSION: Medial right basilar infiltrate superimposed upon chronic lung disease showed slight improvement with no pneumothorax or adverse change. Dictated by: Dictated on workstation # [id number]
--- NOTE | 2017-03-13 11:19 | Consultation-Cardiology ---
HPI-Cardiology Cardiology Consultation: Date of Consultation 03/13/17 Date of Admission Attending Physician Chelsea North MD Admitting Physician Anna Marie Gavin DO Consulting Physician Roxy LOPEZ MD HPI: Chief Complaint: Atrial fibrillation This is a 61-year-old gentleman who is a patient of Dr. Contreras. 3 years ago the patient had PCI with stent. He presented for abdominal surgery which was done last Tuesday. Yesterday the patient went into atrial fibrillation with rapid ventricular rate. He was started on a Cardizem drip and transferred to the ICU. Digoxin loading was also done. The patient subsequently converted to sinus rhythm. He is on low-dose Cardizem infusion during my interview. He denies any further cardiac symptoms. However yesterday he was having significant palpitations. Of note he also complains of abdominal discomfort. Review of Systems-Cardiology Review of Systems Constitutional: No As described under HPI, No no symptoms reported, No chills, No fever, No lightheadedness, No malaise, No tiredness, No weight loss, No weight gain, No other Eyes: No As described under HPI, No no symptoms reported, No blindness, No blurred vision, No contact lenses, No drainage, No decreased acuity, No foreign body sensation, No glasses, No inflammation, No pain, No photophobia, No previous injury, No shadows, No tunnel vision, No other, No vision change Ears/Nose/Throat: No As described under HPI, No no symptoms reported, No chronic hearing loss, No epistaxis, No ear discharge, No ear pain, No loose teeth, No mouth pain, No mouth swelling, No nasal drainage, No nose pain, No recent hearing loss, No throat pain, No throat swelling, No ulcerations, No other Respiratory: No no symptoms reported, No As described under HPI, No cough, No orthopnea, No shortness of breath, No SOB with excertion, No SOB at rest, No stridor, No wheezing, No other Cardiovascular: irregular heart rate, palpitations Gastrointestinal: No no symptoms reported, No As described under HPI, No abdomen distended, abdominal pain, No blood streaked bowels, No constipation, No diarrhea, No difficulty swallowing, No nausea, No poor appetite, No poor fluid intake, No rectal bleeding, No vomiting, No other, No nausea/vomiting/ diarrhea, No stool coloration changes Genitourinary: No no symptoms reported, No As described under HPI, No burning, No dysuria, No discharge, No frequency, No flank pain, No hematuria, No incontinence, No pain, No urgency, No other, No urine frequency changes, No urine coloration changes Musculoskeletal: No no symptoms reported, No As describe under HPI, No back pain, No gout, No joint pain, No joint swelling, No muscle pain, No muscle stiffness, No neck pain, No other Skin: No no symptoms reported, No As described under HPI, No change in color, No change in hair/nails, No dryness, No lesions, No lumps, No rash, No other, No skin related problems, No ulcerations, No rash on exposed areas, No ulcerations on exposed areas Psychiatric/Neurological: No As described under HPI, No anxiety, No depression , No emotional problems, No focal weakness, No headache, No no symptoms reported , No numbness, No other, No pre-existing deficit, No seizure, No syncope, No tingling, No tremors, No weakness EHA-Qkboxx-Vsdgmb Hx Patient Social History Alcohol Use: Denies Use Recreational Drug Use: No Smoking Status: Former Smoker Type Used: Cigarettes Recent Foreign Travel: No Recent Infectious Disease Expo: No Physical Abuse Screen: No Sexual Abuse: No Immunizations Up To Date Tetanus Booster (TDap): Less than 5yrs Date of Pneumonia Vaccine: Jun 20, 2012 Date of Influenza Vaccine: Aug 17, 2016 Past Medical History PMH As described under Assessment. Family Medical History Family History: Cancer 09 SISTER, Onset:Unknown Family history: Alzheimer's disease 09 BROTHER, Onset:Unknown Prostate cancer 03 FATHER, Onset:60 years & older Stroke 03 FATHER, Onset:60 years & older No Family History of: Abdominal aortic aneurysm Leonides's disease Alcoholism Aphasia Cancer of colon Cataract Chest pain Congenital heart disease Congestive heart failure Cystic fibrosis Dementia Dysphagia Family history: Allergy Family history: Arthritis Family history: Asthma Family history: Breast disease Family history: Cardiovascular disease Family history: Coronary thrombosis Family history: Diabetes mellitus Family history: Gastrointestinal disease Family history: Glaucoma Family history: Hypertension Family history: Osteoporosis Family history: Thyroid disorder Headache Hearing loss Heart disease Hereditary disease History of - anemia History of - disorder History of - respiratory disease History of drug abuse Human immunodeficiency virus (HIV) seropositivity Hypercholesterolemia Infertile Kidney disease Malignant neoplasm of lung Myocardial infarction Parkinson's disease Psychotic disorder Seizure disorder Tuberculosis Visual impairment Allergies and Home Medications Allergies Coded Allergies: No Known Drug Allergies (Unverified , 12/12/13) Home Medications Albuterol Sulfate 90 Mcg Aer.pow.ba, 2 PUFF INH Q4H PRN for SHORTNESS OF BREATH, (Reported) Alprazolam 1 Mg Tablet, 1 MG PO DAILY PRN for ANXIETY, (Reported) Aspirin 81 Mg Tablet.dr, 81 MG PO HS, (Reported) Clopidogrel Bisulfate 75 Mg Tablet, 75 MG PO DAILY, (Reported) LAST FILLED 01/10/17 #30 Fluticasone/Vilanterol 1 Each Blst.w.dev, 1 PUFF IH DAILY, (Reported) Gemfibrozil 600 Mg Tablet, 600 MG PO DAILY, (Reported) Oxycodone HCl/Acetaminophen 1 Each Tablet, 1-2 TAB PO EVERY 4-6 HOURS PRN for PAIN-MODERATE, (Reported) Pantoprazole Sodium 40 Mg Tablet.dr, 40 MG PO DAILY, (Reported) Sertraline HCl 50 Mg Tablet, 75 MG PO DAILY, (Reported) TAKES 1 & 1/2 OF A (50 MG) TABLET Sildenafil Citrate 100 Mg Tablet, 100 MG PO UD PRN for SEXUAL ACTIVITY, ( Reported) Tiotropium [place] 4 Gm Mist.inhal, 2 PUFF IH DAILY, (Reported) Physical Exam-Cardiology Physical Exam Vital Signs/I&O Vital Sign - Last 12Hours 03/13/17 03/13/17 03/13/17 03/13/17 01:00 01:00 01:15 01:30 Pulse 69 70 69 71 Resp 9 12 14 B/P (MAP) 125/69 118/63 129/66 Pulse Ox 93 93 90 O2 Flow Rate 3.00 3.00 3.00 03/13/17 03/13/17 03/13/17 03/13/17 01:45 02:00 02:15 02:30 Pulse 67 67 69 68 Resp 16 10 12 12 B/P (MAP) 124/89 124/89 122/68 129/68 Pulse Ox 87 87 88 89 O2 Flow Rate 3.00 3.00 3.00 3.00 03/13/17 03/13/17 03/13/17 03/13/17 02:37 02:45 03:00 03:01 Pulse 66 66 66 Resp 18 13 17 B/P (MAP) 113/67 134/65 114/73 Pulse Ox 93 93 95 95 O2 Flow Rate 4.00 4.00 4.00 4.00 03/13/17 03/13/17 03/13/17 03/13/17 03:15 03:30 03:45 04:00 Pulse 64 67 68 65 Resp 17 16 17 18 B/P (MAP) 118/64 122/64 119/68 115/67 Pulse Ox 95 96 96 95 O2 Flow Rate 4.00 4.00 4.00 4.00 03/13/17 03/13/17 03/13/17 03/13/17 04:00 04:06 04:15 04:30 Temp 98.3 Pulse 82 79 Resp 15 14 B/P (MAP) 131/73 119/75 Pulse Ox 96 98 94 O2 Flow Rate 4.00 4.00 4.00 03/13/17 03/13/17 03/13/17 03/13/17 04:45 05:00 05:15 05:30 Pulse 64 65 69 65 Resp 17 17 17 18 B/P (MAP) 119/70 120/71 125/66 122/71 Pulse Ox 96 95 96 95 O2 Flow Rate 4.00 4.00 4.00 4.00 03/13/17 03/13/17 03/13/17 03/13/17 05:45 06:00 06:15 06:30 Pulse 65 64 76 77 Resp 17 17 17 15 B/P (MAP) 121/66 123/62 132/72 127/68 Pulse Ox 95 95 96 94 O2 Flow Rate 4.00 4.00 4.00 4.00 03/13/17 03/13/17 03/13/17 03/13/17 06:45 07:00 07:12 07:47 Temp 98.7 Pulse 59 61 Resp 11 B/P (MAP) 119/72 Pulse Ox 95 96 95 O2 Flow Rate 4.00 4.00 4.00 03/13/17 10:26 Pulse Ox 95 O2 Flow Rate 4.00 Intake and Output 03/12/17 23:59 Intake Total 560 ml Output Total 3520 ml Balance -2960 ml Capillary Refill : Less Than 3 Seconds Constitutional: No appears stated age, No AAO x 3, No apparent distress, No PERRL, No well-developed, No well-nourished, No other HEENT: No PERRL, No normal ENT inspection, No TMs normal, No pharynx normal, No scleral icterus (R), No scleral icterus (L), No pale conjunctivae (R), No pale conjunctivae (L), No photophobia, No TM abnormal (R), No TM abnormal (L), No pharyngeal erythema, No tonsillar exudate, No other, No discharge, No EOMI, No hearing is well preserved, No hard of hearing, No oral hygience is good, No ulceration, No xanthelasmas are seen Neck: No non-tender, No full range of motion, No supple, No normal inspection, No carotid bruit, No limited range of motion, No lymphadenopathy (R), No lymphadenopathy (L), No tender lateral, No tender midline, No thyromegaly, No other, No carotid pulses are 2 + bilaterally, No with good upstrokes Respiratory: No accessory muscle use, No respiratory distress, No chest tender , No chest expansion is symmetric, No chest is bilaterally symmetric, No lungs clear to percussion, No lungs clear to auscultation, No crackles, No rhonchi, No rales, No stridor, No wheezing, No pleural rub, No other Cardiovascular: regular rate-rhythm, No irregularly irregular, No extra beats, No parasternal heave is noted, No JVD, No edema, No bradycardia, No tachycardia , No point of maximal impulse, No cardiac thrills are palpable, S1 and S2, No gallop/S3, No gallop/S4, No diastolic murmur, No systolic murmur, No friction rub, No click, No other Gastrointestinal: No tender, No soft, No round, No distended, No pulsatile mass , No organomegaly, No guarding, No rebound, tenderness, No hernia, No mass, No audible bowel sounds, No abnormal bowel sounds, No abdominal bruits, No spleenomegaly, other (Recent surgery) Rectal: deferred Extremities: No normal range of motion, No non-tender, No normal inspection, No pedal edema, No calf tenderness, No normal capillary refill, No pelvis stable , No calf tenderness, No inflammation, No pedal edema, No slow capillary refill , No swelling, No other, No abrasion, No clubbing, No cyanosis, No ecchymosis, No laceration, No no lower extremity edema bilateral, No significant edema, No tenderness, No wound Skin: No normal color, No warm/dry, No cyanosis, No cool, No diaphoresis, No damp, No ecchymosis, No jaundice, No mottled, No pallor, No rash, No tattoos/ piercings, No ulcerations, No rash on exposed areas, No ulcerations on exposed areas, No other Data Review Labs Laboratory Tests 03/12/17 18:06: Hemoglobin 9.4L, Hematocrit 28L, Troponin I 0.53*H 03/13/17 02:34: Urine Color YELLOW, Urine Clarity CLEAR, Urine pH 5, Urine Specific [place] 1.015L, Urine Protein NEGATIVE, Urine Glucose (UA) NEGATIVE, Urine Ketones NEGATIVE, Urine Nitrite NEGATIVE, Urine Bilirubin NEGATIVE, Urine Urobilinogen NORMAL, Urine Leukocyte Esterase 1+H, Urine RBC (Auto) NEGATIVE, Urine RBC NONE , Urine WBC 2-5, Urine Squamous Epithelial Cells 0-2, Urine Crystals NONE, Urine Bacteria TRACE, Urine Casts PRESENT, Urine Hyaline Casts 10-25H, Urine Mucus MODERATEH, Urine Culture Indicated NO 03/13/17 04:00: Hemoglobin 9.0L, Hematocrit 27L, White Blood Count 6.3, Red Blood Count 3.05L, Mean Corpuscular Volume 88, Mean Corpuscular Hemoglobin 30, Mean Corpuscular Hemoglobin Concent 34, Red Cell Distribution Width 14.1, Platelet Count 163, Mean Platelet Volume 9.4, Neutrophils (%) (Auto) 79H, Lymphocytes (%) (Auto) 9L , Monocytes (%) (Auto) 10, Eosinophils (%) (Auto) 2, Basophils (%) (Auto) 0, Neutrophils # (Auto) 5.0, Lymphocytes # (Auto) 0.5L, Monocytes # (Auto) 0.7, Eosinophils # (Auto) 0.1, Basophils # (Auto) 0.0, Sodium Level 139, Potassium Level 3.8, Chloride Level 104, Carbon Dioxide Level 27, Anion Gap 8, Blood Urea Nitrogen 7, Creatinine 0.57L, Estimat Glomerular Filtration Rate > 60, BUN/ Creatinine Ratio 12, Glucose Level 105, Calcium Level 8.1L, Phosphorus Level 2.9 , Magnesium Level 1.7L 03/13/17 09:56: Troponin I 0.32*H Microbiology 03/08/17 Blood Culture - Preliminary, Resulted No growth 03/08/17 MRSA Screen - Final, Complete MRSA not isolated ECG Impression ECG Comment Atrial fibrillation with rapid ventricular rate yesterday, currently sinus rhythm A/P-Cardiology Assessment/Admission Diagnosis Atrial fibrillation with rapid ventricular rate, Coronary artery disease, recent abdominal surgery. Plan Atrial fibrillation with rapid ventricular rate: Given Cardizem infusion and digoxin loading. Subsequently converted to sinus rhythm. Still in sinus rhythm. No further symptoms. Atrial fibrillation is likely secondary to abdominal pain and postoperative condition. We will change Cardizem IV to oral Cardizem 240 mg daily. IV Cardizem infusion will be discontinued after 4 hours of by mouth Cardizem. Digoxin will be discontinued. Patient is not on oral anticoagulation. Oral anticoagulation with Eliquis or Xarelto will be started after okay from general surgery. The patient is on Plavix and Lovenox for DVT prophylaxis. Coronary artery disease: He will continue his outpatient medical therapy for coronary artery disease. Since he'll be started on Xarelto or Eliquis, we will discontinue aspirin and he will continue only on Plavix and oral anticoagulation. I will leave it up to Dr. Contreras to decide if the patient needs to be on both Plavix and oral anticoagulation. Patient will see Dr. Contreras next week as an outpatient. Thank you for your consultation. Please call me if you have any questions. Landy Lopez MD, FACP, FACC, FSCAI, FHRS, CCDS Interventional Cardiology Cardiac Electrophysiology Vascular Medicine and Endovascular Interventions Clinical Quality Measures DVT/VTE Risk/Contraindication: Risk Factor Score Per Nursin RFS Level Per Nursing on Admit: 3=High Roxy LOPEZ MD March 13, 2017 11:19 am
[2017-03-13] MEDS ORDERED: DILTIAZEM 240 MG (CARDIZEM CD) CAP PO ONE (12:32)
[2017-03-13] MEDS: oxyCODONE 20 MG/1 ML ORAL CONC (RoxiCODONE) CHARGE PER 1 ML PO PRN (13:34)
[2017-03-13] MEDS: DILTIAZEM DRIP 100 MG in SODIUM CHLORIDE (ADD-VANTAGE) 100 ML IV SCH (17:31)
[2017-03-14] VITALS (25 sets, daily range): BP systolic 85–147; BP diastolic 37–78
[2017-03-14] MEDS: METOCLOPRAMIDE INJ 10 MG/2 ML (REGLAN) IV SCH ×4 (00:41→18:18)
[2017-03-14] MEDS: RT-ALBUTEROL SULF 2.5 MG/3 ML PRE-MIX VIAL IH SCH ×6 (02:00→22:10)
[2017-03-14 05:23] LABS: BASOPHILS % (AUTO) 0 % (0-10); EOSINOPHILS # (AUTO) 0.2 10^3/uL (0.0-0.3); LYMPHOCYTES # (AUTO) 0.5 X 10^3 (1.0-4.0); MEAN CORPUSCULAR HEMOGLOBIN 29 PG (25-34); MEAN CORPUSCULAR HGB CONC 32 G/DL (32-36); MEAN CORPUSCULAR VOLUME 90 FL (80-99); MEAN PLATELET VOLUME 9.5 FL (7.4-10.4); MONOCYTES # (AUTO) 0.8 X 10^3 (0.0-1.0); NEUTROPHILS # (AUTO) 5.3 X 10^3 (1.8-7.8); PLATELET COUNT 226 10^3/uL (130-400); RED BLOOD COUNT 3.54 10^6/uL (4.35-5.85); RED CELL DISTRIBUTION WIDTH 14.6 % (10.0-14.5); WHITE BLOOD COUNT 6.8 10^3/uL (4.3-11.0)
[2017-03-14 05:24] LABS: LYMPHOCYTES % (AUTO) 9 % (12-44); MONOCYTES % (AUTO) 11 % (0-12); NEUTROPHILS % (AUTO) 79 % (42-75)
[2017-03-14 05:25] LABS: EOSINOPHILS % (AUTO) 2 % (0-10)
[2017-03-14 05:53] LABS: ANION GAP 7 MMOL/L (5-14); BLOOD UREA NITROGEN 8 MG/DL (7-18); BUN/CREATININE RATIO 14; CALCIUM 8.5 MG/DL (8.5-10.1); CARBON DIOXIDE 31 MMOL/L (21-32); CHLORIDE 102 MMOL/L (98-107); CREATININE SERUM 0.58 MG/DL (0.60-1.30); GFR ESTIMATED > 60; GLUCOSE 126 MG/DL (70-105); MAGNESIUM 1.8 MG/DL (1.8-2.4); PHOSPHORUS 2.6 MG/DL (2.3-4.7); POTASSIUM 4.4 MMOL/L (3.6-5.0); SODIUM 140 MMOL/L (135-145)
[2017-03-14] MEDS: POTASSIUM CL 10MEQ/50ML IVPB 50 ML IV SCH (06:58)
[2017-03-14] MEDS: KCL 20 MEQ TAB (K-DUR) PO SCH (06:59)
[2017-03-14] MEDS: MAGNESIUM 1 GM/100 ML IVPB 100 ML IV SCH (06:59)
[2017-03-14] MEDS: SERTRALINE 50 MG (ZOLOFT) TABLET PO SCH (08:05)
[2017-03-14] MEDS: PANTOPRAZOLE 40 MG/10 ML (PROTONIX) VIAL IV SCH ×2 (08:05→22:20)
[2017-03-14] MEDS: DILTIAZEM 240 MG (CARDIZEM CD) CAP PO SCH (08:05)
--- NOTE | 2017-03-14 08:05 | Pulmonary Progress Note ---
Subjective Subjective/Events-last exam PT is doing much better. Exam Exam Vital Signs Date Time Temp Pulse Resp B/P (MAP) Pulse Ox O2 Delivery O2 Flow Rate FiO2 03/14/17 06:56 94 4.00 03/14/17 06:00 81 14 141/75 91 4.00 03/14/17 05:00 68 12 125/65 97 4.00 03/14/17 04:00 92 4.00 03/14/17 04:00 73 9 131/67 94 4.00 03/14/17 03:00 91 15 123/69 91 4.00 03/14/17 02:00 86 14 114/68 92 4.00 03/14/17 01:00 95 03/14/17 01:00 95 14 119/65 91 4.00 03/14/17 00:00 91 4.00 03/14/17 00:00 102 14 132/78 88 4.00 03/13/17 23:00 105 15 137/81 90 4.00 03/13/17 22:36 94 4.00 03/13/17 22:00 86 12 147/74 94 4.00 03/13/17 21:00 73 12 134/73 87 4.00 03/13/17 21:00 17 03/13/17 20:00 92 4.00 03/13/17 20:00 99.1 72 14 123/73 91 4.00 03/13/17 19:00 75 12 129/69 91 4.00 03/13/17 19:00 78 03/13/17 18:23 92 4.00 03/13/17 18:00 74 12 122/65 91 4.00 03/13/17 17:00 86 13 113/80 93 4.00 03/13/17 16:00 76 15 111/51 93 4.00 03/13/17 16:00 93 4.00 03/13/17 15:00 86 20 122/65 93 4.00 03/13/17 14:00 67 13 134/71 95 4.00 03/13/17 13:00 65 03/13/17 13:00 71 15 128/65 95 4.00 03/13/17 12:55 94 4.00 03/13/17 12:00 69 16 138/76 96 4.00 03/13/17 11:00 63 17 135/68 96 4.00 03/13/17 10:26 95 4.00 03/13/17 10:00 69 15 120/77 96 4.00 03/13/17 09:00 73 17 122/71 95 4.00 03/13/17 08:22 94 4.00 03/13/17 08:00 79 19 117/69 96 4.00 I & O 03/14/17 07:00 Intake Total 550 ml Output Total 1640 ml Balance -1090 ml General Appearance: No Apparent Distress HEENT: PERRL/EOMI, TMs Normal Neck: Full Range of Motion Respiratory: Decreased Breath Sounds Cardiovascular: Regular Rate, Rhythm Capillary Refill: Less Than 3 Seconds Peripheral Pulses: 2+ Carotid (R), 2+ Carotid (L), 2+ Radial Pulses (R), 2+ Radial Pulses (L) Gastrointestinal: soft, tenderness, other (wounds clean/dry) Extremity: Normal Capillary Refill Neurologic/Psychiatric: Alert, Oriented x3 Skin: Normal Color Lymphatic: No Adenopathy Results Lab Laboratory Tests 03/12/17 18:06 03/13/17 04:00 03/14/17 05:10 Assessment/Plan Assessment/Plan S/P colostomy reversal -pain control -BiPAP PRN Atelectasis with pneumonia RLL-- improving -continue current Abx -IS -increase activity Hx of COPD- currently stable -SVNS 232 Clinical Quality Measures DVT/VTE Risk/Contraindication: Risk Factor Score Per Nursin RFS Level Per Nursing on Admit: 3=High DEVIN MAK DO March 14, 2017 08:05
--- NOTE | 2017-03-14 09:09 | Progress Note-Standard ---
Standard Progress Note Progress Notes/Assess & Plan Progress/Assessment & Plan 03/12/17:has not passed flatus. Very minimal output from the NG tube.no abdominal distention. NG tube could be removed and clear liquids initiated. Lovenox for thromboprophylaxis 03/13/17:passing flatus and has had had bowel movements. Tolerating soft diet. Output from the SAKSHI less sanguinous, but 135 mL in 24 hours. Hemoglobin more than 9 g. Incisions dry. Acute atrial fibrillation resolved and he is currently on sinus rhythm. Continue ICU care. 03/14/17:output from the drain decreased. Passing flatus and having bowel movements. Drain will be removed. Hemoglobin stable. Final Diagnosis sigmoid diverticular disease. Postoperatively atrial fibrillation. JOSE COWAN MD March 14, 2017 9:09 am
[2017-03-14] MEDS: HYDROcodone/APAP 5 MG/325 MG (LORTAB) TAB PO PRN ×4 (09:43→22:45)
[2017-03-14] MEDS: DILTIAZEM DRIP 100 MG in SODIUM CHLORIDE (ADD-VANTAGE) 100 ML IV SCH (10:13)
--- NOTE | 2017-03-14 10:46 | Diagnostic Imaging Report ---
INDICATION: Postoperative followup. COMPARISON: 03/13/2017. FINDINGS: Upright portable view of the chest obtained. Left PICC line tip is unchanged in the region of the proximal superior vena cava. Heart size is normal. There is no pulmonary vascular congestion. There are chronic findings of COPD. No pneumothorax is suspected. There are persistent coarse interstitial changes bilaterally, although there is some subtle increase in opacity at lung base compared to the recent prior study concerning for worsening superimposed infiltrate. Suspect trace bilateral effusions, worse from the prior study. IMPRESSION: There appears to be some worsening ill-defined airspace disease and pleural fluid at the lung bases when compared to the recent prior study. Otherwise chronic findings of interstitial change and COPD are stable. Dictated by: Dictated on workstation # [id number]
--- NOTE | 2017-03-14 12:41 | Cardiology Progress Note ---
Cardiology SOAP Progress Note Subjective: no cardiac symptoms Objective: I&O/Vital Signs Vital Sign - Last 12Hours 03/14/17 03/14/17 03/14/17 03/14/17 01:00 01:00 02:00 03:00 Pulse 95 95 86 91 Resp 14 14 15 B/P (MAP) 119/65 114/68 123/69 Pulse Ox 91 92 91 O2 Flow Rate 4.00 4.00 4.00 03/14/17 03/14/17 03/14/17 03/14/17 04:00 04:00 05:00 06:00 Pulse 73 68 81 Resp 9 12 14 B/P (MAP) 131/67 125/65 141/75 Pulse Ox 94 92 97 91 O2 Flow Rate 4.00 4.00 4.00 4.00 03/14/17 03/14/17 03/14/17 03/14/17 06:56 07:00 07:00 08:00 Temp 98.0 Pulse 84 84 Resp 16 B/P (MAP) 147/71 Pulse Ox 94 96 O2 Flow Rate 4.00 4.00 4.00 03/14/17 03/14/17 03/14/17 03/14/17 08:00 08:00 09:00 10:00 Pulse 95 70 89 Resp 16 12 13 B/P (MAP) 144/65 103/48 119/54 Pulse Ox 92 90 93 93 O2 Flow Rate 4.00 4.00 4.00 4.00 03/14/17 03/14/17 03/14/17 03/14/17 10:31 11:00 11:47 11:53 Temp 98.5 Pulse 69 Resp 8 B/P (MAP) 104/67 Pulse Ox 92 91 93 O2 Flow Rate 4.00 4.00 3.00 3.00 03/14/17 12:00 Pulse 79 Resp 8 B/P (MAP) 117/78 Pulse Ox 92 O2 Flow Rate 3.00 Intake and Output 03/14/17 00:00 Intake Total 400 ml Output Total 1270 ml Balance -870 ml Weight (Pounds): 201 Weight (Ounces): 5.0 Weight (Calculated Kilograms): [id number] Constitutional: No appears stated age, No AAO x 3, No apparent distress, No PERRL, No well-developed, No well-nourished, No other Respiratory: No accessory muscle use, No respiratory distress, No chest tender , No chest expansion is symmetric, No chest is bilaterally symmetric, No lungs clear to percussion, No lungs clear to auscultation, No crackles, No rhonchi, No rales, No stridor, No wheezing, No pleural rub, No other Cardiovascular: regular rate-rhythm, No irregularly irregular, No extra beats, No parasternal heave is noted, No JVD, No edema, No bradycardia, No tachycardia , No point of maximal impulse, No cardiac thrills are palpable, S1 and S2, No gallop/S3, No gallop/S4, No diastolic murmur, No systolic murmur, No friction rub, No click, No other Gastrointestional: No tender, No soft, No round, No distended, No pulsatile mass, No organomegaly, No guarding, No rebound, tenderness, No hernia, No mass, No audible bowel sounds, No abnormal bowel sounds, No abdominal bruits, No spleenomegaly, other (Recent surgery) Extremities: No normal range of motion, No non-tender, No normal inspection, No pedal edema, No calf tenderness, No normal capillary refill, No pelvis stable , No calf tenderness, No inflammation, No pedal edema, No slow capillary refill , No swelling, No other, No abrasion, No clubbing, No cyanosis, No ecchymosis, No laceration, No no lower extremity edema bilateral, No significant edema, No tenderness, No wound Skin: No normal color, No warm/dry, No cyanosis, No cool, No diaphoresis, No damp, No ecchymosis, No jaundice, No mottled, No pallor, No rash, No tattoos/ piercings, No ulcerations, No rash on exposed areas, No ulcerations on exposed areas, No other Results/Procedures: Labs Laboratory Tests 03/14/17 05:10: White Blood Count 6.8, Red Blood Count 3.54L, Hemoglobin 10.3L, Hematocrit 32L, Mean Corpuscular Volume 90, Mean Corpuscular Hemoglobin 29, Mean Corpuscular Hemoglobin Concent 32, Red Cell Distribution Width 14.6H, Platelet Count 226, Mean Platelet Volume 9.5, Neutrophils (%) (Auto) 79H, Lymphocytes (%) (Auto) 9L , Monocytes (%) (Auto) 11, Eosinophils (%) (Auto) 2, Basophils (%) (Auto) 0, Neutrophils # (Auto) 5.3, Lymphocytes # (Auto) 0.5L, Monocytes # (Auto) 0.8, Eosinophils # (Auto) 0.2, Basophils # (Auto) 0.0, Sodium Level 140, Potassium Level 4.4, Chloride Level 102, Carbon Dioxide Level 31, Anion Gap 7, Blood Urea Nitrogen 8, Creatinine 0.58L, Estimat Glomerular Filtration Rate > 60, BUN/ Creatinine Ratio 14, Glucose Level 126H, Calcium Level 8.5, Phosphorus Level 2.6 , Magnesium Level 1.8 Microbiology 03/08/17 Blood Culture - Preliminary, Resulted No growth 03/08/17 MRSA Screen - Final, Complete MRSA not isolated A/P: Assessment/Dx: Atrial fibrillation with rapid ventricular rate, Coronary artery disease, recent abdominal surgery. Plan: Atrial fibrillation with rapid ventricular rate: converted to sinus rhythm. Still in sinus rhythm for over 24 hours. Continue Cardizem and Eliquis. Coronary artery disease: He will continue his outpatient medical therapy for coronary artery disease. Plavix was previously discontinued for surgery. We are starting him on Eliquis for atrial fibrillation. We will let Dr. Contreras decide whether he would need antiplatelet therapy with Eliquis or not. Patient will see Dr. Contreras next week as an outpatient. Thank you for your consultation. Please call me if you have any questions. Landy Lopez MD, FACP, FACC, FSCAI, FHRS, CCDS Interventional Cardiology Cardiac Electrophysiology Vascular Medicine and Endovascular Interventions Roxy LOPEZ MD March 14, 2017 12:41 pm
--- NOTE | 2017-03-14 21:01 | Progress Note (SOAP) ---
Subjective Subjective/Events-last exam Patient did well overnight. He was sleeping soundly when I was in [facility] room, but I did not awaken him as he had an uneventful night. Date seen by provider: March 14, 2017 Review of Systems UTO Objective Exam Last Set of Vital Signs Vital Signs Date Time Temp Pulse Resp B/P (MAP) Pulse Ox O2 Delivery O2 Flow Rate FiO2 03/14/17 19:20 76 3.00 03/14/17 18:00 74 13 106/60 03/14/17 16:00 98.7 03/09/17 16:00 Nasal Cannula 03/09/17 08:00 21 Capillary Refill : Less Than 3 Seconds I&O Intake and Output 03/14/17 00:00 Intake Total 650 ml Output Total 2890 ml Balance -2240 ml Intake Oral 650 ml Output Urine Total 2500 ml Drainage Total 390 ml General: Alert, Oriented X3, No Acute Distress Lungs: Clear to Auscultation, Normal Air Movement Heart: Regular Rate, Normal S1, Normal S2, No Murmurs, Gallops, Rubs Abdomen: Normal Bowel Sounds, Soft, No Tenderness, No Hepatosplenomegaly, No Masses Extremities: No Clubbing, No Cyanosis, No Edema Results/Procedures Lab Laboratory Tests 03/14/17 05:10: White Blood Count 6.8, Red Blood Count 3.54L, Hemoglobin 10.3L, Hematocrit 32L, Mean Corpuscular Volume 90, Mean Corpuscular Hemoglobin 29, Mean Corpuscular Hemoglobin Concent 32, Red Cell Distribution Width 14.6H, Platelet Count 226, Mean Platelet Volume 9.5, Neutrophils (%) (Auto) 79H, Lymphocytes (%) (Auto) 9L , Monocytes (%) (Auto) 11, Eosinophils (%) (Auto) 2, Basophils (%) (Auto) 0, Neutrophils # (Auto) 5.3, Lymphocytes # (Auto) 0.5L, Monocytes # (Auto) 0.8, Eosinophils # (Auto) 0.2, Basophils # (Auto) 0.0, Sodium Level 140, Potassium Level 4.4, Chloride Level 102, Carbon Dioxide Level 31, Anion Gap 7, Blood Urea Nitrogen 8, Creatinine 0.58L, Estimat Glomerular Filtration Rate > 60, BUN/ Creatinine Ratio 14, Glucose Level 126H, Calcium Level 8.5, Phosphorus Level 2.6 , Magnesium Level 1.8 Microbiology 03/08/17 Blood Culture - Final, Complete No growth 03/08/17 MRSA Screen - Final, Complete MRSA not isolated Assessment/Plan Assessment/Plan Plan DIVERTICULITIS COLOSTOMY TAKEDOWN 03/13 - Being managed by surgery. awaiting return of full bowel function. 03/14 - Minimal ATRIAL FIBRILLATION 03/13 - Likely brought on by postoperative irritation, low hemoglobin. Patient also has a coronary history including PCI with stent placement by Dr Contreras. He is already on antiplatelet therapy. As his atrial fibrillation is now resolved, I do not believe he will need further antiplatelet therapy but will defer to Dr Lopez. Currently on low dose diltiazem after digoxin load. 03/14 - Doing well, will defer to Dr Lopez's recommendations. VENTRICULAR TACHYCARDIA, SHORT RUN 03/13 - no further occurrences 03/14 - no further occurrences Diagnosis/Problems: Clinical Quality Measures DVT/VTE Risk/Contraindication: Risk Factor Score Per Nursin RFS Level Per Nursing on Admit: 4+=Very High DAY CALIXTO MD March 14, 2017 21:01
[2017-03-14] MEDS: ALPRAZolam 1 MG (XANAX) TAB PO PRN (22:19)
[2017-03-14] MEDS: APIXABAN 5 MG (ELIQUIS) TABLET PO SCH (22:20)
[2017-03-15] VITALS (17 sets, daily range): BP systolic 109–135; BP diastolic 61–87
[2017-03-15] MEDS: METOCLOPRAMIDE INJ 10 MG/2 ML (REGLAN) IV SCH ×3 (00:57→12:59)
[2017-03-15] MEDS: RT-ALBUTEROL SULF 2.5 MG/3 ML PRE-MIX VIAL IH SCH ×3 (02:00→10:45)
[2017-03-15 04:44] LABS: BASOPHILS % (AUTO) 0 % (0-10); EOSINOPHILS # (AUTO) 0.2 10^3/uL (0.0-0.3); EOSINOPHILS % (AUTO) 4 % (0-10); LYMPHOCYTES # (AUTO) 0.6 X 10^3 (1.0-4.0); LYMPHOCYTES % (AUTO) 9 % (12-44); MEAN CORPUSCULAR HEMOGLOBIN 29 PG (25-34); MEAN CORPUSCULAR HGB CONC 32 G/DL (32-36); MEAN CORPUSCULAR VOLUME 91 FL (80-99); MEAN PLATELET VOLUME 9.5 FL (7.4-10.4); MONOCYTES # (AUTO) 0.7 X 10^3 (0.0-1.0); MONOCYTES % (AUTO) 11 % (0-12); NEUTROPHILS # (AUTO) 4.9 X 10^3 (1.8-7.8); NEUTROPHILS % (AUTO) 76 % (42-75); PLATELET COUNT 246 10^3/uL (130-400); RED BLOOD COUNT 3.32 10^6/uL (4.35-5.85); RED CELL DISTRIBUTION WIDTH 14.3 % (10.0-14.5); WHITE BLOOD COUNT 6.5 10^3/uL (4.3-11.0)
[2017-03-15 05:14] LABS: ANION GAP 7 MMOL/L (5-14); BLOOD UREA NITROGEN 9 MG/DL (7-18); BUN/CREATININE RATIO 16; CALCIUM 8.4 MG/DL (8.5-10.1); CARBON DIOXIDE 34 MMOL/L (21-32); CHLORIDE 100 MMOL/L (98-107); CREATININE SERUM 0.56 MG/DL (0.60-1.30); GFR ESTIMATED > 60; GLUCOSE 115 MG/DL (70-105); MAGNESIUM 1.7 MG/DL (1.8-2.4); POTASSIUM 3.9 MMOL/L (3.6-5.0); SODIUM 141 MMOL/L (135-145)
[2017-03-15] MEDS: MAGNESIUM 1 GM/100 ML IVPB 100 ML IV SCH ×3 (05:44→06:53)
[2017-03-15] MEDS: HYDROcodone/APAP 5 MG/325 MG (LORTAB) TAB PO PRN (05:44)
[2017-03-15] MEDS: KCL 20 MEQ TAB (K-DUR) PO SCH (05:50)
[2017-03-15] MEDS: POTASSIUM CL 10MEQ/50ML IVPB 50 ML IV SCH (05:50)
--- NOTE | 2017-03-15 07:59 | Diagnostic Imaging Report ---
INDICATION: Abdominal pain. KUB 5:12 AM FINDINGS: Left subclavian central line tip projects over the SVC. There is some infiltrate and/or atelectasis at both lung bases. There are emphysematous changes in the lungs. IMPRESSION: Bilateral basilar infiltrate and/or atelectasis. Infiltrate in the right lower lung appears to be slightly more dense than on the previous days' comparison study. Dictated by: Dictated on workstation # [id number]
--- NOTE | 2017-03-15 08:42 | Pulmonary Progress Note ---
Subjective Subjective/Events-last exam PT is doing better no complications Exam Exam Vital Signs Date Time Temp Pulse Resp B/P (MAP) Pulse Ox O2 Delivery O2 Flow Rate FiO2 03/15/17 08:23 98.4 03/15/17 07:45 91 5.00 03/15/17 07:00 80 03/15/17 06:00 69 10 131/66 91 4.00 03/15/17 05:00 74 12 127/62 93 4.00 03/15/17 04:00 93 4.00 03/15/17 04:00 78 10 117/74 92 4.00 03/15/17 03:00 60 9 115/62 92 4.00 03/15/17 02:00 67 13 122/87 88 4.00 03/15/17 01:00 75 03/15/17 01:00 86 8 120/74 90 4.00 03/15/17 00:55 97.4 03/15/17 00:21 78 10 116/62 93 4.00 03/15/17 00:00 94 4.00 03/15/17 00:00 78 8 116/61 90 4.00 03/14/17 23:00 78 10 116/62 93 4.00 03/14/17 22:00 81 15 106/56 93 4.00 03/14/17 21:00 76 8 111/64 92 4.00 03/14/17 20:32 76 13 98/62 91 4.00 03/14/17 20:31 98.0 03/14/17 20:00 92 4.00 03/14/17 20:00 87 16 85/37 90 4.00 03/14/17 19:20 76 3.00 03/14/17 19:00 78 03/14/17 19:00 82 15 115/68 94 4.00 03/14/17 18:00 74 13 106/60 93 4.00 03/14/17 17:00 80 9 104/67 94 4.00 03/14/17 16:00 90 15 105/58 93 4.00 03/14/17 16:00 93 4.00 03/14/17 16:00 98.7 93 4.00 03/14/17 15:00 79 11 113/70 96 3.00 03/14/17 14:53 92 3.00 03/14/17 14:00 62 10 111/68 90 3.00 03/14/17 13:00 87 03/14/17 13:00 87 8 108/68 88 3.00 03/14/17 12:00 79 8 117/78 92 3.00 03/14/17 11:53 98.5 3.00 03/14/17 11:47 93 3.00 03/14/17 11:00 69 8 104/67 91 4.00 03/14/17 10:31 92 3.00 03/14/17 10:00 89 13 119/54 93 4.00 03/14/17 09:00 70 12 103/48 93 4.00 I & O 03/15/17 07:00 Intake Total 1650 ml Output Total 1900 ml Balance -250 ml General Appearance: No Apparent Distress HEENT: PERRL/EOMI, TMs Normal Neck: Full Range of Motion Respiratory: Decreased Breath Sounds Cardiovascular: Regular Rate, Rhythm Capillary Refill: Less Than 3 Seconds Peripheral Pulses: 2+ Carotid (R), 2+ Carotid (L), 2+ Radial Pulses (R), 2+ Radial Pulses (L) Gastrointestinal: other (soft, incisions c/d/i) Extremity: Normal Capillary Refill Neurologic/Psychiatric: Alert, Oriented x3 Skin: Normal Color Lymphatic: No Adenopathy Results Lab Laboratory Tests 03/14/17 05:10 03/15/17 04:30 Assessment/Plan Assessment/Plan S/P colostomy reversal -pain control -BiPAP PRN Atelectasis with pneumonia RLL-- improving -levaquin x 7 days then d/c -IS -increase activity -pt will need f/u CXR in 4-6 wks Hx of COPD- currently stable -SVNS 232 transfer to [facility] if ok with surgery. Clinical Quality Measures DVT/VTE Risk/Contraindication: Risk Factor Score Per Nursin RFS Level Per Nursing on Admit: 4+=Very High DEVIN MAK DO March 15, 2017 08:42
[2017-03-15] MEDS: PANTOPRAZOLE 40 MG/10 ML (PROTONIX) VIAL IV SCH (08:57)
[2017-03-15] MEDS: DILTIAZEM 240 MG (CARDIZEM CD) CAP PO SCH (08:58)
[2017-03-15] MEDS: SERTRALINE 50 MG (ZOLOFT) TABLET PO SCH (08:58)
[2017-03-15] MEDS ORDERED: LEVOFLOXACIN 750 MG TAB (LEVAQUIN) PO SCH (09:00)
--- NOTE | 2017-03-15 09:53 | Progress Note-Hospitalist ---
Progress Note Progress Notes/Assess & Plan Date Seen 03/15/17 Diagonsis/Assessment & Plan Pt doing well and wants to go home. + BM and doing well from that standpoint Checked meds and labs No bleeding issues Rate controlled AFVSS, Pleasant, O x 3 Irr Irr, CTAB no rales noted No edema Laboratory Tests 03/15/17 04:30 Assessment: DIVERTICULITIS COLOSTOMY TAKEDOWN Bowel function has returned ATRIAL FIBRILLATION 03/13 - Likely brought on by postoperative irritation, low hemoglobin. Patient also has a coronary history including PCI with stent placement by Dr Contreras. He is already on antiplatelet therapy. As his atrial fibrillation is now resolved, I do not believe he will need further antiplatelet therapy but will defer to Dr Lopez. Currently on low dose diltiazem after digoxin load. 03/14 - Doing well, will defer to Dr Lopez's recommendations. VENTRICULAR TACHYCARDIA, SHORT RUN 03/13 - no further occurrences 03/14 - no further occurrences Plan: DC if ok with Cardiology and surgery KLARISSA RUIZ DO March 15, 2017 09:52
[2017-03-15] MEDS: APIXABAN 5 MG (ELIQUIS) TABLET PO SCH (10:56)
[2017-03-15] MEDS ORDERED: APIX5TAB PO (13:47)
[2017-03-15] MEDS ORDERED: ASPI-999 PO (13:56)
--- NOTE | 2017-03-15 16:37 | Cardiology Progress Note ---
Cardiology SOAP Progress Note Subjective: No cardiac complaints Objective: I&O/Vital Signs Vital Sign - Last 12Hours 03/15/17 03/15/17 03/15/17 03/15/17 05:00 06:00 07:00 07:45 Pulse 74 69 80 Resp 12 10 B/P (MAP) 127/62 131/66 Pulse Ox 93 91 91 O2 Flow Rate 4.00 4.00 5.00 03/15/17 03/15/17 03/15/17 03/15/17 08:23 08:50 10:45 12:20 Temp 98.4 Pulse Ox 93 95 93 O2 Flow Rate 5.00 5.00 5.00 03/15/17 03/15/17 12:53 13:00 Temp 98.7 Pulse 69 Intake and Output 03/15/17 00:00 Intake Total 750 ml Output Total 1000 ml Balance -250 ml Weight (Pounds): 197 Weight (Ounces): 9.0 Weight (Calculated Kilograms): 89.916986 Constitutional: No appears stated age, No AAO x 3, No apparent distress, No PERRL, No well-developed, No well-nourished, No other Respiratory: No accessory muscle use, No respiratory distress, No chest tender , No chest expansion is symmetric, No chest is bilaterally symmetric, No lungs clear to percussion, No lungs clear to auscultation, No crackles, No rhonchi, No rales, No stridor, No wheezing, No pleural rub, No other Cardiovascular: regular rate-rhythm, No irregularly irregular, No extra beats, No parasternal heave is noted, No JVD, No edema, No bradycardia, No tachycardia , No point of maximal impulse, No cardiac thrills are palpable, S1 and S2, No gallop/S3, No gallop/S4, No diastolic murmur, No systolic murmur, No friction rub, No click, No other Gastrointestional: No tender, No soft, No round, No distended, No pulsatile mass, No organomegaly, No guarding, No rebound, tenderness, No hernia, No mass, No audible bowel sounds, No abnormal bowel sounds, No abdominal bruits, No spleenomegaly, other (Recent surgery) Extremities: No normal range of motion, No non-tender, No normal inspection, No pedal edema, No calf tenderness, No normal capillary refill, No pelvis stable , No calf tenderness, No inflammation, No pedal edema, No slow capillary refill , No swelling, No other, No abrasion, No clubbing, No cyanosis, No ecchymosis, No laceration, No no lower extremity edema bilateral, No significant edema, No tenderness, No wound Skin: No normal color, No warm/dry, No cyanosis, No cool, No diaphoresis, No damp, No ecchymosis, No jaundice, No mottled, No pallor, No rash, No tattoos/ piercings, No ulcerations, No rash on exposed areas, No ulcerations on exposed areas, No other Results/Procedures: Labs Laboratory Tests 03/15/17 04:30: White Blood Count 6.5, Red Blood Count 3.32L, Hemoglobin 9.6L, Hematocrit 30L, Mean Corpuscular Volume 91, Mean Corpuscular Hemoglobin 29, Mean Corpuscular Hemoglobin Concent 32, Red Cell Distribution Width 14.3, Platelet Count 246, Mean Platelet Volume 9.5, Neutrophils (%) (Auto) 76H, Lymphocytes (%) (Auto) 9L , Monocytes (%) (Auto) 11, Eosinophils (%) (Auto) 4, Basophils (%) (Auto) 0, Neutrophils # (Auto) 4.9, Lymphocytes # (Auto) 0.6L, Monocytes # (Auto) 0.7, Eosinophils # (Auto) 0.2, Basophils # (Auto) 0.0, Sodium Level 141, Potassium Level 3.9, Chloride Level 100, Carbon Dioxide Level 34H, Anion Gap 7, Blood Urea Nitrogen 9, Creatinine 0.56L, Estimat Glomerular Filtration Rate > 60, BUN/ Creatinine Ratio 16, Glucose Level 115H, Calcium Level 8.4L, Phosphorus Level 3.0, Magnesium Level 1.7L Microbiology 03/08/17 Blood Culture - Final, Complete No growth 03/08/17 MRSA Screen - Final, Complete MRSA not isolated A/P: Assessment/Dx: Atrial fibrillation with rapid ventricular rate, Coronary artery disease, recent abdominal surgery. Plan: Atrial fibrillation with rapid ventricular rate: converted to sinus rhythm. Still in sinus rhythm. Continue Cardizem and Eliquis. Coronary artery disease: He will continue his outpatient medical therapy for coronary artery disease. Plavix was previously discontinued for surgery. On Eliquis. We will let Dr. Contreras decide whether he would need antiplatelet therapy with Eliquis or not. Patient will see Dr. Contreras next week as an outpatient. Thank you for your consultation. Please call me if you have any questions. Landy Lopez MD, FACP, FACC, FSCAI, FHRS, CCDS Interventional Cardiology Cardiac Electrophysiology Vascular Medicine and Endovascular Interventions Roxy LOPEZ MD March 15, 2017 4:37 pm
== END 2017-03-15 15:45 | disposition home or self-care (01) | DRG 329 ==
LOC: 4TH 05:49 → SURG 05:50 → ICU 13:45 → 4TH 03-11 18:15 → ICU 03-12 17:30
PROVIDERS: ADMIT Surgery Pediatric Surgery; ATTEND Surgery Pediatric Surgery
PROC: 0DSM4ZZ Reposition Descending Colon, Percutaneous Endoscopic Approach (ICD-10-PCS; principal; 2017-03-08 08:16)
PROC: 0DT84ZZ Resection of Small Intestine, Percutaneous Endoscopic Approach (ICD-10-PCS; 2017-03-08 08:16)
DX: Z43.3 Encounter for attention to colostomy (principal); K66.0 Peritoneal adhesions (postprocedural) (postinfection); J96.00 Acute respiratory failure, unspecified whether with hypoxia or hypercapnia; E87.2 Acidosis; J44.0 Chronic obstructive pulmonary disease with (acute) lower respiratory infection; J18.9 Pneumonia, unspecified organism; J98.11 Atelectasis; I47.2 Ventricular tachycardia; I48.0 Paroxysmal atrial fibrillation; E87.5 Hyperkalemia; E83.42 Hypomagnesemia; E83.39 Other disorders of phosphorus metabolism; E87.8 Other disorders of electrolyte and fluid balance, not elsewhere classified; I25.10 Atherosclerotic heart disease of native coronary artery without angina pectoris; I10 Essential (primary) hypertension; E78.00 Pure hypercholesterolemia, unspecified; I95.9 Hypotension, unspecified; Z95.5 Presence of coronary angioplasty implant and graft; Z87.891 Personal history of nicotine dependence
CPT/HCPCS: 36415; 71010; 80048; 80053; 80202; 81000; 82805; 82962; 83605; 83735; 83880; 84100; 84484; 85014; 85018; 85025; 85027; 85610; 85730; 86850; 86900; 86901; 86920; 87040; 87081; 88305; 94640; 94660; 94760

== ENCOUNTER 2017-07-04 12:14 | Outpatient (CLI) | payer BC ==
[~2017-07-04] VITALS: Ht 182.9 cm; Wt 93.7 kg
[~2017-07-04 12:14] MED LIST changes: +APIX5TAB PO; +ASPI-999 PO
[2017-07-04 12:25] VITALS: BP 122/80
[2017-07-04] MEDS ORDERED: MULT-178 PO (12:30)
[2017-07-04] MEDS ORDERED: APIX5TAB PO (12:30)
[2017-07-04 12:55] LABS: BASOPHILS # (AUTO) 0.1 10^3/uL (0.0-0.1); BASOPHILS % (AUTO) 1 % (0-10); EOSINOPHILS # (AUTO) 0.2 10^3/uL (0.0-0.3); EOSINOPHILS % (AUTO) 2 % (0-10); LYMPHOCYTES # (AUTO) 1.4 X 10^3 (1.0-4.0); LYMPHOCYTES % (AUTO) 23 % (12-44); MEAN CORPUSCULAR HEMOGLOBIN 29 PG (25-34); MEAN CORPUSCULAR HGB CONC 35 G/DL (32-36); MEAN CORPUSCULAR VOLUME 84 FL (80-99); MEAN PLATELET VOLUME 10.3 FL (7.4-10.4); MONOCYTES # (AUTO) 0.5 X 10^3 (0.0-1.0); MONOCYTES % (AUTO) 7 % (0-12); NEUTROPHILS # (AUTO) 4.2 X 10^3 (1.8-7.8); NEUTROPHILS % (AUTO) 66 % (42-75); PLATELET COUNT 273 10^3/uL (130-400); RED BLOOD COUNT 4.94 10^6/uL (4.35-5.85); RED CELL DISTRIBUTION WIDTH 13.1 % (10.0-14.5); WHITE BLOOD COUNT 6.3 10^3/uL (4.3-11.0)
== END 2017-07-04 12:45 | disposition home or self-care (01) ==
LOC: PREOP 12:14
PROVIDERS: ATTEND Surgery
DX: Z01.812 Encounter for preprocedural laboratory examination (principal); K46.9 Unspecified abdominal hernia without obstruction or gangrene
CPT/HCPCS: 36415; 85025; 87081

== ENCOUNTER 2017-07-14 06:25 | Day surgery (SDC) | payer BC ==
[~2017-07-14] VITALS: Ht 182.9 cm; Wt 93.7 kg
[~2017-07-14 06:25] MED LIST changes: +MULT-178 PO
--- OUTSIDE RECORDS SUMMARY | 2017-07-14 06:40 | XMS REPORT ---
Author Author RUDDY DASILVA [facility] Address [address] [place] [address] Care Team Providers Care Shopper Marketing Manager Name Role Phone PASHA DASILVANETTE Unavailable PROBLEMS Type Condition ICD9-CM Code [id number] Code Onset Dates Condition Status SNOMED Code Problem COPD (chronic obstructive pulmonary disease) J44.9 Active 03547516 Problem CAD (coronary artery disease) I25.10 Active 41888682 Problem HTN (hypertension) I10 Active 71317805 Problem Cough 786.2 Active 50620339 Problem Erectile dysfunction N52.9 Active 334757681 Problem Hyperlipidemia E78.5 Active 69420055 Problem Colostomy in place Z93.3 Active 445034152 Problem Diverticulitis of large intestine with perforation without bleeding K57.20 Active 524744650 Problem Carbuncle L02.93 Active 134961204 Problem Anxiety F41.9 Active 97065112 Problem Gastroesophageal reflux disease without esophagitis K21.9 Active 352236173 Problem Environmental allergies Z91.09 Active 828496359 ALLERGIES Substance Reaction Event Type Date Status N.K.D.A. Unknown Non Drug Allergy Nov, Unknown SOCIAL HISTORY No smoking Hx information available PLAN OF CARE Activity Details Follow Up 3 Months, prn Reason:cad, htn, hyperlipid VITAL SIGNS Height 73 in 2016-11-23 Weight 217.6 lbs 2016-11-23 Temperature 97.7 degrees Fahrenheit 2016-11-23 Heart Rate 86 bpm 2016-11-23 Respiratory Rate 20 2016-11-23 BMI 28.71 kg/m2 2016-11-23 Blood pressure systolic 100 mmHg 2016-11-23 Blood pressure diastolic 72 mmHg 2016-11-23 MEDICATIONS Medication Instructions Dosage Frequency Start Date End Date Duration Status Spiriva Respimat 2.5 MCG/ACT Inhalation Once a day 2 puffs 24h Active Breo Ellipta 100-25 MCG/INH Inhalation Once a day 1 puff 24h Active Plavix 75 MG Orally Once a day take 1 tablet (75 mg) by oral route once daily 24h Active Percocet 10-325 MG Orally every 6 hrs 1 tablet as needed 6h Active Metoprolol Succinate 25 mg take 1 tablet (25 mg) by oral route once daily Dec, Active Aspir-81 81 MG Orally Once a day 1 tablet 24h Active Losartan Potassium 25 MG Orally Once a day 1 tablet 24h Active Viagra 100 MG TAKE ONE TABLET BY MOUTH NEEDED APPROXIMATELY 1 HOUR BEFORE SEXUAL ACTIVITY 10 Active Lopid 600 MG Orally Once a day 1 tablet 24h 30 Active Xanax 1 MG Orally Once a day 1 tablet 24h Nov, Active Protonix 40 MG Orally Once a day 1 tablet 24h Active RESULTS No Results PROCEDURES Procedure Date Ordered Related Diagnosis Body Site Office Visit, Est Pt., Level 4 Nov 23, 2016 IMMUNIZATIONS No Known Immunizations
--- OUTSIDE RECORDS SUMMARY | 2017-07-14 06:42 | XMS REPORT ---
Author Author RUDDY DASILVA [facility] Address [address] [place] [address] Care Team Providers Care Cyanide Furnace Operator Name Role Phone PASHA DASILVANETTE Unavailable PROBLEMS Type Condition ICD9-CM Code TNY92-HT Code Onset Dates Condition Status SNOMED Code Problem CAD (coronary artery disease) I25.10 Active 25279252 Problem HTN (hypertension) I10 Active 91624326 Problem COPD (chronic obstructive pulmonary disease) J44.9 Active 04856800 Problem Cough 786.2 Active 09480118 Problem Erectile dysfunction N52.9 Active 685905756 Problem Hyperlipidemia E78.5 Active 74296158 Problem Colostomy in place Z93.3 Active 261341009 Problem Diverticulitis of large intestine with perforation without bleeding K57.20 Active 217536907 Problem Carbuncle L02.93 Active 236609656 Problem Anxiety F41.9 Active 58399236 Problem Gastroesophageal reflux disease without esophagitis K21.9 Active 748981212 Problem Environmental allergies Z91.09 Active 333048518 ALLERGIES Substance Reaction Event Type Date Status N.K.D.A. Unknown Non Drug Allergy Jul, Unknown SOCIAL HISTORY No smoking Hx information available PLAN OF CARE Activity Details Follow Up prn Reason: VITAL SIGNS Height 73 in 2016-08-07 Temperature 99.5 degrees Fahrenheit 2016-08-07 Heart Rate 86 bpm 2016-08-07 Respiratory Rate 18 2016-08-07 Oximetry 93 % 2016-08-07 Blood pressure systolic 116 mmHg 2016-08-07 Blood pressure diastolic 72 mmHg 2016-08-07 MEDICATIONS Medication Instructions Dosage Frequency Start Date End Date Duration Status Lopid 600 MG Orally Once a day 1 tablet 24h 30 Active Toprol XL 25 MG TAKE ONE TABLET BY MOUTH DAILY 90 Active Viagra 100 MG TAKE ONE TABLET BY MOUTH NEEDED APPROXIMATELY 1 HOUR BEFORE SEXUAL ACTIVITY 10 Active Plavix 75 MG Orally Once a day take 1 tablet (75 mg) by oral route once daily 24h 90 Active Aspir-81 81 MG Orally Once a day 1 tablet 24h Active Metoprolol Succinate 25 mg take 1 tablet (25 mg) by oral route once daily Dec, Active Albuterol Sulfate HFA 108 (90 Base) MCG/ACT Inhalation every 4 hrs 2 puffs as needed 4h Jul, Active Promethazine-Codeine 6.25-10 MG/5ML Orally every 6 hrs 5 ml as needed 6h Jul, Active Ipratropium [place] 0.02 % Active Levaquin 500 MG Orally Once a day 1 tablet 24h Jul, Aug, 10 day(s) Active Ventolin HFA 90 mcg/actuation inhale 2 puffs by Inhalation route every 4 hours as needed PRN cough/wheeze Dec, Active Xanax 1 MG Orally Once a day 1 tablet 24h Nov, Active RESULTS No Results PROCEDURES Procedure Date Ordered Related Diagnosis Body Site NEBULIZER TREATMENT 2016-08-07 N/A Office Visit, Est Pt., Level 3 Aug 07, 2016 NEB/MDI RX INITIAL Aug 07, 2016 MEASURE BLOOD OXYGEN LEVEL Aug 07, 2016 THER/PROPH/DIAG INJ, SC/IM Aug 07, 2016 DEXAMETHASONE 4MG/ML (PER 1 MG) Aug 07, 2016 IMMUNIZATIONS Vaccine Route Administration Date Status DEXAMETHASONE 4MG/ML (PER 1 MG) IM Intramuscular Aug 07, 2016 Administered DEPO MEDROL 40 MG/ML IM Intramuscular Aug 07, 2016 Administered
[2017-07-14] MEDS ORDERED: RT-ALBUTEROL SULF 2.5 MG/3 ML PRE-MIX VIAL INH ONE (06:45)
[2017-07-14 07:30] VITALS: BP 102/69
[2017-07-14] MEDS ORDERED: ceFAZolin 1 GM/NS 50 ML IVPB IV ONE ×2 (07:30)
[2017-07-14] MEDS ORDERED: CATHETER FLUSH 10 ML SYR IV PRN (07:30)
[2017-07-14] MEDS ORDERED: BUP/EPI 0.5% 1:200,000 (MARCAINE) 10ML VIAL IJ ONE (07:38)
[2017-07-14] MEDS ORDERED: fentaNYL INJECTION 100 MCG/2 ML AMP ONE (07:45)
[2017-07-14] MEDS ORDERED: DEXAMETHASONE 10 MG/ML (DECADRON) 1 ML VIAL ONE (07:45)
[2017-07-14] MEDS ORDERED: ROCURONIUM 50 MG/5 ML (ZEMURON) VIAL IV ONE (07:45)
[2017-07-14] MEDS ORDERED: proPOfol 200 MG/20 ML (DIPRIVAN) VIAL IV ONE (07:45)
[2017-07-14] MEDS ORDERED: LIDOCAINE PF 2% 5 ML (XYLOCAINE) VIAL ONE (07:45)
[2017-07-14] MEDS ORDERED: MIDAZOLAM 2 MG/2 ML (VERSED) VIAL ONE (07:45)
[2017-07-14] MEDS ORDERED: LACTATED RINGERS 1,000 ML IV ONE ×2 (07:45→08:55)
[2017-07-14] MEDS ORDERED: SEVOFLURANE (ULTANE) 15 ML INHAL SOLN ONE (07:45)
[2017-07-14] MEDS ORDERED: ONDANSETRON 4 MG/2 ML (SDV) Z0FRAN ONE (07:45)
[2017-07-14] MEDS: LACTATED RINGERS 1,000 ML IV PRN ×2 (07:56→09:48)
--- NOTE | 2017-07-14 08:02 | Progress Note-Pre Operative ---
Pre-Operative Progress Note H&P Reviewed The H&P was reviewed, patient examined and no changes noted. Date Seen by Provider: Jul 14, 2017 Time Seen by Provider: 07:45 Date H&P Reviewed: Jul 14, 2017 Time H&P Reviewed: 07:50 Pre-Operative Diagnosis: Symptomatic Ventral abdominal incisional hernia x2 RAFIQ JOLLY APRN Jul 14, 2017 8:02 am
[2017-07-14] MEDS ORDERED: morphine INJ 10 MG/ML 1ML (SYR OR VIAL) IVP PRN (08:15)
[2017-07-14] MEDS ORDERED: ACETAMINOPHEN 325 MG TABLET/CAPLET (TYLENOL) PO PRN (08:15)
[2017-07-14] MEDS ORDERED: oxyCODONE/APAP 5/325MG (PERCOCET 5) TABLET PO PRN (08:15)
[2017-07-14] MEDS ORDERED: ONDANSETRON 4 MG/2 ML (SDV) Z0FRAN IVP PRN ×2 (08:15→10:30)
[2017-07-14] MEDS ORDERED: GLYCOPYRROLATE 0.2 MG/ML (ROBINUL) 2 ML VIAL ONE (10:13)
[2017-07-14] MEDS ORDERED: NEOSTIGMINE (BLOXIVERZ ) 1 MG/1ML 10 ML VIAL ONE (10:13)
--- NOTE | 2017-07-14 10:23 | Progress Note-Post Operative ---
Post-Operative Progess Note Surgeon (s)/Breaker Up (s) Surgeon ROXIE HERNANDEZ MD Breaker Up: tracy garcia SLAG MIXER Pre-Operative Diagnosis Symptomatic Ventral abdominal incisional hernia x2 Post-Operative Diagnosis same, left lateral abd(1cm), supraumbilical(2.5cm) Procedure & Operative Findings Date of Procedure 07/14/17 Procedure Performed/Findings open ventral abdominal incisionall hernia repair with mesh x2. Anesthesia Type GET Estimated Blood Loss Estimated blood loss (mL): minimal Specimens/Packing Specimens Removed supraumbilical hernia sac. ROXIE HERNANDEZ MD Jul 14, 2017 10:23 am
[2017-07-14] MEDS ORDERED: OXYC-202 PO (10:29)
[2017-07-14] MEDS ORDERED: PROMETHAZINE INJ 25 MG/ML (PHENERGAN) AMP IVP PRN (10:30)
[2017-07-14] MEDS ORDERED: MEPERIDINE (DEMEROL) INJ 50 MG/ML IVP PRN (10:30)
--- NOTE | 2017-07-14 10:30 | Discharge Inst-Surgical ---
D/C Lap Instructions-MARY New, Converted, or Re-Newed RX: RX on Chart Follow Up Appt in 2 weeks Activity as tolerated No driving for 24 hours No [address] while on pain medications Incentive Spirometry use every 2 hours while awake Regular Diet Symptoms to Report: Fever over 101 degree F, Nausea/Vomiting Infection Signs and Symptoms to report: Increased redness, Foul odor of wound, Increased drainage Bathing instructions: May shower Operative Area Clean/Dry; Keep incision clean/dry If any problems/questions: Contact your physician or go to Emergency Room ROXIE HERNANDEZ MD Jul 14, 2017 10:30 am
[2017-07-14] MEDS: morphine INJ 10 MG/ML 1ML (SYR OR VIAL) IVP PRN ×2 (10:52→10:57)
[2017-07-14] MEDS ORDERED: HYDROmorphone (DILAUDID) 2 MG/ML VIAL ONE (11:02)
[2017-07-14] MEDS: HYDROmorphone (DILAUDID) 2 MG/ML VIAL IVP PRN ×3 (11:12→11:42)
[2017-07-14 12:05] VITALS: BP 115/92
[2017-07-14 12:35] VITALS: BP 118/77
--- NOTE | 2017-07-14 12:37 | OPERATIVE REPORT ---
DATE OF SERVICE: 07/14/2017 ATTENDING PRIMARY CARE PHYSICIAN: Dr. Anna Marie Gavin. PREOPERATIVE DIAGNOSIS: Symptomatic ventral abdominal incisional hernia x2. POSTOPERATIVE DIAGNOSIS: Symptomatic ventral abdominal incisional hernia x2. With the left lateral abdominal incisional hernia approximately 1 cm in size and a supraumbilical incisional hernia approximately 2.5 cm in size. PROCEDURE: Open ventral abdominal incisional hernia repair with mesh x2. SURGEON: Dr. Hernandez. ORE DIGGER: Adalid Moreno APRN. ANESTHESIA: General endotracheal. ESTIMATED BLOOD LOSS: Minimal. FINDINGS: Small left lateral incisional hernia from what kind of a previous trocar site versus a previous colostomy site. This was small, approximately 1 cm in size. There was a supraumbilical incisional hernia which was larger approximately 2.5 cm in size. DISPOSITION: The patient tolerated the procedure well. INDICATIONS: The patient is a 61-year-old male known to us. He presented the fall of 2015 with abdominal pain which worsened. He was found to have a ruptured diverticulitis. At that time, he was adamant about not having any diversion procedure or colostomy. He did agree to laparoscopy, washout and drain placement with which we did. He continued to have issues with recurrent abscesses even despite IV antibiotics as an outpatient basis. Eventually, he has agreed to colostomy formation as well as sigmoid colon resection. This was then reversed. 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 He states that he has developed outpouchings in two areas, one in the left lateral abdomen as well as the supraumbilical region which have grown larger in size and become painful. Upon examination, he was found to have two reducible ventral abdominal incisional hernias which were painful to palpation. DESCRIPTION OF PROCEDURE: The patient was brought to the operating room, laid supine on the table. After adequate IV pain and sedative medications and general endotracheal intubation, the abdomen was prepped and draped in standard surgical fashion. Then, 0.5% Marcaine with epinephrine was used to anesthetize the overlying skin in the supraumbilical region. A crescent-shaped skin incision was then made using a 15 blade. The hernia sac was identified and completely dissected out using blunt dissection as well as electrocautery. The hernia sac was then opened using Metzenbaum scissors and the hernia sac excised and sent to pathology. The fascial defect itself was a 2.5 cm in size. An area of good fascia around the defect was then cleared off using electrocautery. We then explored the second hernia in the left lateral abdomen intraperitoneally. Very small hernia which was palpable approximately 1 cm in size was identified. No other hernias were identified. It was then decided to repair this from the inside out. This area was marked along the skin and mass and anesthetized using 0.5% Marcaine with epinephrine. A small 1 cm transverse skin incision was then made using a 15 blade. A 4.3 cm circular coated polypropylene mesh was then pulled through the opening. A transfascial sutures were then placed superiorly and inferiorly to hold it into place. The mesh was palpated and lying flat along the peritoneal lining. We then proceeded with repair of the larger supraumbilical hernia. A 6.4 cm circular coated polypropylene mesh was then placed into the defect. We then placed a concentric interrupted 0 Prolene sutures without any tension approximating the fascia to the mesh. Good hemostasis was observed. For both skin incisions, the subcutaneous tissue was reapproximated using 3-0 Vicryl interrupted sutures. Skin was closed using 4-0 Monocryl running subcuticular sutures. Wounds were then cleaned and covered with Dermabond. Abdominal binder was then applied. The patient tolerated the procedure well. We will start IV and oral pain medication as well as a clear diet. Once he is tolerating clears and has good pain control with oral pain medications and ambulating well, we will discharge him home. He will be instructed to absolutely no heavy lifting or exertion for the next 2 weeks and then he may then increase activity slowly; however, not incorporate any significant lifting or exertion that requires straining or Valsalva maneuver until six weeks from surgery date. Job ID: [id number] DocumentID: [id number] Dictated Date: 07/14/2017 10:40:53 Purchasing And Fiscal Clerk Date: 07/14/2017 12:37:23 Dictated By: ROXIE HERNANDEZ MD
[2017-07-14 13:05] VITALS: BP 113/70
== END 2017-07-14 13:22 | disposition home or self-care (01) ==
LOC: SDC 06:25
PROVIDERS: ATTEND Surgery
DX: K43.2 Incisional hernia without obstruction or gangrene (principal); J44.9 Chronic obstructive pulmonary disease, unspecified; I25.10 Atherosclerotic heart disease of native coronary artery without angina pectoris; I48.91 Unspecified atrial fibrillation; I10 Essential (primary) hypertension; E78.00 Pure hypercholesterolemia, unspecified; Z95.5 Presence of coronary angioplasty implant and graft; Z79.02 Long term (current) use of antithrombotics/antiplatelets; Z79.82 Long term (current) use of aspirin; Z79.899 Other long term (current) drug therapy; Z87.891 Personal history of nicotine dependence
CPT/HCPCS: 94640; 94664

== ENCOUNTER → 2017-08-31 | Outpatient (CLI) | payer BC ==
--- NOTE | 2017-08-31 14:31 | Diagnostic Imaging Report ---
INDICATION: Cough. COMPARISON: 03/15/2017. FINDINGS: Frontal and lateral radiographic views of the chest were obtained and show normal cardiac silhouette and pulmonary vasculature. Lungs show hyperinflation with background of emphysematous disease. Previously described infiltrate has since resolved. There is no evidence of focal consolidation, pleural effusion, nor pneumothorax on today's study. Bony structures show no gross acute abnormalities. IMPRESSION: 1. No acute cardiopulmonary process. 2. Background of moderate emphysematous disease. Dictated by: Dictated on workstation # [id number]
== END ==
LOC: RAD 13:39
PROVIDERS: ATTEND Nurse Practitioner Family
DX: J43.9 Emphysema, unspecified (principal)
CPT/HCPCS: 71020

== ENCOUNTER → 2019-09-25 | Outpatient (CLI) | payer BC ==
[~2019-09-25] MED LIST changes: +CATHETER FLUSH 10 ML SYR IV PRN; +DIAZ10TA3 PO; -GEMF600T3 PO; +GEMF600T8 PO; +HOLD METFORMIN - RECEIVED CONTRAST 20 ML VIAL IV SCH; +IOHEXOL 350 MG/ML 100 ML (OMNIPAQUE 350) VIAL IV ONE; -LOSA25TA21 PO; +LOSA25TA41 PO; +METR-145 PO; -METR500T21 PO; +NS 100 ML (IVPB) BAG IV ONE; -OXYC-197 PO; -OXYC-202 PO; +OXYC1TAB12 PO; +OXYC1TAB87 PO
--- NOTE | 2019-09-25 11:26 | Diagnostic Imaging Report ---
PROCEDURE: CT chest with contrast only. TECHNIQUE: Multiple contiguous axial images were obtained through the chest after administration of intravenous contrast. Auto Exposure Controls were utilized during the CT exam to meet ALARA standards for radiation dose reduction. DATE: September 25, 2019. COMPARISON: Chest radiographs of August 31, 2017. INDICATION: 64-year-old male, shortness of breath, bronchitis. FINDINGS: There are upper lobe predominant changes of emphysema. There is pleural/parenchymal scarring in the lung apices. There is mild left lower lobe and right lower lobe bronchiectasis. There is no pulmonary nodule or lung mass. There is no additional focal airspace consolidation. The central airways are patent. There is no identified pulmonary embolus. The main pulmonary artery is normal in caliber. The heart is not enlarged. There is no pericardial effusion. There are coronary artery calcifications and additional areas of atherosclerotic disease. There is no identified abnormally enlarged mediastinal, hilar, or axillary lymph node which meets CT size criteria for adenopathy. The imaged portions of the upper abdomen are unremarkable in appearance. There is no identified acute bony abnormality. IMPRESSION: 1. No identified acute cardiopulmonary abnormality. 2. Findings of emphysema. Dictated by: Dictated on workstation # [id number]
== END | disposition still patient (30) ==
LOC: RAD 14:35
PROVIDERS: ATTEND Nurse Practitioner Family
DX: J43.9 Emphysema, unspecified (principal); J40 Bronchitis, not specified as acute or chronic; Z87.891 Personal history of nicotine dependence; Z91.14 Patient's other noncompliance with medication regimen
CPT/HCPCS: 71260

== ENCOUNTER → 2019-09-25 | Outpatient (CLI) | payer BC ==
[~2019-09-25] MED LIST changes: -CATHETER FLUSH 10 ML SYR IV PRN; -HOLD METFORMIN - RECEIVED CONTRAST 20 ML VIAL IV SCH; -IOHEXOL 350 MG/ML 100 ML (OMNIPAQUE 350) VIAL IV ONE; -NS 100 ML (IVPB) BAG IV ONE
[2019-09-25 07:44] LABS: BASOPHILS # (AUTO) 0.1 10^3/uL (0.0-0.1); BASOPHILS % (AUTO) 1 % (0-10); EOSINOPHILS # (AUTO) 0.2 10^3/uL (0.0-0.3); EOSINOPHILS % (AUTO) 3 % (0-10); HEMATOCRIT 44 % (40-54); HEMOGLOBIN 14.6 G/DL (13.3-17.7); LYMPHOCYTES # (AUTO) 1.8 X 10^3 (1.0-4.0); LYMPHOCYTES % (AUTO) 22 % (12-44); MEAN CORPUSCULAR HEMOGLOBIN 30 PG (25-34); MEAN CORPUSCULAR HGB CONC 33 G/DL (32-36); MEAN CORPUSCULAR VOLUME 89 FL (80-99); MEAN PLATELET VOLUME 10.3 FL (7.4-10.4); MONOCYTES # (AUTO) 0.6 X 10^3 (0.0-1.0); MONOCYTES % (AUTO) 8 % (0-12); NEUTROPHILS # (AUTO) 5.6 X 10^3 (1.8-7.8); NEUTROPHILS % (AUTO) 67 % (42-75); PLATELET COUNT 255 10^3/uL (130-400); RED CELL DISTRIBUTION WIDTH 13.1 % (10.0-14.5); WHITE BLOOD COUNT 8.4 10^3/uL (4.3-11.0)
[2019-09-25 08:03] LABS: BUN/CREATININE RATIO 36; CREATININE SERUM 0.95 MG/DL (0.60-1.30); GFR ESTIMATED > 60
== END ==
LOC: LAB 07:29
PROVIDERS: ATTEND Nurse Practitioner Family
DX: J44.1 Chronic obstructive pulmonary disease with (acute) exacerbation (principal); J40 Bronchitis, not specified as acute or chronic; Z87.891 Personal history of nicotine dependence; Z91.14 Patient's other noncompliance with medication regimen
CPT/HCPCS: 36415; 82565; 84520; 85025

== ENCOUNTER → 2020-09-26 | Outpatient (CLI) | payer BC ==
[~2020-09-26] MED LIST changes: -HYDR473S34 PO; +HYDR473S61 PO; +LEVO750P IV; -LEVO750P7 IV; -OXYC-465 PO; +OXYC-556 PO; -PANT40TA3 PO; +PANT40TA52 PO
--- NOTE | 2020-09-26 16:36 | Diagnostic Imaging Report ---
CT CHEST SCREENING WO TECHNIQUE: Low-dose unenhanced CT of the chest was performed according to the screening protocol. Coronal MIP and sagittal MPR reformats are created. Automatic exposure controls were utilized to keep dose as low as reasonably achievable. INDICATION: 71-[id number] history of smoking. COMPARISON: CT chest of 09/25/2019. FINDINGS: Pulmonary findings: Severe centrilobular emphysema and paraseptal emphysema is unchanged, and greatest in the upper lobes. No pulmonary mass or consolidation. Mild tubular bronchiectasis within the lower lobes is unchanged. No new pulmonary nodules that would suggest clinically active lung cancer. Irregular subpleural nodules on the right lower lobe are stable and likely due to scar. Extrapulmonary findings: No pleural effusion or axillary lymphadenopathy. No mediastinal lymphadenopathy. Heart is normal in size without pericardial effusion. Small sliding-type hiatal hernia is unchanged. Normal-caliber thoracic aorta. No worrisome focal osseous lesions. IMPRESSION: No change to indicate clinically active lung cancer. Lung-RADS category: 2 - Benign appearance or behavior Recommendations: Continued annual screening with low-dose CT in 12 months. Dictated by: Dictated on workstation # [id number]
== END ==
LOC: RAD 15:55
PROVIDERS: ATTEND Nurse Practitioner Family
DX: F17.201 Nicotine dependence, unspecified, in remission (principal)

== ENCOUNTER → 2021-03-23 | Outpatient (CLI) | payer BC ==
[~2021-03-23] MED LIST changes: -GEMF600T8 PO; +GEMF600T88 PO; +SERT-413 PO; -SERT50TA9 PO
== END ==
LOC: GIR 20:30
PROVIDERS: ATTEND Internal Medicine
DX: Z01.89 Encounter for other specified special examinations (principal)
CPT/HCPCS: 84145

== ENCOUNTER → 2021-09-22 | Outpatient (CLI) | payer BC ==
[~2021-09-22] MED LIST changes: +CATHETER FLUSH 10 ML SYR IV PRN; +REGADENOSON 0.4 MG/5 ML SYR (LEXISCAN) IV ONE
[2021-09-22 13:34] VITALS: BP 157/90
--- NOTE | 2021-09-23 16:24 | STRESS TEST ---
DATE OF SERVICE: 09/22/2021 RESTING AND POST REGADENOSON TECHNETIUM-99M TETROFOSMIN SPECT CT IMAGING ORDERING PHYSICIAN: Dr. Contreras. PRIMARY PHYSICIAN: Dr. Dodd. CLINICAL DIAGNOSIS: Coronary artery disease. Baseline images were carried out after injection of 10.87 mCi of technetium-99m Tetrofosmin. This was followed by 0.4 mg regadenoson and 31.6 mCi of technetium-99m Tetrofosmin for stress imaging. The electrocardiogram showed sinus rhythm at baseline. There is considerable baseline artifact during the study. There did not appear to be significant electrocardiographic changes with myocardial perfusion imaging. He did exhibit sinus tachycardia during the study. He noted mild shortness of breath with regadenoson infusion, which resolved in a few minutes. Review of images at rest and following stress indicates diminished count uptake in the inferior wall and the septum both at rest and following regadenoson infusion. This is on the corrected images. With attenuation correction, there does not appear to be any significant perfusion defects. Gated images show normal regional wall motion, including the septum and the inferior wall. Thus, there does not appear to be any distinct evidence of significant myocardial infarction. Left ventricular ejection fraction is calculated to be 36%. However, visual estimate appears to be considerably higher. The study may difficult also by significant patient motion during the study. Left ventricular end-diastolic volume 81 mL. TID is absent (1.06). CONCLUSIONS: 1. Technically difficult study. 2. No distinct evidence of myocardial infarction or significant myocardial ischemia. 3. The ejection fraction is calculated to be 36%, but subjectively it appears considerably higher. Job ID: [id number] DocumentID: [id number] Dictated Date: 09/23/2021 13:08:14 Inventory Clerk Date: 09/23/2021 16:23:00 Dictated By: NOE CONTRERAS MD, MA, FACP, FACC, MTDD
== END ==
LOC: CARD 11:28
PROVIDERS: ATTEND Internal Medicine Cardiovascular Disease
DX: I25.10 Atherosclerotic heart disease of native coronary artery without angina pectoris (principal)
CPT/HCPCS: 78452; 93017; 93306; A9502

== ENCOUNTER → 2022-04-09 | Outpatient (CLI) | payer OTHER ==
[~2022-04-09] MED LIST changes: -CATHETER FLUSH 10 ML SYR IV PRN; -REGADENOSON 0.4 MG/5 ML SYR (LEXISCAN) IV ONE
--- NOTE | 2022-04-09 09:14 | Diagnostic Imaging Report ---
Time of study: 04/09/2022 8:43 AM CLINICAL HISTORY: Abdominal aortic aneurysm screening. COMPARISON: None. TECHNIQUE: Limited abdominal sonogram was performed to evaluate the abdominal aorta. FINDINGS: The abdominal aorta is normal in course and caliber. There is no evidence of aneurysm. The axial dimensions of the abdominal aorta are: Proximal: 1.9 x 3.0 cm. Mid: 1.8 x 2.2 cm. Distal: 3.2 x 3.2 cm. The aortic bifurcation is unremarkable. The proximal portions of the right and left common iliac arteries are unremarkable. The right common iliac artery measures 1.3 x 1.5 cm in diameter. The left common iliac artery measures 1.0 x 1.6 cm. No large retroperitoneal masses or fluid collections are seen. IMPRESSION: 1. Ectatic/aneurysmal dilation of the infrarenal abdominal aorta measuring 3.2 x 3.2 cm and 3.1 cm craniocaudal. Recommend continued followup as indicated. Dictated by: Dictated on workstation # [id number]
== END ==
LOC: RAD 07:15
PROVIDERS: ATTEND Internal Medicine Cardiovascular Disease
DX: I77.811 Abdominal aortic ectasia (principal)
CPT/HCPCS: 76775